=== PATIENT | male | born 1965 | race Caucasian/White ===

== ENCOUNTER 2021-01-24 08:06 | Inpatient (IN) ==
[2021-01-24] MEDS ORDERED: SODIUM CHLORIDE 0.9% 1000ML 1,000 ML IV ONE (08:39)
[2021-01-24] MEDS ORDERED: ALBUT/IPRATROP 3MG/0.5MG NEB 3 ML VIAL NEB STA (08:39)
[2021-01-24] MEDS ORDERED: ACETAMINOPHEN 500 MG TAB PO STA (08:39)
[2021-01-24] MEDS ORDERED: ONDANSETRON INJ 2 MG/ML 2 ML VIAL IV STA (08:39)
[2021-01-24] MEDS ORDERED: KETOROLAC TROMETHAMINE 15 MG/ML VIAL IV STA (08:39)
--- NOTE | 2021-01-24 09:02 | Emergency Department Note ---
Impression & Plan Hypoxia, Pneumonia, COVID-19, Elevated liver enzymes, Bilateral flank pain ED Provider Note NAME: ROLANDO PARRY AGE: 55 SEX: M : 1965 ARRIVES VIA: Walk-In INFORMANT: [Patient] ED PROVIDER(S): [Ej Fierro MD] CHIEF COMPLAINT: Illness HISTORY OF PRESENT ILLNESS: The patient is a 55-year-old male who has been ill with a cough for 5 days. He has had a fever of 102, decreased appetite and fatigue. No shortness of breath. He has a runny nose and had a mild sore throat at the start of his illness, the sore throat has resolved. He is not short of breath, no nausea or vomiting. The patient believes he may have COVID-19, he is not vaccinated. He works at [employer]. The patient states that for 2 days now, he has had moderate pain in both kidneys. He has not noticed any difficulty with urination though. The patient had an outpatient Covid test, the results are pending. He presents today because he is concerned for dehydration. REVIEW OF SYSTEMS: See HPI for pertinent positives and negatives. A total of ten systems were reviewed and were otherwise negative. PMHx/PSHx: See Below SOCIAL HISTORY: See Below. PHYSICAL EXAM: GENERAL: Patient is in no acute distress. HEENT: No acute trauma, normocephalic atraumatic, mucous membranes moist, no nasal congestion, no scleral icterus. NECK: No stridor, no adenopathy, no meningismus, trachea is midline. LUNGS: Scattered crackles at the right base, no wheezing, no respiratory distress. HEART: Without murmurs gallops or rubs, regular rate and rhythm. ABDOMEN: Soft, nontender, bowel sounds positive, no hernias, no peritonitis. EXTREMITIES: No cyanosis or edema, full range of motion of all the joints without pain or difficulty, no signs for acute trauma. NEUROLOGIC: Oriented x 3, no acute motor or sensory deficits, no focal weakness. SKIN: No rash, no jaundice, no diaphoresis. DIFFERENTIAL DIAGNOSIS: COVID-19, influenza, dehydration, electrolyte imbalance, UTI, hydronephrosis, pneumonia, among others. EMERGENCY DEPARTMENT COURSE/PROCEDURES: ECG: Indication was weakness. The ECG shows a normal sinus rhythm with a rate of 91. LVH is present. There is no ST elevation, no PVCs. The QTc is 479. Continuous Cardiac Monitoring: An order was placed for continuous cardiac sylvia toring. The monitor shows a rate of 90 with normal sinus rhythm. Critical Care Note: I have personally spent 41 minutes of critical care time in the direct management of this patient. This includes bedside care, interpretation of diagnostic studies, and testing, discussion with consultants, patient, and family members, and other required patient management activities. This 41 minutes is in excess of all separately billable procedures. MEDICAL DECISION MAKING: There is no leukocytosis. A mild anemia was noted. There is a normal platelet count. There was some renal insufficiency/dehydration with a creatinine of 1.45. Potassium was low at 2.9. Sodium was low 131. There were some elevated liver enzymes, the bilirubin however was normal. ECG shows a normal sinus rhythm, no acute ischemia. Cardiac enzyme testing x1 is not consistent with acute cardiac injury. Influenza testing was negative. Covid test is positive. Chest x-ray shows a bilateral pneumonia consistent with COVID-19. The patient received IV saline, 1 L. He was given IV potassium, IV Zofran, IV Toradol, IV Decadron and a DuoNeb. He was given oral Tylenol. The patient did drop his O2 saturation here to around 87%. He required nasal cannula supplementation. The patient is going to be hospitalized. He has COVID-19. He is hypoxic. He has some electrolyte abnormalities that require correction. The reason for the elevated LFTs is unclear. An ultrasound of his liver was performed, no mass or concerning pathology found. Renal ultrasound did not show any hydronephrosis. Urinalysis is currently pending. I suspect his flank pain is secondary to the COVID-19 rather than a renal issue. I spoke to the patient about his findings, I did consult the cyanide case hardener. The on-call hospitalist was consulted. Past Med/Surg History Medical History Hypertension Social History Smoking Status: Never smoker Feels Safe at Home: Yes Allergies Allergies Allergy/AdvReac Type Severity Reaction Status Date / Time oxycodone Allergy Severe nausea/vomi Unverified 01/05/16 11:13 ting Home Meds Home Medications Medication Instructions Recorded Confirmed amlodipine 10 mg tablet (Norvasc) 10 mg PO DAILY 01/24/21 01/24/21 atomoxetine 100 mg capsule 100 mg PO DAILY 01/24/21 01/24/21 cholecalciferol (vitamin D3) 50 50 mcg PO DAILY 01/24/21 01/24/21 mcg (2,000 unit) capsule (Vitamin D3) desvenlafaxine succinate 100 mg 100 mg PO DAILY 01/24/21 01/24/21 tablet,extended release 24 hr desvenlafaxine succinate 50 mg 50 mg PO DAILY 01/24/21 01/24/21 tablet,extended release 24 hr (Pristiq) levothyroxine 125 mcg tablet 125 mcg PO DAILY 01/24/21 01/24/21 omeprazole 40 mg capsule,delayed 40 mg PO BID 01/24/21 01/24/21 release potassium 99 mg tablet 99 mg PO DAILY 01/24/21 01/24/21 rosuvastatin 10 mg tablet 10 mg PO DAILY 01/24/21 01/24/21 tamsulosin 0.4 mg capsule 0.4 mg PO DAILY 01/24/21 01/24/21 triamterene 75 1 tab PO DAILY 01/24/21 01/24/21 mg-hydrochlorothiazide 50 mg tablet (Maxzide) Results & Data (ED) Vital Signs Vital Signs - 24 hr 01/24/21 08:16 01/24/21 08:41 01/24/21 08:42 Temperature 36.9 C Temperature Source Temporal Artery Scan Pulse Rate 103 H Pulse Rate [Apical] 90 Respiratory Rate 18 20 Respiratory Effort / Characteristics Non-Labored Blood Pressure 119/82 Blood Pressure Mean 94 Pulse Oximetry 95 87 L 90 Oxygen Delivery Method Room Air Nasal Cannula Oxygen Flow Rate 2 2 Sepsis Recent Fever Within 48 Hours No Sepsis New/Unexplained Change in Mental Status No Sepsis Action Taken by Nursing No Action Required 01/24/21 09:01 01/24/21 10:07 01/24/21 12:00 Temperature Temperature Source Pulse Rate Pulse Rate [Apical] 90 90 75 Respiratory Rate 18 20 Respiratory Effort / Characteristics Non-Labored Spontaneous Blood Pressure Blood Pressure Mean Pulse Oximetry 91 91 94 Oxygen Delivery Method Room Air Nasal Cannula Nasal Cannula Oxygen Flow Rate 2 2 Sepsis Recent Fever Within 48 Hours Sepsis New/Unexplained Change in Mental Status Sepsis Action Taken by [facility] Medications Current Medication List: was personally reviewed by me Laboratory Data Attestation: I reviewed the patient's lab results. Result diagrams: 01/24/21 Unknown 01/24/21 Unknown Lab Results 01/24/21 01/24/21 01/24/21 Range/Units Unknown Unknown Unknown WBC 6.53 (4.8-10.8) K/uL RBC 5.76 (4.7-6.1) M/uL Hgb 13.3 L (14.0-18.0) g/dL Hct 41.6 L (42-52) % MCV 72.2 L (80-100) fL MCH 23.1 L (25-34) pg MCHC 32.0 (32-36) g/dL RDW Std Deviation 45.7 (36.4-46.3) fL RDW Coeff of Minerva 17.5 H (11.5-14.5) % Plt Count 257 (130-400) K/uL MPV 10.4 (7.4-10.4) fL Immature Gran % (Auto) 0.3 % Neut % (Auto) 80.3 % Lymph % (Auto) 12.3 % [place] % (Auto) 6.9 % Eos % (Auto) 0.0 % Baso % (Auto) 0.2 % Neut # (Auto) 5.25 (1.4-6.5) K/uL Lymph # (Auto) 0.80 L (1.2-3.4) K/uL [place] # (Auto) 0.45 (0.11-0.59) K/uL Eos # (Auto) 0.00 (0-0.5) K/uL Baso # (Auto) 0.01 (0-0.2) K/uL Immature Gran # (Auto) 0.02 (0.00-0.02) K/uL Sodium 131 L (136-145) mmol/L Potassium 2.9 L (3.5-5.1) mmol/L Chloride 94 L (98-107) mmol/L Carbon Dioxide 29 (21-32) mmol/L Anion Gap 8.0 (3-11) BUN 21 H (7-18) mg/dl Creatinine 1.45 H (0.6-1.4) mg/dl Est Cr Clr Drug Dosing Not Reportable Est GFR ( Amer) 62.4 ml/min Est GFR (Non-Af Amer) 53.8 ml/min BUN/Creatinine Ratio 14.3 (10-20) Glucose 104 H (70-99) mg/dl Calcium 9.2 (8.5-10.1) mg/dl Magnesium 2.5 H (1.8-2.4) mg/dl Total Bilirubin 0.6 (0.2-1) mg/dl AST 278 H (15-37) U/L ALT 220 H (12-78) U/L Alkaline Phosphatase 132 H (45-117) U/L Troponin I < 0.015 (0-0.045) ng/ml Total Protein 8.6 H (6.4-8.2) gm/dl Albumin 3.9 (3.4-5.0) gm/dl Globulin 4.7 H (2.5-4.0) gm/dl Albumin/Globulin Ratio 0.8 L (0.9-2) Specimen Hemolysis COVID-19 Eval Order Covid19 at [facility] SARS-CoV-2 (PCR) (Negative) Influenza Type A Ag (Neg) Influenza Type B Ag (Neg) 01/24/21 01/24/21 01/24/21 Range/Units Unknown Unknown Unknown WBC (4.8-10.8) K/uL RBC (4.7-6.1) M/uL Hgb (14.0-18.0) g/dL Hct (42-52) % MCV (80-100) fL MCH (25-34) pg MCHC (32-36) g/dL RDW Std Deviation (36.4-46.3) fL RDW Coeff of Minerva (11.5-14.5) % Plt Count (130-400) K/uL MPV (7.4-10.4) fL Immature Gran % (Auto) % Neut % (Auto) % Lymph % (Auto) % [place] % (Auto) % Eos % (Auto) % Baso % (Auto) % Neut # (Auto) (1.4-6.5) K/uL Lymph # (Auto) (1.2-3.4) K/uL [place] # (Auto) (0.11-0.59) K/uL Eos # (Auto) (0-0.5) K/uL Baso # (Auto) (0-0.2) K/uL Immature Gran # (Auto) (0.00-0.02) K/uL Sodium (136-145) mmol/L Potassium (3.5-5.1) mmol/L Chloride (98-107) mmol/L Carbon Dioxide (21-32) mmol/L Anion Gap (3-11) BUN (7-18) mg/dl Creatinine (0.6-1.4) mg/dl Est Cr Clr Drug Dosing Est GFR ( Amer) ml/min Est GFR (Non-Af Amer) ml/min BUN/Creatinine Ratio (10-20) Glucose (70-99) mg/dl Calcium (8.5-10.1) mg/dl Magnesium 2.4 (1.8-2.4) mg/dl Total Bilirubin (0.2-1) mg/dl AST (15-37) U/L ALT (12-78) U/L Alkaline Phosphatase (45-117) U/L Troponin I (0-0.045) ng/ml Total Protein (6.4-8.2) gm/dl Albumin (3.4-5.0) gm/dl Globulin (2.5-4.0) gm/dl Albumin/Globulin Ratio (0.9-2) Specimen Hemolysis COVID-19 Eval Order SARS-CoV-2 (PCR) POSITIVE A* (Negative) Influenza Type A Ag Neg for Influ A (Neg) Influenza Type B Ag Neg for Influ B (Neg) Administered Medications Discontinued Medications Acetaminophen (Acetaminophen 500 Mg Tab) 1,000 mg PO NOW STA Stop: 01/24/21 08:40 Last Admin: 01/24/21 09:20 Dose: 1,000 mg Documented by: [id number] Albuterol (Albut/Ipratrop 3mg/0.5mg Neb 3 Ml Vial) 3 ml NEB NOW STA Stop: 01/24/21 08:40 Last Admin: 01/24/21 09:01 Dose: 3 ml Documented by: [id number] Dexamethasone Sodium Phosphate (DexamethasonePf 10 Mg/Ml Vial) 6 mg IV NOW ONE Stop: 01/24/21 11:18 Last Admin: 01/24/21 12:31 Dose: 6 mg Documented by: [id number] Sodium Chloride (Nss 1000ml) 1,000 mls @ 999 mls/hr IV .Q1H1M ONE Stop: 01/24/21 09:39 Last Admin: 01/24/21 09:21 Dose: 999 mls/hr Documented by: [id number] Potassium Chloride (K Seth / Wtr) 10 meq in 100 mls @ 100 mls/hr IV ONE ONE Stop: 01/24/21 11:52 Last Admin: 01/24/21 12:31 Dose: 100 mls/hr Documented by: [id number] Ketorolac Tromethamine (Ketorolac Tromethamine 15 Mg/Ml Vial) 15 mg IV NOW STA Stop: 01/24/21 08:40 Last Admin: 01/24/21 09:20 Dose: 15 mg Documented by: [id number] Ondansetron HCl (Ondansetron Inj 2 Mg/Ml 2 Ml Vial) 4 mg IV NOW STA Stop: 01/24/21 08:40 Last Admin: 01/24/21 09:20 Dose: 4 mg Documented by: [id number] Imaging Data Radiologist's Impression: Chest X-Ray 01/24/21 08:42 XR chest 1V portable CLINICAL HISTORY: SOB TECHNIQUE: Single frontal radiograph of the chest was obtained. Comparison: None available at the time of this dictation. FINDINGS: No lines and tubes are seen. The cardiomediastinal silhouette is normal. Bibasilar airspace opacities are seen. No evidence of pleural effusion or pneumothorax. IMPRESSION: Bilateral lower lung predominant airspace opacities which may represent atelectasis, pneumonia, and/or aspiration. ACT 112: Negative or not required by law. Electronically signed by: Trino Saha M.D. 01/24/2021 10:22 AM Renal Ultrasound 01/24/21 08:44 ULTRASOUND KIDNEYS AND BLADDER CLINICAL HISTORY: Flank pain. COMPARISON STUDY: No priors. TECHNIQUE: Real-time, grayscale, and color flow sonography of the kidneys and bladder is performed. Images are reviewed in the transverse and longitudinal planes. FINDINGS: Kidneys: The kidneys are normal in size and echotexture. The right kidney measures 13.8 cm in length and the left kidney measures 13.5 cm in length. There is no hydronephrosis. No shadowing renal calculi are identified. A 3.0 cm simple cyst is noted in the right upper pole. There is no sonographic evidence of contour deforming renal mass lesion. No perinephric fluid is identified. Bladder: The bladder is partially distended and the wall appears mildly thicke jill and trabeculated. Ureteral jets were not seen. Upper abdomen: Survey images of the liver show evidence of hepatic steatosis. IMPRESSION: 1. Unremarkable sonographic appearance of the kidneys. 2. The bladder is partially distended, and the wall appears mildly thickened/trabeculated. Correlate with clinical findings and urinalysis. 3. Hepatic steatosis. ACT 112: Negative or not required by law. Electronically signed by: Ej Irby M.D. 01/24/2021 12:10 PM Liver Ultrasound 01/24/21 10:54 ULTRASOUND RIGHT UPPER QUADRANT ABDOMEN CLINICAL HISTORY: Elevated hepatic transaminases. COMPARISON STUDY: Abdominal ultrasound dated 05/21/2018. TECHNIQUE: Real-time, grayscale, and color flow sonography of the right upper quadrant of the abdomen was performed. Images are reviewed in the transverse and longitudinal planes. FINDINGS: Liver: The liver is enlarged and demonstrates heterogeneously increased echotexture consistent with hepatic steatosis. There is no intrahepatic biliary ductal dilatation. The main portal vein is patent. Gallbladder: The gallbladder is normal in appearance. No gallstones are identified. There is no gallbladder wall thickening or pericholecystic fluid. A sonographic Woods's sign is reportedly absent. The common bile duct measures up to 0.5 cm in diameter. Pancreas: Visualized portions of the pancreatic head and body are normal in appearance. Right kidney: Survey images of the right kidney demonstrate normal size and echotexture. There is no hydronephrosis. A 3.2 cm cyst is incidentally noted. Ascites: None. IMPRESSION: 1. Hepatomegaly and hepatic steatosis. 2. No gallstones are identified. ACT 112: Negative or not required by law. Electronically signed by: Ej Irby M.D. 01/24/2021 12:08 PM Discharge Plan Visit Data Chief Complaint: Abdominal Pain Stated Complaint: COUGH,FEVER FOR A FEW DAYS,KIDNEY AND STOMACH PAIN ED Provider: Ej Fierro Discharge Problem: Hypoxia, Pneumonia, COVID-19, Elevated liver enzymes, Bilateral flank pain Patient Disposition: Admitted As Inpatient Condition: Fair Forms Stand Alone Forms: [facility] [place] [facility] Prescriptions Prescriptions: No Action omeprazole 40 mg capsule,delayed release(DR/EC) 40 mg PO BID RF: 0 tamsulosin 0.4 mg capsule 0.4 mg PO DAILY RF: 0 amlodipine [Norvasc] 10 mg tablet 10 mg PO DAILY RF: 0 levothyroxine 125 mcg tablet 125 mcg PO DAILY RF: 0 triamterene-hydrochlorothiazid [Maxzide] 75-50 mg tablet 1 tab PO DAILY RF: 0 rosuvastatin 10 mg tablet 10 mg PO DAILY RF: 0 atomoxetine 100 mg capsule 100 mg PO DAILY RF: 0 desvenlafaxine succinate [Pristiq] 50 mg tablet extended release 24 hr 50 mg PO DAILY RF: 0 cholecalciferol (vitamin D3) [Vitamin D3] 50 mcg (2,000 unit) capsule 50 mcg PO DAILY RF: 0 potassium [Potassium-99] 99 mg Tablet 99 mg PO DAILY RF: 0 desvenlafaxine succinate 100 mg tablet extended release 24 hr 100 mg PO DAILY RF: 0 Referrals Referrals: Khoi Saldivar DO [Primary Care Provider] -
[2021-01-24 09:39] LABS: Basophils # (auto) 0.01 K/uL (0-0.2); Basophils % (auto) 0.2 %; Hematocrit (blood only) 41.6 % (42-52); Hemoglobin 13.3 g/dL (14.0-18.0); Immature Granulocytes # (auto) 0.02 K/uL (0.00-0.02); Immature Granulocytes % (auto) 0.3 %; Lymphocytes % (auto) 12.3 %; Mean Corpuscular Hemoglobin 23.1 pg (25-34); Mean Corpuscular Volume 72.2 fL (80-100); Mean Platelet Volume 10.4 fL (7.4-10.4); Monocytes # (auto) 0.45 K/uL (0.11-0.59); Monocytes % (auto) 6.9 %; Neutrophils # (auto) 5.25 K/uL (1.4-6.5); Neutrophils % (auto) 80.3 %; Platelet Count 257 K/uL (130-400); RDW Coefficient of Variation 17.5 % (11.5-14.5); RDW Standard Deviation 45.7 fL (36.4-46.3); Red Blood Count 5.76 M/uL (4.7-6.1); White Blood Count 6.53 K/uL (4.8-10.8)
--- NOTE | 2021-01-24 10:23 | XRay Report ---
XR chest 1V portable CLINICAL HISTORY: SOB TECHNIQUE: Single frontal radiograph of the chest was obtained. Comparison: None available at the time of this dictation. FINDINGS: No lines and tubes are seen. The cardiomediastinal silhouette is normal. Bibasilar airspace opacities are seen. No evidence of pleural effusion or pneumothorax. IMPRESSION: Bilateral lower lung predominant airspace opacities which may represent atelectasis, pneumonia, and/o r aspiration. ACT 112: Negative or not required by law. Electronically signed by: Trino Saha M.D. 01/24/2021 10:22 AM
[2021-01-24 10:41] LABS: Alanine Aminotransferase 220 U/L (12-78); Albumin Globulin Ratio 0.8 (0.9-2); Albumin Level 3.9 gm/dl (3.4-5.0); Alkaline Phosphatase 132 U/L (45-117); Aspartate Aminotransferase 278 U/L (15-37); BUN Creatinine Ratio 14.3 (10-20); Bilirubin,Total 0.6 mg/dl (0.2-1); Blood Urea Nitrogen 21 mg/dl (7-18); Calcium 9.2 mg/dl (8.5-10.1); Carbon Dioxide 29 mmol/L (21-32); Chloride 94 mmol/L (98-107); Est GFR (African American) 62.4 ml/min; Est GFR (Non-African American) 53.8 ml/min; Globulin 4.7 gm/dl (2.5-4.0); Glucose 104 mg/dl (70-99); Magnesium 2.5 mg/dl (1.8-2.4); Potassium 2.9 mmol/L (3.5-5.1); Sodium 131 mmol/L (136-145); Total Protein 8.6 gm/dl (6.4-8.2); Troponin I < 0.015 ng/ml (0-0.045)
[2021-01-24] MEDS ORDERED: POTASSIUM CHLORIDE / WTR 10 MEQ/100 ML PLCT IV ONE (10:53)
[2021-01-24] MEDS ORDERED: dexAMETHasone**PF** 10 MG/ML VIAL IV ONE (11:17)
[2021-01-24 11:32] LABS: Magnesium 2.4 mg/dl (1.8-2.4)
--- NOTE | 2021-01-24 12:10 | Ultrasound Report ---
ULTRASOUND RIGHT UPPER QUADRANT ABDOMEN CLINICAL HISTORY: Elevated hepatic transaminases. COMPARISON STUDY: Abdominal ultrasound dated 05/21/2018. TECHNIQUE: Real-time, grayscale, and color flow sonography of the right upper quadrant of the abdomen was performed. Images are reviewed in the transverse and longitudinal planes. FINDINGS: Liver: The liver is enlarged and demonstrates heterogeneously increased echotexture consistent with h epatic steatosis. There is no intrahepatic biliary ductal dilatation. The main portal vein is patent. Gallbladder: The gallbladder is normal in appearance. No gallstones are identified. There is no gallb ladder wall thickening or pericholecystic fluid. A sonographic Woods's sign is reportedly absent. Th e common bile duct measures up to 0.5 cm in diameter. Pancreas: Visualized portions of the pancreatic head and body are normal in appearance. Right kidney: Survey images of the right kidney demonstrate normal size and echotexture. There is no hydronephrosis. A 3.2 cm cyst is incidentally noted. Ascites: None. IMPRESSION: 1. Hepatomegaly and hepatic steatosis. 2. No gallstones are identified. ACT 112: Negative or not required by law. Electronically signed by: Ej Irby M.D. 01/24/2021 12:08 PM
--- NOTE | 2021-01-24 12:11 | Ultrasound Report ---
ULTRASOUND KIDNEYS AND BLADDER CLINICAL HISTORY: Flank pain. COMPARISON STUDY: No priors. TECHNIQUE: Real-time, grayscale, and color flow sonography of the kidneys and bladder is performed. I mages are reviewed in the transverse and longitudinal planes. FINDINGS: Kidneys: The kidneys are normal in size and echotexture. The right kidney measures 13.8 cm in length and the left kidney measures 13.5 cm in length. There is no hydronephrosis. No shadowing renal calcul i are identified. A 3.0 cm simple cyst is noted in the right upper pole. There is no sonographic evid ence of contour deforming renal mass lesion. No perinephric fluid is identified. Bladder: The bladder is partially distended and the wall appears mildly thickened and trabeculated. U reteral jets were not seen. Upper abdomen: Survey images of the liver show evidence of hepatic steatosis. IMPRESSION: 1. Unremarkable sonographic appearance of the kidneys. 2. The bladder is partially distended, and the wall appears mildly thickened/trabeculated. Correlate with clinical findings and urinalysis. 3. Hepatic steatosis. ACT 112: Negative or not required by law. Electronically signed by: Ej Irby M.D. 01/24/2021 12:10 PM
--- NOTE | 2021-01-24 12:24 | Electrocardiogram Report ---
Test Reason : Blood Pressure : / mmHG Vent. Rate : 091 BPM Atrial Rate : 091 BPM P-R Int : 168 ms QRS Dur : 102 ms QT Int : 390 ms P-R-T Axes : 012 -39 009 degrees QTc Int : 479 ms Normal sinus rhythm Left atrial enlargement Left axis deviation Incomplete right bundle branch block Poor R wave progression, consider anterior NH vs. lead placement vs. LVH Abnormal ECG No previous ECGs available Confirmed by Elder Kelly [id number]) on 01/24/2021 12:24:01 PM Referred By: REFERRED SELF Confirmed By:Elder Kelly
[2021-01-24] MEDS ORDERED: ALBUT/IPRATROP 3MG/0.5MG NEB 3 ML VIAL NEB SCH (15:15)
[2021-01-24] MEDS: dexAMETHasone 6 MG in SYRINGE 0 ML IV SCH (16:46)
[2021-01-24] MEDS: ENOXAPARIN INJ 40 MG/0.4 ML SYR SQ SCH (16:46)
[2021-01-24] MEDS: POTASSIUM CHLORIDE CRTAB 20 MEQ TABCR PO SCH ×2 (16:46→17:29)
[2021-01-24] MEDS: ALBUT/IPRATROP 3MG/0.5MG NEB 3 ML VIAL NEB PRN (16:56)
[2021-01-24 17:13] LABS: Appearance Urine Clear (Clear); Bacteria Urine Automated Negative (Negative); Bilirubin Urine Negative (Negative); Blood Urine Negative (Negative); Color Urine Dark Yellow; Glucose Urine UA Negative (Negative); Ketones Urine Negative (Negative); Leukocyte Esterase Urine Negative (Negative); Nitrite Urine Negative (Negative); Protein Urine Trace (Negative); RBC Urine Automated 0-4 /hpf (0-4); Specific Gravity Urine 1.023 (1.000-1.030); Urobilinogen Urine Negative (Negative); pH Urine 6.5 (4.5-7.5)
--- NOTE | 2021-01-24 17:24 | History & Physical Report ---
Date of Service January 24, 2021 Assessment & Plan (1) Acute respiratory failure with hypoxia: (2) Pneumonia due to COVID-19 virus: Plan: -Admit to [facility] -Patient presenting from home with reports of generalized weakness, fatigue, poor appetite, fever. -In the ED, patient tested positive for COVID-19. Was hypoxic on room air at 87%, currently requiring 2 L of oxygen via nasal cannula -CXR shows bibasilar opacities -S/p IV dexamethasone in the ED, continue with IV dexamethasone 6 mg daily -Remdesivir contraindicated in the setting of elevated LFTs -Continue supportive care with nebs, incentive spirometer, flutter valve, encourage self proning (3) Elevated liver enzymes: Plan: -Normal T bili 0.6, AST 278, ALT 220, alk phos 132 -Liver US shows Hepatomegaly and hepatic steatosis -No prior liver diagnoses, nondrinker -Likely due to COVID-19 -Trend LFTs (4) Hypokalemia: Plan: -K+ 2.9 -Likely due to poor p.o. intake in combination with triamterene/HCTZ use -Replace K+, hold HCTZ for now (5) Hypertension: Plan: -BP controlled, continue amlodipine -Hold triamterene/HCTZ due to dehydration from acute illness/hypokalemia (6) Hypothyroidism: Plan: -Continue levothyroxine (7) ADHD: (8) Anxiety: Plan: -Continue home meds (9) CATHY on CPAP: Plan: -At bedtime CPAP (10) DVT prophylaxis: Plan: -SQ Lovenox Admission and Anticipated Discharge Date Admission Date: January 24, 2021 History of Present Illness Chief Complaint: Generalized weakness Primary Care Provider: Khoi Saldivar DO 55-year-old male with PMH hypothyroidism, HTN, ADHD, anxiety, and other problems to below who presents the ED for evaluation of generalized weakness, fatigue, fever, cough. Patient reports he has been sick for the past 5 days. Patient is not vaccinated against COVID-19. 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. Reports that he has been stationed in the [facility] with Covid positive inmates. Over the past 5 days, patient has had worsening generalized weakness, poor appetite, fatigue. Reports having fevers of as high as 104. Has been taking Tylenol 650 mg every 8 hours. Cough has been productive for clear/white sputum. Denies shortness of breath. No abdominal pain, nausea, vomiting, diarrhea. Denies lightheadedness, dizziness, diaphoresis, syncopal events. Denies urinary symptoms. In the ED, patient tested positive for COVID- 19. He was hypoxic on room air at 87%, currently requiring 2 L of oxygen via nasal cannula. Labs show K+ 2.9, transaminitis with normal T bili. CXR shows bibasilar airspace opacities. Patient was given Tylenol, nebulizer, IV dexamethasone 6 mg, IV ketorolac, IV Zofran, potassium replacement, IVF. Allergies Allergy/AdvReac Type Severity Reaction Status Date / Time oxycodone Allergy Severe nausea/vomi Unverified 01/05/16 11:13 ting Home Medications Medication Instructions Recorded Confirmed Type amlodipine 10 mg tablet (Norvasc) 10 mg PO DAILY 01/24/21 01/24/21 History atomoxetine 100 mg capsule 100 mg PO DAILY 01/24/21 01/24/21 History cholecalciferol (vitamin D3) 50 50 mcg PO DAILY 01/24/21 01/24/21 History mcg (2,000 unit) capsule (Vitamin D3) desvenlafaxine succinate 100 mg 100 mg PO DAILY 01/24/21 01/24/21 History tablet,extended release 24 hr desvenlafaxine succinate 50 mg 50 mg PO DAILY 01/24/21 01/24/21 History tablet,extended release 24 hr (Pristiq) levothyroxine 125 mcg tablet 125 mcg PO DAILY 01/24/21 01/24/21 History omeprazole 40 mg capsule,delayed 40 mg PO BID 01/24/21 01/24/21 History release potassium 99 mg tablet 99 mg PO DAILY 01/24/21 01/24/21 History rosuvastatin 10 mg tablet 10 mg PO DAILY 01/24/21 01/24/21 History tamsulosin 0.4 mg capsule 0.4 mg PO DAILY 01/24/21 01/24/21 History triamterene 75 1 tab PO DAILY 01/24/21 01/24/21 History mg-hydrochlorothiazide 50 mg tablet (Maxzide) Past Med/Surg History Medical History (Updated 01/24/21 @ 17:41 by RODERICK Cade) ADHD Anxiety GERD (gastroesophageal reflux disease) Hypertension Hypogonadism Hypothyroidism CATHY on CPAP Surgical History (Updated 01/24/21 @ 17:19 by RODERICK Cade) No pertinent past surgical history Family History Father Hypertension Suicide Mother Hypertension Stroke Social History Smoking Status: Never smoker Hx Alcohol Use: No Hx Substance Use: No Preferred Language: Czech Communication Ability: Effective Stack Attendant Required: No Beliefs That Will Affect Care: None marital status: Current Living Situation: Spouse Other Information That Helps Us Care for You: Yes (cpap) Feels Safe at Home: Yes Safety Concerns: Feels Safe At This Time Assistive Devices: None Review of Systems Review of Systems: ROS per HPI, all other systems reviewed and negative Physical Exam Constitutional: WD/WN, vitals as above + obese Eyes: PERRL, conjunctivae normal, anicteric sclerae ENMT: external ear and nose normal, oropharynx normal Respiratory: normal respiratory effort; no respiratory distress Auscu ltation: + diminished lung sounds Cardiovascular: Rate/Rhythm: regular rate and regular rhythm Vessels: nor mal peripheral pulses Extremities: no edema Gastrointestinal (Abdomen): normal bowel sounds, soft, nontender, no hepatosplenomegaly Musculoskeletal: no cyanosis or clubbing, extremities motor strength 5/5 Skin: no rashes, warm and dry Neurologic: PERRL, EOMI, accommodation nl, no face palsy, no dysarthria Psychiatric: A+Ox3, euthymic affect Genitourinary: no CVA tenderness Results & Data Results & Data ([facility]) Vital Signs (Past 12 Hours) Vital Signs Temp Pulse Pulse Pulse Resp BP BP 01/24/21 16:30 78 16 01/24/21 15:01 37.3 C 76 20 137/88 01/24/21 14:59 37.3 C 76 20 137/88 01/24/21 12:00 75 20 01/24/21 10:07 90 01/24/21 09:01 90 18 01/24/21 08:42 01/24/21 08:41 90 20 01/24/21 08:16 36.9 C 103 H 18 119/82 Pulse Ox 01/24/21 16:30 94 01/24/21 15:01 98 01/24/21 14:59 95 01/24/21 12:00 94 01/24/21 10:07 91 01/24/21 09:01 91 01/24/21 08:42 90 01/24/21 08:41 87 L 01/24/21 08:16 95 Laboratory Results Short CBC 01/24/21 Range/Units Unknown WBC 6.53 (4.8-10.8) K/uL Hgb 13.3 L (14.0-18.0) g/dL Hct 41.6 L (42-52) % Plt Count 257 (130-400) K/uL BMP 01/24/21 Unknown Sodium 131 L Potassium 2.9 L Chloride 94 L Carbon Dioxide 29 BUN 21 H Creatinine 1.45 H Glucose 104 H Calcium 9.2 Cardiac Enzymes 01/24/21 Range/Units Unknown Troponin I < 0.015 (0-0.045) ng/ml Liver Function 01/24/21 Range/Units Unknown Total Bilirubin 0.6 (0.2-1) mg/dl AST 278 H (15-37) U/L ALT 220 H (12-78) U/L Alkaline Phosphatase 132 H (45-117) U/L Albumin 3.9 (3.4-5.0) gm/dl Urine 01/24/21 Range/Units Unknown Urine Color Dark Yellow Urine Appearance Clear (Clear) Urine pH 6.5 (4.5-7.5) Ur Specific [place] 1.023 (1.000-1.030) Urine Protein Trace H (Negative) Urine Glucose (UA) Negative (Negative) Diagnostic Findings Chest X-Ray 01/24/21 08:42 XR chest 1V portable CLINICAL HISTORY: SOB TECHNIQUE: Single frontal radiograph of the chest was obtained. Comparison: None available at the time of this dictation. FINDINGS: No lines and tubes are seen. The cardiomediastinal silhouette is normal. Bibasilar airspace opacities are seen. No evidence of pleural effusion or pneumothorax. IMPRESSION: Bilateral lower lung predominant airspace opacities which may represent atelectasis, pneumonia, and/or aspiration. ACT 112: Negative or not required by law. Electronically signed by: Trino Saha M.D. 01/24/2021 10:22 AM Renal Ultrasound 01/24/21 08:44 ULTRASOUND KIDNEYS AND BLADDER CLINICAL HISTORY: Flank pain. COMPARISON STUDY: No priors. TECHNIQUE: Real-time, grayscale, and color flow sonography of the kidneys and bladder is performed. Images are reviewed in the transverse and longitudinal planes. FINDINGS: Kidneys: The kidneys are normal in size and echotexture. The right kidney measures 13.8 cm in length and the left kidney measures 13.5 cm in length. There is no hydronephrosis. No shadowing renal calculi are identified. A 3.0 cm simple cyst is noted in the right upper pole. There is no sonographic evidence of contour deforming renal mass lesion. No perinephric fluid is identified. Bladder: The bladder is partially distended and the wall appears mildly t hickened and trabeculated. Ureteral jets were not seen. Upper abdomen: Survey images of the liver show evidence of hepatic steatosis. IMPRESSION: 1. Unremarkable sonographic appearance of the kidneys. 2. The bladder is partially distended, and the wall appears mildly thickened/trabeculated. Correlate with clinical findings and urinalysis. 3. Hepatic steatosis. ACT 112: Negative or not required by law. Electronically signed by: Ej Irby M.D. 01/24/2021 12:10 PM Liver Ultrasound 01/24/21 10:54 ULTRASOUND RIGHT UPPER QUADRANT ABDOMEN CLINICAL HISTORY: Elevated hepatic transaminases. COMPARISON STUDY: Abdominal ultrasound dated 05/21/2018. TECHNIQUE: Real-time, grayscale, and color flow sonography of the right upper quadrant of the abdomen was performed. Images are reviewed in the transverse and longitudinal planes. FINDINGS: Liver: The liver is enlarged and demonstrates heterogeneously increased echotexture consistent with hepatic steatosis. There is no intrahepatic biliary ductal dilatation. The main portal vein is patent. Gallbladder: The gallbladder is normal in appearance. No gallstones are identified. There is no gallbladder wall thickening or pericholecystic fluid. A sonographic Woods's sign is reportedly absent. The common bile duct measures up to 0.5 cm in diameter. Pancreas: Visualized portions of the pancreatic head and body are normal in appearance. Right kidney: Survey images of the right kidney demonstrate normal size and echotexture. There is no hydronephrosis. A 3.2 cm cyst is incidentally noted. Ascites: None. IMPRESSION: 1. Hepatomegaly and hepatic steatosis. 2. No gallstones are identified. ACT 112: Negative or not required by law. Electronically signed by: Ej Irby M.D. 01/24/2021 12:08 PM Code Status & VTE Plan VTE Prophylaxis Plan VTE Prophylaxis will be ordered: Yes Supervising Physician Co-Signing Physician Notes I have seen and examined the patient and have discussed the case with the provider above. I agree with the assessment and plan as stated. 55 o M with covid pneumonia. He feels poorly and has junky cough. No fevers, chills. Physical exam as above and lungs CTAB. No wheezing or rales. Cont with decadron. Danny, DO
[2021-01-24] MEDS: PANTOprazole 40 MG TAB PO SCH (20:17)
[2021-01-24] MEDS: MELATONIN 3 MG TAB PO PRN (21:04)
[2021-01-24] MEDS: BENZONATATE 100 MG CAPSULE PO PRN (21:24)
[2021-01-24] MEDS ORDERED: POTASSIUM CHLORIDE CRTAB 20 MEQ TABCR PO SCH (21:30)
[2021-01-25] MEDS: guaiFENesin SUGAR FREE 200 MG/10 ML UDC PO PRN ×2 (01:46→16:40)
[2021-01-25] MEDS: ACETAMINOPHEN 325 MG TAB PO PRN (01:46)
[2021-01-25] MEDS: ALBUT/IPRATROP 3MG/0.5MG NEB 3 ML VIAL NEB PRN (02:04)
[2021-01-25 06:07] LABS: Hematocrit (blood only) 37.2 % (42-52); Hemoglobin 11.7 g/dL (14.0-18.0); Mean Corpuscular Hemoglobin 22.8 pg (25-34); Mean Corpuscular Hgb Conc 31.5 g/dL (32-36); Mean Corpuscular Volume 72.4 fL (80-100); Mean Platelet Volume 10.4 fL (7.4-10.4); Platelet Count 255 K/uL (130-400); RDW Coefficient of Variation 17.5 % (11.5-14.5); RDW Standard Deviation 46.3 fL (36.4-46.3); Red Blood Count 5.14 M/uL (4.7-6.1); White Blood Count 5.48 K/uL (4.8-10.8)
[2021-01-25] MEDS: BENZONATATE 100 MG CAPSULE PO PRN ×2 (06:38→20:09)
[2021-01-25 06:40] LABS: Albumin Level 3.3 gm/dl (3.4-5.0); BUN Creatinine Ratio 14.9 (10-20); Calcium 8.5 mg/dl (8.5-10.1); Creatinine Clr Calc Pharmacy 86.9 ml/min; Est GFR (African American) 71.2 ml/min; Est GFR (Non-African American) 61.4 ml/min; Potassium 2.9 mmol/L (3.5-5.1)
[2021-01-25 06:42] LABS: Albumin Globulin Ratio 0.8 (0.9-2); Bilirubin,Total 0.6 mg/dl (0.2-1); Globulin 4.2 gm/dl (2.5-4.0); Total Protein 7.5 gm/dl (6.4-8.2)
[2021-01-25] MEDS: ATOMOXETINE HCL 25 MG CAPSULE PO SCH (08:30)
[2021-01-25] MEDS: amLODIPine BESYLATE 5 MG TAB PO SCH (08:30)
[2021-01-25] MEDS: PANTOprazole 40 MG TAB PO SCH ×2 (08:31→20:09)
[2021-01-25] MEDS: LEVOTHYROXINE SODIUM 125 MCG TABLET PO SCH (08:31)
[2021-01-25] MEDS: TAMSULOSIN HCL 0.4 MG CAP PO SCH (08:31)
[2021-01-25] MEDS: POTASSIUM CHLORIDE CRTAB 20 MEQ TABCR PO SCH ×2 (11:21→18:30)
[2021-01-25] MEDS: POTASSIUM ACETATE/NSS 10 MEQ/105 ML BAG IV SCH ×2 (11:21→12:38)
[2021-01-25] MEDS: dexAMETHasone 6 MG in SYRINGE 0 ML IV SCH (14:11)
[2021-01-25] MEDS: ENOXAPARIN INJ 40 MG/0.4 ML SYR SQ SCH (15:36)
[2021-01-25] MEDS ORDERED: DESVENLAFAXINE SUCCINATE 50MG PO SCH (19:30)
[2021-01-25] MEDS: MELATONIN 3 MG TAB PO PRN (20:09)
--- NOTE | 2021-01-25 20:44 | Hospitalist Progress Note ---
Date of Service January 25, 2021 Assessment & Plan (1) Acute respiratory failure with hypoxia: Plan: Continue supportive care, this is secondary to COVID-19 pneumonia (2) Pneumonia due to COVID-19 virus: Plan: Continue Decadron and supportive therapies as needed. DuoNebs as needed. Guaifenesin as needed. Tessalon Perles as needed. (3) Elevated liver enzymes: Plan: Likely related to Covid 19 infection, trending down. (4) Hypokalemia: Plan: -Likely due to poor p.o. intake in combination with triamterene/HCTZ use -Replace K+, hold HCTZ for now (5) Hypertension: Plan: -BP controlled, continue amlodipine -Hold triamterene/HCTZ due to dehydration from acute illness/hypokalemia (6) Hypothyroidism: Plan: -Continue levothyroxine per home regimen. (7) ADHD: (8) Anxiety: Plan: -Continue home meds (9) CATHY on CPAP: Plan: Continues nightly CPAP. (10) DVT prophylaxis: Plan: -SQ Lovenox Full code Dispo-to home when medically stable. Janice Deglado DO [facility] Hospitalist Admission and Anticipated Discharge Date Admission Date: January 24, 2021 Subjective 55-year-old man with Covid pneumonia Denies any GI symptoms Continues to have cough Continues to remain hypoxic Feels poorly overall, tolerating p.o., reports not getting enough sleep Review of Systems Review of Systems: All symptoms were reviewed and negative except as indicated above. Physical Exam Physical Exam: CONSTITUTIONAL: WNWD, vitals as above, NAD EYES: normal conjunctivae, no scleral icterus ENT: external ear and nose normal, MMM RESPIRATORY: coarse crackles at bases, normal respiratory effort CARDIOVASCULAR: regular rate and rhythm, S1 and 2 heard without murmurs, gallops or rubs, no JVD, no peripheral edema GASTROINTESTINAL: normal bowel sounds, soft, nontender, ND, no guarding MUSCULOSKELETAL: strength 5/5 throughout, head is normocephalic and atraumatic SKIN: warm and dry NEUROLOGIC: CN 2-12 grossly intact, normal cognition, normal speech, no tremor PSYCHIATRIC: alert cooperative and oriented to person, place and time. Results & Data Results & Data ([facility]) Vital Signs (Past 12 Hours) Vital Signs Temp Pulse Resp BP Pulse Ox 01/25/21 16:01 36.7 C 87 18 121/75 92 Laboratory Results Short CBC 01/25/21 Range/Units 05:39 WBC 5.48 (4.8-10.8) K/uL Hgb 11.7 L (14.0-18.0) g/dL Hct 37.2 L (42-52) % Plt Count 255 (130-400) K/uL BMP 01/25/21 05:39 Sodium 133 L Potassium 2.9 L Chloride 98 Carbon Dioxide 27 BUN 19 H Creatinine 1.30 Glucose 138 H Calcium 8.5 Liver Function 01/25/21 Range/Units 05:39 Total Bilirubin 0.6 (0.2-1) mg/dl AST 222 H (15-37) U/L ALT 184 H (12-78) U/L Alkaline Phosphatase 106 (45-117) U/L Albumin 3.3 L (3.4-5.0) gm/dl Medications Administered Current Inpatient Medications Acetaminophen (Acetaminophen 325 Mg Tab) 650 mg PO Q4H PRN PRN Reason: pain/fever Stop: 02/23/21 18:33 Last Admin: 01/25/21 01:46 Dose: 650 mg Documented by: Albuterol (Albut/Ipratrop 3mg/0.5mg Neb 3 Ml Vial) 3 ml NEB Q4R PRN PRN Reason: sob/wheezing Stop: 02/23/21 15:14 Last Admin: 01/25/21 02:04 Dose: 3 ml Documented by: Amlodipine Besylate (Amlodipine Besylate 5 Mg Tab) 10 mg PO DAILY TONY Stop: 02/24/21 08:59 Last Admin: 01/25/21 08:30 Dose: 10 mg Documented by: Atomoxetine HCl (Atomoxetine Hcl 25 Mg Capsule) 100 mg PO DAILY TONY Stop: 02/24/21 08:59 Last Admin: 01/25/21 08:30 Dose: 100 mg Documented by: Benzonatate (Benzonatate 100 Mg Capsule) 100 mg PO TID PRN PRN Reason: Cough Stop: 02/23/21 21:03 Last Admin: 01/25/21 20:09 Dose: 100 mg Documented by: Desvenlafaxine Succinate (Desvenlafaxine Succinate 50mg) 3 ea PO DAILY TONY Stop: 02/25/21 08:59 Enoxaparin Sodium (Enoxaparin Inj 40 Mg/0.4 Ml Syr) 40 mg SQ Q24H TONY Stop: 02/23/21 15:14 Last Admin: 01/25/21 15:36 Dose: 40 mg Documented by: Guaifenesin (Guaifenesin Sugar Free 200 Mg/10 Ml Udc) 200 mg PO Q6H PRN PRN Reason: Cough Stop: 02/23/21 21:03 Last Admin: 01/25/21 16:40 Dose: 200 mg Documented by: Dexamethasone 6 mg/ Syringe 1.5 mls @ 1 mls/min IV Q24H TONY Stop: 02/23/21 15:14 Last Admin: 01/25/21 14:11 Dose: 1 mls/min Documented by: Levothyroxine Sodium (Levothyroxine Sodium 125 Mcg Tablet) 125 mcg PO DAILY TONY Stop: 02/24/21 08:59 Last Admin: 01/25/21 08:31 Dose: 125 mcg Documented by: Melatonin (Melatonin 3 Mg Tab) 9 mg PO HS PRN PRN Reason: Sleep Stop: 02/23/21 20:25 Last Admin: 01/25/21 20:09 Dose: 9 mg Documented by: Miscellaneous (Order Awaiting Action-Desvenlafaxine 100mg) 1 ea N/A QS TONY Stop: 02/23/21 15:59 Last Admin: 01/25/21 20:12 Dose: Not Given Documented by: Ondansetron HCl (Ondansetron Inj 2 Mg/Ml 2 Ml Vial) 4 mg IV Q6H PRN PRN Reason: Nausea Stop: 02/23/21 14:56 Pantoprazole Sodium (Pantoprazole 40 Mg Tab) 40 mg PO BID TONY Stop: 02/23/21 20:59 Last Admin: 01/25/21 20:09 Dose: 40 mg Documented by: Tamsulosin HCl (Tamsulosin Hcl 0.4 Mg Cap) 0.4 mg PO DAILY TONY Stop: 02/24/21 08:59 Last Admin: 01/25/21 08:31 Dose: 0.4 mg Documented by:
[2021-01-26] MEDS: guaiFENesin SUGAR FREE 200 MG/10 ML UDC PO PRN ×2 (04:10→15:49)
[2021-01-26 06:37] LABS: BUN Creatinine Ratio 16.1 (10-20); C Reactive Protein 3.07 mg/dl (0-0.29); Calcium 8.3 mg/dl (8.5-10.1); Creatinine Clr Calc Pharmacy 103.6 ml/min; Est GFR (African American) 88.1 ml/min; Potassium 3.7 mmol/L (3.5-5.1)
[2021-01-26 06:45] LABS: Albumin Globulin Ratio 0.8 (0.9-2); Bilirubin,Total 0.5 mg/dl (0.2-1); Globulin 3.9 gm/dl (2.5-4.0); Total Protein 6.9 gm/dl (6.4-8.2)
[2021-01-26] MEDS: ACETAMINOPHEN 325 MG TAB PO PRN ×2 (08:08→23:45)
[2021-01-26] MEDS: BENZONATATE 100 MG CAPSULE PO PRN ×2 (08:08→15:50)
[2021-01-26] MEDS: LEVOTHYROXINE SODIUM 125 MCG TABLET PO SCH (08:12)
[2021-01-26] MEDS: TAMSULOSIN HCL 0.4 MG CAP PO SCH (08:12)
[2021-01-26] MEDS: PANTOprazole 40 MG TAB PO SCH ×2 (08:12→20:50)
[2021-01-26] MEDS: ATOMOXETINE HCL 25 MG CAPSULE PO SCH (08:13)
[2021-01-26] MEDS: amLODIPine BESYLATE 5 MG TAB PO SCH (08:14)
[2021-01-26] MEDS: ONDANSETRON INJ 2 MG/ML 2 ML VIAL IV PRN ×2 (08:41→16:00)
[2021-01-26] MEDS ORDERED: Nursing to Pharmacy Communication SCH (08:45)
[2021-01-26] MEDS ORDERED: DESVENLAFAXINE SUCCINATE 50MG PO SCH (09:00)
[2021-01-26] MEDS ORDERED: FUROSEMIDE INJ 20 MG/2 ML VIAL IV ONE (12:06)
[2021-01-26] MEDS ORDERED: POTASSIUM CHLORIDE CRTAB 20 MEQ TABCR PO STA (12:06)
--- NOTE | 2021-01-26 14:24 | XRay Report ---
XR chest 1V portable CLINICAL HISTORY: worsening hypoxia, covid pneumonia TECHNIQUE: Single frontal radiograph of the chest was obtained. Comparison: Comparison is made to chest one view 01/24/2021 FINDINGS: No lines and tubes are seen. Cardiomegaly is noted. Multifocal airspace opacities are seen. No eviden ce of pleural effusion or pneumothorax. IMPRESSION: Multifocal airspace opacities compatible with history of viral pneumonia. ACT 112: Negative or not required by law. Electronically signed by: Trino Saha M.D. 01/26/2021 2:23 PM
[2021-01-26] MEDS: DESVENLAFAXINE SUCCINATE 50MG PO SCH ×2 (15:51→20:50)
[2021-01-26] MEDS: ENOXAPARIN INJ 40 MG/0.4 ML SYR SQ SCH (15:52)
[2021-01-26] MEDS: dexAMETHasone 6 MG in SYRINGE 0 ML IV SCH (15:53)
[2021-01-26] MEDS: ALBUT/IPRATROP 3MG/0.5MG NEB 3 ML VIAL NEB PRN (16:17)
--- NOTE | 2021-01-26 20:12 | Hospitalist Progress Note ---
Date of Service January 26, 2021 Assessment & Plan (1) Acute respiratory failure with hypoxia: Plan: Continue supportive care, this is secondary to COVID-19 pneumonia. Worsening hypoxia overnight, now requiring high flow nasal cannula. Lasix dose given today (2) Pneumonia due to COVID-19 virus: Plan: Continue Decadron and supportive therapies as needed. DuoNebs as needed. Guaifenesin as needed. Tessalon Perles as needed. (3) Elevated liver enzymes: Plan: Likely related to Covid 19 infection, trending down. (4) Hypokalemia: Plan: -Likely due to poor p.o. intake in combination with triamterene/HCTZ use Resolved to normal, continue to hold HCTZ. (5) Hypertension: Plan: -BP controlled, continue amlodipine -Hold triamterene/HCTZ due to dehydration from acute illness/hypokalemia (6) Hypothyroidism: Plan: -Continue levothyroxine per home regimen. (7) ADHD: (8) Anxiety: Plan: -Continue home meds (9) CATHY on CPAP: Plan: Continues nightly CPAP. (10) DVT prophylaxis: Plan: -SQ Lovenox Full code [facility] Admission and Anticipated Discharge Date Admission Date: January 24, 2021 Subjective 55-year-old man with Covid pneumonia Denies any GI symptoms Continues to have cough Continues to remain hypoxic Feels poorly overall, tolerating p.o., reports not getting enough sleep Increased oxygen needs overnight Lasix given Review of Systems Review of Systems: All systems reviewed and negative except as indicated above. Physical Exam Physical Exam: CONSTITUTIONAL: WNWD, vitals as above, NAD EYES: normal conjunctivae, no scleral icterus ENT: external ear and nose normal, MMM RESPIRATORY: coarse crackles at bases, normal respiratory effort CARDIOVASCULAR: regular rate and rhythm, S1 and 2 heard without murmurs, gallops or rubs, no JVD, no peripheral edema GASTROINTESTINAL: normal bowel sounds, soft, nontender, ND, no guarding MUSCULOSKELETAL: strength 5/5 throughout, head is normocephalic and atraumatic SKIN: warm and dry NEUROLOGIC: CN 2-12 grossly intact, normal cognition, normal speech, no tremor PSYCHIATRIC: alert cooperative and oriented to person, place and time. Results & Data Results & Data ([facility]) Vital Signs (Past 12 Hours) Vital Signs Temp Pulse Resp BP Pulse Ox 01/26/21 18:04 93 01/26/21 17:45 91 H 22 113/71 86 L 01/26/21 16:17 91 H 18 90 01/26/21 15:44 36.9 C 87 22 101/62 94 01/26/21 08:37 92 01/26/21 08:21 91 01/26/21 08:16 88 L Laboratory Results [facility] 01/26/21 05:34 Sodium 137 Potassium 3.7 D Chloride 100 Carbon Dioxide 28 BUN 18 Creatinine 1.09 Glucose 92 Calcium 8.3 L Liver Function 01/26/21 Range/Units 05:34 Total Bilirubin 0.5 (0.2-1) mg/dl AST 167 H (15-37) U/L ALT 141 H (12-78) U/L Alkaline Phosphatase 94 (45-117) U/L Albumin 3.0 L (3.4-5.0) gm/dl Diagnostic Findings Chest X-Ray 01/26/21 12:06 XR chest 1V portable CLINICAL HISTORY: worsening hypoxia, covid pneumonia TECHNIQUE: Single frontal radiograph of the chest was obtained. Comparison: Comparison is made to chest one view 01/24/2021 FINDINGS: No lines and tubes are seen. Cardiomegaly is noted. Multifocal airspace opacities are seen. No evidence of pleural effusion or pneumothorax. IMPRESSION: Multifocal airspace opacities compatible with history of viral pneumonia. ACT 112: Negative or not required by law. Electronically signed by: Trino Saha M.D. 01/26/2021 2:23 PM Medications Administered Current Inpatient Medications Acetaminophen (Acetaminophen 325 Mg Tab) 650 mg PO Q4H PRN PRN Reason: pain/fever Stop: 02/23/21 18:33 Last Admin: 01/26/21 08:08 Dose: 650 mg Documented by: Albuterol (Albut/Ipratrop 3mg/0.5mg Neb 3 Ml Vial) 3 ml NEB Q4R PRN PRN Reason: sob/wheezing Stop: 02/23/21 15:14 Last Admin: 01/26/21 16:17 Dose: 3 ml Documented by: Amlodipine Besylate (Amlodipine Besylate 5 Mg Tab) 10 mg PO DAILY TONY Stop: 02/24/21 08:59 Last Admin: 01/26/21 08:14 Dose: 10 mg Documented by: Atomoxetine HCl (Atomoxetine Hcl 25 Mg Capsule) 100 mg PO DAILY TONY Stop: 02/24/21 08:59 Last Admin: 01/26/21 08:13 Dose: 100 mg Documented by: Benzonatate (Benzonatate 100 Mg Capsule) 100 mg PO TID PRN PRN Reason: Cough Stop: 02/23/21 21:03 Last Admin: 01/26/21 15:50 Dose: 100 mg Documented by: Desvenlafaxine Succinate (Desvenlafaxine Succinate 50mg) 1 ea PO TID TONY Stop: 02/25/21 08:59 Last Admin: 01/26/21 15:51 Dose: 1 ea Documented by: Enoxaparin Sodium (Enoxaparin Inj 40 Mg/0.4 Ml Syr) 40 mg SQ Q24H TONY Stop: 02/23/21 15:14 Last Admin: 01/26/21 15:52 Dose: 40 mg Documented by: Guaifenesin (Guaifenesin Sugar Free 200 Mg/10 Ml Udc) 200 mg PO Q6H PRN PRN Reason: Cough Stop: 02/23/21 21:03 Last Admin: 01/26/21 15:49 Dose: 200 mg Documented by: Dexamethasone 6 mg/ Syringe 1.5 mls @ 1 mls/min IV Q24H TONY Stop: 02/23/21 15:14 Last Admin: 01/26/21 15:53 Dose: 1 mls/min Documented by: Levothyroxine Sodium (Levothyroxine Sodium 125 Mcg Tablet) 125 mcg PO DAILY TONY Stop: 02/24/21 08:59 Last Admin: 01/26/21 08:12 Dose: 125 mcg Documented by: Melatonin (Melatonin 3 Mg Tab) 9 mg PO HS PRN PRN Reason: Sleep Stop: 02/23/21 20:25 Last Admin: 01/25/21 20:09 Dose: 9 mg Documented by: Ondansetron HCl (Ondansetron Inj 2 Mg/Ml 2 Ml Vial) 4 mg IV Q6H PRN PRN Reason: Nausea Stop: 02/23/21 14:56 Last Admin: 01/26/21 16:00 Dose: 4 mg Documented by: Pantoprazole Sodium (Pantoprazole 40 Mg Tab) 40 mg PO BID TONY Stop: 02/23/21 20:59 Last Admin: 01/26/21 08:12 Dose: 40 mg Documented by: Tamsulosin HCl (Tamsulosin Hcl 0.4 Mg Cap) 0.4 mg PO DAILY TONY Stop: 02/24/21 08:59 Last Admin: 01/26/21 08:12 Dose: 0.4 mg Documented by:
[2021-01-27] MEDS: ACETAMINOPHEN 325 MG TAB PO PRN (06:16)
[2021-01-27 06:49] LABS: Basophils # (auto) 0.01 K/uL (0-0.2); Basophils % (auto) 0.3 %; Hematocrit (blood only) 36.7 % (42-52); Hemoglobin 11.5 g/dL (14.0-18.0); Lymphocytes # (auto) 0.43 K/uL (1.2-3.4); Lymphocytes % (auto) 10.9 %; Mean Corpuscular Hgb Conc 31.3 g/dL (32-36); Mean Corpuscular Volume 73.4 fL (80-100); Mean Platelet Volume 10.1 fL (7.4-10.4); Monocytes # (auto) 0.11 K/uL (0.11-0.59); Monocytes % (auto) 2.8 %; Neutrophils # (auto) 3.38 K/uL (1.4-6.5); Platelet Count 220 K/uL (130-400); RDW Coefficient of Variation 17.7 % (11.5-14.5); RDW Standard Deviation 47.4 fL (36.4-46.3); White Blood Count 3.93 K/uL (4.8-10.8)
[2021-01-27 07:20] LABS: Potassium 3.6 mmol/L (3.5-5.1)
[2021-01-27] MEDS: guaiFENesin SUGAR FREE 200 MG/10 ML UDC PO PRN (08:07)
[2021-01-27] MEDS: PANTOprazole 40 MG TAB PO SCH ×2 (08:08→20:40)
[2021-01-27] MEDS: DESVENLAFAXINE SUCCINATE 50MG PO SCH ×2 (08:08→14:27)
[2021-01-27] MEDS: ATOMOXETINE HCL 25 MG CAPSULE PO SCH (08:09)
[2021-01-27] MEDS: amLODIPine BESYLATE 5 MG TAB PO SCH (08:10)
[2021-01-27] MEDS: TAMSULOSIN HCL 0.4 MG CAP PO SCH (08:10)
[2021-01-27] MEDS: LEVOTHYROXINE SODIUM 125 MCG TABLET PO SCH (08:11)
[2021-01-27] MEDS: ONDANSETRON INJ 2 MG/ML 2 ML VIAL IV PRN ×2 (08:12→13:01)
[2021-01-27 08:25] LABS: C Reactive Protein 4.48 mg/dl (0-0.29); Calcium 8.5 mg/dl (8.5-10.1); Creatinine Clr Calc Pharmacy 121.6 ml/min; Est GFR (African American) 106.7 ml/min; Est GFR (Non-African American) 92.1 ml/min
[2021-01-27] MEDS: dexAMETHasone 6 MG in SYRINGE 0 ML IV SCH (14:28)
[2021-01-27] MEDS: ENOXAPARIN INJ 40 MG/0.4 ML SYR SQ SCH (14:29)
--- NOTE | 2021-01-27 18:04 | Hospitalist Progress Note ---
Date of Service January 27, 2021 Assessment & Plan (1) Acute respiratory failure with hypoxia: Plan: Continue supportive care, this is secondary to COVID-19 pneumonia. Worsening hypoxia today, cannot give Lasix secondary to relative hypotension. Transitioned to BIPAP. ABG and CXR pending. Intolerant of proning. (2) Pneumonia due to COVID-19 virus: Plan: Continue Decadron and supportive therapies as needed. DuoNebs as needed. Guaifenesin as needed. Tessalon Perles as needed. (3) Elevated liver enzymes: Plan: Likely related to Covid 19 infection, trending down. (4) Hypokalemia: Plan: -Likely due to poor p.o. intake in combination with triamterene/HCTZ use Resolved to normal, continue to hold HCTZ. (5) Hypertension: Plan: -BP controlled, continue amlodipine -Hold triamterene/HCTZ due to dehydration from acute illness/hypokalemia (6) Hypothyroidism: Plan: -Continue levothyroxine per home regimen. (7) ADHD: (8) Anxiety: Plan: -Continue home meds (9) CATHY on CPAP: Plan: Continues nightly CPAP. (10) DVT prophylaxis: Plan: -SQ Lovenox Full code [facility] Admission and Anticipated Discharge Date Admission Date: January 24, 2021 Subjective 55-year-old man with Covid pneumonia Escalating oxygen needs throughout the day today Vapotherm wasn't successful and patient was transitioned to BIPAP around 1800. Patient states he feels more comfortable on the BIPAP now Feels less anxious than today. some cough no chest pain Couldn't update family of his status as there is no phone number in the chart. Review of Systems Review of Systems: All systems reviewed and negative except as indicated above. Physical Exam Physical Exam: CONSTITUTIONAL: WNWD, vitals as above, NAD EYES: normal conjunctivae, no scleral icterus ENT: external ear and nose normal, MMM RESPIRATORY: coarse crackles at bases, normal respiratory effort CARDIOVASCULAR: regular rate and rhythm, S1 and 2 heard without murmurs, gallops or rubs, no JVD, no peripheral edema GASTROINTESTINAL: normal bowel sounds, soft, nontender, ND, no guarding MUSCULOSKELETAL: strength 5/5 throughout, head is normocephalic and atraumatic SKIN: warm and dry NEUROLOGIC: CN 2-12 grossly intact, normal cognition, normal speech, no tremor PSYCHIATRIC: alert cooperative and oriented to person, place and time. Results & Data Results & Data ([facility]) Vital Signs (Past 12 Hours) Vital Signs Temp Pulse Pulse Resp BP Pulse Ox 01/27/21 17:55 77 31 H 94 01/27/21 16:07 37.1 C 89 20 100/54 L 92 01/27/21 16:00 74 01/27/21 15:14 82 29 H 90 01/27/21 12:29 91 H 22 94 01/27/21 11:34 82 20 100/71 88 L 01/27/21 07:22 72 22 103/54 L 90 01/27/21 06:30 73 Laboratory Results Short CBC 01/27/21 Range/Units 05:50 WBC 3.93 L (4.8-10.8) K/uL Hgb 11.5 L (14.0-18.0) g/dL Hct 36.7 L (42-52) % Plt Count 220 (130-400) K/uL BMP 01/27/21 05:50 Sodium 133 L Potassium 3.6 Chloride 96 L Carbon Dioxide 27 BUN 19 H Creatinine 0.93 Glucose 92 Calcium 8.5 Medications Administered Current Inpatient Medications Acetaminophen (Acetaminophen 325 Mg Tab) 650 mg PO Q4H PRN PRN Reason: pain/fever Stop: 02/23/21 18:33 Last Admin: 01/27/21 06:16 Dose: 650 mg Documented by: Albuterol (Albut/Ipratrop 3mg/0.5mg Neb 3 Ml Vial) 3 ml NEB Q4R PRN PRN Reason: sob/wheezing Stop: 02/23/21 15:14 Last Admin: 01/26/21 16:17 Dose: 3 ml Documented by: Amlodipine Besylate (Amlodipine Besylate 5 Mg Tab) 10 mg PO DAILY [facility] Stop: 02/24/21 08:59 Last Admin: 01/27/21 08:10 Dose: 10 mg Documented by: Atomoxetine HCl (Atomoxetine Hcl 25 Mg Capsule) 100 mg PO DAILY TONY Stop: 02/24/21 08:59 Last Admin: 01/27/21 08:09 Dose: 100 mg Documented by: Benzonatate (Benzonatate 100 Mg Capsule) 100 mg PO TID PRN PRN Reason: Cough Stop: 02/23/21 21:03 Last Admin: 01/26/21 15:50 Dose: 100 mg Documented by: Desvenlafaxine Succinate (Desvenlafaxine Succinate 50mg) 1 ea PO TID TONY Stop: 02/25/21 08:59 Last Admin: 01/27/21 14:27 Dose: 1 ea Documented by: Enoxaparin Sodium (Enoxaparin Inj 40 Mg/0.4 Ml Syr) 40 mg SQ Q24H TONY Stop: 02/23/21 15:14 Last Admin: 01/27/21 14:29 Dose: 40 mg Documented by: Guaifenesin (Guaifenesin Sugar Free 200 Mg/10 Ml Udc) 200 mg PO Q6H PRN PRN Reason: Cough Stop: 02/23/21 21:03 Last Admin: 01/27/21 08:07 Dose: 200 mg Documented by: Dexamethasone 6 mg/ Syringe 1.5 mls @ 1 mls/min IV Q24H TONY Stop: 02/23/21 15:14 Last Admin: 01/27/21 14:28 Dose: 1 mls/min Documented by: Levothyroxine Sodium (Levothyroxine Sodium 125 Mcg Tablet) 125 mcg PO DAILY TONY Stop: 02/24/21 08:59 Last Admin: 01/27/21 08:11 Dose: 125 mcg Documented by: Melatonin (Melatonin 3 Mg Tab) 9 mg PO HS PRN PRN Reason: Sleep Stop: 02/23/21 20:25 Last Admin: 01/25/21 20:09 Dose: 9 mg Documented by: Ondansetron HCl (Ondansetron Inj 2 Mg/Ml 2 Ml Vial) 4 mg IV Q6H PRN PRN Reason: Nausea Stop: 02/23/21 14:56 Last Admin: 01/27/21 13:01 Dose: 4 mg Documented by: Pantoprazole Sodium (Pantoprazole 40 Mg Tab) 40 mg PO BID TONY Stop: 02/23/21 20:59 Last Admin: 01/27/21 08:08 Dose: 40 mg Documented by: Tamsulosin HCl (Tamsulosin Hcl 0.4 Mg Cap) 0.4 mg PO DAILY TONY Stop: 02/24/21 08:59 Last Admin: 11/19/21 08:10 Dose: 0.4 mg Documented by:
[2021-01-27] MEDS ORDERED: ONDANSETRON INJ 2 MG/ML 2 ML VIAL IV ONE (18:29)
[2021-01-27 19:47] LABS: Allen Test Pos (Pos); Base Excess ABG 6.4 mEq/L (-9-1.8); HCO3 ABG 31 mmol/L (19-24); Oxygen Saturation ABG 97.9 % (90-95); PCO2 ABG 47 mmHg (35-46); PO2 ABG 106 mmHg (80-95); pH ABG 7.44 (7.35-7.45)
--- NOTE | 2021-01-27 19:49 | XRay Report ---
XR chest 1V portable HISTORY: 55 years-old Male worsening hypoxia acute hypoxia COMPARISON: Chest radiograph 01/26/2021 TECHNIQUE: Portable AP view of the chest FINDINGS: Cardiac silhouette is enlarged. No pneumothorax or large pleural effusion. Patchy bilateral periphera l predominant airspace opacities with interstitial coarsening appears generally stable. No acute frac ture. IMPRESSION: No significant change of the peripheral predominate bilateral airspace opacities suggesti ve of viral pneumonia. ACT 112: Negative or not required by law. The above report was generated using voice recognition software. It may contain grammatical, syntax o r spelling errors. Electronically signed by: Franck Maria M.D. 01/27/2021 7:47 PM
--- NOTE | 2021-01-27 20:26 | Communication Note ---
Date of Service: January 27, 2021 Patient takes desvenlafaxine at home 150 mg daily. A couple of days ago he requested this be broken up into 50 mg p.o. 3 times daily. As the order was w ritten by the pharmacy it was labeled as a nonformulary medicine with a 1 "each" as a dispensing tablet. This was confusing to the night nurse who pointed out that he possibly could be getting 3 times that amount with the way it was coming across on the MAY. Contacted pharmacy who stated they cannot verify what was dispensed because it is scanned by barcode only not counted as tablets. This is obviously concerning and this medicine will be stopped immediately. He is being monitored on telemetry and will perform daily EKGs. No tremors or agitation noted, mentating clearly. Med was Poison control was contacted. Recommend repeat EKG. If QRS >120, sodium bicarb push with drip recommended. If QTc>500, recommend checking Mg and K to keep >2 and 4, respectively. Again, no way to know how many tablets were given to this patient. We are operating under the assumption he received a total of 150mg 3 times a day instead of the 50 mg 3 times a day that he should have gotten. As there is currently no way to investigate this further as staff is unavailable to question and pharmacy log as to bar codes not tablets, desvenlafaxine has been stopped pending improvement in patient overall. Notified glass inspector of issue and pending EKG . DO Danny
[2021-01-28] MEDS: BENZONATATE 100 MG CAPSULE PO PRN ×2 (02:07→09:10)
[2021-01-28 07:18] LABS: Hematocrit (blood only) 37.1 % (42-52); Hemoglobin 11.3 g/dL (14.0-18.0); Mean Corpuscular Hemoglobin 22.6 pg (25-34); Mean Corpuscular Hgb Conc 30.5 g/dL (32-36); Mean Corpuscular Volume 74.3 fL (80-100); Mean Platelet Volume 10.4 fL (7.4-10.4); Platelet Count 241 K/uL (130-400); RDW Coefficient of Variation 17.5 % (11.5-14.5); RDW Standard Deviation 47.7 fL (36.4-46.3); Red Blood Count 4.99 M/uL (4.7-6.1); White Blood Count 4.86 K/uL (4.8-10.8)
[2021-01-28 07:50] LABS: C Reactive Protein 7.05 mg/dl (0-0.29); Calcium 8.7 mg/dl (8.5-10.1); Creatinine Clr Calc Pharmacy 133.8 ml/min; Est GFR (African American) 114.2 ml/min; Est GFR (Non-African American) 98.6 ml/min; Potassium 3.9 mmol/L (3.5-5.1)
[2021-01-28] MEDS ORDERED: DESVENLAFAXINE SUCCINATE 50MG PO SCH (09:00)
[2021-01-28] MEDS: TAMSULOSIN HCL 0.4 MG CAP PO SCH (09:06)
[2021-01-28] MEDS: PANTOprazole 40 MG TAB PO SCH ×2 (09:06→19:24)
[2021-01-28] MEDS: guaiFENesin SUGAR FREE 200 MG/10 ML UDC PO PRN (09:06)
[2021-01-28] MEDS: amLODIPine BESYLATE 5 MG TAB PO SCH (09:06)
[2021-01-28] MEDS: LEVOTHYROXINE SODIUM 125 MCG TABLET PO SCH (09:07)
[2021-01-28] MEDS: ATOMOXETINE HCL 25 MG CAPSULE PO SCH (09:07)
[2021-01-28] MEDS: ACETAMINOPHEN 325 MG TAB PO PRN (09:10)
--- NOTE | 2021-01-28 10:30 | Pulmonary Consultation ---
Date of Consultation January 28, 2021 Assessment & Plan (1) Pneumonia due to COVID-19 virus: (2) Acute respiratory failure with hypoxia: (3) CATHY on CPAP: Chest x-ray 01/27/2021 personally reviewed: Portable film, good respiratory effort, patchy alveolar opacities appreciated bilaterally --Acute hypoxic respiratory failure Secondary to multilobar COVID-19 pneumonia COVID-19 PCR positive 01/24/2021, influenza A/B negative CRP 4.48--> 7.05 Procalcitonin 0.32 Continue with O2 supplementation to keep oxygen saturation between 90-92%. Awake proning will be helpful Continue with incentive spirometry Continue with flutter valve. Recommend patient to be kept euvolemic to negative balance Plan: Keep the patient negative balance. Recommend Lasix on an as-needed basis Patient CRP is less than 7.5 and he is >72 hours since admission, he is not a candidate for baricitinib I would increase the dexamethasone to 10 mg on a daily basis Patient does have sleep apnea. Continue with CPAP while the patient is not eating. Awake proning will be helpful Please note the above document was generated using voice recognition software. It may contain grammatical, syntax or spelling errors.Any formal questions or concerns about the content, text or information contained within the body of this dictation should be directly addressed to the provider for clarification. History of Present Illness Attending Physician: Giorgi Gross MD History of Present Illness 55-year-old male past medical history of CATHY on CPAP, hypertension, ADHD presented to the hospital with complaints of fever and cough and generalized weakness. He was found to be COVID-19 positive Patient was started on dexamethasone Pulmonary consulted because of increasing need of oxygen At the time of examination patient was on 60 L 100% He still saturating 93-94% while lying in the right decubitus position He denies any chest pain He said he is feeling the same He is using incentive spirometry Has been using flutter valve and bringing up clear phlegm. Denies any hemoptysis No fever or chills Patient is not vaccinated COVID-19 Social history: Lifetime non-smoker Allergies Allergy/AdvReac Type Severity Reaction Status Date / Time oxycodone Allergy Severe nausea/vomi Unverified 01/05/16 11:13 ting Home Medications Medication Instructions Recorded Confirmed Type amlodipine 10 mg tablet (Norvasc) 10 mg PO DAILY 01/24/21 01/24/21 History atomoxetine 100 mg capsule 100 mg PO DAILY 01/24/21 01/24/21 History cholecalciferol (vitamin D3) 50 50 mcg PO DAILY 01/24/21 01/24/21 History mcg (2,000 unit) capsule (Vitamin D3) desvenlafaxine succinate 100 mg 100 mg PO DAILY 01/24/21 01/24/21 History tablet,extended release 24 hr desvenlafaxine succinate 50 mg 50 mg PO DAILY 01/24/21 01/24/21 History tablet,extended release 24 hr (Pristiq) levothyroxine 125 mcg tablet 125 mcg PO DAILY 01/24/21 01/24/21 History omeprazole 40 mg capsule,delayed 40 mg PO BID 01/24/21 01/24/21 History release potassium 99 mg tablet 99 mg PO DAILY 01/24/21 01/24/21 History rosuvastatin 10 mg tablet 10 mg PO DAILY 01/24/21 01/24/21 History tamsulosin 0.4 mg capsule 0.4 mg PO DAILY 01/24/21 01/24/21 History triamterene 75 1 tab PO DAILY 01/24/21 01/24/21 History mg-hydrochlorothiazide 50 mg tablet (Maxzide) Patient History Medical History (Updated 01/24/21 @ 17:41 by RODERICK Cade) ADHD Anxiety GERD (gastroesophageal reflux disease) Hypertension Hypogonadism Hypothyroidism CATHY on CPAP Surgical History (Updated 01/24/21 @ 17:19 by RODERICK Cade) No pertinent past surgical history Family History Father Hypertension Suicide Mother Hypertension Stroke Social History Smoking Status: Never smoker Hx Alcohol Use: No Hx Substance Use: No Preferred Language: Armenian Communication Ability: Effective Supervisor Metal Hanging Required: No Beliefs That Will Affect Care: None marital status: Current Living Situation: Spouse Other Information That Helps Us Care for You: Yes (cpap) Feels Safe at Home: Yes Safety Concerns: Feels Safe At This Time Assistive Devices: BiPap Review of Systems Review of Systems: All systems reviewed & are unremarkable except as noted in HPI & below Physical Exam Physical Exam: Constitutional: No acute distress HEENT: EOMI, PERRLA Respiratory system: Decreased air entry bilaterally, no wheeze, rhonchi, positive crackles bilaterally CVS: S1-S2 positive, no murmurs or gallops Abdomen: Soft, nontender, nondistended, positive bowel sounds x4, obese Extremities: +2 pulses bilaterally radialis/ dorsalis pedis, no cyanosis, no edema Neuro: Awake alert oriented x3 Psych: Normal mood and affect G/U: No Valdovinos Skin: no rashes, warm and dry Lymphatic: no cervical or axillary lymphadenopathy Results & Data Results & Data ([facility]) Vital Signs (Past 12 Hours) Vital Signs Temp Pulse Pulse Resp BP Pulse Ox 01/28/21 08:10 88 20 89 L 01/28/21 08:01 75 22 87 L 01/28/21 06:27 37.5 C 74 20 126/68 92 01/28/21 03:01 36.8 C 79 22 99 01/28/21 02:30 81 32 H 95 01/27/21 23:30 36.7 C 71 20 132/71 93 01/27/21 23:17 72 01/27/21 22:40 80 31 H 93 01/28/21 06:31 01/28/21 06:31 PG Care Time/CCT Total # of Minutes Spent Total Time Spent with Patient: Total time spent is greater than 50% in coordination of care (as documented) at patient's floor/unit and/or counseling patient: Coding Level of Care Code 95493 Inpt Consult Level 5 Diagnoses Pneumonia due to COVID-19 virus U07.1; J12.82 Acute respiratory failure with hypoxia J96.01 CATHY on CPAP G47.33; Z99.89
[2021-01-28] MEDS ORDERED: dexAMETHasone 10 MG in SYRINGE 0 ML IV SCH (13:21)
[2021-01-28] MEDS ORDERED: dexAMETHasone 4 MG in SYRINGE 0 ML IV ONE (13:22)
--- NOTE | 2021-01-28 13:33 | Communication Note ---
Date of Service: January 28, 2021 Pulmonary addendum: Patient chest x-ray does not show damage infiltrate to cause such a high degree of hypoxia I will order Doppler bilateral lower extremities see if he has DVT If it is negative then recommend CTA to be done to rule out PE Please note the above document was generated using voice recognition software. It may contain grammatical, syntax or spelling errors.Any formal questions or concerns about the content, text or information contained within the body of this dictation should be directly addressed to the provider for clarification. Coding Level of Care Code None
[2021-01-28] MEDS ORDERED: FUROSEMIDE INJ 20 MG/2 ML VIAL IV ONE ×2 (13:45→17:44)
--- NOTE | 2021-01-28 14:05 | Ultrasound Report ---
US venous doppler LE BI CLINICAL HISTORY: r/o DVT, B/l COMPARISON: None available at the time of this dictation. TECHNIQUE: Bilateral lower extremity real-time compression venous ultrasound with Color Doppler imagi ng. Utilizing real-time ultrasonic imaging multiple real time high-resolution ultrasonic images with comp ression and noncompression maneuvers of the deep venous system in addition to color doppler imaging w ere performed from the common femoral vein through the proximal calf veins. FINDINGS: Currently there is normal compressibility of the deep venous system from the common femoral vein thro ugh the proximal calf veins. No current evidence of acute thrombosis is identified. Impression: No evidence of deep venous thrombus. ACT 112: Negative or not required by law. Electronically signed by: Trino Saha M.D. 01/28/2021 2:04 PM
[2021-01-28] MEDS ORDERED: busPIRone 5 MG TAB PO ONE (17:00)
[2021-01-28] MEDS: ONDANSETRON INJ 2 MG/ML 2 ML VIAL IV PRN (18:02)
--- NOTE | 2021-01-28 18:23 | Hospitalist Progress Note ---
Date of Service January 28, 2021 Assessment & Plan (1) Acute respiratory failure with hypoxia: (2) Pneumonia due to COVID-19 virus: Plan: 55 years old male unvaccinated for COVID 19 presented with worsening shortness of breath Testing positive for COVID 19 CXR showed multifocal airspace opacities compatible with history of viral pneumonia. Continue Decadron and supportive therapies as needed. DuoNebs as needed. Guaifenesin as needed. Tessalon Perles as needed. Remdesivir contraindicated in the setting of elevated LFTs on admission Patient is high risk to get intubated Pulm consulted Recommend to be placed on CPAP Lasix 20mg IV x1 given today Repeat chest x-ray today showed no significant changes Pulm ordered Doppler bilateral lower extremities that was negative for DVT Pulm recommended CTA chest to be done to rule out PE if doppler negative Pt was encouraged to continue proning Continue monitor closely (3) Elevated liver enzymes: Plan: Likely related to Covid 19 infection, trending down. Continue monitor CMP (4) Hypokalemia: Plan: -Likely due to poor p.o. intake in combination with triamterene/HCTZ use Resolved to normal, continue to hold HCTZ. (5) Hypertension: Plan: -BP controlled, continue amlodipine -Hold triamterene/HCTZ due to dehydration from acute illness/hypokalemia (6) Hypothyroidism: Plan: -Continue levothyroxine per home regimen. (7) ADHD: (8) Anxiety: Plan: -Continue home meds - Buspar 5 mg BID added to help with the anxiety during the hospital course (9) CATHY on CPAP: Plan: Continues nightly CPAP. (10) DVT prophylaxis: Plan: -SQ Lovenox Full code Dispo-PCU Admission and Anticipated Discharge Date Admission Date: January 24, 2021 Subjective Patient was seen and examined for follow-up of shortness of breath due to COVID- 19 Sitting at the edge of the bed on CPAP He desaturated with minimal exertion Denies any chest pain, palpitation, dizziness, and fever. Review of Systems Review of Systems: All systems reviewed & are unremarkable except as noted in Subjective Physical Exam Physical Exam: General- No acute distress Head- atraumatic Eyes- PERRL, EOMI, ENT- oropharynx clear Neck- supple, no JVD Lungs- +diminish BS Heart- regular rhythm; no murmur Abdomen- normal bowel sounds, soft, nontender Extremities- no calf tenderness Neuro- alert, oriented x 3; PERRL, EOMI; no facial palsy; no dysarthria Skin- warm & dry Results & Data Results & Data ([facility]) Vital Signs (Past 12 Hours) Vital Signs Temp Pulse Pulse Resp BP Pulse Ox 01/28/21 16:04 36.9 C 74 16 122/52 L 92 01/28/21 15:48 88 26 H 92 01/28/21 12:17 37.1 C 80 18 124/69 98 01/28/21 11:45 80 28 H 91 01/28/21 11:35 36 H 82 L 01/28/21 08:10 88 20 89 L 01/28/21 08:01 75 22 87 L 01/28/21 06:27 37.5 C 74 20 126/68 92
[2021-01-28] MEDS: ENOXAPARIN INJ 40 MG/0.4 ML SYR SQ SCH (19:08)
[2021-01-28] MEDS: guaiFENesin 600 MG TABCR PO SCH (19:22)
[2021-01-28] MEDS: busPIRone 5 MG TAB PO SCH (19:23)
[2021-01-28] MEDS ORDERED: OPTIRAY 320 125ml IV ONE (20:34)
--- NOTE | 2021-01-28 20:43 | CT Scan Report ---
CT angio chest PE protocol CLINICAL HISTORY: PE, Hypoxia TECHNIQUE: Multidetector row helical CT of the chest was performed. Coronal and sagittal reformations were obtained. Automated dose lowering techniques and/or adjustment according to patient size were u tilized for this exam. Comparison: None available at the time of this dictation. FINDINGS: Lungs and pleura: Diffuse groundglass and consolidative opacities are seen with bandlike reticular op acities in the subpleural region. Heart and pericardium: Heart size is normal. No pericardial effusion. Vessels: No evidence of pulmonary embolism. Mediastinum and mauricio: Subcentimeter mediastinal and bilateral hilar nodes are seen. Chest wall and lower neck: Unremarkable. Abdomen: A hiatal hernia is seen. Bones: Unremarkable. IMPRESSION: Diffuse groundglass and consolidative opacities compatible with Covid pneumonia. Reactive mediastinal and bilateral hilar lymph nodes are seen. No evidence of pulmonary embolism. ACT 112: Negative or not required by law. Electronically signed by: Trnio Saha M.D. 01/28/2021 8:42 PM
[2021-01-28] MEDS ORDERED: hydrOXYzine HCl 25 MG TAB PO STA (21:52)
[2021-01-29] MEDS ORDERED: ALBUT/IPRATROP 3MG/0.5MG NEB 3 ML VIAL NEB STA (00:08)
[2021-01-29] MEDS ORDERED: methylPREDNISolone 40 MG in SYRINGE 0 ML IV ONE (00:15)
[2021-01-29 00:58] LABS: Basophils # (auto) 0.01 K/uL (0-0.2); Basophils % (auto) 0.2 %; Hematocrit (blood only) 35.1 % (42-52); Hemoglobin 10.9 g/dL (14.0-18.0); Immature Granulocytes # (auto) 0.03 K/uL (0.00-0.02); Immature Granulocytes % (auto) 0.6 %; Lymphocytes # (auto) 0.45 K/uL (1.2-3.4); Lymphocytes % (auto) 9.7 %; Mean Corpuscular Hemoglobin 22.6 pg (25-34); Mean Corpuscular Hgb Conc 31.1 g/dL (32-36); Mean Corpuscular Volume 72.8 fL (80-100); Mean Platelet Volume 9.7 fL (7.4-10.4); Monocytes # (auto) 0.14 K/uL (0.11-0.59); Neutrophils # (auto) 3.99 K/uL (1.4-6.5); Neutrophils % (auto) 86.5 %; Platelet Count 252 K/uL (130-400); RDW Coefficient of Variation 17.3 % (11.5-14.5); RDW Standard Deviation 46.6 fL (36.4-46.3); Red Blood Count 4.82 M/uL (4.7-6.1); White Blood Count 4.62 K/uL (4.8-10.8)
[2021-01-29 01:03] LABS: HCO3 ABG 32 mmol/L (19-24); Oxygen Saturation ABG 89.5 % (90-95); PCO2 ABG 46 mmHg (35-46); PO2 ABG 58 mmHg (80-95); pH ABG 7.46 (7.35-7.45)
[2021-01-29 01:05] LABS: Allen Test POS (Pos)
[2021-01-29 01:18] LABS: Albumin Level 2.5 gm/dl (3.4-5.0); BUN Creatinine Ratio 28.5 (10-20); Calcium 8.8 mg/dl (8.5-10.1); Est GFR (African American) 118.4 ml/min; Est GFR (Non-African American) 102.2 ml/min; Magnesium 2.1 mg/dl (1.8-2.4); Potassium 3.6 mmol/L (3.5-5.1)
[2021-01-29 01:21] LABS: Albumin Globulin Ratio 0.6 (0.9-2); Bilirubin,Total 0.7 mg/dl (0.2-1); C Reactive Protein 7.95 mg/dl (0-0.29); Globulin 4.5 gm/dl (2.5-4.0)
[2021-01-29] MEDS: ACETAMINOPHEN 325 MG TAB PO PRN (05:19)
[2021-01-29] MEDS: ENOXAPARIN INJ 40 MG/0.4 ML SYR SQ SCH ×2 (05:19→18:48)
[2021-01-29] MEDS: guaiFENesin 600 MG TABCR PO SCH ×2 (09:24→21:13)
[2021-01-29] MEDS: PANTOprazole 40 MG TAB PO SCH ×2 (09:24→21:12)
[2021-01-29] MEDS: TAMSULOSIN HCL 0.4 MG CAP PO SCH (09:25)
[2021-01-29] MEDS: amLODIPine BESYLATE 5 MG TAB PO SCH (09:25)
[2021-01-29] MEDS: busPIRone 5 MG TAB PO SCH ×2 (09:25→21:12)
[2021-01-29] MEDS: ATOMOXETINE HCL 25 MG CAPSULE PO SCH (09:25)
[2021-01-29] MEDS: LEVOTHYROXINE SODIUM 125 MCG TABLET PO SCH (09:26)
--- NOTE | 2021-01-29 09:43 | Electrocardiogram Report ---
Test Reason : Blood Pressure : / mmHG Vent. Rate : 069 BPM Atrial Rate : 069 BPM P-R Int : 178 ms QRS Dur : 092 ms QT Int : 404 ms P-R-T Axes : 024 054 038 degrees QTc Int : 432 ms Normal sinus rhythm Normal ECG When compared with ECG of 24-JAN-2021 09:30, Incomplete right bundle branch block is no longer Present Borderline criteria for Anterior infarct are no longer Present Confirmed by Landen Lei ([id number]) on 01/29/2021 9:42:54 AM Referred By: REFERRED SELF Confirmed By:Landen Lei
[2021-01-29 09:45] LABS: Albumin Level 2.6 gm/dl (3.4-5.0); BUN Creatinine Ratio 27.6 (10-20); Calcium 8.6 mg/dl (8.5-10.1); Creatinine Clr Calc Pharmacy 138.4 ml/min; Est GFR (Non-African American) 100.1 ml/min; Potassium 3.9 mmol/L (3.5-5.1)
[2021-01-29 09:47] LABS: Albumin Globulin Ratio 0.6 (0.9-2); Bilirubin,Total 0.7 mg/dl (0.2-1); Globulin 4.7 gm/dl (2.5-4.0); Total Protein 7.3 gm/dl (6.4-8.2)
[2021-01-29] MEDS ORDERED: FUROSEMIDE INJ 20 MG/2 ML VIAL IV ONE (10:35)
--- NOTE | 2021-01-29 10:37 | Pulmonology Progress Note ---
Date of Service January 29, 2021 Assessment & Plan (1) Pneumonia due to COVID-19 virus: (2) Acute respiratory failure with hypoxia: (3) CATHY on CPAP: Plan: Chest x-ray 01/27/2021 personally reviewed: Portable film, good respiratory effort, patchy alveolar opacities appreciated bilaterally CTA chest 01/28/2021 personally reviewed: Diffuse groundglass opacities a ppreciated bilaterally upper and lower lobe, there is dense consolidative process appreciated in the periphery of the right lower lobe No significant mediastinal lymphadenopathy --Acute hypoxic respiratory failure Secondary to multilobar COVID-19 pneumonia COVID-19 PCR positive 01/24/2021, influenza A/B negative CRP 4.48--> 7.05 Procalcitonin 0.32 Continue with O2 supplementation to keep oxygen saturation between 90-92%. Awake proning will be helpful Continue with incentive spirometry Continue with flutter valve. Recommend patient to be kept euvolemic to negative balance Not a candidate for baricitinib --CATHY Continue with CPAP Plan: Given the dense consolidative process appreciated in the right lower lobe, we will start the patient on doxycycline for 5 days 20 mg of Lasix given today Overall patient's condition is severe. There is high likelihood that he might get intubated later today if there is any more compromise in his respiratory rate. Case was discussed with RN and RT Please note the above document was generated using voice recognition software. It may contain grammatical, syntax or spelling errors.Any formal questions or concerns about the content, text or information contained within the body of this dictation should be directly addressed to the provider for clarification. Admission and Anticipated Discharge Date Admission Date: January 24, 2021 Subjective Patient seen and examined at bedside. Patient was on CPAP saturating 93-94% on 75%. He was breathing in the 20s to low 30s On asking him how he is feeling he said he is better compared to yesterday. Did complain of nausea but not throwing up Complains of mild headache. No blurry vision. Decreased appetite. Review of Systems Review of Systems: All systems reviewed & are unremarkable except as noted in Subjective Physical Exam Physical Exam: Constitutional: No acute distress HEENT: EOMI, PERRLA Respiratory system: Decreased air entry bilaterally, no wheeze, rhonchi, positive crackles bilaterally CVS: S1-S2 positive, no murmurs or gallops Abdomen: Soft, nontender, nondistended, positive bowel sounds x4, obese Extremities: +2 pulses bilaterally radialis/ dorsalis pedis, no cyanosis, no edema Neuro: Awake alert oriented x3 Psych: Normal mood and affect G/U: No Valdovinos Skin: no rashes, warm and dry Lymphatic: no cervical or axillary lymphadenopathy Results & Data Results & Data ([facility]) Vital Signs (Past 12 Hours) Vital Signs Temp Pulse Pulse Resp BP Pulse Ox 01/29/21 08:00 73 01/29/21 05:13 38.0 C H 76 23 160/81 H 91 01/29/21 03:40 82 33 H 91 01/29/21 00:37 73 73 35 H 90 01/28/21 23:19 72 01/28/21 23:17 76 32 H 93 01/28/21 23:09 36.9 C 72 32 H 105/48 L 90 01/29/21 00:50 01/29/21 08:16 PG Care Time/CCT Total # of Minutes Spent Total Time Spent with Patient: Total time spent is greater than 50% in coordination of care (as documented) at patient's floor/unit and/or counseling patient: Coding Level of Care Code 62558 Subseq Hosp Care Lvl 3 Diagnoses Pneumonia due to COVID-19 virus U07.1; J12.82 Acute respiratory failure with hypoxia J96.01 CATHY on CPAP G47.33; Z99.89
--- NOTE | 2021-01-29 12:19 | Hospitalist Progress Note ---
Date of Service January 29, 2021 Assessment & Plan (1) Acute respiratory failure with hypoxia: Plan: 2/2 covid pneumonia, see plan below. (2) Pneumonia due to COVID-19 virus: Plan: 55 years old male unvaccinated for COVID 19 presented with worsening shortness of breath Continue Decadron and supportive therapies as needed. DuoNebs as needed. Guaifenesin as needed. Tessalon Perles as needed. Remdesivir contraindicated in the setting of elevated LFTs on admission Patient is high risk to get intubated as has now been on BIPAP for two days. Pulm consulted Lasix given today and daily to keep overall fluid balance net negative. Doppler bilateral lower extremities were negative for DVT, also CTA chest performed 01/28 (yesterday) which was negative for PE. Declines to prone. (3) Elevated liver enzymes: Plan: Likely related to Covid 19 infection, trending down. Continue monitor CMP periodically (4) Hypertension: Plan: -BP controlled, continue amlodipine -Hold triamterene/HCTZ due to dehydration from acute illness/hypokalemia (5) Hypothyroidism: Plan: -Continue levothyroxine per home regimen. (6) ADHD: (7) Anxiety: Plan: There was an issue with his Pristiq, which has been held since landon of 01/27. Will restart this now, 150mg once daily. Buspar 5 mg BID added 01/28 to help with the anxiety during the hospital course (8) CATHY on CPAP: Plan: continuous BIPAP now. (9) DVT prophylaxis: Plan: -SQ Lovenox Full code Dispo-PCU. Unable to contact patient's at number provided. Will try again later. Janice Delgado DO [facility] Hospitalist Admission and Anticipated Discharge Date Admission Date: January 24, 2021 Subjective 55-year-old man with Covid pneumonia Remains on Day 2 of BIPAP Feels his mouth is dry but breathing is stable Lungs are clear to auscultation throughout We discussed the issue with his Pristiq the other day and he confirmed he only received one pill three times daily, not three pills I explained this has been held and he would like this readded now as, "this is the only thing that keeps me from going crazy" He told me his 's number which I tried but there was no answer. Review of Systems Review of Systems: All systems reviewed and negative except as indicated above. Physical Exam Physical Exam: CONSTITUTIONAL: WNWD, vitals as above, NAD EYES: normal conjunctivae, no scleral icterus ENT: external ear and nose normal, MMM RESPIRATORY: clear to auscultation throughout, normal respiratory effort, on BIPAP. CARDIOVASCULAR: regular rate and rhythm, S1 and 2 heard without murmurs, gallops or rubs, no JVD, no peripheral edema GASTROINTESTINAL: soft, nontender, ND, no guarding MUSCULOSKELETAL: strength 5/5 throughout, head is normocephalic and atraumatic SKIN: warm and dry NEUROLOGIC: CN 2-12 grossly intact, normal cognition, normal speech, no tremor PSYCHIATRIC: alert cooperative and oriented to person, place and time. Results & Data Results & Data ([facility]) Vital Signs (Past 12 Hours) Vital Signs Temp Pulse Pulse Pulse Resp BP BP 01/29/21 11:38 36.8 C 81 33 H 118/62 01/29/21 08:00 36.6 C 73 77 37 H 138/79 01/29/21 05:13 38.0 C H 76 23 160/81 H 01/29/21 03:40 82 33 H 01/29/21 00:37 73 73 35 H Pulse Ox 01/29/21 11:38 91 01/29/21 08:00 90 01/29/21 05:13 91 01/29/21 03:40 91 01/29/21 00:37 90 Laboratory Results Short CBC 01/29/21 Range/Units 00:50 WBC 4.62 L (4.8-10.8) K/uL Hgb 10.9 L (14.0-18.0) g/dL Hct 35.1 L (42-52) % Plt Count 252 (130-400) K/uL BMP 01/29/21 01/29/21 00:50 08:16 Sodium 133 L 136 Potassium 3.6 3.9 Chloride 97 L 99 Carbon Dioxide 32 29 BUN 22 H 22 H Creatinine 0.77 0.81 Glucose 95 115 H Calcium 8.8 8.6 Liver Function 01/29/21 01/29/21 Range/Units 00:50 08:16 Total Bilirubin 0.7 0.7 (0.2-1) mg/dl AST 153 H 149 H (15-37) U/L ALT 90 H 90 H (12-78) U/L Alkaline Phosphatase 87 91 (45-117) U/L Albumin 2.5 L 2.6 L (3.4-5.0) gm/dl Medications Administered Current Inpatient Medications Acetaminophen (Acetaminophen 325 Mg Tab) 650 mg PO Q4H PRN PRN Reason: pain/fever Stop: 02/23/21 18:33 Last Admin: 01/29/21 05:19 Dose: 650 mg Documented by: Albuterol (Albut/Ipratrop 3mg/0.5mg Neb 3 Ml Vial) 3 ml NEB Q4R PRN PRN Reason: sob/wheezing Stop: 02/23/21 15:14 Last Admin: 01/26/21 16:17 Dose: 3 ml Documented by: Amlodipine Besylate (Amlodipine Besylate 5 Mg Tab) 10 mg PO DAILY TONY Stop: 02/24/21 08:59 Last Admin: 01/29/21 09:25 Dose: 10 mg Documented by: Atomoxetine HCl (Atomoxetine Hcl 25 Mg Capsule) 100 mg PO DAILY TONY Stop: 02/24/21 08:59 Last Admin: 01/29/21 09:25 Dose: 100 mg Documented by: Benzonatate (Benzonatate 100 Mg Capsule) 100 mg PO TID PRN PRN Reason: Cough Stop: 02/23/21 21:03 Last Admin: 01/28/21 09:10 Dose: 100 mg Documented by: Buspirone HCl (Buspirone 5 Mg Tab) 5 mg PO BID TONY Stop: 02/27/21 20:59 Last Admin: 01/29/21 09:25 Dose: 5 mg Documented by: Enoxaparin Sodium (Enoxaparin Inj 40 Mg/0.4 Ml Syr) 40 mg SQ Q12H TONY Stop: 02/27/21 17:59 Last Admin: 01/29/21 05:19 Dose: 40 mg Documented by: Furosemide (Furosemide Inj 20 Mg/2 Ml Vial) 20 mg IV Q24H TONY Stop: 02/28/21 09:59 Guaifenesin (Guaifenesin Sugar Free 200 Mg/10 Ml Udc) 200 mg PO Q6H PRN PRN Reason: Cough Stop: 02/23/21 21:03 Last Admin: 01/28/21 09:06 Dose: 200 mg Documented by: Guaifenesin (Guaifenesin 600 Mg Tabcr) 600 mg PO Q12 TONY Stop: 02/27/21 20:59 Last Admin: 01/29/21 09:24 Dose: 600 mg Documented by: Dexamethasone 10 mg/ Syringe 2.5 mls @ 1 mls/min IV Q24H TONY Stop: 02/28/21 13:59 Doxycycline Hyclate 100 mg/ (Dextrose) 110 mls @ 50 mls/hr IV Q12H TONY Stop: 02/05/21 10:59 Levothyroxine Sodium (Levothyroxine Sodium 125 Mcg Tablet) 125 mcg PO DAILY TONY Stop: 02/24/21 08:59 Last Admin: 01/29/21 09:26 Dose: 125 mcg Documented by: Melatonin (Melatonin 3 Mg Tab) 9 mg PO HS PRN PRN Reason: Sleep Stop: 02/23/21 20:25 Last Admin: 01/25/21 20:09 Dose: 9 mg Documented by: Ondansetron HCl (Ondansetron Inj 2 Mg/Ml 2 Ml Vial) 4 mg IV Q6H PRN PRN Reason: Nausea Stop: 02/23/21 14:56 Last Admin: 01/28/21 18:02 Dose: 4 mg Documented by: Pantoprazole Sodium (Pantoprazole 40 Mg Tab) 40 mg PO BID TONY Stop: 02/23/21 20:59 Last Admin: 01/29/21 09:24 Dose: 40 mg Documented by: Tamsulosin HCl (Tamsulosin Hcl 0.4 Mg Cap) 0.4 mg PO DAILY TONY Stop: 02/24/21 08:59 Last Admin: 01/29/21 09:25 Dose: 0.4 mg Documented by:
[2021-01-29] MEDS: DOXYCYCLINE HYCLATE 100 MG in DEXTROSE 5% 100 ML IV SCH ×2 (12:29→23:55)
[2021-01-29] MEDS: dexAMETHasone 10 MG in SYRINGE 0 ML IV SCH (13:51)
[2021-01-29] MEDS: FUROSEMIDE INJ 20 MG/2 ML VIAL IV SCH (13:51)
[2021-01-29] MEDS ORDERED: RAPID SEQUENCE INDUCTION BAG ONE (15:20)
[2021-01-29] MEDS ORDERED: PROPOFOL IV EMULSION 10 MG/ML 100 ML VIAL IV ONE (15:35)
[2021-01-29] MEDS: fentaNYL DRIP 1,250 MCG/250 ML BAG IV SCH ×2 (15:55→23:56)
[2021-01-29] MEDS: propofoL 1,000 MG/100 ML VIAL IV SCH ×4 (15:56→22:11)
[2021-01-29] MEDS ORDERED: STAT IV Infusion **Titration per Protocol STA ×4 (16:08→16:41)
--- NOTE | 2021-01-29 16:38 | Procedure Note ---
Procedure Note Date of Service January 29, 2021 Note ARTERIAL LINE PROCEDURE NOTE: Procedure: Arterial Line Placement Attending: Dr. Pro Brown MD Indication: Monitoring on Pressors Anesthesia: General anesthesia Emergent consent was applied A time-out was completed verifying correct patient, procedure, site, positioning, and implant(s) or special equipment if applicable. Allens test was performed to ensure adequate perfusion. Patients left wrist was prepped and draped in the usual sterile fashion. Ultrasound guidance was used to aid needle placement. A 20g Arrow arterial line was introduced into the left radial artery. Catheter was threaded, and the needle was removed with appropriate pulsatile blood return. Good waveform was observed on the monitor. The patient tolerated the procedure well. Confirmation of placement with ultrasound. Images saved to medical record. Complications: None Blood Loss: Less than 1 cc Coding CPT Codes Tubes, Drains, and Vasc Access - Tubes, Drains, and Vasc Access: [id number] Insertion Catheter, Artery ([id number]) Tubes, Drains, and Vasc Access - Tubes, Drains, and Vasc Access: [id number] Ultrasound Guidance For Vascular ([id number]) [facility] [place] Procedure Codes (Charges) Tubes, Drains, and Vasc Access Procedure 1: Tubes, Drains, and Vasc Access: [id number] Insertion Catheter, Artery Procedure 2: Tubes, Drains, and Vasc Access: [id number] Ultrasound Guidance For Vascular
--- NOTE | 2021-01-29 16:38 | Procedure Note ---
Procedure Note Date of Service January 29, 2021 Note Procedure: Inserting ultrasound-guided central pipelines supervisor: Dr. Pro Brown Indication: ARDS Consent: Emergent consent was applied Anesthesia: 1% lidocaine without epinephrine local. Procedure: Consent was verified and timeout performed. Appropriate imaging studies were reviewed prior to the procedure. Under aseptic and sterile condition, right IJ vein was accessed under direct ultrasound guidance. Guidewire was confirmed to be within the lumen of vein with the help of ultrasound. Catheter was introduced via Seldinger technique. Guide a wire was removed. Good non-pulsatile blood flow was appreciated from all the ports. The catheter was placed at 16 cm and sutured in place. BioPatch was applied to the catheter and a sterile Tegaderm dressing was applied over the catheter with careful attention to sterility. Lung sliding was appreciated post procedure with the help ultrasound. Chest x-ray to follow Patient tolerated the procedure well. Blood loss: Less than 2 cc Complications: None Coding CPT Codes Tubes, Drains, and Vasc Access - Tubes, Drains, and Vasc Access: [id number] Place catheter in vein superior or inferior vena cava ([id number]) Tubes, Drains, and Vasc Access - Tubes, Drains, and Vasc Access: [id number] Ultrasound Guidance For Vascular ([id number]) [facility] [place] Codes (Charges) Tubes, Drains, and Vasc Access Procedure 1: Tubes, Drains, and Vasc Access: [id number] Place catheter in vein superior or inferior vena cava Procedure 2: Tubes, Drains, and Vasc Access: [id number] Ultrasound Guidance For Vascular
--- NOTE | 2021-01-29 16:39 | Procedure Note ---
Procedure Note Date of Service January 29, 2021 Note INTUBATION PROCEDURE NOTE: Attending: Dr Pro Brown MD Patient was evaluated and plan to intubate was made for respiratory failure. Sedative agent used: Etomidate 25 mg, lidocaine 100 mg Paralysis agent used: Rocuronium 60 mg Verbal consent was obtained from the patient prior to intubation he was agreeable to it The patient was prepared in the appropriate fashion. The patient was easily pre-oxygenated by using uqi-vtryj-jept ventilation. With help of glide scope grade 2 vocal cords were visualized and 7.5 Khmer ETT was introduced on first attempt to 25 cm at the lip. The stylette was removed and balloon was inflated with 10mL of air. Appropriate Colorimetric change was appreciated for at least 10 breaths. Bilateral chest rise and breath sounds were appreciated without air sounds in the epigastrium. Patient tolerated the procedure well and there were no immediate complications. Chest Xray to follow for confirming placement. Coding CPT Codes Resuscitation - Resuscitation: 33743 Endotracheal Intubation, emergency ([id number]) [facility] [place] Procedure Codes (Charges) Resuscitation Resuscitation: [id number] Endotracheal Intubation, emergency
--- NOTE | 2021-01-29 16:41 | Communication Note ---
Date of Service: January 29, 2021 Critical care addendum: Was called to evaluate the patient as patient was maxed out on fio2 100% with CPAP 12. saturating in high 80's At the time of examination patient stated that he is tiring out. He has been on CPAP for more than a day continuous. Plan was made to intubated the patient for impending ventilatory failure. Risk and benefits of the procedure were explained to the patient. He agrees for intubation Patient's will be decision maker for him after intubation. Patient's P/F ratio: 69. We will paralyzed in prone Procedure: Pronation Maneuver Indication: Requiring lung recruitment intervention in the setting of advanced ARDS with poor lung compliance and oxygenation on standard ventilator settings. Patient requiring pronation in the setting of advanced ARDS per imaging, ventilator requirements, and calculated P:F ratio. Appropriate staff was assembled including myself, Respiratory Therapy, and Nursing Staff. A time-out was completed verifying correct patient, time from recent pronation/supination, current ventilator settings, review of any prior issues during pronation/supination maneuvers. Patient was fully undressed as to be able to view all current IV sites, central venous access sites, arterial lines, endotracheal tube, Valdovinos catheter, etc. After properly identifying/securing all lines, tubes, etc, On my count, the patient was slid to the edge of the bed. After reevaluating all lines, tubes, etc., the patient was then placed on their side allowing for RT to maintain control of ET tube and ready for completion of Pronation maneuver. Final check of all lines, tubes, etc. was completed by myself and nursing staff. Patient was getting adequate tidal volume. Blood pressure, heart rhythm, and oxygen saturations were monitored for several minutes s/p maneuver. Discussion was held with patients RN and RT regarding ongoing management. Patient tolerated maneuver well. No immediate complications were noted. Patient's Nanda [phone] was called and updated regarding the patient's condition I have personally spent 48 minutes of critical care time in the direct management of this patient. This is a life/limb threatening event. This includes time spent evaluating patient, direct bedside care, chart review, placing orders, interpretation of diagnostic studies, discussion with consultants, patient, and family members, as well as other required patient management activities. This time is exclusive of all separately billable procedures, and teaching time and separate from and in addition to any other critical care service time. Please note the above document was generated using voice recognition software. It may contain grammatical, syntax or spelling errors. Coding Level of Care Code Critical Care 1st 30-74 mins Time Spent (min) 48
[2021-01-29] MEDS ORDERED: CISATRACURIUM BESYLATE IV SOLN 2 MG/ML 10 ML VIAL IV STA (16:53)
[2021-01-29] MEDS ORDERED: PROPOFOL BOLUS FROM BAG IV PRN (17:00)
[2021-01-29] MEDS ORDERED: fentaNYL DRIP 1,250 MCG/250 ML BAG IV SCH (17:00)
[2021-01-29] MEDS: CISATRACURIUM BESYLATE 40 MG in 0.9 % SODIUM CHLORIDE 80 ML IV SCH ×3 (17:16→23:19)
[2021-01-29 17:22] LABS: iSTAT Art Bld Gas pCO2 Correct 60 mmHg (35-46); iSTAT Art Bld Gas pH Corrected 7.374 (7.35-7.45); iSTAT Arterial Blood Gas HCO3 35 meg/L (19-24); iSTAT Arterial Blood Gas pCO2 60 mmHg (35-46); iSTAT Arterial Blood Gas pH 7.37 (7.35-7.45); iSTAT Arterial Blood Gas pO2 69 mmHg (80-95); iSTAT Arterial Blood Gas pO2 C 69; iSTAT Carbon Dioxide 37 mmol/L (24-31); iSTAT FiO2 100 %; iSTAT Hematocrit 37 % (42-52); iSTAT Hemoglobin 12.6 g/dl (14.0-18.0); iSTAT Potassium 3.8 mmol/L (3.3-5.0); iSTAT Site Art Line; iSTAT Sodium 138 mmol/L (135-144)
--- NOTE | 2021-01-29 17:25 | XRay Report ---
XR chest 1V portable, XR KUB/Abdomen 1 view HISTORY: 55 years-old Male s/p intubation CVC placement acute respiratory failure COMPARISON: CTA chest 01/28/2021, chest radiograph 01/27/2021 TECHNIQUE: AP view of the chest with KUB radiograph FINDINGS: Chest: Endotracheal tube overlies the midline, 4.7 cm superior to the shane. Right IJ central venous cathet er distal tip terminates in the expected location of the mid SVC. Enteric tube courses below the diap hragm with distal tip outside the [id number]. No pneumothorax. Progressively worsened mixed inters titial and alveolar opacities. No acute fracture. KUB: Nonobstructive bowel gas pattern. Distal tip of enteric tube projects over the gastric body. No pneum atosis or pneumoperitoneum. No urolith. IMPRESSION: 1. Satisfactory positioning of the lines and tubes as above. 2. Progressively worsened extensive viral pneumonia. ACT 112: Negative or not required by law. The above report was generated using voice recognition software. It may contain grammatical, syntax o r spelling errors. Electronically signed by: Franck Maria M.D. 01/29/2021 5:23 PM
--- NOTE | 2021-01-29 17:25 | XRay Report ---
XR chest 1V portable, XR KUB/Abdomen 1 view HISTORY: 55 years-old Male s/p intubation CVC placement acute respiratory failure COMPARISON: CTA chest 01/28/2021, chest radiograph 01/27/2021 TECHNIQUE: AP view of the chest with KUB radiograph FINDINGS: Chest: Endotracheal tube overlies the midline, 4.7 cm superior to the shane. Right IJ central venous cathet er distal tip terminates in the expected location of the mid SVC. Enteric tube courses below the diap hragm with distal tip outside the [id number]. No pneumothorax. Progressively worsened mixed inters titial and alveolar opacities. No acute fracture. KUB: Nonobstructive bowel gas pattern. Distal tip of enteric tube projects over the gastric body. No pneum atosis or pneumoperitoneum. No urolith. IMPRESSION: 1. Satisfactory positioning of the lines and tubes as above. 2. Progressively worsened extensive viral pneumonia. ACT 112: Negative or not required by law. The above report was generated using voice recognition software. It may contain grammatical, syntax o r spelling errors. Electronically signed by: Franck Maria M.D. 01/29/2021 5:23 PM
[2021-01-29] MEDS ORDERED: ROCURONIUM BROMIDE 10 MG/ML 5 ML VIAL IV ONE (21:10)
[2021-01-29] MEDS ORDERED: ETOMIDATE 2 MG/ML 20 ML VIAL IV ONE (21:10)
[2021-01-29] MEDS ORDERED: LIDOCAINE 2% 20 MG/ML 5 ML SYR IV ONE (21:10)
[2021-01-29] MEDS: ARTIFICIAL TEARS OP OINT 3.5 GM TUBE OP SCH ×2 (21:11→23:27)
[2021-01-30] MEDS: ARTIFICIAL TEARS OP OINT 3.5 GM TUBE OP SCH ×6 (01:46→21:25)
[2021-01-30] MEDS: CISATRACURIUM BESYLATE 40 MG in 0.9 % SODIUM CHLORIDE 80 ML IV SCH ×5 (01:46→13:45)
[2021-01-30] MEDS: propofoL 1,000 MG/100 ML VIAL IV SCH ×10 (01:47→21:21)
[2021-01-30 05:20] LABS: iSTAT Art Bld Gas pCO2 Correct 55 mmHg (35-46); iSTAT Art Bld Gas pH Corrected 7.439 (7.35-7.45); iSTAT Arterial Blood Gas HCO3 37 meg/L (19-24); iSTAT Arterial Blood Gas pCO2 57 mmHg (35-46); iSTAT Arterial Blood Gas pH 7.43 (7.35-7.45); iSTAT Arterial Blood Gas pO2 69 mmHg (80-95); iSTAT Arterial Blood Gas pO2 C 65; iSTAT Carbon Dioxide 39 mmol/L (24-31); iSTAT FiO2 50 %; iSTAT Hematocrit 33 % (42-52); iSTAT Hemoglobin 11.2 g/dl (14.0-18.0); iSTAT Potassium 3.6 mmol/L (3.3-5.0); iSTAT Site Art Line; iSTAT Sodium 140 mmol/L (135-144)
[2021-01-30] MEDS: ENOXAPARIN INJ 40 MG/0.4 ML SYR SQ SCH ×2 (05:26→16:35)
[2021-01-30 07:11] LABS: Basophils # (auto) 0.01 K/uL (0-0.2); Basophils % (auto) 0.2 %; Hemoglobin 11.3 g/dL (14.0-18.0); Immature Granulocytes # (auto) 0.05 K/uL (0.00-0.02); Immature Granulocytes % (auto) 1.1 %; Lymphocytes # (auto) 0.36 K/uL (1.2-3.4); Lymphocytes % (auto) 7.7 %; Mean Corpuscular Hemoglobin 23.7 pg (25-34); Mean Corpuscular Hgb Conc 31.4 g/dL (32-36); Mean Corpuscular Volume 75.5 fL (80-100); Mean Platelet Volume 9.8 fL (7.4-10.4); Monocytes # (auto) 0.34 K/uL (0.11-0.59); Monocytes % (auto) 7.2 %; Neutrophils # (auto) 3.94 K/uL (1.4-6.5); Neutrophils % (auto) 83.8 %; Platelet Count 329 K/uL (130-400); RDW Coefficient of Variation 17.4 % (11.5-14.5); RDW Standard Deviation 48.7 fL (36.4-46.3); Red Blood Count 4.77 M/uL (4.7-6.1)
[2021-01-30 07:50] LABS: BUN Creatinine Ratio 44.8 (10-20); Calcium 9.1 mg/dl (8.5-10.1); Creatinine Clr Calc Pharmacy 172.7 ml/min; Est GFR (African American) 128.6 ml/min; Est GFR (Non-African American) 110.9 ml/min; Magnesium 2.4 mg/dl (1.8-2.4); Potassium 3.7 mmol/L (3.5-5.1)
[2021-01-30 07:51] LABS: Phosphorus 3.2 mg/dl (2.5-4.9)
[2021-01-30] MEDS: fentaNYL DRIP 1,250 MCG/250 ML BAG IV SCH (08:18)
[2021-01-30] MEDS: ATOMOXETINE HCL 25 MG CAPSULE PO SCH (11:04)
[2021-01-30] MEDS: PANTOprazole 40 MG TAB PO SCH (11:05)
[2021-01-30] MEDS: TAMSULOSIN HCL 0.4 MG CAP PO SCH (11:05)
[2021-01-30] MEDS: guaiFENesin 600 MG TABCR PO SCH (11:24)
[2021-01-30] MEDS: DOXYCYCLINE HYCLATE 100 MG in DEXTROSE 5% 100 ML IV SCH (11:27)
[2021-01-30] MEDS: FUROSEMIDE INJ 20 MG/2 ML VIAL IV SCH (11:27)
[2021-01-30] MEDS: amLODIPine BESYLATE 5 MG TAB PO SCH (11:27)
[2021-01-30] MEDS: LEVOTHYROXINE SODIUM 125 MCG TABLET PO SCH (11:27)
[2021-01-30] MEDS: busPIRone 5 MG TAB PO SCH ×2 (11:27→21:24)
--- NOTE | 2021-01-30 13:24 | Critical Care Progress Note ---
Date of Service January 30, 2021 Assessment & Plan (1) Acute respiratory failure with hypoxia: (2) Pneumonia due to COVID-19 virus: (3) Obesity: (4) Anemia: (5) Chronic respiratory acidosis: Plan: Impression: 55-year-old male unvaccinated for Covid who was admitted 01/24/2021 with hypoxemic respiratory failure and pulmonary infiltrates. He was initially trialed on BiPAP but failed and was intubated 01/28/2021 24-hour events: Patient was intubated. Central lines were placed. He was proned. His FiO2 was weaned while in the prone position. At 1:00 today we rolled the patient back to the supine position. He did drop his oxygen saturations down into the 80% range and had to be placed on a percent FiO2. Additional sedatives and neuromuscular blockade were provided with improvement in oxygen saturations. Recommendations: 1. Neurologic: Currently on neuromuscular blockade, propofol, and fentanyl. Continue neuromuscular blockade additional 24 hours. Patient is on a variety of medications for mental health conditions. These will be held for now. 2. Cardiovascular: Hypertensive. Continue Norvasc for now. May need additional antihypertensives. Will check BNP level. He has been receiving empiric diuretics. 3. 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 Current vent settings AC/25/420/0 0.5/14 with plateau pressure of 23. P/F 138. Last ABG 7.43/57/69. Findings consistent with severe ARDS. As he is now 11 days post symptoms, would qualify for late-phase ARDS steroids. We will increase his dexamethasone to 20 mg a day for 5 days followed by 10 mg for 5 days then discontinue. He is at risk for complications related to steroids. Will reassess later this afternoon to see whether or not he needs a repeat proning or if he can remain in the supine position. Patient is 55. Unclear if he is a candidate for advanced the rapies such as ECMO. Will reach out to narcisa for their opinion. Given stanley diffuse nature of his GGO, may consider inhaled Flolan. Unclear how much benefit we will get with proning. 4. GI: Holding tube feeds given neuromuscular blockade and frequent proning. PPI in place. 5. Renal: We will hold his Flomax. Valdovinos catheter in place. Creatinine stable and electrolytes adequate. Initiate ICU replacement protocol. 6. ID: Doxycycline day #2 for presumed pneumonia. Cultures are negative. Procalcitonin has been negative. Check respiratory culture and hold antibiotics for now 7. Heme-onc: Mild anemia without evidence of acute blood loss. Continue to follow for now 8. Endocrine: Glycemic control per protocol. Continue Synthroid Total of 50 minutes critical care time was spent evaluating managing and stabilizing this patient including discussion with bedside critical care nurse, on multidisciplinary rounds, and with respiratory therapy. Family will be updated by phone. Addendum: Spoke with [facility] ECMO team. Criteria are age < 55 with a BMI of less than 35 so he meets those criteria. If they are going to initiate ECMO they would do it within 7 days of initiation of high flow or CPAP/BiPAP. The patient is currently day for 5 so if he deteriorates within the next 2 to 3 days they would consider him but they think he has room to go from a ventilator standpoint currently. Admission and Anticipated Discharge Date Admission Date: January 24, 2021 Subjective Patient is intubated sedated and prone Review of Systems Review of Systems: Unobtainable due to endotracheal tube Physical Exam Constitutional: + mechanically ventilated Intubated sedated in prone Neck: trachea midline, no thyromegaly Respiratory: normal respiratory effort, lungs clear to auscultation Cardiovascular: RRR, no murmur, no edema Gastrointestinal (Abdomen): normal bowel sounds, soft, nontender, no hepatosplenomegaly Musculoskeletal: Extremities: extremities normal to inspection Skin: no rashes, warm and dry Neurologic: Nonfocal exam Lymphatic: no cervical lymphadenopathy Results & Data Results & Data ([facility]) Vital Signs (Past 12 Hours) Vital Signs Temp Pulse Resp BP Pulse Ox 01/30/21 11:16 77 25 H 93 01/30/21 11:00 37.2 C 87 25 H 180/90 H 89 L 01/30/21 10:00 94 H 25 H 92 01/30/21 09:00 37.1 C 70 25 H 121/97 92 01/30/21 08:23 76 25 H 92 01/30/21 08:00 72 25 H 92 01/30/21 07:00 37.1 C 72 25 H 141/73 H 92 01/30/21 06:40 73 25 H 158/79 H 92 01/30/21 06:30 76 25 H 92 01/30/21 06:20 72 25 H 92 01/30/21 06:10 86 25 H 92 01/30/21 06:00 71 25 H 92 01/30/21 05:50 77 25 H 162/85 H 92 01/30/21 05:40 36.2 C L 71 25 H 92 01/30/21 05:30 69 25 H 91 01/30/21 05:20 68 25 H 91 01/30/21 05:10 69 25 H 91 01/30/21 05:00 69 25 H 92 01/30/21 04:50 70 25 H 91 01/30/21 04:40 36.2 C L 67 25 H 91 01/30/21 04:30 70 25 H 92 01/30/21 04:20 70 25 H 92 01/30/21 04:10 71 25 H 91 01/30/21 04:00 78 25 H 92 01/30/21 03:50 83 25 H 93 01/30/21 03:40 69 25 H 92 01/30/21 03:34 85 2 L 96 01/30/21 03:30 84 25 H 97 01/30/21 03:20 87 25 H 160/91 H 97 01/30/21 03:10 71 25 H 96 01/30/21 03:00 68 25 H 133/72 96 01/30/21 02:50 66 25 H 94 01/30/21 02:40 66 25 H 94 01/30/21 02:30 66 25 H 125/68 94 01/30/21 02:20 67 25 H 95 01/30/21 02:10 68 25 H 123/71 95 01/30/21 02:00 68 25 H 94 01/30/21 01:50 69 25 H 131/70 94 01/30/21 01:40 59 L 25 H 90 01/30/21 01:30 66 25 H 132/72 95 01/30/21 01:20 66 25 H 97 Critical Care Results & Data Vital Signs (Past 12 Hours) Vital Signs Temp Pulse Resp BP Pulse Ox 01/30/21 11:16 77 25 H 93 01/30/21 11:00 37.2 C 87 25 H 180/90 H 89 L 01/30/21 10:00 94 H 25 H 92 01/30/21 09:00 37.1 C 70 25 H 121/97 92 01/30/21 08:23 76 25 H 92 01/30/21 08:00 72 25 H 92 01/30/21 07:00 37.1 C 72 25 H 141/73 H 92 01/30/21 06:40 73 25 H 158/79 H 92 01/30/21 06:30 76 25 H 92 01/30/21 06:20 72 25 H 92 01/30/21 06:10 86 25 H 92 01/30/21 06:00 71 25 H 92 01/30/21 05:50 77 25 H 162/85 H 92 01/30/21 05:40 36.2 C L 71 25 H 92 01/30/21 05:30 69 25 H 91 01/30/21 05:20 68 25 H 91 01/30/21 05:10 69 25 H 91 01/30/21 05:00 69 25 H 92 01/30/21 04:50 70 25 H 91 01/30/21 04:40 36.2 C L 67 25 H 91 01/30/21 04:30 70 25 H 92 01/30/21 04:20 70 25 H 92 01/30/21 04:10 71 25 H 91 01/30/21 04:00 78 25 H 92 01/30/21 03:50 83 25 H 93 01/30/21 03:40 69 25 H 92 01/30/21 03:34 85 2 L 96 01/30/21 03:30 84 25 H 97 01/30/21 03:20 87 25 H 160/91 H 97 01/30/21 03:10 71 25 H 96 01/30/21 03:00 68 25 H 133/72 96 01/30/21 02:50 66 25 H 94 01/30/21 02:40 66 25 H 94 01/30/21 02:30 66 25 H 125/68 94 01/30/21 02:20 67 25 H 95 01/30/21 02:10 68 25 H 123/71 95 01/30/21 02:00 68 25 H 94 01/30/21 01:50 69 25 H 131/70 94 01/30/21 01:40 59 L 25 H 90 01/30/21 01:30 66 25 H 132/72 95 01/30/21 01:20 66 25 H 97 Lab & Micro Results (Past 24 Hours) RBC 4.77 M/uL (4.7-6.1) 01/30/21 WBC 4.70 K/uL (4.8-10.8) L 01/30/21 Hgb 11.3 g/dL (14.0-18.0) L 01/30/21 Hct 36.0 % (42-52) L 01/30/21 MCV 75.5 fL (80-100) L 01/30/21 MCH 23.7 pg (25-34) L 01/30/21 MCHC 31.4 g/dL (32-36) L 01/30/21 RDW Standard Deviation 48.7 fL (36.4-46.3) H 01/30/21 RDW Coefficient of Variation 17.4 % (11.5-14.5) H 01/30/21 Plt Count 329 K/uL (130-400) 01/30/21 MPV 9.8 fL (7.4-10.4) 01/30/21 Neutrophils (%) (Auto) 83.8 % 01/30/21 Lymphocytes (%) (Auto) 7.7 % 01/30/21 Monocytes # (Auto) 0.34 K/uL (0.11-0.59) 01/30/21 Eosinophils # (Auto) 0.00 K/uL (0-0.5) 01/30/21 Immature Granulocyte % (Auto) 1.1 % 01/30/21 Neutrophils # (Auto) 3.94 K/uL (1.4-6.5) 01/30/21 Lymphocytes # (Auto) 0.36 K/uL (1.2-3.4) L 01/30/21 Monocytes # (Auto) 0.34 K/uL (0.11-0.59) 01/30/21 Eosinophils # (Auto) 0.00 K/uL (0-0.5) 01/30/21 Basophils # (Auto) 0.01 K/uL (0-0.2) 01/30/21 Immature Granulocyte # (Auto) 0.05 K/uL (0.00-0.02) H 01/30/21 Na 139 mmol/L (136-145) 01/30/21 K 3.7 mmol/L (3.5-5.1) 01/30/21 Cl 101 mmol/L (98-107) 01/30/21 CO2 34 mmol/L (21-32) H 01/30/21 Anion Gap 4.0 (3-11) 01/30/21 BUN 28 mg/dl (7-18) H 01/30/21 Creatinine 0.63 mg/dl (0.6-1.4) 01/30/21 Estimated GFR ( Amer) 128.6 ml/min 01/30/21 Estimated GFR (Non-Af Amer) 110.9 ml/min 01/30/21 BUN/Creatinine Ratio 44.8 (10-20) H 01/30/21 Glu 124 mg/dl (70-99) H 01/30/21 Ca 9.1 mg/dl (8.5-10.1) 01/30/21 Phosphorus Level 3.2 mg/dl (2.5-4.9) 01/30/21 Mg 2.4 mg/dl (1.8-2.4) 01/30/21 06:31 01/30/21 Calcium Level 9.1 mg/dl (8.5-10.1) 01/30/21 06:31 01/30/21 Christoph Test NA 01/30/21 04:55 01/30/21 Diagnostic Findings (Past 24 Hours) Chest X-Ray 01/29/21 15:58 XR chest 1V portable, XR KUB/Abdomen 1 view HISTORY: 55 years-old Male s/p intubation CVC placement acute respiratory failure COMPARISON: CTA chest 01/28/2021, chest radiograph 01/27/2021 TECHNIQUE: AP view of the chest with KUB radiograph FINDINGS: Chest: Endotracheal tube overlies the midline, 4.7 cm superior to the shane. Right IJ central venous catheter distal tip terminates in the expected location of the mid SVC. Enteric tube courses below the diaphragm with distal tip outside the [id number]. No pneumothorax. Progressively worsened mixed interstitial and alveolar opacities. No acute fracture. KUB: Nonobstructive bowel gas pattern. Distal tip of enteric tube projects over the gastric body. No pneumatosis or pneumoperitoneum. No urolith. IMPRESSION: 1. Satisfactory positioning of the lines and tubes as above. 2. Progressively worsened extensive viral pneumonia. ACT 112: Negative or not required by law. The above report was generated using voice recognition software. It may contain grammatical, syntax or spelling errors. Electronically signed by: Franck Maria M.D. 01/29/2021 5:23 PM KUB X-Ray 01/29/21 15:58 XR chest 1V portable, XR KUB/Abdomen 1 view HISTORY: 55 years-old Male s/p intubation CVC placement acute respiratory f ailure COMPARISON: CTA chest 01/28/2021, chest radiograph 01/27/2021 TECHNIQUE: AP view of the chest with KUB radiograph FINDINGS: Chest: Endotracheal tube overlies the midline, 4.7 cm superior to the shane. Right IJ central venous catheter distal tip terminates in the expected location of the m id SVC. Enteric tube courses below the diaphragm with distal tip outside the [id number]. No pneumothorax. Progressively worsened mixed interstitial and alveolar opacities. No acute fracture. KUB: Nonobstructive bowel gas pattern. Distal tip of enteric tube projects over the gastric body. No pneumatosis or pneumoperitoneum. No urolith. IMPRESSION: 1. Satisfactory positioning of the lines and tubes as above. 2. Progressively worsened extensive viral pneumonia. ACT 112: Negative or not required by law. The above report was generated using voice recognition software. It may contain grammatical, syntax or spelling errors. Electronically signed by: Franck Maria M.D. 01/29/2021 5:23 PM I & O Totals 24 Hours 01/29/21 01/30/21 01/31/21 06:59 06:59 06:59 Intake Total 720 / 720 1418.606 / 1418.606 394.23 / 394.23 Output Total 1750 / 1750 1870 / 1870 730 / 730 Balance -1030 / -1030 -451.394 / -451.394 -335.77 / -335.77 Cumulative 01/24/21 08:06 thru 01/30/21 11:34 Intake Total 5222.836 Output Total 7207 Balance -1984.164 RT Ventilator Mngmt (Last Documented) Ventilator Ordered Settings Ventilator Support Mode Assist Control 01/30/21 11:16 Respiratory Rate 25 01/30/21 11:16 Ventilator Tidal Volume 420 01/30/21 11:16 Setting Minute Ventilation 10.4 01/30/21 11:16 Positive End Expiratory 14 01/30/21 11:16 Pressure Fraction of Inspired Oxygen 50 01/30/21 11:16 Machine Comment FiO2 weaned to 50% 01/30/21 03:34 Ventilator - PT Measurements Respiratory Rate 25 Exhaled Tidal Volume 420 Minute Ventilation 10.4 Peak Inspiratory Airway 26 Pressure Plateau Pressure 25 Respiratory Cycle Inspiratory: 1:2.0 Expiratory Ratio Inspiratory Phase Time 0.80 End-Tidal CO2 28 Static Lung Compliance 38.18 Dynamic Lung Compliance 35.00 Normal Static Lung Compliance 48.00 Patient Measurements Comment pt proned, head turned Coding Level of Care Code Critical Care 1st 30-74 mins Diagnoses Acute respiratory failure with hypoxia J96.01 Pneumonia due to COVID-19 virus U07.1; J12.82 Obesity E66.9 Anemia D64.9 Chronic respiratory acidosis E87.2 Time Spent (min) 50
[2021-01-30] MEDS: dexAMETHasone 10 MG in SYRINGE 0 ML IV SCH (13:49)
--- NOTE | 2021-01-30 14:16 | XRay Report ---
XR chest 1V portable CLINICAL HISTORY: Resp failure. Follow-up Viral pneumonitis COMPARISON STUDY: 01/29/2021 TECHNIQUE: 1 view of the chest FINDINGS: Single frontal view of the chest demonstrates the cardiomediastinal silhouette to be within normal li mits. Tubes and catheters are unchanged. Compared to the previous examination, there is slight worsen ing of diffuse interstitial and alveolar opacities characteristic of viral type pneumonitis and proba ble Covid 19 pneumonia. There is no evidence for pleural effusion. There is no evidence for vascular congestion. There is no acute osseous pathology. IMPRESSION: Slight interval worsening of diffuse interstitial and alveolar opacities bilaterally agai n characteristic of a viral type pneumonitis and probable Covid 19 pneumonia.. ACT 112: Negative or not required by law. Electronically signed by: Derrick Devries M.D. 01/30/2021 2:14 PM
[2021-01-30] MEDS ORDERED: dexAMETHasone 20 MG in SYRINGE 0 ML IV SCH (14:26)
--- NOTE | 2021-01-30 15:11 | Hospitalist Progress Note ---
Date of Service January 30, 2021 Assessment & Plan (1) Acute respiratory failure with hypoxia: Plan: 2/2 covid pneumonia, see plan below. Status post intubated and sedated Appreciate disaster recovery manager input and recommendation (2) Pneumonia due to COVID-19 virus: Plan: 55 years old male unvaccinated for COVID 19 presented with worsening shortness of breath Continue Decadron and supportive therapies as needed. DuoNebs as needed. Guaifenesin as needed. Tessalon Perles as needed. Remdesivir contraindicated in the setting of elevated LFTs on admission Patient is high risk to get intubated as has now been on BIPAP for two days. Pulm consulted Lasix given today and daily to keep overall fluid balance net negative. Doppler bilateral lower extremities were negative for DVT, also CTA chest perf ormed 01/28 (yesterday) which was negative for PE. Declines to prone. Required intubation in the evening of 01/29/2021 Remains sedated on ventilator Management as per disaster recovery manager (3) Elevated liver enzymes: Plan: Likely related to Covid 19 infection, trending down. Continue monitor CMP periodically-we will check LFTs in a.m. 01/31/2021 (4) Hypertension: Plan: -BP controlled, continue amlodipine -Hold triamterene/HCTZ due to dehydration from acute illness/hypokalemia -Blood pressure remains on the higher side -We will try intravenous beta-yordan (5) Hypothyroidism: Plan: -Continue levothyroxine per home regimen. (6) ADHD: (7) Anxiety: Plan: There was an issue with his Pristiq, which has been held since landon of 01/27. Will restart this now, 150mg once daily. Buspar 5 mg BID added 01/28 to help with the anxiety during the hospital course (8) CATHY on CPAP: Plan: continuous BIPAP now. (9) DVT prophylaxis: Plan: -SQ Lovenox Full code Dispo-PCU. Unable to contact patient's at number provided. Will try again later. Admission and Anticipated Discharge Date Admission Date: January 24, 2021 Subjective 01/30/2021 The patient was seen and examined in telemetry unit and in the Covid room He has been intubated and sedated Review of Systems Review of Systems: Unobtainable due to endotracheal tube Physical Exam Physical Exam: Lying in bed in prone position with mechanical ventilator and sedation Constitutional: well developed, well nourished, + ill appearing and + obese ENMT: external ear and nose normal, oropharynx normal Neck: trachea midline, no thyromegaly Respiratory: no respiratory distress Auscultation: + diminished lung sounds and + crackles (Minimal crackles at the bases) Cardiovascular: Rate/Rhythm: regular rate and regular rhythm; not tachycardic Heart Sounds: normal S1 and normal S2; no murmur Extremities: no edema Gastrointestinal (Abdomen): Inspection/Auscultation: normal bowel sounds; abdomen not distended Percussion/Palpation: abdomen soft; abdomen nontender Musculoskeletal: No acute arthritis in any joint Neurologic: Intubated and sedated Results & Data Results & Data ([facility]) Vital Signs (Past 12 Hours) Vital Signs Temp Pulse Resp BP Pulse Ox 01/30/21 11:16 77 25 H 93 01/30/21 11:00 37.2 C 87 25 H 180/90 H 89 L 01/30/21 10:00 94 H 25 H 92 01/30/21 09:00 37.1 C 70 25 H 121/97 92 01/30/21 08:23 76 25 H 92 01/30/21 08:00 72 25 H 92 01/30/21 07:00 37.1 C 72 25 H 141/73 H 92 01/30/21 06:40 73 25 H 158/79 H 92 01/30/21 06:30 76 25 H 92 01/30/21 06:20 72 25 H 92 01/30/21 06:10 86 25 H 92 01/30/21 06:00 71 25 H 92 01/30/21 05:50 77 25 H 162/85 H 92 01/30/21 05:40 36.2 C L 71 25 H 92 01/30/21 05:30 69 25 H 91 01/30/21 05:20 68 25 H 91 01/30/21 05:10 69 25 H 91 01/30/21 05:00 69 25 H 92 01/30/21 04:50 70 25 H 91 01/30/21 04:40 36.2 C L 67 25 H 91 01/30/21 04:30 70 25 H 92 01/30/21 04:20 70 25 H 92 01/30/21 04:10 71 25 H 91 01/30/21 04:00 78 25 H 92 01/30/21 03:50 83 25 H 93 01/30/21 03:40 69 25 H 92 01/30/21 03:34 85 2 L 96 01/30/21 03:30 84 25 H 97 01/30/21 03:20 87 25 H 160/91 H 97 01/30/21 03:10 71 25 H 96 Laboratory Results Short CBC 01/30/21 Range/Units 06:31 WBC 4.70 L (4.8-10.8) K/uL Hgb 11.3 L (14.0-18.0) g/dL Hct 36.0 L (42-52) % Plt Count 329 (130-400) K/uL BMP 01/30/21 06:31 Sodium 139 Potassium 3.7 Chloride 101 Carbon Dioxide 34 H BUN 28 H Creatinine 0.63 Glucose 124 H Calcium 9.1 Medications Administered Current Inpatient Medications Acetaminophen (Acetaminophen 325 Mg Tab) 650 mg PO Q4H PRN PRN Reason: pain/fever Stop: 02/23/21 18:33 Last Admin: 01/29/21 05:19 Dose: 650 mg Documented by: Albuterol (Albut/Ipratrop 3mg/0.5mg Neb 3 Ml Vial) 3 ml NEB Q4R PRN PRN Reason: sob/wheezing Stop: 02/23/21 15:14 Last Admin: 01/26/21 16:17 Dose: 3 ml Documented by: Amlodipine Besylate (Amlodipine Besylate 5 Mg Tab) 10 mg PO DAILY TONY Stop: 02/24/21 08:59 Last Admin: 01/30/21 11:27 Dose: 10 mg Documented by: Benzonatate (Benzonatate 100 Mg Capsule) 100 mg PO TID PRN PRN Reason: Cough Stop: 02/23/21 21:03 Last Admin: 01/28/21 09:10 Dose: 100 mg Documented by: Buspirone HCl (Buspirone 5 Mg Tab) 5 mg PO BID [facility] Stop: 02/27/21 20:59 Last Admin: 01/30/21 11:27 Dose: 5 mg Documented by: Enoxaparin Sodium (Enoxaparin Inj 40 Mg/0.4 Ml Syr) 40 mg SQ Q12H TONY Stop: 02/27/21 17:59 Last Admin: 01/30/21 05:26 Dose: 40 mg Documented by: Fentanyl Citrate (Fentanyl Bolus From Bag) 50 mcg IV Q60M PRN PRN Reason: Pain or Agitation Stop: 02/12/21 16:40 Furosemide (Furosemide Inj 20 Mg/2 Ml Vial) 20 mg IV Q24H [facility] Stop: 02/28/21 09:59 Last Admin: 01/30/21 11:27 Dose: 20 mg Documented by: Propofol (Diprivan) 1,000 mg in 100 mls @ 24.675 mls/hr IV .Q4H4M TONY; Protocol Stop: 02/01/21 16:14 Last Admin: 01/30/21 13:45 Dose: 40 mcg/kg/min, 28.2 mls/hr Documented by: Fentanyl Citrate (Fentanyl Drip) 1,250 mcg in 250 mls @ 30 mls/hr IV .Q8H20M TONY; Protocol Stop: 01/30/21 16:00 Last Admin: 01/30/21 08:18 Dose: 150 mcg/hr, 30 mls/hr Documented by: Cisatracurium Besylate 40 mg/ (Sodium Chloride) 100 mls @ 23.97 mls/hr IV .Q4H1 1M TONY; Protocol Stop: 01/30/21 17:00 Last Admin: 01/30/21 13:45 Dose: 3 mcg/kg/min, 36 mls/hr Documented by: Pantoprazole Sodium 40 mg/ (Syringe) 10 mls @ 5 mls/min IV BID@0900,2100 [facility] Stop: 03/01/21 20:59 Cisatracurium Besylate 100 mg/ (Sodium Chloride) 250 mls @ 23.97 mls/hr IV .Q78Q52H TONY; Protocol Stop: 03/01/21 16:59 Fentanyl Citrate (Fentanyl Citrate) 2,500 mcg in 250 mls @ 15 mls/hr IV .[id number] [facility]; Protocol Stop: 02/13/21 15:59 Dexamethasone 20 mg/ Syringe 5 mls @ 1 mls/min IV Q24H [facility] Stop: 02/28/21 13:59 Levothyroxine Sodium (Levothyroxine Sodium 125 Mcg Tablet) 125 mcg PO DAILY [facility] Stop: 02/24/21 08:59 Last Admin: 01/30/21 11:27 Dose: 125 mcg Documented by: Miscellaneous (Pristiq- Order Awaiting Action) 1 ea N/A QS [facility] Stop: 03/01/21 00:00 Last Admin: 01/30/21 13:32 Dose: Not Given Documented by: Multi-Ingredient Cream (Artificial Tears Op Oint 3.5 Gm Tube) 1 appln OP Q4H [facility] Stop: 02/28/21 16:44 Last Admin: 01/30/21 13:32 Dose: 1 appln Documented by: Ondansetron HCl (Ondansetron Inj 2 Mg/Ml 2 Ml Vial) 4 mg IV Q6H PRN PRN Reason: Nausea Stop: 02/23/21 14:56 Last Admin: 01/28/21 18:02 Dose: 4 mg Documented by: Propofol (Propofol Bolus From Bag) 20 mg IV Q5M PRN PRN Reason: Sedation Stop: 02/01/21 16:07
[2021-01-30] MEDS ORDERED: dexAMETHasone 10 MG in SYRINGE 0 ML IV ONE (15:15)
[2021-01-30] MEDS: fentaNYL citrate 2,500 MCG/250 ML BAG IV SCH (16:34)
[2021-01-30] MEDS: CISATRACURIUM BESYLATE 100 MG in SODIUM CHLORIDE 0.9% 200 ML IV SCH (16:34)
[2021-01-30] MEDS: METOPROLOL TARTRATE 1 MG/ML VIAL IV SCH (16:35)
[2021-01-30] MEDS: PROPOFOL BOLUS FROM BAG IV PRN ×2 (19:23→20:07)
[2021-01-30 23:41] LABS: iSTAT Allen Test Pass; iSTAT Art Bld Gas pCO2 Correct 76 mmHg (35-46); iSTAT Art Bld Gas pH Corrected 7.343 (7.35-7.45); iSTAT Arterial Blood Gas HCO3 41 meg/L (19-24); iSTAT Arterial Blood Gas pCO2 73 mmHg (35-46); iSTAT Arterial Blood Gas pH 7.36 (7.35-7.45); iSTAT Arterial Blood Gas pO2 86 mmHg (80-95); iSTAT Arterial Blood Gas pO2 C 91; iSTAT Carbon Dioxide > 40 mmol/L (24-31); iSTAT FiO2 70 %; iSTAT Hematocrit 37 % (42-52); iSTAT Hemoglobin 12.6 g/dl (14.0-18.0); iSTAT Potassium 3.9 mmol/L (3.3-5.0); iSTAT Site L Radial; iSTAT Sodium 142 mmol/L (135-144)
[2021-01-31] MEDS: CISATRACURIUM BESYLATE 100 MG in SODIUM CHLORIDE 0.9% 200 ML IV SCH ×7 (00:13→23:54)
[2021-01-31] MEDS: PANTOprazole 40 MG in SYRINGE 0 ML IV SCH ×3 (00:14→20:11)
[2021-01-31] MEDS: METOPROLOL TARTRATE 1 MG/ML VIAL IV SCH ×3 (00:15→10:06)
[2021-01-31] MEDS: propofoL 1,000 MG/100 ML VIAL IV SCH ×11 (00:15→21:43)
[2021-01-31] MEDS: ARTIFICIAL TEARS OP OINT 3.5 GM TUBE OP SCH ×7 (00:16→23:56)
[2021-01-31] MEDS: fentaNYL citrate 2,500 MCG/250 ML BAG IV SCH ×2 (04:04→14:26)
[2021-01-31] MEDS: ENOXAPARIN INJ 40 MG/0.4 ML SYR SQ SCH ×2 (05:17→17:29)
[2021-01-31 05:18] LABS: iSTAT Allen Test Pass; iSTAT Art Bld Gas pCO2 Correct 78 mmHg (35-46); iSTAT Art Bld Gas pH Corrected 7.337 (7.35-7.45); iSTAT Arterial Blood Gas HCO3 41 meg/L (19-24); iSTAT Arterial Blood Gas pCO2 75 mmHg (35-46); iSTAT Arterial Blood Gas pH 7.35 (7.35-7.45); iSTAT Arterial Blood Gas pO2 69 mmHg (80-95); iSTAT Arterial Blood Gas pO2 C 74; iSTAT Carbon Dioxide > 40 mmol/L (24-31); iSTAT FiO2 50 %; iSTAT Hematocrit 36 % (42-52); iSTAT Hemoglobin 12.2 g/dl (14.0-18.0); iSTAT Potassium 3.9 mmol/L (3.3-5.0); iSTAT Site L Radial; iSTAT Sodium 142 mmol/L (135-144)
[2021-01-31 06:20] LABS: Basophils # (auto) 0.02 K/uL (0-0.2); Basophils % (auto) 0.2 %; Hematocrit (blood only) 38.5 % (42-52); Hemoglobin 11.3 g/dL (14.0-18.0); Immature Granulocytes # (auto) 0.15 K/uL (0.00-0.02); Immature Granulocytes % (auto) 1.4 %; Lymphocytes # (auto) 0.32 K/uL (1.2-3.4); Lymphocytes % (auto) 3.1 %; Mean Corpuscular Hemoglobin 23.2 pg (25-34); Mean Corpuscular Hgb Conc 29.4 g/dL (32-36); Mean Corpuscular Volume 78.9 fL (80-100); Mean Platelet Volume 10.1 fL (7.4-10.4); Monocytes # (auto) 0.64 K/uL (0.11-0.59); Monocytes % (auto) 6.1 %; Neutrophils # (auto) 9.33 K/uL (1.4-6.5); Neutrophils % (auto) 89.2 %; Platelet Count 420 K/uL (130-400); RDW Coefficient of Variation 17.9 % (11.5-14.5); Red Blood Count 4.88 M/uL (4.7-6.1); White Blood Count 10.46 K/uL (4.8-10.8)
[2021-01-31 06:28] LABS: Albumin Level 2.5 gm/dl (3.4-5.0); BUN Creatinine Ratio 35.9 (10-20); Calcium 8.7 mg/dl (8.5-10.1); Creatinine Clr Calc Pharmacy 155.1 ml/min; Est GFR (African American) 123.1 ml/min; Est GFR (Non-African American) 106.2 ml/min; Magnesium 2.4 mg/dl (1.8-2.4)
[2021-01-31 06:31] LABS: Albumin Globulin Ratio 0.5 (0.9-2); Bilirubin,Total 0.7 mg/dl (0.2-1); Globulin 4.7 gm/dl (2.5-4.0); Phosphorus 2.9 mg/dl (2.5-4.9); Total Protein 7.2 gm/dl (6.4-8.2)
--- NOTE | 2021-01-31 07:24 | Critical Care Progress Note ---
Date of Service January 31, 2021 Assessment & Plan (1) Acute respiratory failure with hypoxia: Plan: 55-year-old male unvaccinated for Covid who was admitted 01/24/2021 with hypoxemic respiratory failure and pulmonary infiltrates. He was initially trialed on BiPAP but failed and was intubated 01/28/2021. 24-hour events: Patient remains intubated and ventilated. Remains on fentanyl and propofol. Saturations in the high 80s at this time. Recommendations: 1. Neurologic: Currently on neuromuscular blockade, propofol, and fentanyl. Continue neuromuscular blockade for now. Patient is on a variety of medications for mental health conditions. These will be held for now. 2. Cardiovascular: Hypertensive. Continue Norvasc for now. May need additional antihypertensives. BNP level pending. He has been receiving empiric diuretics. 3. 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 Current vent settings AC/25/420/0 0.5/14 with plateau pressure of 23. P/F 138. Last ABG 7.43/57/69. Findings consistent with severe ARDS. As he is now 11 days post symptoms, would qualify for late-phase ARDS steroids. We will increase his dexamethasone to 20 mg a day for 5 days followed by 10 mg for 5 days then discontinue. He is at risk for complications related to steroids. Will reassess later this afternoon to see whether or not he needs a repeat proning or if he can remain in the supine position. Patient is 55. Given the diffuse nature of his GGO, may consider inhaled Flolan. Unclear how much benefit we will get with proning. 01/31: Dr. Jacob spoke with [facility] ECMO team: Criteria are age < 55 with a BMI of less than 35 so he meets those criteria. If they are going to initiate ECMO they would do it within 7 days of initiation of high flow or CPAP/BiPAP. The patient is currently day for 5 so if he deteriorates within the next 2 to 3 days they would consider him but they think he has room to go from a ventilator standpoint currently. 4. GI: Holding tube feeds given neuromuscular blockade and frequent proning. PPI in place. 5. Renal: We will hold his Flomax. Valdovinos catheter in place. Creatinine stable and electrolytes adequate. Initiate ICU replacement protocol. 6. ID: Doxycycline day #2 for presumed pneumonia. Cultures are negative. P rocalcitonin has been negative. Check respiratory culture and hold antibiotics for now 7. Heme-onc: Mild anemia without evidence of acute blood loss. Continue to follow for now 8. Endocrine: Glycemic control per protocol. Continue Synthroid (2) Anxiety: (3) Elevated liver enzymes: (4) Hypertension: (5) Hypokalemia: (6) Obesity: (7) CATHY on CPAP: (8) Pneumonia due to COVID-19 virus: Admission and Anticipated Discharge Date Admission Date: January 24, 2021 Results & Data Results & Data ([facility]) Vital Signs (Past 12 Hours) Vital Signs Temp Pulse Resp BP Pulse Ox 01/31/21 06:00 38.0 C H 74 25 H 136/73 88 L 01/31/21 05:50 38.0 C H 73 25 H 88 L 01/31/21 05:40 37.9 C H 73 25 H 87 L 01/31/21 05:30 37.9 C H 73 25 H 128/65 87 L 01/31/21 05:20 37.9 C H 95 H 25 H 89 L 01/31/21 05:17 92 H 152/85 H 01/31/21 05:10 37.9 C H 95 H 25 H 88 L 01/31/21 05:00 37.9 C H 88 25 H 161/86 H 88 L 01/31/21 04:50 37.9 C H 90 25 H 88 L 01/31/21 04:40 37.9 C H 90 22 88 L 01/31/21 04:30 37.9 C H 90 25 H 90 01/31/21 04:20 38.0 C H 91 H 25 H 88 L 01/31/21 04:10 38.0 C H 91 H 25 H 89 L 01/31/21 04:00 38.0 C H 101 H 25 H 161/86 H 01/31/21 03:50 37.9 C H 96 H 25 H 89 L 01/31/21 03:40 38.0 C H 97 H 25 H 162/85 H 90 01/31/21 03:30 38.0 C H 95 H 25 H 91 01/31/21 03:20 38.0 C H 98 H 25 H 91 01/31/21 03:10 38.0 C H 92 H 25 H 90 01/31/21 03:00 38.0 C H 93 H 25 H 162/85 H 89 L 01/31/21 02:50 38.0 C H 94 H 25 H 90 01/31/21 02:40 38.0 C H 97 H 25 H 90 01/31/21 02:30 38.0 C H 93 H 25 H 90 01/31/21 02:20 38.0 C H 93 H 25 H 90 01/31/21 02:10 38.0 C H 103 H 25 H 156/83 H 90 01/31/21 02:00 38.0 C H 88 25 H 01/31/21 01:50 38.0 C H 102 H 25 H 90 01/31/21 01:40 37.9 C H 88 25 H 89 L 01/31/21 01:30 38.0 C H 90 25 H 154/78 H 90 01/31/21 01:20 38.0 C H 93 H 25 H 154/76 H 91 01/31/21 01:10 38.0 C H 78 25 H 91 01/31/21 01:00 38.0 C H 75 25 H 91 01/31/21 00:50 38.0 C H 75 25 H 91 01/31/21 00:40 38.0 C H 72 25 H 91 01/31/21 00:30 38.0 C H 74 25 H 90 01/31/21 00:20 38.0 C H 73 25 H 89 L 01/31/21 00:15 81 126/68 01/31/21 00:10 38.0 C H 88 25 H 88 L 01/31/21 00:00 38.0 C H 102 H 25 H 154/78 H 01/30/21 23:50 38.0 C H 98 H 25 H 90 01/30/21 23:40 38.0 C H 95 H 25 H 90 01/30/21 23:30 38.0 C H 97 H 25 H 91 01/30/21 23:20 38.0 C H 88 25 H 93 01/30/21 23:10 38.1 C H 88 25 H 94 01/30/21 23:00 38.1 C H 85 25 H 91 01/30/21 22:50 38.2 C H 84 25 H 92 01/30/21 22:40 38.2 C H 87 25 H 91 01/30/21 22:30 38.2 C H 94 H 25 H 93 01/30/21 22:20 38.2 C H 95 H 22 93 01/30/21 22:10 38.2 C H 96 H 25 H 94 01/30/21 22:00 96 H 25 H 154/78 H 94 01/30/21 21:50 93 H 25 H 92 01/30/21 21:40 0 L 147/78 H 01/30/21 21:30 97 H 25 H 176/97 H 96 01/30/21 21:15 81 25 H 92 01/30/21 21:00 87 25 H 147/78 H 92 01/30/21 20:45 100 H 25 H 95 01/30/21 20:30 85 25 H 150/71 H 92 01/30/21 20:15 85 25 H 92 01/30/21 20:00 98 H 25 H 172/80 H 93 01/30/21 19:45 98 H 25 H 94 01/30/21 19:30 94 H 25 H 93
[2021-01-31] MEDS: busPIRone 5 MG TAB PO SCH ×2 (10:04→20:11)
[2021-01-31] MEDS: amLODIPine BESYLATE 5 MG TAB PO SCH (10:04)
[2021-01-31] MEDS: LEVOTHYROXINE SODIUM 125 MCG TABLET PO SCH (10:05)
[2021-01-31] MEDS: FUROSEMIDE INJ 20 MG/2 ML VIAL IV SCH (10:06)
--- NOTE | 2021-01-31 11:03 | Procedure Note ---
Procedure Note Date of Service January 31, 2021 Note ARTERIAL LINE PROCEDURE NOTE: Procedure: Arterial Line Placement Provider: Tim Jacob MD Indication: Monitoring on Pressors Anesthesia: Patient maintained on IV sedation Procedure was emergent. Patient unable to consent due to being on the ventilator. No family immediately available A time-out was completed verifying correct patient, procedure, site, positioning, and implant(s) or special equipment if applicable. Allens test was performed to ensure adequate perfusion. Patients rightwrist was prepped and draped in the usual sterile fashion. A 20g Arrow arterial line was introduced into the right radialartery. Catheter was threaded, and the needle was removed with appropriate blood return. Good waveform was observed. The patient tolerated the procedure well. Blood Loss: 3 mL Complications: None Coding CPT Codes Tubes, Drains, and Vasc Access - Tubes, Drains, and Vasc Access: [id number] Insertion Catheter, Artery ([id number]) [facility] [place] (Charges) Tubes, Drains, and Vasc Access Procedure 1: Tubes, Drains, and Vasc Access: [id number] Insertion Catheter, Artery
--- NOTE | 2021-01-31 11:52 | Critical Care Progress Note ---
Date of Service January 31, 2021 Assessment & Plan (1) Acute respiratory failure with hypoxia: (2) Pneumonia due to COVID-19 virus: (3) Obesity: (4) Anemia: (5) Chronic respiratory acidosis: Plan: Impression: 55-year-old male unvaccinated for Covid who was admitted 01/24/2021 with hypoxemic respiratory failure and pulmonary infiltrates. He was initially trialed on BiPAP but failed and was intubated 01/28/2021 24-hour events: Patient improved on proning and was flipped back supine yesterday afternoon around 1:00. He was reproned at 10:00 as his oxygenation got somewhat worse during the day. He continues to demonstrate improvement in VQ mismatch with proning. He remains on the hypertensive side. Recommendations: 1. Neurologic: Currently on neuromuscular blockade, propofol, and fentanyl. Continue neuromuscular blockade additional 24 hours. Patient is on a variety of medications for mental health conditions. These will be held for now. 2. Cardiovascular: Hypertensive. Continue Norvasc for now. Add low-dose oral metoprolol. BMP was normal. No indication for echo currently. 3. 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 Current vent settings AC/25/440/0 0.5/12 with plateau pressure of 24. P/F 150, slightly better today. Last ABG 7.35/75/69. Findings consistent with severe ARDS. Currently on dexamethasone to 20 mg a day for 5 days followed by 10 mg for 5 days then discontinue. He is at risk for complications related to steroids. Seems to respond to proning. Continue NM blockade for today. Will flip supine at 1500 today and reassess. CXR in AM. Discussed with [facility] ECMO - recommended continued efforts at proning given his response and no indication for ECMO currently. 4. GI: Holding tube feeds given neuromuscular blockade and frequent proning. PPI in place. 5. Renal: Holding Flomax. Valdovinos catheter in place. Creatinine stable and electrolytes adequate. Continue ICU replacement protocol. 6. ID: Doxycycline day #3 for presumed pneumonia. Cultures are negative. Procalcitonin has been negative. Await respiratory cultures. 7. Heme-onc: Mild anemia without evidence of acute blood loss. Continue to follow for now 8. Endocrine: Glycemic control per protocol. Continue Synthroid Total of 50 minutes critical care time was spent evaluating managing and stabilizing this patient including discussion with bedside critical care nurse, on multidisciplinary rounds, and with respiratory therapy. Family will be updated by phone. Prognosis guarded. Admission and Anticipated Discharge Date Admission Date: January 24, 2021 Subjective intubated, sedated, paralyzed and proned. Review of Systems Review of Systems: Unobtainable due to endotracheal tube Physical Exam 2 Constitutional: + mechanically ventilated proned Neck: trachea midline, no thyromegaly Respiratory: normal respiratory effort, lungs clear to auscultation Cardiovascular: RRR, no murmur, no edema Gastrointestinal (Abdomen): normal bowel sounds, soft, nontender, no hepatosplenomegaly Musculoskeletal: Extremities: extremities normal to inspection Skin: no rashes, warm and dry Lymphatic: no cervical lymphadenopathy Results & Data Results & Data ([facility]) Vital Signs (Past 12 Hours) Vital Signs Temp Pulse Resp BP Pulse Ox 01/31/21 10:30 102 H 25 H 89 L 01/31/21 10:06 104 H 170/87 H 01/31/21 07:50 92 H 25 H 89 L 01/31/21 06:00 38.0 C H 74 25 H 136/73 88 L 01/31/21 05:50 38.0 C H 73 25 H 88 L 01/31/21 05:40 37.9 C H 73 25 H 87 L 01/31/21 05:30 37.9 C H 73 25 H 128/65 87 L 01/31/21 05:20 37.9 C H 95 H 25 H 89 L 01/31/21 05:17 92 H 152/85 H 01/31/21 05:10 37.9 C H 95 H 25 H 88 L 01/31/21 05:00 37.9 C H 88 25 H 161/86 H 88 L 01/31/21 04:50 37.9 C H 90 25 H 88 L 01/31/21 04:40 37.9 C H 90 22 88 L 01/31/21 04:30 37.9 C H 90 25 H 90 01/31/21 04:20 38.0 C H 91 H 25 H 88 L 01/31/21 04:10 38.0 C H 91 H 25 H 89 L 01/31/21 04:00 38.0 C H 101 H 25 H 161/86 H 01/31/21 03:50 37.9 C H 96 H 25 H 89 L 01/31/21 03:40 38.0 C H 97 H 25 H 162/85 H 90 01/31/21 03:30 38.0 C H 95 H 25 H 91 01/31/21 03:20 38.0 C H 98 H 25 H 91 01/31/21 03:10 38.0 C H 92 H 25 H 90 01/31/21 03:00 38.0 C H 93 H 25 H 162/85 H 89 L 01/31/21 02:50 38.0 C H 94 H 25 H 90 01/31/21 02:40 38.0 C H 97 H 25 H 90 01/31/21 02:30 38.0 C H 93 H 25 H 90 01/31/21 02:20 38.0 C H 93 H 25 H 90 01/31/21 02:10 38.0 C H 103 H 25 H 156/83 H 90 01/31/21 02:00 38.0 C H 88 25 H 01/31/21 01:50 38.0 C H 102 H 25 H 90 01/31/21 01:40 37.9 C H 88 25 H 89 L 01/31/21 01:30 38.0 C H 90 25 H 154/78 H 90 01/31/21 01:20 38.0 C H 93 H 25 H 154/76 H 91 01/31/21 01:10 38.0 C H 78 25 H 91 01/31/21 01:00 38.0 C H 75 25 H 91 01/31/21 00:50 38.0 C H 75 25 H 91 01/31/21 00:40 38.0 C H 72 25 H 91 01/31/21 00:30 38.0 C H 74 25 H 90 01/31/21 00:20 38.0 C H 73 25 H 89 L 01/31/21 00:15 81 126/68 01/31/21 00:10 38.0 C H 88 25 H 88 L 01/31/21 00:00 38.0 C H 102 H 25 H 154/78 H 01/30/21 23:50 38.0 C H 98 H 25 H 90 01/30/21 23:40 38.0 C H 95 H 25 H 90 Critical Care Results & Data Vital Signs (Past 12 Hours) Vital Signs Temp Pulse Resp BP Pulse Ox 11/23/21 10:30 102 H 25 H 89 L 01/31/21 10:06 104 H 170/87 H 01/31/21 07:50 92 H 25 H 89 L 01/31/21 06:00 38.0 C H 74 25 H 136/73 88 L 01/31/21 05:50 38.0 C H 73 25 H 88 L 01/31/21 05:40 37.9 C H 73 25 H 87 L 01/31/21 05:30 37.9 C H 73 25 H 128/65 87 L 01/31/21 05:20 37.9 C H 95 H 25 H 89 L 01/31/21 05:17 92 H 152/85 H 01/31/21 05:10 37.9 C H 95 H 25 H 88 L 01/31/21 05:00 37.9 C H 88 25 H 161/86 H 88 L 01/31/21 04:50 37.9 C H 90 25 H 88 L 01/31/21 04:40 37.9 C H 90 22 88 L 01/31/21 04:30 37.9 C H 90 25 H 90 01/31/21 04:20 38.0 C H 91 H 25 H 88 L 01/31/21 04:10 38.0 C H 91 H 25 H 89 L 01/31/21 04:00 38.0 C H 101 H 25 H 161/86 H 01/31/21 03:50 37.9 C H 96 H 25 H 89 L 01/31/21 03:40 38.0 C H 97 H 25 H 162/85 H 90 01/31/21 03:30 38.0 C H 95 H 25 H 91 01/31/21 03:20 38.0 C H 98 H 25 H 91 01/31/21 03:10 38.0 C H 92 H 25 H 90 01/31/21 03:00 38.0 C H 93 H 25 H 162/85 H 89 L 01/31/21 02:50 38.0 C H 94 H 25 H 90 01/31/21 02:40 38.0 C H 97 H 25 H 90 01/31/21 02:30 38.0 C H 93 H 25 H 90 01/31/21 02:20 38.0 C H 93 H 25 H 90 01/31/21 02:10 38.0 C H 103 H 25 H 156/83 H 90 01/31/21 02:00 38.0 C H 88 25 H 01/31/21 01:50 38.0 C H 102 H 25 H 90 01/31/21 01:40 37.9 C H 88 25 H 89 L 01/31/21 01:30 38.0 C H 90 25 H 154/78 H 90 01/31/21 01:20 38.0 C H 93 H 25 H 154/76 H 91 01/31/21 01:10 38.0 C H 78 25 H 91 01/31/21 01:00 38.0 C H 75 25 H 91 01/31/21 00:50 38.0 C H 75 25 H 91 01/31/21 00:40 38.0 C H 72 25 H 91 01/31/21 00:30 38.0 C H 74 25 H 90 01/31/21 00:20 38.0 C H 73 25 H 89 L 01/31/21 00:15 81 126/68 01/31/21 00:10 38.0 C H 88 25 H 88 L 01/31/21 00:00 38.0 C H 102 H 25 H 154/78 H 01/30/21 23:50 38.0 C H 98 H 25 H 90 01/30/21 23:40 38.0 C H 95 H 25 H 90 Lab & Micro Results (Past 24 Hours) RBC 4.88 M/uL (4.7-6.1) 01/31/21 WBC 10.46 K/uL (4.8-10.8) 01/31/21 Hgb 11.3 g/dL (14.0-18.0) L 01/31/21 Hct 38.5 % (42-52) L 01/31/21 MCV 78.9 fL (80-100) L 01/31/21 MCH 23.2 pg (25-34) L 01/31/21 MCHC 29.4 g/dL (32-36) L 01/31/21 RDW Standard Deviation 52.0 fL (36.4-46.3) H 01/31/21 RDW Coefficient of Variation 17.9 % (11.5-14.5) H 01/31/21 Plt Count 420 K/uL (130-400) H 01/31/21 MPV 10.1 fL (7.4-10.4) 01/31/21 Neutrophils (%) (Auto) 89.2 % 01/31/21 Lymphocytes (%) (Auto) 3.1 % 01/31/21 Monocytes # (Auto) 0.64 K/uL (0.11-0.59) H 01/31/21 Eosinophils # (Auto) 0.00 K/uL (0-0.5) 01/31/21 Immature Granulocyte % (Auto) 1.4 % 01/31/21 Neutrophils # (Auto) 9.33 K/uL (1.4-6.5) H 01/31/21 Lymphocytes # (Auto) 0.32 K/uL (1.2-3.4) L 01/31/21 Monocytes # (Auto) 0.64 K/uL (0.11-0.59) H 01/31/21 Eosinophils # (Auto) 0.00 K/uL (0-0.5) 01/31/21 Basophils # (Auto) 0.02 K/uL (0-0.2) 01/31/21 Immature Granulocyte # (Auto) 0.15 K/uL (0.00-0.02) H 01/31/21 Na 141 mmol/L (136-145) 01/31/21 K 4.0 mmol/L (3.5-5.1) 01/31/21 Cl 102 mmol/L (98-107) 01/31/21 CO2 38 mmol/L (21-32) H 01/31/21 Anion Gap 1.0 (3-11) L 01/31/21 BUN 25 mg/dl (7-18) H 01/31/21 Creatinine 0.70 mg/dl (0.6-1.4) 01/31/21 Estimated GFR ( Amer) 123.1 ml/min 01/31/21 Estimated GFR (Non-Af Amer) 106.2 ml/min 01/31/21 BUN/Creatinine Ratio 35.9 (10-20) H 01/31/21 Glu 148 mg/dl (70-99) H 01/31/21 Ca 8.7 mg/dl (8.5-10.1) 01/31/21 Phosphorus Level 2.9 mg/dl (2.5-4.9) 01/31/21 Total Bilirubin 0.7 mg/dl (0.2-1) 01/31/21 AST 83 U/L (15-37) H 01/31/21 ALT 77 U/L (12-78) 01/31/21 Alkaline Phosphatase 92 U/L (45-117) 01/31/21 TP 7.2 gm/dl (6.4-8.2) 01/31/21 Albumin 2.5 gm/dl (3.4-5.0) L 01/31/21 Globulin 4.7 gm/dl (2.5-4.0) H 01/31/21 Albumin/Globulin Ratio 0.5 (0.9-2) L 01/31/21 Mg 2.4 mg/dl (1.8-2.4) 01/31/21 05:12 01/31/21 Calcium Level 8.7 mg/dl (8.5-10.1) 01/31/21 05:12 01/31/21 Christoph Test Pass 01/31/21 04:32 01/31/21 Diagnostic Findings (Past 24 Hours) Chest X-Ray 01/30/21 07:00 XR chest 1V portable CLINICAL HISTORY: Resp failure. Follow-up Viral pneumonitis COMPARISON STUDY: 01/29/2021 TECHNIQUE: 1 view of the chest FINDINGS: Single frontal view of the chest demonstrates the cardiomediastinal silhouette to be within normal limits. Tubes and catheters are unchanged. Compared to the previous examination, there is slight worsening of diffuse interstitial and alveolar opacities characteristic of viral type pneumonitis and probable Covid 19 pneumonia. There is no evidence for pleural effusion. There is no evidence for vascular congestion. There is no acute osseous pathology. IMPRESSION: Slight interval worsening of diffuse interstitial and alveolar opacities bilaterally again characteristic of a viral type pneumonitis and probable Covid 19 pneumonia.. ACT 112: Negative or not required by law. Electronically signed by: Derrick Devries M.D. 01/30/2021 2:14 PM I & O Totals 24 Hours 01/30/21 01/31/21 02/01/21 06:59 06:59 06:59 Intake Total 1418.606 / 2722.522 6772.657 / 2130.657 450 / 450 Output Total 1870 / 1870 2330 / 2330 Balance -451.394 / -451.394 -199.343 / -199.343 450 / 450 Cumulative 01/24/21 08:06 thru 01/31/21 10:54 Intake Total 7409.263 Output Total 8807 Balance -1397.737 RT Ventilator Mngmt (Last Documented) Ventilator Ordered Settings Ventilator Support Mode Assist Control 01/31/21 10:30 Respiratory Rate 25 01/31/21 10:30 Ventilator Tidal Volume 440 01/31/21 10:30 Setting Minute Ventilation 11 01/31/21 10:30 Positive End Expiratory 12 01/31/21 10:30 Pressure Fraction of Inspired Oxygen 50 01/31/21 10:30 Machine Comment FiO2 weaned to 50% 01/30/21 03:34 Ventilator - PT Measurements Respiratory Rate 25 Exhaled Tidal Volume 440 Minute Ventilation 11 Peak Inspiratory Airway 26 Pressure Plateau Pressure 24 Respiratory Cycle Inspiratory: 1:1.7 Expiratory Ratio Inspiratory Phase Time 0.90 End-Tidal CO2 62 Static Lung Compliance 36.67 Dynamic Lung Compliance 31.43 Normal Static Lung Compliance 47.00 Patient Measurements Comment Vt increased to 440 and peep weaned to +12 at this time based off of ABG results Coding Level of Care Code Critical Care 1st 30-74 mins Diagnoses Acute respiratory failure with hypoxia J96.01 Pneumonia due to COVID-19 virus U07.1; J12.82 Obesity E66.9 Anemia D64.9 Chronic respiratory acidosis E87.2
[2021-01-31] MEDS: dexAMETHasone 20 MG in DEXTROSE 5% 25 ML IV SCH (14:21)
[2021-01-31] MEDS: ACETAMINOPHEN 325 MG TAB PO PRN (14:21)
[2021-01-31] MEDS: METOPROLOL TARTRATE 25 MG TAB PO SCH ×3 (14:53→23:56)
--- NOTE | 2021-01-31 15:12 | Hospitalist Progress Note ---
Date of Service January 31, 2021 Assessment & Plan (1) Acute respiratory failure with hypoxia: Plan: 2/2 covid pneumonia, see plan below. Status post intubated and sedated Appreciate bankman input and recommendation Remains on mechanical ventilator and with sedation (2) Pneumonia due to COVID-19 virus: Plan: 55 years old male unvaccinated for COVID 19 presented with worsening shortness of breath Continue Decadron and supportive therapies as needed. DuoNebs as needed. Guaifenesin as needed. Tessalon Perles as needed. Remdesivir contraindicated in the setting of elevated LFTs on admission Patient is high risk to get intubated as has now been on BIPAP for two days. Pulm consulted Lasix given today and daily to keep overall fluid balance net negative. Doppler bilateral lower extremities were negative for DVT, also CTA chest performed 01/28 (yesterday) which was negative for PE. Declines to prone. Required intubation in the evening of 01/29/2021 Remains sedated on ventilator Management as per bankman- (3) Elevated liver enzymes: Plan: Likely related to Covid 19 infection, trending down. Continue monitor CMP periodically-we will check LFTs in a.m. 01/31/2021 LFTs remain stable (4) Hypertension: Plan: -BP controlled, continue amlodipine -Hold triamterene/HCTZ due to dehydration from acute illness/hypokalemia -Blood pressure remains on the higher side -We will try intravenous beta-yordan -Blood pressure remains on the lower side of normal (5) Hypothyroidism: Plan: -Continue levothyroxine per home regimen. (6) ADHD: (7) Anxiety: Plan: There was an issue with his Pristiq, which has been held since landon of 01/27. Will restart this now, 150mg once daily. Buspar 5 mg BID added 01/28 to help with the anxiety during the hospital course (8) CATHY on CPAP: Plan: continuous BIPAP now. (9) DVT prophylaxis: Plan: -SQ Lovenox Full code. Unable to contact patient's at number provided. Will try again later. Admission and Anticipated Discharge Date Admission Date: January 24, 2021 Subjective 01/30/2021 The patient was seen and examined in telemetry unit and in the Covid room He has been intubated and sedated 01/31/2021 The patient was seen and examined in ICU He remains intubated and sedated Review of Systems Review of Systems: Unobtainable due to endotracheal tube Physical Exam Physical Exam: Remains sedated and on mechanical ventilator Constitutional: well developed, well nourished, + ill appearing and + obese ENMT: external ear and nose normal, oropharynx normal Neck: trachea midline, no thyromegaly Respiratory: no respiratory distress Auscultation: + diminished lung sounds and + crackles (Minimal crackles at the bases) Cardiovascular: Rate/Rhythm: regular rate and regular rhythm; not tachycardic Heart Sounds: normal S1 and normal S2; no murmur Extremities: no edema Gastrointestinal (Abdomen): Inspection/Auscultation: normal bowel sounds; abdomen not distended Percussion/Palpation: abdomen soft; abdomen nontender Neurologic: Remains sedated Results & Data Results & Data ([facility]) Vital Signs (Past 12 Hours) Vital Signs Temp Pulse Resp BP Pulse Ox 01/31/21 12:00 38.9 C H 87 25 H 126/69 88 L 01/31/21 11:00 38.8 C H 81 25 H 135/76 92 01/31/21 10:30 102 H 25 H 89 L 01/31/21 10:06 104 H 170/87 H 01/31/21 10:00 38.6 C H 99 H 25 H 170/87 H 89 L 01/31/21 09:00 38.4 C H 102 H 25 H 176/91 H 90 01/31/21 08:00 38.2 C H 96 H 25 H 181/89 H 88 L 01/31/21 07:50 92 H 25 H 89 L 01/31/21 07:00 38.1 C H 83 25 H 161/85 H 89 L 01/31/21 06:00 38.0 C H 74 25 H 136/73 88 L 01/31/21 05:50 38.0 C H 73 25 H 88 L 01/31/21 05:40 37.9 C H 73 25 H 87 L 01/31/21 05:30 37.9 C H 73 25 H 128/65 87 L 01/31/21 05:20 37.9 C H 95 H 25 H 89 L 01/31/21 05:17 92 H 152/85 H 01/31/21 05:10 37.9 C H 95 H 25 H 88 L 01/31/21 05:00 37.9 C H 88 25 H 161/86 H 88 L 01/31/21 04:50 37.9 C H 90 25 H 88 L 01/31/21 04:40 37.9 C H 90 22 88 L 01/31/21 04:30 37.9 C H 90 25 H 90 01/31/21 04:20 38.0 C H 91 H 25 H 88 L 01/31/21 04:10 38.0 C H 91 H 25 H 89 L 01/31/21 04:00 38.0 C H 101 H 25 H 161/86 H 01/31/21 03:50 37.9 C H 96 H 25 H 89 L 01/31/21 03:40 38.0 C H 97 H 25 H 162/85 H 90 01/31/21 03:30 38.0 C H 95 H 25 H 91 01/31/21 03:20 38.0 C H 98 H 25 H 91 Laboratory Results Short CBC 01/31/21 Range/Units 05:12 WBC 10.46 (4.8-10.8) K/uL Hgb 11.3 L (14.0-18.0) g/dL Hct 38.5 L (42-52) % Plt Count 420 H (130-400) K/uL BMP 01/31/21 05:12 Sodium 141 Potassium 4.0 Chloride 102 Carbon Dioxide 38 H BUN 25 H Creatinine 0.70 Glucose 148 H Calcium 8.7 Liver Function 01/31/21 Range/Units 05:12 Total Bilirubin 0.7 (0.2-1) mg/dl AST 83 H (15-37) U/L ALT 77 (12-78) U/L Alkaline Phosphatase 92 (45-117) U/L Albumin 2.5 L (3.4-5.0) gm/dl Medications Administered Current Inpatient Medications Acetaminophen (Acetaminophen 325 Mg Tab) 650 mg PO Q4H PRN PRN Reason: pain/fever Stop: 02/23/21 18:33 Last Admin: 01/31/21 14:21 Dose: 650 mg Documented by: Albuterol (Albut/Ipratrop 3mg/0.5mg Neb 3 Ml Vial) 3 ml NEB Q4R PRN PRN Reason: sob/wheezing Stop: 02/23/21 15:14 Last Admin: 01/26/21 16:17 Dose: 3 ml Documented by: Amlodipine Besylate (Amlodipine Besylate 5 Mg Tab) 10 mg PO DAILY TONY Stop: 02/24/21 08:59 Last Admin: 01/31/21 10:04 Dose: 10 mg Documented by: Benzonatate (Benzonatate 100 Mg Capsule) 100 mg PO TID PRN PRN Reason: Cough Stop: 02/23/21 21:03 Last Admin: 01/28/21 09:10 Dose: 100 mg Documented by: Buspirone HCl (Buspirone 5 Mg Tab) 5 mg PO BID TONY Stop: 02/27/21 20:59 Last Admin: 01/31/21 10:04 Dose: 5 mg Documented by: Enoxaparin Sodium (Enoxaparin Inj 40 Mg/0.4 Ml Syr) 40 mg SQ Q12H TONY Stop: 02/27/21 17:59 Last Admin: 01/31/21 05:17 Dose: 40 mg Documented by: Fentanyl Citrate (Fentanyl Bolus From Bag) 50 mcg IV Q60M PRN PRN Reason: Pain or Agitation Stop: 02/12/21 16:40 Last Admin: 01/30/21 20:07 Dose: 50 mcg Documented by: Furosemide (Furosemide Inj 20 Mg/2 Ml Vial) 20 mg IV Q24H TONY Stop: 02/28/21 09:59 Last Admin: 01/31/21 10:06 Dose: 20 mg Documented by: Propofol (Diprivan) 1,000 mg in 100 mls @ 14.1 mls/hr IV .Q7H6M TONY; Protocol Stop: 02/01/21 16:14 Last Admin: 01/31/21 16:59 Dose: Not Given Documented by: Pantoprazole Sodium 40 mg/ (Syringe) 10 mls @ 5 mls/min IV BID@0900,2100 [facility] Stop: 03/01/21 20:59 Last Admin: 01/31/21 10:05 Dose: 5 mls/min Documented by: Cisatracurium Besylate 100 mg/ (Sodium Chloride) 250 mls @ 0 mls/hr IV .Q0M TONY; Protocol Stop: 03/01/21 16:59 Last Admin: 01/31/21 17:00 Dose: Not Given Documented by: Fentanyl Citrate (Fentanyl Citrate) 2,500 mcg in 250 mls @ 15 mls/hr IV .[id number] [facility]; Protocol Stop: 02/13/21 15:59 Last Titration: 01/31/21 16:55 Dose: 200 mcg/hr, 20 mls/hr Documented by: Dexamethasone 20 mg/ Dextrose 30 mls @ 0.833 mls/min IV Q24H [facility] Stop: 03/02/21 13:59 Last Infusion: 01/31/21 16:17 Dose: Infused Documented by: Dexmedetomidine HCl 200 mcg/ (Sodium Chloride) 50 mls @ 11 mls/hr IV .Q4H33M [facility]; Protocol Stop: 02/04/21 16:59 Levothyroxine Sodium (Levothyroxine Sodium 125 Mcg Tablet) 125 mcg PO DAILY [facility] Stop: 02/24/21 08:59 Last Admin: 01/31/21 10:05 Dose: 125 mcg Documented by: Metoprolol Tartrate (Metoprolol Tartrate 25 Mg Tab) 12.5 mg PO Q6 [facility] Stop: 03/02/21 11:59 Last Admin: 01/31/21 14:53 Dose: 12.5 mg Documented by: Miscellaneous (Pristiq- Order Awaiting Action) 1 ea N/A QS [facility] Stop: 03/01/21 00:00 Last Admin: 01/30/21 13:32 Dose: Not Given Documented by: Multi-Ingredient Cream (Artificial Tears Op Oint 3.5 Gm Tube) 1 appln OP Q4H [facility] Stop: 02/28/21 16:44 Last Admin: 01/31/21 14:23 Dose: 1 appln Documented by: Ondansetron HCl (Ondansetron Inj 2 Mg/Ml 2 Ml Vial) 4 mg IV Q6H PRN PRN Reason: Nausea Stop: 02/23/21 14:56 Last Admin: 01/28/21 18:02 Dose: 4 mg Documented by: Propofol (Propofol Bolus From Bag) 20 mg IV Q5M PRN PRN Reason: Sedation Stop: 02/01/21 16:07 Last Admin: 01/30/21 20:07 Dose: 20 mg Documented by:
--- NOTE | 2021-01-31 15:19 | Procedure Note ---
Procedure Note Date of Service January 31, 2021 Note Procedure: Transition from prone to supine position. I presented to the bedside with a lift team and respiratory therapy. The patient has been prone for approximately 20 hours. We carefully padded the patient and ensure that all lines were in a safe position. He was then transitioned with strict attention to the endotracheal tube from the prone to the supine position. Monitoring devices were reapplied/reattached. Patient mirian erated the procedure well and became slightly hypertensive with adequate oxygen saturations. Coding
[2021-01-31] MEDS ORDERED: STAT IV Infusion **Titration per Protocol STA (16:35)
[2021-01-31] MEDS: DEXMEDETOMIDINE HCL 200 MCG in SODIUM CHLORIDE 0.9% 48 ML IV SCH ×2 (17:28→20:12)
[2021-01-31] MEDS ORDERED: Nursing to Pharmacy Communication SCH (19:00)
[2021-01-31] MEDS: ACETAMINOPHEN SUSP 160 MG/5 ML UDC PO PRN (20:09)
[2021-02-01 00:20] LABS: iSTAT Art Bld Gas pCO2 Correct 62 mmHg (35-46); iSTAT Art Bld Gas pH Corrected 7.408 (7.35-7.45); iSTAT Arterial Blood Gas HCO3 39 meg/L (19-24); iSTAT Arterial Blood Gas pCO2 59 mmHg (35-46); iSTAT Arterial Blood Gas pH 7.42 (7.35-7.45); iSTAT Arterial Blood Gas pO2 117 mmHg (80-95); iSTAT Arterial Blood Gas pO2 C 123; iSTAT Carbon Dioxide > 40 mmol/L (24-31); iSTAT FiO2 85 %; iSTAT Hematocrit 31 % (42-52); iSTAT Hemoglobin 10.5 g/dl (14.0-18.0); iSTAT Site Art Line; iSTAT Sodium 144 mmol/L (135-144)
[2021-02-01] MEDS: DEXMEDETOMIDINE HCL 200 MCG in SODIUM CHLORIDE 0.9% 48 ML IV SCH ×7 (01:59→20:11)
[2021-02-01] MEDS: propofoL 1,000 MG/100 ML VIAL IV SCH ×8 (01:59→20:16)
[2021-02-01] MEDS: fentaNYL citrate 2,500 MCG/250 ML BAG IV SCH ×2 (02:02→13:36)
[2021-02-01] MEDS: CISATRACURIUM BESYLATE 100 MG in SODIUM CHLORIDE 0.9% 200 ML IV SCH ×5 (05:04→22:16)
[2021-02-01] MEDS: METOPROLOL TARTRATE 25 MG TAB PO SCH ×4 (05:05→23:36)
[2021-02-01] MEDS: ENOXAPARIN INJ 40 MG/0.4 ML SYR SQ SCH ×2 (05:05→17:09)
[2021-02-01] MEDS: ARTIFICIAL TEARS OP OINT 3.5 GM TUBE OP SCH ×6 (05:05→23:36)
[2021-02-01 05:42] LABS: iSTAT Art Bld Gas pCO2 Correct 57 mmHg (35-46); iSTAT Art Bld Gas pH Corrected 7.441 (7.35-7.45); iSTAT Arterial Blood Gas HCO3 39 meg/L (19-24); iSTAT Arterial Blood Gas pCO2 56 mmHg (35-46); iSTAT Arterial Blood Gas pH 7.44 (7.35-7.45); iSTAT Arterial Blood Gas pO2 73 mmHg (80-95); iSTAT Arterial Blood Gas pO2 C 74; iSTAT Carbon Dioxide > 40 mmol/L (24-31); iSTAT FiO2 55 %; iSTAT Hematocrit 31 % (42-52); iSTAT Hemoglobin 10.5 g/dl (14.0-18.0); iSTAT Site Art Line; iSTAT Sodium 144 mmol/L (135-144)
[2021-02-01 06:59] LABS: Basophils # (auto) 0.01 K/uL (0-0.2); Basophils % (auto) 0.1 %; Hematocrit (blood only) 34.2 % (42-52); Hemoglobin 9.9 g/dL (14.0-18.0); Immature Granulocytes # (auto) 0.11 K/uL (0.00-0.02); Immature Granulocytes % (auto) 1.6 %; Lymphocytes # (auto) 0.67 K/uL (1.2-3.4); Lymphocytes % (auto) 9.7 %; Mean Corpuscular Hemoglobin 22.7 pg (25-34); Mean Corpuscular Hgb Conc 28.9 g/dL (32-36); Mean Corpuscular Volume 78.3 fL (80-100); Mean Platelet Volume 9.3 fL (7.4-10.4); Monocytes # (auto) 0.18 K/uL (0.11-0.59); Monocytes % (auto) 2.6 %; Neutrophils # (auto) 5.91 K/uL (1.4-6.5); Platelet Count 324 K/uL (130-400); RDW Coefficient of Variation 18.2 % (11.5-14.5); RDW Standard Deviation 52.3 fL (36.4-46.3); Red Blood Count 4.37 M/uL (4.7-6.1); White Blood Count 6.88 K/uL (4.8-10.8)
[2021-02-01 07:22] LABS: Calcium 9.3 mg/dl (8.5-10.1); Est GFR (Non-African American) 100.1 ml/min; Magnesium 2.6 mg/dl (1.8-2.4); Phosphorus 2.6 mg/dl (2.5-4.9)
[2021-02-01] MEDS: LEVOTHYROXINE SODIUM 125 MCG TABLET PO SCH (07:56)
[2021-02-01] MEDS: amLODIPine BESYLATE 5 MG TAB PO SCH (07:56)
[2021-02-01] MEDS: busPIRone 5 MG TAB PO SCH ×2 (07:56→22:14)
[2021-02-01] MEDS: ACETAMINOPHEN SUSP 160 MG/5 ML UDC PO PRN (07:57)
[2021-02-01] MEDS: PANTOprazole 40 MG in SYRINGE 0 ML IV SCH ×2 (08:01→22:13)
[2021-02-01] MEDS: FUROSEMIDE INJ 20 MG/2 ML VIAL IV SCH (10:18)
[2021-02-01] MEDS: dexAMETHasone 20 MG in DEXTROSE 5% 25 ML IV SCH (11:44)
[2021-02-01] MEDS ORDERED: VANCOMYCIN CONSULT ACTIVE PRN ×2 (12:16)
--- NOTE | 2021-02-01 12:18 | Critical Care Progress Note ---
Date of Service February 01, 2021 Assessment & Plan (1) Acute respiratory failure with hypoxia: (2) Pneumonia due to COVID-19 virus: (3) Obesity: (4) Anemia: (5) Chronic respiratory acidosis: Plan: Impression: 55-year-old male unvaccinated for Covid who was admitted 01/24/2021 with hypoxemic respiratory failure and pulmonary infiltrates. He was initially trialed on BiPAP but failed and was intubated 01/28/2021 24-hour events: Patient completed an additional 20 hours of proning. He was flipped back supine and paralytics were discontinued for a brief period of time when he became agitated and tried to self extubate. Sedation was reinstituted. He has been hypertensive. Precedex was started. Patient's is now been admitted with a severe Covid and is in the ER on BiPAP Recommendations: 1. Neurologic: Currently on neuromuscular blockade, propofol, and fentanyl. Responding well to Precedex. Patient is on a variety of medications for mental health conditions. These will be held for now but may need to be restarted when the patient is emerging from sedatives. 2. Cardiovascular: Hypertensive. Continue Norvasc and metoprolol. Follow on Precedex. BMP was normal. No indication for echo currently. 3. 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 Current vent settings AC/25/440/0.5/12 with plateau pressure of 21. P/F 146, stable today. Last ABG 7.44/56/73. Compliance slightly better. Findings consistent with severe ARDS. Currently on dexamethasone to 20 mg a day for 5 days followed by 10 mg for 5 days then discontinue. He is at risk for complications related to steroids. Seems to respond to proning. Continue NM blockade for today. Will flip supine at 2000 tonight and reassess. CXR in AM. Discussed with [facility] ECMO -he is an outside the timing window to consider ECMO. 4. GI: When the patient flips back, will try and place course safe and try and get a postpyloric feeding tube which would allow her for initiation of enteral feeding. PPI in place. 5. Renal: Now slightly alkalotic. Will give 1 dose of Diamox today. Valdovinos catheter in place. On daily Lasix. I/O remain even. Creatinine stable and electrolytes adequate. Continue ICU replacement protocol. 6. ID: Doxycycline day #4 for presumed pneumonia. Cultures are now with staph species. Procalcitonin has been negative. Will place on vancomycin pending speciation and sensitivity. Discontinue doxycycline 7. Heme-onc: Mild anemia without evidence of acute blood loss. Continue to follow for now 8. Endocrine: Glycemic control per protocol. Continue Synthroid Total of 50 minutes critical care time was spent evaluating managing and stabilizing this patient including discussion with bedside critical care nurse, on multidisciplinary rounds, and with respiratory therapy. Family will be updated by phone. Prognosis guarded. Admission and Anticipated Discharge Date Admission Date: January 24, 2021 Review of Systems Review of Systems: Unobtainable due to endotracheal tube Physical Exam Constitutional: + mechanically ventilated Neck: trachea midline, no thyromegaly Respiratory: no labored breathing Auscultation: + rales, + wheezes, + bronchial breath sounds and + vesicular breath sounds Cardiovascular: RRR, no murmur, no edema Gastrointestinal (Abdomen): normal bowel sounds, soft, nontender, no hepatosplenomegaly Musculoskeletal: Extremities: extremities normal to inspection Skin: no rashes, warm and dry Lymphatic: no cervical lymphadenopathy Results & Data Results & Data ([facility]) Vital Signs (Past 12 Hours) Vital Signs Temp Pulse Resp BP Pulse Ox 02/01/21 11:00 37.2 C 63 25 H 92 02/01/21 10:00 37.1 C 62 25 H 92 02/01/21 09:00 37.1 C 62 25 H 90 02/01/21 08:15 63 25 H 90 02/01/21 08:00 37.1 C 63 25 H 92 02/01/21 07:00 37.1 C 62 25 H 92 02/01/21 06:00 37.1 C 61 25 H 89 L 02/01/21 05:00 37.2 C 60 25 H 92 02/01/21 04:30 71 25 H 89 L 02/01/21 04:00 37.3 C 62 25 H 124/57 L 91 02/01/21 03:00 37.5 C 62 25 H 118/58 L 91 02/01/21 02:00 37.6 C H 65 25 H 127/64 91 02/01/21 01:00 37.8 C H 66 21 135/67 94 Critical Care Results & Data Vital Signs (Past 12 Hours) Vital Signs Temp Pulse Resp BP Pulse Ox 02/01/21 11:00 37.2 C 63 25 H 92 02/01/21 10:00 37.1 C 62 25 H 92 02/01/21 09:00 37.1 C 62 25 H 90 02/01/21 08:15 63 25 H 90 02/01/21 08:00 37.1 C 63 25 H 92 02/01/21 07:00 37.1 C 62 25 H 92 02/01/21 06:00 37.1 C 61 25 H 89 L 02/01/21 05:00 37.2 C 60 25 H 92 02/01/21 04:30 71 25 H 89 L 02/01/21 04:00 37.3 C 62 25 H 124/57 L 91 02/01/21 03:00 37.5 C 62 25 H 118/58 L 91 02/01/21 02:00 37.6 C H 65 25 H 127/64 91 02/01/21 01:00 37.8 C H 66 21 135/67 94 Lab & Micro Results (Past 24 Hours) RBC 4.37 M/uL (4.7-6.1) L 02/01/21 WBC 6.88 K/uL (4.8-10.8) 02/01/21 Hgb 9.9 g/dL (14.0-18.0) L 02/01/21 Hct 34.2 % (42-52) L 02/01/21 MCV 78.3 fL (80-100) L 02/01/21 MCH 22.7 pg (25-34) L 02/01/21 MCHC 28.9 g/dL (32-36) L 02/01/21 RDW Standard Deviation 52.3 fL (36.4-46.3) H 02/01/21 RDW Coefficient of Variation 18.2 % (11.5-14.5) H 02/01/21 Plt Count 324 K/uL (130-400) 02/01/21 MPV 9.3 fL (7.4-10.4) 02/01/21 Neutrophils (%) (Auto) 86.0 % 02/01/21 Lymphocytes (%) (Auto) 9.7 % 02/01/21 Monocytes # (Auto) 0.18 K/uL (0.11-0.59) 02/01/21 Eosinophils # (Auto) 0.00 K/uL (0-0.5) 02/01/21 Immature Granulocyte % (Auto) 1.6 % 02/01/21 Neutrophils # (Auto) 5.91 K/uL (1.4-6.5) 02/01/21 Lymphocytes # (Auto) 0.67 K/uL (1.2-3.4) L 02/01/21 Monocytes # (Auto) 0.18 K/uL (0.11-0.59) 02/01/21 Eosinophils # (Auto) 0.00 K/uL (0-0.5) 02/01/21 Basophils # (Auto) 0.01 K/uL (0-0.2) 02/01/21 Immature Granulocyte # (Auto) 0.11 K/uL (0.00-0.02) H 02/01/21 Na 142 mmol/L (136-145) 02/01/21 K 4.0 mmol/L (3.5-5.1) 02/01/21 Cl 105 mmol/L (98-107) 02/01/21 CO2 36 mmol/L (21-32) H 02/01/21 Anion Gap 1.0 (3-11) L 02/01/21 BUN 36 mg/dl (7-18) H 02/01/21 Creatinine 0.81 mg/dl (0.6-1.4) 02/01/21 Estimated GFR ( Amer) 116.0 ml/min 02/01/21 Estimated GFR (Non-Af Amer) 100.1 ml/min 02/01/21 BUN/Creatinine Ratio 45.0 (10-20) H 02/01/21 Glu 120 mg/dl (70-99) H 02/01/21 Ca 9.3 mg/dl (8.5-10.1) 02/01/21 Phosphorus Level 2.6 mg/dl (2.5-4.9) 02/01/21 Mg 2.6 mg/dl (1.8-2.4) H 02/01/21 06:10 02/01/21 Calcium Level 9.3 mg/dl (8.5-10.1) 02/01/21 06:10 02/01/21 Christoph Test NA 02/01/21 05:00 02/01/21 Microbiology 01/31/21 16:30 Gram Stain - Final Sputum,Vent Suction Sputum Culture - Preliminary Staphylococcus species I & O Totals 24 Hours 01/31/21 02/01/21 02/02/21 06:59 06:59 06:59 Intake Total 2130.657 / 2130.657 2344.293 / 2344.293 574.732 / 574.732 Output Total 2330 / 2330 1650 / 1650 200 / 200 Balance -199.343 / -199.343 694.293 / 694.293 374.732 / 374.732 Cumulative 01/24/21 08:06 thru 02/01/21 11:08 Intake Total 9878.288 Output Total 49940 Balance -778.712 RT Ventilator Mngmt (Last Documented) Ventilator Ordered Settings Ventilator Support Mode Assist Control 02/01/21 08:15 Respiratory Rate 25 02/01/21 11:00 Ventilator Tidal Volume 440 02/01/21 08:15 Setting Minute Ventilation 11.0 02/01/21 08:15 Positive End Expiratory 12 02/01/21 08:15 Pressure Fraction of Inspired Oxygen 50 02/01/21 08:15 Machine Comment FiO2 weaned to 50% 01/30/21 03:34 Ventilator - PT Measurements Respiratory Rate 25 Exhaled Tidal Volume 440 Minute Ventilation 11.0 Peak Inspiratory Airway 25 Pressure Plateau Pressure 21 Respiratory Cycle Inspiratory: 1:1.7 Expiratory Ratio Inspiratory Phase Time 0.90 End-Tidal CO2 46 Static Lung Compliance 48.89 Dynamic Lung Compliance 33.85 Normal Static Lung Compliance 48.00 Patient Measurements Comment insp. Time change to 0.80 Coding Level of Care Code Critical Care 1st 30-74 mins Diagnoses Acute respiratory failure with hypoxia J96.01 Pneumonia due to COVID-19 virus U07.1; J12.82 Obesity E66.9 Anemia D64.9 Chronic respiratory acidosis E87.2
[2021-02-01] MEDS ORDERED: acetaZOLAMIDE 500 MG in SYRINGE 0 ML IV ONE (12:19)
[2021-02-01] MEDS ORDERED: VANCOMYCIN HCL 2,250 MG in SODIUM CHLORIDE 0.9% 500 ML IV ONE (12:30)
--- NOTE | 2021-02-01 13:09 | Pharmacy Report ---
Pharmacy Vanc AUC Short Note - Date of Service February 01, 2021 - Assessment & Plan Assessment 55 year old M receiving vancomycin for treatment of staph sp. from sputum culture. Final identification/sensitivities pending. Day # 1 of antimicrobial therapy. Plan Vancomycin * AUC/ROBIN is the preferred PK/PD target for vancomycin * AUC guided dosing is effective and associated with decreased risk of nephrotoxicity compared to traditional trough targets * Loading dose of 2250 mg x 1 * Maintenance dose of 1500 mg q12H is predicted to achieve target AUC/ROBIN of 400-600 mg/L.hr and may be associated with a 14 % risk of nephrotoxicity * Trough ordered for 02/03 @6630 Pharmacy will continue to follow and will adjust dose/frequency as necessary. Thank you.
--- NOTE | 2021-02-01 16:06 | Hospitalist Progress Note ---
Date of Service February 01, 2021 Assessment & Plan (1) Acute respiratory failure with hypoxia: Plan: 2/2 covid pneumonia, see plan below. Status post intubated and sedated Appreciate carpenter input and recommendation Remains on mechanical ventilator and with sedation (2) Pneumonia due to COVID-19 virus: Plan: 55 years old male unvaccinated for COVID 19 presented with worsening shortness of breath Continue Decadron and supportive therapies as needed. DuoNebs as needed. Guaifenesin as needed. Tessalon Perles as needed. Remdesivir contraindicated in the setting of elevated LFTs on admission Patient is high risk to get intubated as has now been on BIPAP for two days. Pulm consulted Lasix given today and daily to keep overall fluid balance net negative. Doppler bilateral lower extremities were negative for DVT, also CTA chest performed 01/28 (yesterday) which was negative for PE. Declines to prone. Required intubation in the evening of 01/29/2021 Remains sedated on ventilator Management as per carpenter-remains critical but stable Continue current management (3) Elevated liver enzymes: Plan: Likely related to Covid 19 infection, trending down. Continue monitor CMP periodically-we will check LFTs in a.m. 01/31/2021 LFTs remain stable (4) Hypertension: Plan: -BP controlled, continue amlodipine -Hold triamterene/HCTZ due to dehydration from acute illness/hypokalemia -Blood pressure remains on the higher side -We will try intravenous beta-yordan -Blood pressure remains on the lower side of normal (5) Hypothyroidism: Plan: -Continue levothyroxine per home regimen. (6) ADHD: (7) Anxiety: Plan: There was an issue with his Pristiq, which has been held since landon of 01/27. Will restart this now, 150mg once daily. Buspar 5 mg BID added 01/28 to help with the anxiety during the hospital course (8) CATHY on CPAP: Plan: continuous BIPAP now. (9) DVT prophylaxis: Plan: -SQ Lovenox Full code. Unable to contact patient's at number provided. Will try again later. Admission and Anticipated Discharge Date Admission Date: January 24, 2021 Subjective 01/30/2021 The patient was seen and examined in telemetry unit and in the Covid room He has been intubated and sedated 01/31/2021 The patient was seen and examined in ICU He remains intubated and sedated 02/01/2021 The patient was seen and examined in ICU He remains intubated and sedated Review of Systems Review of Systems: Unobtainable due to endotracheal tube Physical Exam Physical Exam: Remains sedated and on mechanical ventilator Constitutional: well developed, well nourished, + ill appearing and + obese ENMT: external ear and nose normal, oropharynx normal Neck: trachea midline, no thyromegaly Respiratory: no respiratory distress Auscultation: + diminished lung sounds and + crackles (Minimal crackles at the bases) Cardiovascular: Rate/Rhythm: regular rate and regular rhythm; not tachycardic Heart Sounds: normal S1 and normal S2; no murmur Extremities: no edema Gastrointestinal (Abdomen): Inspection/Auscultation: normal bowel sounds; abdomen not distended Percussion/Palpation: abdomen soft; abdomen nontender Results & Data Results & Data ([facility]) Vital Signs (Past 12 Hours) Vital Signs Temp Pulse Resp BP Pulse Ox 02/01/21 14:00 37.4 C 64 25 H 132/61 89 L 02/01/21 13:00 37.4 C 69 25 H 137/60 88 L 02/01/21 12:05 65 25 H 92 02/01/21 12:00 37.3 C 67 25 H 93 02/01/21 11:00 37.2 C 63 25 H 92 02/01/21 10:00 37.1 C 62 25 H 92 02/01/21 09:00 37.1 C 62 25 H 90 02/01/21 08:15 63 25 H 90 02/01/21 08:00 37.1 C 63 25 H 92 02/01/21 07:00 37.1 C 62 25 H 92 02/01/21 06:00 37.1 C 61 25 H 89 L 02/01/21 05:00 37.2 C 60 25 H 92 02/01/21 04:30 71 25 H 89 L Laboratory Results Short CBC 02/01/21 Range/Units 06:10 WBC 6.88 (4.8-10.8) K/uL Hgb 9.9 L (14.0-18.0) g/dL Hct 34.2 L (42-52) % Plt Count 324 (130-400) K/uL BMP 02/01/21 06:10 Sodium 142 Potassium 4.0 Chloride 105 Carbon Dioxide 36 H BUN 36 H Creatinine 0.81 Glucose 120 H Calcium 9.3 Medications Administered Current Inpatient Medications Acetaminophen (Acetaminophen Susp 160 Mg/5 Ml Udc) 640 mg PO Q4H PRN PRN Reason: pain/fever Stop: 03/02/21 18:49 Last Admin: 02/01/21 07:57 Dose: 640 mg Documented by: Albuterol (Albut/Ipratrop 3mg/0.5mg Neb 3 Ml Vial) 3 ml NEB Q4R PRN PRN Reason: sob/wheezing Stop: 02/23/21 15:14 Last Admin: 01/26/21 16:17 Dose: 3 ml Documented by: Amlodipine Besylate (Amlodipine Besylate 5 Mg Tab) 10 mg PO DAILY [facility] Stop: 02/24/21 08:59 Last Admin: 02/01/21 07:56 Dose: 10 mg Documented by: Buspirone HCl (Buspirone 5 Mg Tab) 5 mg PO BID [facility] Stop: 02/27/21 20:59 Last Admin: 02/01/21 07:56 Dose: 5 mg Documented by: Enoxaparin Sodium (Enoxaparin Inj 40 Mg/0.4 Ml Syr) 40 mg SQ Q12H [facility] Stop: 02/27/21 17:59 Last Admin: 02/01/21 05:05 Dose: 40 mg Documented by: Fentanyl Citrate (Fentanyl Bolus From Bag) 50 mcg IV Q60M PRN PRN Reason: Pain or Agitation Stop: 02/12/21 16:40 Last Admin: 01/30/21 20:07 Dose: 50 mcg Documented by: Furosemide (Furosemide Inj 20 Mg/2 Ml Vial) 20 mg IV Q24H [facility] Stop: 02/28/21 09:59 Last Admin: 02/01/21 10:18 Dose: 20 mg Documented by: Propofol (Diprivan) 1,000 mg in 100 mls @ 28.2 mls/hr IV .Q3H33M [facility]; Protocol Stop: 02/01/21 16:14 Last Admin: 02/01/21 15:55 Dose: Not Given Documented by: Pantoprazole Sodium 40 mg/ (Syringe) 10 mls @ 5 mls/min IV BID@0900,2100 [facility] Stop: 03/01/21 20:59 Last Admin: 02/01/21 08:01 Dose: 5 mls/min Documented by: Cisatracurium Besylate 100 mg/ (Sodium Chloride) 250 mls @ 47.94 mls/hr IV .Q5H13M [facility]; Protocol Stop: 03/01/21 16:59 Last Admin: 02/01/21 15:55 Dose: 4 mcg/kg/min, 47.9 mls/hr Documented by: Fentanyl Citrate (Fentanyl Citrate) 2,500 mcg in 250 mls @ 15 mls/hr IV .[id number] [facility]; Protocol Stop: 02/13/21 15:59 Last Admin: 02/01/21 13:36 Dose: 200 mcg/hr, 20 mls/hr Documented by: Dexamethasone 20 mg/ Dextrose 30 mls @ 0.833 mls/min IV Q24H [facility] Stop: 02/03/21 14:30 Last Infusion: 02/01/21 13:33 Dose: Infused Documented by: Dexmedetomidine HCl 200 mcg/ (Sodium Chloride) 50 mls @ 11 mls/hr IV .Q4H33M [facility]; Protocol Stop: 02/04/21 16:59 Last Admin: 02/01/21 15:20 Dose: Not Given Documented by: Dexamethasone 10 mg/ Syringe 2.5 mls @ 1 mls/min IV Q24H [facility] Stop: 02/08/21 09:03 Vancomycin HCl 1,500 mg/ (Sodium Chloride) 530 mls @ 200 mls/hr IV Q12H [facility] Stop: 02/08/21 21:59 Levothyroxine Sodium (Levothyroxine Sodium 125 Mcg Tablet) 125 mcg PO DAILY [facility] Stop: 02/24/21 08:59 Last Admin: 02/01/21 07:56 Dose: 125 mcg Documented by: Metoprolol Tartrate (Metoprolol Tartrate 25 Mg Tab) 12.5 mg PO Q6 [facility] Stop: 03/02/21 11:59 Last Admin: 02/01/21 11:44 Dose: 12.5 mg Documented by: Miscellaneous Information (Vancomycin Consult Active) 1 ea N/A UD PRN PRN Reason: Consult Stop: 03/03/21 12:15 Multi-Ingredient Cream (Artificial Tears Op Oint 3.5 Gm Tube) 1 appln OP Q4H [facility] Stop: 02/28/21 16:44 Last Admin: 02/01/21 15:56 Dose: 1 appln Documented by: Ondansetron HCl (Ondansetron Inj 2 Mg/Ml 2 Ml Vial) 4 mg IV Q6H PRN PRN Reason: Nausea Stop: 02/23/21 14:56 Last Admin: 01/28/21 18:02 Dose: 4 mg Documented by: Propofol (Propofol Bolus From Bag) 20 mg IV Q5M PRN PRN Reason: Sedation Stop: 02/01/21 16:07 Last Admin: 01/30/21 20:07 Dose: 20 mg Documented by:
--- NOTE | 2021-02-01 18:40 | XRay Report ---
XR chest 1V portable HISTORY: Covid pneumonia. Respiratory failure. COMPARISON: Chest 01/28/2021. FINDINGS: The tip the endotracheal tube appears to be at the level of the shane. This should be pull ed back by approximately 3 to 4 cm. Nasogastric tube terminates below the diaphragm. The tip is not i ncluded on this study. A right jugular central venous catheter which terminates in the SVC. No pneumo thorax. The heart remains mildly enlarged. Bilateral airspace opacities persist and are consistent wi th a viral pneumonia. IMPRESSION: 1. The endotracheal tube appears to terminate at the level the shane. This should be pulled back by 3 to 4 cm. 2. No change in the bilateral airspace opacities consistent with a viral pneumonia. 3. These findings were discussed with Dr. Jacob at 6:45 PM 02/01/2021. ACT 112: Negative or not required by law. Electronically signed by: Denzel Lopez M.D. 02/01/2021 6:43 PM
[2021-02-01] MEDS ORDERED: PROPOFOL IV EMULSION 10 MG/ML 100 ML VIAL IV ONE (18:46)
[2021-02-01] MEDS ORDERED: STAT IV Infusion **Titration per Protocol STA (18:51)
[2021-02-01] MEDS: VANCOMYCIN HCL 1,500 MG in SODIUM CHLORIDE 0.9% 500 ML IV SCH (23:29)
[2021-02-01] MEDS ORDERED: LABETALOL HCL IV 5 MG/ML 20ML IV STA (23:56)
[2021-02-02] MEDS ORDERED: HYDROmorphone INJ 1 MG/ML SYRINGE IV STA (00:12)
[2021-02-02] MEDS: fentaNYL citrate 2,500 MCG/250 ML BAG IV SCH ×2 (00:21→11:43)
[2021-02-02] MEDS: propofoL 1,000 MG/100 ML VIAL IV SCH ×7 (01:25→21:59)
[2021-02-02] MEDS: DEXMEDETOMIDINE HCL 200 MCG in SODIUM CHLORIDE 0.9% 48 ML IV SCH ×9 (02:52→22:48)
[2021-02-02 04:25] LABS: iSTAT Art Bld Gas pCO2 Correct 65 mmHg (35-46); iSTAT Arterial Blood Gas HCO3 36 meg/L (19-24); iSTAT Arterial Blood Gas pCO2 63 mmHg (35-46); iSTAT Arterial Blood Gas pH 7.36 (7.35-7.45); iSTAT Arterial Blood Gas pO2 79 mmHg (80-95); iSTAT Arterial Blood Gas pO2 C 84; iSTAT Carbon Dioxide 37 mmol/L (24-31); iSTAT FiO2 70 %; iSTAT Hematocrit 28 % (42-52); iSTAT Hemoglobin 9.5 g/dl (14.0-18.0); iSTAT Site Art Line; iSTAT Sodium 144 mmol/L (135-144)
[2021-02-02] MEDS: ARTIFICIAL TEARS OP OINT 3.5 GM TUBE OP SCH ×5 (05:50→21:04)
[2021-02-02] MEDS: CISATRACURIUM BESYLATE 100 MG in SODIUM CHLORIDE 0.9% 200 ML IV SCH ×5 (06:04→22:57)
[2021-02-02] MEDS: METOPROLOL TARTRATE 25 MG TAB PO SCH ×3 (06:04→17:38)
[2021-02-02] MEDS: ENOXAPARIN INJ 40 MG/0.4 ML SYR SQ SCH ×2 (06:05→17:38)
[2021-02-02 06:25] LABS: Basophils # (auto) 0.03 K/uL (0-0.2); Basophils % (auto) 0.4 %; Hematocrit (blood only) 33.6 % (42-52); Hemoglobin 9.7 g/dL (14.0-18.0); Immature Granulocytes # (auto) 0.34 K/uL (0.00-0.02); Immature Granulocytes % (auto) 4.6 %; Lymphocytes # (auto) 0.64 K/uL (1.2-3.4); Lymphocytes % (auto) 8.7 %; Mean Corpuscular Hemoglobin 22.8 pg (25-34); Mean Corpuscular Hgb Conc 28.9 g/dL (32-36); Mean Corpuscular Volume 79.1 fL (80-100); Mean Platelet Volume 9.7 fL (7.4-10.4); Monocytes # (auto) 0.39 K/uL (0.11-0.59); Monocytes % (auto) 5.3 %; Neutrophils # (auto) 5.93 K/uL (1.4-6.5); Platelet Count 380 K/uL (130-400); RDW Coefficient of Variation 18.4 % (11.5-14.5); RDW Standard Deviation 53.3 fL (36.4-46.3); Red Blood Count 4.25 M/uL (4.7-6.1); White Blood Count 7.33 K/uL (4.8-10.8)
[2021-02-02 06:27] LABS: Albumin Level 1.9 gm/dl (3.4-5.0); BUN Creatinine Ratio 48.1 (10-20); Calcium 8.7 mg/dl (8.5-10.1); Creatinine Clr Calc Pharmacy 172.7 ml/min; Est GFR (African American) 128.6 ml/min; Est GFR (Non-African American) 110.9 ml/min; Magnesium 2.3 mg/dl (1.8-2.4); Potassium 3.8 mmol/L (3.5-5.1)
[2021-02-02 06:53] LABS: Albumin Globulin Ratio 0.4 (0.9-2); Bilirubin,Total 0.5 mg/dl (0.2-1); Globulin 4.5 gm/dl (2.5-4.0); Phosphorus 3.3 mg/dl (2.5-4.9); Total Protein 6.4 gm/dl (6.4-8.2)
--- NOTE | 2021-02-02 07:24 | XRay Report ---
XR chest 1V portable CLINICAL HISTORY: Respiratory failure. COMPARISON STUDY: Chest CT January 28, 2021. Chest radiograph February 01, 2021. FINDINGS: Tip of endotracheal tube is 5.4 cm above the shane. Tip of nasogastric tube is below the l ower aspect of this image but at least within the body of the stomach. Right internal jugular central line is in place. There is no pneumothorax or pleural effusion. Extensive bilateral airspace opaciti es are similar to prior exam. IMPRESSION: 1. Tip of endotracheal tube 5.4 cm above the shane. 2. No change in extensive bilateral airspace opacities consistent with viral pneumonia. ACT 112: Negative or not required by law. Electronically signed by: Saw Jarvis M.D. 02/02/2021 7:23 AM
[2021-02-02] MEDS ORDERED: POTASSIUM CHLORIDE / WTR 20 MEQ/100 ML PLCT IV ONE (07:30)
[2021-02-02] MEDS: busPIRone 5 MG TAB PO SCH ×2 (08:22→21:03)
[2021-02-02] MEDS: amLODIPine BESYLATE 5 MG TAB PO SCH (08:22)
[2021-02-02] MEDS: LEVOTHYROXINE SODIUM 125 MCG TABLET PO SCH (08:23)
[2021-02-02] MEDS: PANTOprazole 40 MG in SYRINGE 0 ML IV SCH ×2 (08:23→21:03)
[2021-02-02] MEDS: VANCOMYCIN HCL 1,500 MG in SODIUM CHLORIDE 0.9% 500 ML IV SCH ×2 (08:25→22:03)
[2021-02-02] MEDS: FUROSEMIDE INJ 20 MG/2 ML VIAL IV SCH ×2 (08:30→15:53)
--- NOTE | 2021-02-02 10:34 | Critical Care Progress Note ---
Date of Service February 02, 2021 Assessment & Plan (1) Acute respiratory failure with hypoxia: (2) Pneumonia due to COVID-19 virus: (3) Obesity: (4) Anemia: (5) Chronic respiratory acidosis: Plan: Impression: 55-year-old male unvaccinated for Covid who was admitted 01/24/2021 with hypoxemic respiratory failure and pulmonary infiltrates. He was initially trialed on BiPAP but failed and was intubated 01/28/2021 24-hour events: Patient started on metoprolol for hypertension. He was flipped back supine. Developed significant periorbital edema so there was concern about flipping in prone. This morning, he had an increase in his oxygen requirement so at 10 AM was flipped back to prone positioning. Recommendations: 1. Neurologic: Currently on neuromuscular blockade, propofol, and fentanyl. Continue Precedex. Patient is on a variety of medications for mental health conditions. These will be held for now but may need to be restarted when the patient is emerging from sedatives. 2. Cardiovascular: Hypertensive. Continue Norvasc and increase metoprolol. Follow on Precedex. As needed IV hydralazine for systolic blood pressure greater than 160. BMP was normal. No indication for echo currently. 3. 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 Current vent settings AC/25/440/0.7/12 with plateau pressure of 28. P/F 112, slightly worse today. Last ABG 7.36/63/79. Compliance slightly worse. Findings consistent with severe ARDS. Currently on dexamethasone to 20 mg a day for 5 days followed by 10 mg for 5 days then discontinue. He is at risk for complications related to steroids. Continue proning trials as long as he shows a clinical benefit. Continue NM blockade for today. CXR in AM. Discussed with [facility] ECMO -he is an outside the timing window to consider ECMO. Patient now has significant periorbital edema. We will try and keep the left side of his face up as that appears to be the most affected eye. We will also keep the head of bed elevated. 4. GI: Patient now has a course safe. If we can get the tube to migrate postpyloric, may consider initiation of tube feedings. PPI in place. 5. Renal: Diamox yesterday. Hold additional dose today Valdovinos catheter in place. On daily Lasix, increase to 40 mg daily. I/O remain even. Creatinine stable and electrolytes adequate. Continue ICU replacement protocol. 6. ID: Completed 5 days of doxycycline. Blood cultures and respiratory culture are now with staph species but PCR negative for staph aureus. Procalcitonin has been negative. Continue vancomycin pending speciation and sensitivity. 7. Heme-onc: Mild anemia without evidence of acute blood loss. Continue to follow for now 8. Endocrine: Glycemic control per protocol. Continue Synthroid Total of 55 minutes critical care time was spent evaluating managing and stabilizing this patient including discussion with bedside critical care nurse, on multidisciplinary rounds, and with respiratory therapy. Family will be upd ated by phone. Prognosis guarded. Time spent including being at bedside for proning maneuver Admission and Anticipated Discharge Date Admission Date: January 24, 2021 Subjective Intubated sedated and paralyzed Review of Systems Review of Systems: Unobtainable due to endotracheal tube Physical Exam Constitutional: + mechanically ventilated ENMT: Significant periorbital edema, left greater than right Neck: trachea midline, no thyromegaly Respiratory: normal respiratory effort, lungs clear to auscultation no labored breathing Auscultation: + rales, + wheezes, + bronchial breath sounds and + vesicular breath sounds Cardiovascular: RRR, no murmur, no edema Gastrointestinal (Abdomen): normal bowel sounds, soft, nontender, no hepatosplenomegaly Musculoskeletal: Extremities: extremities normal to inspection Skin: no rashes, warm and dry Lymphatic: no cervical lymphadenopathy Results & Data Results & Data ([facility]) Vital Signs (Past 12 Hours) Vital Signs Temp Pulse Resp BP Pulse Ox 02/02/21 08:15 69 25 H 87 L 02/02/21 05:00 37.5 C 65 25 H 167/78 H 87 L 02/02/21 04:18 25 H 02/02/21 04:00 37.8 C H 63 25 H 92 02/02/21 03:00 37.8 C H 62 25 H 90 02/02/21 02:00 37.7 C H 64 25 H 90 02/02/21 01:00 37.7 C H 65 25 H 90 02/02/21 00:00 37.6 C H 74 25 H 91 02/01/21 23:45 81 25 H 92 02/01/21 23:00 37.5 C 71 25 H 175/78 H 93 02/01/21 22:39 80 25 H 98 Critical Care Results & Data Vital Signs (Past 12 Hours) Vital Signs Temp Pulse Resp BP Pulse Ox 02/02/21 08:15 69 25 H 87 L 02/02/21 05:00 37.5 C 65 25 H 167/78 H 87 L 02/02/21 04:18 25 H 02/02/21 04:00 37.8 C H 63 25 H 92 02/02/21 03:00 37.8 C H 62 25 H 90 02/02/21 02:00 37.7 C H 64 25 H 90 02/02/21 01:00 37.7 C H 65 25 H 90 02/02/21 00:00 37.6 C H 74 25 H 91 02/01/21 23:45 81 25 H 92 02/01/21 23:00 37.5 C 71 25 H 175/78 H 93 02/01/21 22:39 80 25 H 98 Lab & Micro Results (Past 24 Hours) RBC 4.25 M/uL (4.7-6.1) L 02/02/21 WBC 7.33 K/uL (4.8-10.8) 02/02/21 Hgb 9.7 g/dL (14.0-18.0) L 02/02/21 Hct 33.6 % (42-52) L 02/02/21 MCV 79.1 fL (80-100) L 02/02/21 MCH 22.8 pg (25-34) L 02/02/21 MCHC 28.9 g/dL (32-36) L 02/02/21 RDW Standard Deviation 53.3 fL (36.4-46.3) H 02/02/21 RDW Coefficient of Variation 18.4 % (11.5-14.5) H 02/02/21 Plt Count 380 K/uL (130-400) 02/02/21 MPV 9.7 fL (7.4-10.4) 02/02/21 Neutrophils (%) (Auto) 81.0 % 02/02/21 Lymphocytes (%) (Auto) 8.7 % 02/02/21 Monocytes # (Auto) 0.39 K/uL (0.11-0.59) 02/02/21 Eosinophils # (Auto) 0.00 K/uL (0-0.5) 02/02/21 Immature Granulocyte % (Auto) 4.6 % 02/02/21 Neutrophils # (Auto) 5.93 K/uL (1.4-6.5) 02/02/21 Lymphocytes # (Auto) 0.64 K/uL (1.2-3.4) L 02/02/21 Monocytes # (Auto) 0.39 K/uL (0.11-0.59) 02/02/21 Eosinophils # (Auto) 0.00 K/uL (0-0.5) 02/02/21 Basophils # (Auto) 0.03 K/uL (0-0.2) 02/02/21 Immature Granulocyte # (Auto) 0.34 K/uL (0.00-0.02) H 02/02/21 Na 144 mmol/L (136-145) 02/02/21 K 3.8 mmol/L (3.5-5.1) 02/02/21 Cl 108 mmol/L (98-107) H 02/02/21 CO2 34 mmol/L (21-32) H 02/02/21 Anion Gap 2.0 (3-11) L 02/02/21 BUN 30 mg/dl (7-18) H 02/02/21 Creatinine 0.63 mg/dl (0.6-1.4) 02/02/21 Estimated GFR ( Amer) 128.6 ml/min 02/02/21 Estimated GFR (Non-Af Amer) 110.9 ml/min 02/02/21 BUN/Creatinine Ratio 48.1 (10-20) H 02/02/21 Glu 107 mg/dl (70-99) H 02/02/21 Ca 8.7 mg/dl (8.5-10.1) 02/02/21 Phosphorus Level 3.3 mg/dl (2.5-4.9) 02/02/21 Total Bilirubin 0.5 mg/dl (0.2-1) 02/02/21 AST 50 U/L (15-37) H 02/02/21 ALT 45 U/L (12-78) 02/02/21 Alkaline Phosphatase 69 U/L (45-117) 02/02/21 TP 6.4 gm/dl (6.4-8.2) 02/02/21 Albumin 1.9 gm/dl (3.4-5.0) L 02/02/21 Globulin 4.5 gm/dl (2.5-4.0) H 02/02/21 Albumin/Globulin Ratio 0.4 (0.9-2) L 02/02/21 Mg 2.3 mg/dl (1.8-2.4) 02/02/21 04:49 02/02/21 Calcium Level 8.7 mg/dl (8.5-10.1) 02/02/21 04:49 02/02/21 Christoph Test NA 02/02/21 04:11 02/02/21 Microbiology 01/31/21 16:30 Gram Stain - Final Sputum,Vent Suction Sputum Culture - Preliminary Staphylococcus species Corynebacterium species 02/01/21 06:21 Aerobic Blood Culture - Preliminary Blood No growth in Aerobic bottle after 24 hours. Anaerobic Blood Culture - Preliminary No growth in Anaerobic bottle after 24 hours. 02/01/21 06:10 Aerobic Blood Culture - Preliminary Blood Gram positive cocci clusters Anaerobic Blood Culture - Preliminary No growth in Anaerobic bottle after 24 hours. Diagnostic Findings (Past 24 Hours) Chest X-Ray 02/01/21 07:00 XR chest 1V portable HISTORY: Covid pneumonia. Respiratory failure. COMPARISON: Chest 01/28/2021. FINDINGS: The tip the endotracheal tube appears to be at the level of the shane. This should be pulled back by approximately 3 to 4 cm. Nasogastric tube terminates below the diaphragm. The tip is not included on this study. A right jugular central venous catheter which terminates in the SVC. No pneumothorax. The heart remains mildly enlarged. Bilateral airspace opacities persist and are consistent with a viral pneumonia. IMPRESSION: 1. The endotracheal tube appears to terminate at the level the shane. This should be pulled back by 3 to 4 cm. 2. No change in the bilateral airspace opacities consistent with a viral pneumonia. 3. These findings were discussed with Dr. Jacob at 6:45 PM 02/01/2021. ACT 112: Negative or not required by law. Electronically signed by: Denzel Lopez M.D. 02/01/2021 6:43 PM Chest X-Ray 02/02/21 07:00 XR chest 1V portable CLINICAL HISTORY: Respiratory failure. COMPARISON STUDY: Chest CT January 28, 2021. Chest radiograph February 01, 2021. FINDINGS: Tip of endotracheal tube is 5.4 cm above the shane. Tip of nasogastric tube is below the lower aspect of this image but at least within the body of the stomach. Right internal jugular central line is in place. There is no pneumothorax or pleural effusion. Extensive bilateral airspace opacities are similar to prior exam. IMPRESSION: 1. Tip of endotracheal tube 5.4 cm above the shane. 2. No change in extensive bilateral airspace opacities consistent with viral pneumonia. ACT 112: Negative or not required by law. Electronically signed by: Saw Jarvis M.D. 02/02/2021 7:23 AM I & O Totals 24 Hours 02/01/21 02/02/21 02/03/21 06:59 06:59 06:59 Intake Total 2344.293 / 2344.293 3455.595 / 3455.595 319.963 / 319.963 Output Total 1650 / 1650 2355 / 2355 Balance 694.293 / 584.193 3027.595 / 1100.595 319.963 / 319.963 Cumulative 01/24/21 08:06 thru 02/02/21 10:20 Intake Total 31058.114 Output Total 81944 Balance 267.114 RT Ventilator Mngmt (Last Documented) Ventilator Ordered Settings Ventilator Support Mode Assist Control 02/02/21 08:15 Respiratory Rate 25 02/02/21 08:15 Ventilator Tidal Volume 440 02/02/21 08:15 Setting Minute Ventilation 11.0 02/02/21 08:15 Positive End Expiratory 10 02/02/21 08:15 Pressure Fraction of Inspired Oxygen 70 02/02/21 08:15 Machine Comment Increased PEEP to +12 02/02/21 08:15 Ventilator - PT Measurements Respiratory Rate 25 Exhaled Tidal Volume 440 Minute Ventilation 11.0 Peak Inspiratory Airway 28 Pressure Plateau Pressure 28 Respiratory Cycle Inspiratory: 1:2.0 Expiratory Ratio Inspiratory Phase Time 0.80 End-Tidal CO2 50 Static Lung Compliance 24.44 Dynamic Lung Compliance 24.44 Normal Static Lung Compliance 46.00 Patient Measurements Comment Patient ETT became disconnected from vent, RT reconnected with SPO2 recovery to 93% Coding Level of Care Code Critical Care 1st 30-74 mins Diagnoses Acute respiratory failure with hypoxia J96.01 Pneumonia due to COVID-19 virus U07.1; J12.82 Obesity E66.9 Anemia D64.9 Chronic respiratory acidosis E87.2
--- NOTE | 2021-02-02 10:53 | XRay Report ---
KUB HISTORY: NG tube placement COMPARISON: KUB 01/29/2021. FINDINGS: Endotracheal tube terminates approximately 4.8 cm from the shane. There is a nasogastric t ube and feeding tube both located within the distal body of the stomach. No dilated loops of bowel i dentified. Patchy bilateral airspace opacities are noted. No pneumoperitoneum or pneumatosis. IMPRESSION: Nasogastric tube and feeding tube are both located within the distal body of the stomach. ACT 112: Negative or not required by law. Electronically signed by: Denzel Lopez M.D. 02/02/2021 10:52 AM
[2021-02-02] MEDS: hydrALAZINE HCL 20 MG/ML VIAL IV PRN (11:44)
--- NOTE | 2021-02-02 14:10 | Hospitalist Progress Note ---
Date of Service February 02, 2021 Assessment & Plan (1) Acute respiratory failure with hypoxia: Plan: 2/2 covid pneumonia, see plan below. Status post intubated and sedated Appreciate flame hardening machine operator input and recommendation Remains on mechanical ventilator and with sedation Remains stable but critical (2) Pneumonia due to COVID-19 virus: Plan: 55 years old male unvaccinated for COVID 19 presented with worsening shortness of breath Continue Decadron and supportive therapies as needed. DuoNebs as needed. Guaifenesin as needed. Tessalon Perles as needed. Remdesivir contraindicated in the setting of elevated LFTs on admission Patient is high risk to get intubated as has now been on BIPAP for two days. Pulm consulted Lasix given today and daily to keep overall fluid balance net negative. Doppler bilateral lower extremities were negative for DVT, also CTA chest performed 01/28 (yesterday) which was negative for PE. Declines to prone. Required intubation in the evening of 01/29/2021 Remains sedated on ventilator Management as per flame hardening machine operator-remains critical but stable Continue current management (3) Elevated liver enzymes: Plan: Likely related to Covid 19 infection, trending down. Continue monitor CMP periodically-we will check LFTs in a.m. 01/31/2021 LFTs remain stable and almost normalized (4) Hypertension: Plan: -BP controlled, continue amlodipine -Hold triamterene/HCTZ due to dehydration from acute illness/hypokalemia -Blood pressure remains on the higher side -We will try intravenous beta-yordan -Blood pressure remains on the upper side and it is 188/84 as of now (5) Hypothyroidism: Plan: -Continue levothyroxine per home regimen. (6) ADHD: (7) Anxiety: Plan: There was an issue with his Pristiq, which has been held since landon of 01/27. Will restart this now, 150mg once daily. Buspar 5 mg BID added 01/28 to help with the anxiety during the hospital course (8) CATHY on CPAP: Plan: continuous BIPAP now. (9) DVT prophylaxis: Plan: -SQ Lovenox Full code. Unable to contact patient's at number provided. Will try again later. Admission and Anticipated Discharge Date Admission Date: January 24, 2021 Subjective 01/30/2021 The patient was seen and examined in telemetry unit and in the Covid room He has been intubated and sedated 01/31/2021 The patient was seen and examined in ICU He remains intubated and sedated 02/01/2021 The patient was seen and examined in ICU He remains intubated and sedated 02/02/2021 The patient was seen and examined in ICU He remains intubated and sedated Review of Systems Review of Systems: Unobtainable due to endotracheal tube Physical Exam Physical Exam: Remains sedated and on mechanical ventilator Constitutional: well developed, well nourished, + ill appearing and + obese ENMT: external ear and nose normal, oropharynx normal Neck: trachea midline, no thyromegaly Respiratory: no respiratory distress Auscultation: + diminished lung sounds and + crackles (Minimal crackles at the bases) Cardiovascular: Rate/Rhythm: regular rate and regular rhythm; not tachycardic Heart Sounds: normal S1 and normal S2; no murmur Extremities: no edema Gastrointestinal (Abdomen): Inspection/Auscultation: normal bowel sounds; abdomen not distended Percussion/Palpation: abdomen soft; abdomen nontender Neurologic: Sedated on mechanical ventilator Results & Data Results & Data ([facility]) Vital Signs (Past 12 Hours) Vital Signs Temp Pulse Resp BP Pulse Ox 02/02/21 13:30 37.7 C H 76 21 94 02/02/21 13:15 37.7 C H 76 21 93 02/02/21 13:00 37.7 C H 79 22 93 02/02/21 12:45 37.7 C H 81 22 93 02/02/21 12:30 37.7 C H 84 22 93 02/02/21 12:15 37.7 C H 88 22 93 02/02/21 12:00 37.7 C H 85 22 93 02/02/21 11:50 80 25 H 92 02/02/21 11:45 37.7 C H 81 25 H 92 02/02/21 11:30 37.7 C H 79 25 H 92 02/02/21 11:15 37.7 C H 79 25 H 91 02/02/21 11:00 37.7 C H 78 25 H 92 02/02/21 10:45 37.7 C H 76 22 91 02/02/21 10:30 37.7 C H 74 25 H 91 02/02/21 10:15 37.6 C H 75 25 H 90 02/02/21 10:00 37.6 C H 74 22 92 02/02/21 09:45 75 5 L 94 02/02/21 09:30 37.7 C H 74 25 H 83 L 02/02/21 09:15 37.7 C H 77 25 H 84 L 02/02/21 09:00 37.7 C H 75 22 188/84 H 84 L 02/02/21 08:45 37.7 C H 72 25 H 86 L 02/02/21 08:30 37.6 C H 69 25 H 90 02/02/21 08:15 37.7 C H 71 22 81 L 02/02/21 08:00 37.7 C H 72 0 L 77 L 02/02/21 07:45 37.7 C H 72 25 H 91 02/02/21 07:30 37.7 C H 73 25 H 92 02/02/21 07:15 37.7 C H 72 25 H 92 02/02/21 07:00 37.8 C H 72 25 H 91 02/02/21 05:00 37.5 C 65 25 H 167/78 H 87 L 02/02/21 04:18 25 H 02/02/21 04:00 37.8 C H 63 25 H 92 02/02/21 03:00 37.8 C H 62 25 H 90 Laboratory Results Short CBC 02/02/21 Range/Units 04:49 WBC 7.33 (4.8-10.8) K/uL Hgb 9.7 L (14.0-18.0) g/dL Hct 33.6 L (42-52) % Plt Count 380 (130-400) K/uL BMP 02/02/21 04:49 Sodium 144 Potassium 3.8 Chloride 108 H Carbon Dioxide 34 H BUN 30 H Creatinine 0.63 Glucose 107 H Calcium 8.7 Liver Function 02/02/21 Range/Units 04:49 Total Bilirubin 0.5 (0.2-1) mg/dl AST 50 H (15-37) U/L ALT 45 (12-78) U/L Alkaline Phosphatase 69 (45-117) U/L Albumin 1.9 L (3.4-5.0) gm/dl Medications Administered Current Inpatient Medications Acetaminophen (Acetaminophen Susp 160 Mg/5 Ml Udc) 640 mg PO Q4H PRN PRN Reason: pain/fever Stop: 03/02/21 18:49 Last Admin: 02/01/21 07:57 Dose: 640 mg Documented by: Albuterol (Albut/Ipratrop 3mg/0.5mg Neb 3 Ml Vial) 3 ml NEB Q4R PRN PRN Reason: sob/wheezing Stop: 02/23/21 15:14 Last Admin: 01/26/21 16:17 Dose: 3 ml Documented by: Amlodipine Besylate (Amlodipine Besylate 5 Mg Tab) 10 mg PO DAILY [facility] Stop: 02/24/21 08:59 Last Admin: 02/02/21 08:22 Dose: 10 mg Documented by: Buspirone HCl (Buspirone 5 Mg Tab) 5 mg PO BID [facility] Stop: 02/27/21 20:59 Last Admin: 02/02/21 08:22 Dose: 5 mg Documented by: Enoxaparin Sodium (Enoxaparin Inj 40 Mg/0.4 Ml Syr) 40 mg SQ Q12H [facility] Stop: 02/27/21 17:59 Last Admin: 02/02/21 06:05 Dose: 40 mg Documented by: Fentanyl Citrate (Fentanyl Bolus From Bag) 50 mcg IV Q60M PRN PRN Reason: Pain or Agitation Stop: 02/12/21 16:40 Last Admin: 01/30/21 20:07 Dose: 50 mcg Documented by: Furosemide (Furosemide Inj 20 Mg/2 Ml Vial) 40 mg IV Q24H [facility] Stop: 03/04/21 14:59 Hydralazine HCl (Hydralazine Hcl 20 Mg/Ml Vial) 10 mg IV Q4H PRN PRN Reason: Hypertension SBP> 160 Stop: 03/04/21 10:21 Last Admin: 02/02/21 11:44 Dose: 10 mg Documented by: Pantoprazole Sodium 40 mg/ (Syringe) 10 mls @ 5 mls/min IV BID@0900,2100 [facility] Stop: 03/01/21 20:59 Last Admin: 02/02/21 08:23 Dose: 5 mls/min Documented by: Cisatracurium Besylate 100 mg/ (Sodium Chloride) 250 mls @ 47.94 mls/hr IV .Q5H13M [facility]; Protocol Stop: 03/01/21 16:59 Last Admin: 02/02/21 11:43 Dose: 4 mcg/kg/min, 47.9 mls/hr Documented by: Fentanyl Citrate (Fentanyl Citrate) 2,500 mcg in 250 mls @ 15 mls/hr IV .[id number] [facility]; Protocol Stop: 02/13/21 15:59 Last Admin: 02/02/21 11:43 Dose: 200 mcg/hr, 20 mls/hr Documented by: Dexamethasone 20 mg/ Dextrose 30 mls @ 0.833 mls/min IV Q24H [facility] Stop: 02/03/21 14:30 Last Infusion: 02/01/21 13:33 Dose: Infused Documented by: Dexmedetomidine HCl 200 mcg/ (Sodium Chloride) 50 mls @ 13.75 mls/hr IV .Q3H39M [facility]; Protocol Stop: 02/04/21 16:59 Last Admin: 02/02/21 10:20 Dose: 0.5 mcg/kg/hr, 13.8 mls/hr Documented by: Dexamethasone 10 mg/ Syringe 2.5 mls @ 1 mls/min IV Q24H [facility] Stop: 02/08/21 09:03 Vancomycin HCl 1,500 mg/ (Sodium Chloride) 530 mls @ 200 mls/hr IV Q12H [facility] Stop: 02/08/21 21:59 Last Admin: 02/02/21 08:25 Dose: 200 mls/hr Documented by: Propofol (Diprivan) 1,000 mg in 100 mls @ 33 mls/hr IV .Q3H2M [facility]; Protocol Stop: 02/04/21 18:59 Last Admin: 02/02/21 11:46 Dose: 50 mcg/kg/min, 33 mls/hr Documented by: Labetalol HCl (Labetalol Hcl Iv 5 Mg/Ml 20ml) 10 mg IV Q4 PRN PRN Reason: Hypertension SBP>160 after hyd Stop: 03/04/21 12:25 Levothyroxine Sodium (Levothyroxine Sodium 125 Mcg Tablet) 125 mcg PO DAILY [facility] Stop: 02/24/21 08:59 Last Admin: 02/02/21 08:23 Dose: 125 mcg Documented by: Metoprolol Tartrate (Metoprolol Tartrate 25 Mg Tab) 25 mg PO Q6 [facility] Stop: 03/04/21 11:59 Last Admin: 02/02/21 11:46 Dose: 25 mg Documented by: Miscellaneous Information (Vancomycin Consult Active) 1 ea N/A UD PRN PRN Reason: Consult Stop: 03/03/21 12:15 Multi-Ingredient Cream (Artificial Tears Op Oint 3.5 Gm Tube) 1 appln OP Q4H [facility] Stop: 02/28/21 16:44 Last Admin: 02/02/21 11:47 Dose: 1 appln Documented by: Ondansetron HCl (Ondansetron Inj 2 Mg/Ml 2 Ml Vial) 4 mg IV Q6H PRN PRN Reason: Nausea Stop: 02/23/21 14:56 Last Admin: 01/28/21 18:02 Dose: 4 mg Documented by: Propofol (Propofol Bolus From Bag) 20 mg IV Q5M PRN PRN Reason: Sedation Stop: 02/04/21 18:50
[2021-02-02] MEDS: dexAMETHasone 20 MG in DEXTROSE 5% 25 ML IV SCH (14:39)
[2021-02-02] MEDS: LABETALOL HCL IV 5 MG/ML 20ML IV PRN (21:07)
--- NOTE | 2021-02-02 21:25 | Communication Note ---
Date of Service: February 02, 2021 Procedure: Supination Maneuver Attending: Dr. Jacob APC: Logan Clemons PA-C Indication: Requiring lung recruitment intervention in the setting of advanced ARDS with poor lung compliance and oxygenation on standard ventilator settings. Patient requiring supination in the setting of advanced ARDS per imaging, ventilator requirements, and calculated P:F ratio. Appropriate staff was assembled including myself, Respiratory Therapy, and Nursing Staff. A time-out was completed verifying correct patient, time from recent pronation/supination, current ventilator settings, review of any prior issues during pronation/supination maneuvers. Patient was fully undressed as to be able to view all current IV sites, central venous access sites, arterial lines, endotracheal tube, Valdovinos catheter, etc. After properly identifying/securing all lines, tubes, etc., the patient was ``papoosed using flat sheets. On my count, the patient was slid to the edge of the bed. After reevaluating all lines, tubes, etc., the patient was then placed on their side allowing for RT to maintain control of ET tube and ready for completion of Supination maneuver. Final check of all lines, tubes, etc. was completed by myself and nursing staff. Blood pressure, heart rhythm, and oxygen saturations were monitored for several minutes s/p maneuver. Discussion was held with patients RN and RT regarding ongoing management. Patient tolerated maneuver well. No immediate complications were noted. TIME SUPINE: 2114 I have personally spent 20 minutes of critical care time in the direct management of this patient. This is a life/limb threatening event. This includes time spent evaluating patient, direct bedside care, chart review, placing orders, interpretation of diagnostic studies, discussion with consultants, patient, and family members, as well as other required patient management activities. This time is exclusive of all separately billable procedures, and teaching time and separate from and in addition to any other critical care service time. Coding Level of Care Code Critical Care ea addt'l 30 min Time Spent (min) 20
[2021-02-03] MEDS: METOPROLOL TARTRATE 25 MG TAB PO SCH ×2 (01:00→06:12)
[2021-02-03] MEDS: fentaNYL citrate 2,500 MCG/250 ML BAG IV SCH ×3 (01:09→23:22)
[2021-02-03] MEDS: propofoL 1,000 MG/100 ML VIAL IV SCH ×9 (01:11→22:43)
[2021-02-03] MEDS: ARTIFICIAL TEARS OP OINT 3.5 GM TUBE OP SCH ×7 (01:20→23:23)
[2021-02-03] MEDS: hydrALAZINE HCL 20 MG/ML VIAL IV PRN (01:51)
[2021-02-03] MEDS: LABETALOL HCL IV 5 MG/ML 20ML IV PRN ×2 (02:20→04:14)
[2021-02-03] MEDS ORDERED: hydrALAZINE HCL 20 MG/ML VIAL IV STA (02:47)
[2021-02-03] MEDS: DEXMEDETOMIDINE HCL 200 MCG in SODIUM CHLORIDE 0.9% 48 ML IV SCH ×7 (02:57→23:22)
[2021-02-03] MEDS: PROPOFOL BOLUS FROM BAG IV PRN ×3 (03:20→03:57)
[2021-02-03] MEDS: CISATRACURIUM BESYLATE 100 MG in SODIUM CHLORIDE 0.9% 200 ML IV SCH ×9 (04:17→22:22)
[2021-02-03 04:29] LABS: iSTAT Art Bld Gas pCO2 Correct 72 mmHg (35-46); iSTAT Art Bld Gas pH Corrected 7.335 (7.35-7.45); iSTAT Arterial Blood Gas HCO3 38 meg/L (19-24); iSTAT Arterial Blood Gas pCO2 71 mmHg (35-46); iSTAT Arterial Blood Gas pH 7.34 (7.35-7.45); iSTAT Arterial Blood Gas pO2 67 mmHg (80-95); iSTAT Arterial Blood Gas pO2 C 69; iSTAT Carbon Dioxide > 40 mmol/L (24-31); iSTAT FiO2 65 %; iSTAT Hematocrit 33 % (42-52); iSTAT Hemoglobin 11.2 g/dl (14.0-18.0); iSTAT Potassium 3.8 mmol/L (3.3-5.0); iSTAT Site Art Line; iSTAT Sodium 145 mmol/L (135-144)
[2021-02-03] MEDS ORDERED: STAT IV Infusion **Titration per Protocol STA (05:09)
[2021-02-03 05:18] LABS: Basophils # (auto) 0.01 K/uL (0-0.2); Basophils % (auto) 0.2 %; Hematocrit (blood only) 35.9 % (42-52); Hemoglobin 10.4 g/dL (14.0-18.0); Immature Granulocytes # (auto) 0.28 K/uL (0.00-0.02); Immature Granulocytes % (auto) 4.4 %; Lymphocytes # (auto) 0.69 K/uL (1.2-3.4); Lymphocytes % (auto) 10.9 %; Mean Corpuscular Hemoglobin 23.1 pg (25-34); Mean Corpuscular Volume 79.6 fL (80-100); Mean Platelet Volume 9.5 fL (7.4-10.4); Monocytes # (auto) 0.37 K/uL (0.11-0.59); Monocytes % (auto) 5.8 %; Neutrophils # (auto) 4.99 K/uL (1.4-6.5); Neutrophils % (auto) 78.7 %; Platelet Count 377 K/uL (130-400); RDW Coefficient of Variation 18.2 % (11.5-14.5); RDW Standard Deviation 53.3 fL (36.4-46.3); Red Blood Count 4.51 M/uL (4.7-6.1); White Blood Count 6.34 K/uL (4.8-10.8)
[2021-02-03] MEDS: niCARdipine 25 MG in SODIUM CHLORIDE 0.9% 240 ML IV SCH ×11 (05:25→21:17)
[2021-02-03 05:49] LABS: Albumin Globulin Ratio 0.4 (0.9-2); Albumin Level 1.8 gm/dl (3.4-5.0); BUN Creatinine Ratio 62.4 (10-20); Bilirubin,Total 0.7 mg/dl (0.2-1); Calcium 8.5 mg/dl (8.5-10.1); Creatinine Clr Calc Pharmacy 181.4 ml/min; Est GFR (African American) 131.2 ml/min; Est GFR (Non-African American) 113.2 ml/min; Globulin 4.9 gm/dl (2.5-4.0); Magnesium 2.2 mg/dl (1.8-2.4); Phosphorus 3.4 mg/dl (2.5-4.9); Potassium 3.7 mmol/L (3.5-5.1); Total Protein 6.7 gm/dl (6.4-8.2)
[2021-02-03] MEDS: ENOXAPARIN INJ 40 MG/0.4 ML SYR SQ SCH ×2 (06:12→16:43)
--- NOTE | 2021-02-03 07:35 | XRay Report ---
XR chest 1V portable HISTORY: 55 years-old Male f/u acute shortness of breath COMPARISON: Chest radiograph 02/02/2021 TECHNIQUE: Portable AP view of the chest FINDINGS: Endotracheal tube overlies the midline, 4.2 cm superior to the shane. Right IJ central venous cathet er distal tip terminates in the expected location of the mid to inferior SVC. Enteric tube courses be low the diaphragm outside the [id number]. No pneumothorax. Trace right and small left pleural effu sions. Interstitial coarsening with extensive bilateral airspace opacities redemonstrated, progressiv marv worsened within the right lung. No acute fracture. IMPRESSION: 1. Lines and tubes as above. 2. Mildly progressed extensive airspace opacities compatible with viral pneumonia. ACT 112: Negative or not required by law. The above report was generated using voice recognition software. It may contain grammatical, syntax o r spelling errors. Electronically signed by: Franck Maria M.D. 02/03/2021 7:34 AM
[2021-02-03] MEDS: LEVOTHYROXINE SODIUM 125 MCG TABLET PO SCH (09:00)
[2021-02-03] MEDS: PANTOprazole 40 MG in SYRINGE 0 ML IV SCH ×2 (09:00→22:22)
[2021-02-03] MEDS: busPIRone 5 MG TAB PO SCH ×2 (09:01→22:22)
[2021-02-03] MEDS: amLODIPine BESYLATE 5 MG TAB PO SCH (09:01)
[2021-02-03] MEDS ORDERED: VANCOMYCIN TROUGH ONE (09:30)
--- NOTE | 2021-02-03 09:50 | Critical Care Progress Note ---
Date of Service February 03, 2021 Assessment & Plan (1) Acute respiratory failure with hypoxia: (2) Pneumonia due to COVID-19 virus: (3) Obesity: (4) Anemia: (5) Chronic respiratory acidosis: Plan: Impression: 55-year-old male unvaccinated for Covid who was admitted 01/24/2021 with hypoxemic respiratory failure and pulmonary infiltrates. He was initially trialed on BiPAP but failed and was intubated 01/28/2021 24-hour events: Patient flipped from prone to supine yesterday evening. Oxygenation remained stable. He was initiated on Cardene due to significant hypertension. Recommendations: 1. Neurologic: Currently on neuromuscular blockade, propofol, and fentanyl. Continue Precedex. Patient is on a variety of medications for mental health conditions. These will be held for now but may need to be restarted when the patient is emerging from sedatives. 2. Cardiovascular: Hypertensive. Currently on Norvasc and metoprolol. Increase metoprolol to 50 mg every 6. Add low-dose DARREN inhibitor. Wean Cardene as tolerated. As needed IV hydralazine and labetalol for systolic blood pressure greater than 160. BMP was normal. No indication for echo currently. 3. 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 Day #6 mechanical ventilation. Current vent settings AC/28/440/0.7/12 with plateau pressure of 25. P/F 95, slightly worse today. Last ABG 7.34/71/67. Mild acidosis with both respiratory and metabolic components. Compliance stable. Findings consistent with severe ARDS. Currently on dexamethasone to 20 mg a day for 5 days followed by 10 mg for 5 days then discontinue. He is at risk for complications related to steroids. Hold proning today given significant periorbital edema. Continue NM blockade for today. CXR in AM. Discussed with [facility] ECMO -he is an outside the timing window to consider ECMO. continue attempts at diuresis. Continue attempts at diuresis. Will check chest x-ray in the next 24 hours. If PF ratio worsens, may need to reprone. 4. GI: Dietary consult for initiation of trophic tube feeds PPI in place. 5. Renal: Valdovinos catheter in place. Mildly hyponatremic today. Will follow closely. May need to adjust free water but as we are initiating trophic feeds, he should get some free water flushes so we will continue to follow. Continue daily Lasix IV 40mg daily. I/O slightly negative over the last 24 hours. Creatinine stable and electrolytes adequate. Continue ICU replacement protocol. 6. ID: Completed 5 days of doxycycline. Blood cultures and respiratory culture are now with staph species but PCR negative for staph aureus and corynebacterium. Unusual pulmonary pathogens. Procalcitonin has been negative. Day #2 vancomycin pending speciation and sensitivity. Repeat cultures. White count has been normal and has been afebrile although his temp curve is slightly increasing today 7. Heme-onc: Mild anemia without evidence of acute blood loss. Continue to follow for now 8. Endocrine: Glycemic control per protocol. Continue Synthroid Patient remains critically ill at this point time with possibility of clinical deterioration. Total of 45 minutes critical care time was spent evaluating managing and stabilizing this patient including discussion with bedside critical care nurse and with respiratory therapy. Prognosis guarded. Admission and Anticipated Discharge Date Admission Date: January 24, 2021 Subjective intubated, sedated and paralyzed Review of Systems Review of Systems: Unobtainable due to endotracheal tube Physical Exam Constitutional: + mechanically ventilated Neck: trachea midline, no thyromegaly Respiratory: normal respiratory effort, lungs clear to auscultation no labored breathing Auscultation: + rales, + wheezes, + bronchial breath sounds and + vesicular breath sounds Cardiovascular: RRR, no murmur, no edema Gastrointestinal (Abdomen): normal bowel sounds, soft, nontender, no hepatosplenomegaly Musculoskeletal: Extremities: extremities normal to inspection Skin: no rashes, warm and dry Lymphatic: no cervical lymphadenopathy Results & Data Results & Data ([facility]) Vital Signs (Past 12 Hours) Vital Signs Temp Pulse Resp BP Pulse Ox 02/03/21 08:15 28 H 02/03/21 07:55 86 29 H 89 L 02/03/21 06:00 37.7 C H 91 H 28 H 87 L 02/03/21 05:45 37.7 C H 83 28 H 88 L 02/03/21 05:30 37.7 C H 80 28 H 89 L 02/03/21 05:15 37.6 C H 79 28 H 89 L 02/03/21 05:00 37.6 C H 78 28 H 02/03/21 04:45 37.6 C H 81 28 H 90 02/03/21 04:30 37.5 C 78 28 H 90 02/03/21 04:15 37.5 C 88 28 H 91 02/03/21 04:10 80 28 H 90 02/03/21 04:00 37.5 C 86 25 H 91 02/03/21 03:45 37.5 C 84 25 H 91 02/03/21 03:30 37.5 C 81 25 H 91 02/03/21 03:15 37.5 C 82 25 H 92 02/03/21 03:00 37.5 C 78 25 H 92 02/03/21 02:45 37.4 C 77 25 H 92 02/03/21 02:30 37.3 C 72 25 H 93 02/03/21 02:15 37.2 C 72 22 94 02/03/21 02:00 37.1 C 71 22 94 02/03/21 01:45 37.1 C 64 22 94 02/03/21 01:30 37.1 C 62 25 H 92 02/03/21 01:15 37.1 C 61 25 H 92 02/03/21 01:00 37.1 C 61 25 H 92 02/03/21 00:45 37.1 C 61 25 H 93 02/03/21 00:30 37.1 C 61 25 H 92 02/03/21 00:15 37.1 C 62 25 H 92 02/03/21 00:00 37.2 C 62 25 H 94/56 L 92 02/02/21 23:45 37.2 C 63 25 H 91 02/02/21 23:30 37.3 C 75 25 H 92 02/02/21 23:15 37.3 C 63 25 H 92 02/02/21 23:00 37.4 C 65 25 H 91 02/02/21 22:45 37.4 C 68 25 H 91 02/02/21 22:30 37.4 C 70 25 H 91 02/02/21 22:15 37.4 C 71 25 H 92 02/02/21 22:00 37.4 C 70 25 H 92 Critical Care Results & Data Vital Signs (Past 12 Hours) Vital Signs Temp Pulse Resp BP Pulse Ox 02/03/21 08:15 28 H 02/03/21 07:55 86 29 H 89 L 02/03/21 06:00 37.7 C H 91 H 28 H 87 L 02/03/21 05:45 37.7 C H 83 28 H 88 L 02/03/21 05:30 37.7 C H 80 28 H 89 L 02/03/21 05:15 37.6 C H 79 28 H 89 L 02/03/21 05:00 37.6 C H 78 28 H 02/03/21 04:45 37.6 C H 81 28 H 90 02/03/21 04:30 37.5 C 78 28 H 90 02/03/21 04:15 37.5 C 88 28 H 91 02/03/21 04:10 80 28 H 90 02/03/21 04:00 37.5 C 86 25 H 91 02/03/21 03:45 37.5 C 84 25 H 91 02/03/21 03:30 37.5 C 81 25 H 91 02/03/21 03:15 37.5 C 82 25 H 92 02/03/21 03:00 37.5 C 78 25 H 92 02/03/21 02:45 37.4 C 77 25 H 92 02/03/21 02:30 37.3 C 72 25 H 93 02/03/21 02:15 37.2 C 72 22 94 02/03/21 02:00 37.1 C 71 22 94 02/03/21 01:45 37.1 C 64 22 94 02/03/21 01:30 37.1 C 62 25 H 92 02/03/21 01:15 37.1 C 61 25 H 92 02/03/21 01:00 37.1 C 61 25 H 92 02/03/21 00:45 37.1 C 61 25 H 93 02/03/21 00:30 37.1 C 61 25 H 92 02/03/21 00:15 37.1 C 62 25 H 92 02/03/21 00:00 37.2 C 62 25 H 94/56 L 92 02/02/21 23:45 37.2 C 63 25 H 91 02/02/21 23:30 37.3 C 75 25 H 92 02/02/21 23:15 37.3 C 63 25 H 92 02/02/21 23:00 37.4 C 65 25 H 91 02/02/21 22:45 37.4 C 68 25 H 91 02/02/21 22:30 37.4 C 70 25 H 91 02/02/21 22:15 37.4 C 71 25 H 92 02/02/21 22:00 37.4 C 70 25 H 92 Lab & Micro Results (Past 24 Hours) RBC 4.51 M/uL (4.7-6.1) L 02/03/21 WBC 6.34 K/uL (4.8-10.8) 02/03/21 Hgb 10.4 g/dL (14.0-18.0) L 02/03/21 Hct 35.9 % (42-52) L 02/03/21 MCV 79.6 fL (80-100) L 02/03/21 MCH 23.1 pg (25-34) L 02/03/21 MCHC 29.0 g/dL (32-36) L 02/03/21 RDW Standard Deviation 53.3 fL (36.4-46.3) H 02/03/21 RDW Coefficient of Variation 18.2 % (11.5-14.5) H 02/03/21 Plt Count 377 K/uL (130-400) 02/03/21 MPV 9.5 fL (7.4-10.4) 02/03/21 Neutrophils (%) (Auto) 78.7 % 02/03/21 Lymphocytes (%) (Auto) 10.9 % 02/03/21 Monocytes # (Auto) 0.37 K/uL (0.11-0.59) 02/03/21 Eosinophils # (Auto) 0.00 K/uL (0-0.5) 02/03/21 Immature Granulocyte % (Auto) 4.4 % 02/03/21 Neutrophils # (Auto) 4.99 K/uL (1.4-6.5) 02/03/21 Lymphocytes # (Auto) 0.69 K/uL (1.2-3.4) L 02/03/21 Monocytes # (Auto) 0.37 K/uL (0.11-0.59) 02/03/21 Eosinophils # (Auto) 0.00 K/uL (0-0.5) 02/03/21 Basophils # (Auto) 0.01 K/uL (0-0.2) 02/03/21 Immature Granulocyte # (Auto) 0.28 K/uL (0.00-0.02) H 02/03/21 Na 145 mmol/L (136-145) 02/03/21 K 3.7 mmol/L (3.5-5.1) 02/03/21 Cl 107 mmol/L (98-107) 02/03/21 CO2 38 mmol/L (21-32) H 02/03/21 Anion Gap 0 (3-11) L 02/03/21 BUN 37 mg/dl (7-18) H 02/03/21 Creatinine 0.60 mg/dl (0.6-1.4) 02/03/21 Estimated GFR ( Amer) 131.2 ml/min 02/03/21 Estimated GFR (Non-Af Amer) 113.2 ml/min 02/03/21 BUN/Creatinine Ratio 62.4 (10-20) H 02/03/21 Glu 120 mg/dl (70-99) H 02/03/21 Ca 8.5 mg/dl (8.5-10.1) 02/03/21 Phosphorus Level 3.4 mg/dl (2.5-4.9) 02/03/21 Total Bilirubin 0.7 mg/dl (0.2-1) 02/03/21 AST 52 U/L (15-37) H 02/03/21 ALT 48 U/L (12-78) 02/03/21 Alkaline Phosphatase 85 U/L (45-117) 02/03/21 TP 6.7 gm/dl (6.4-8.2) 02/03/21 Albumin 1.8 gm/dl (3.4-5.0) L 02/03/21 Globulin 4.9 gm/dl (2.5-4.0) H 02/03/21 Albumin/Globulin Ratio 0.4 (0.9-2) L 02/03/21 Mg 2.2 mg/dl (1.8-2.4) 02/03/21 04:47 02/03/21 Calcium Level 8.5 mg/dl (8.5-10.1) 02/03/21 04:47 02/03/21 Christoph Test NA 02/03/21 04:09 02/03/21 Microbiology 01/31/21 16:30 Gram Stain - Final Sputum,Vent Suction Sputum Culture - Final Staphylococcus aureus Corynebacterium species 02/01/21 06:10 Aerobic Blood Culture - Preliminary Blood Gram positive cocci clusters Anaerobic Blood Culture - Preliminary No growth in Anaerobic bottle after 24 hours. 02/01/21 06:21 Aerobic Blood Culture - Preliminary Blood No growth in Aerobic bottle after 48 hours. Anaerobic Blood Culture - Preliminary No growth in Anaerobic bottle after 48 hours. Diagnostic Findings (Past 24 Hours) KUB X-Ray 02/02/21 00:40 KUB HISTORY: NG tube placement COMPARISON: KUB 01/29/2021. FINDINGS: Endotracheal tube terminates approximately 4.8 cm from the shane. There is a nasogastric tube and feeding tube both located within the distal body of the stomach. No dilated loops of bowel identified. Patchy bilateral airspace opacities are noted. No pneumoperitoneum or pneumatosis. IMPRESSION: Nasogastric tube and feeding tube are both located within the distal body of the stomach. ACT 112: Negative or not required by law. Electronically signed by: Denzel Lopez M.D. 02/02/2021 10:52 AM Chest X-Ray 02/03/21 07:00 XR chest 1V portable HISTORY: 55 years-old Male f/u acute shortness of breath COMPARISON: Chest radiograph 02/02/2021 TECHNIQUE: Portable AP view of the chest FINDINGS: Endotracheal tube overlies the midline, 4.2 cm superior to the shane. Right IJ central venous catheter distal tip terminates in the expected location of the m id to inferior SVC. Enteric tube courses below the diaphragm outside the [id number]. No pneumothorax. Trace right and small left pleural effusions. Interstitial coarsening with extensive bilateral airspace opacities redemonstrated, progressively worsened within the right lung. No acute fracture. IMPRESSION: 1. Lines and tubes as above. 2. Mildly progressed extensive airspace opacities compatible with viral pneumonia. ACT 112: Negative or not required by law. The above report was generated using voice recognition software. It may contain grammatical, syntax or spelling errors. Electronically signed by: Franck Maria M.D. 02/03/2021 7:34 AM I & O Totals 24 Hours 02/02/21 02/03/21 02/04/21 06:59 06:59 06:59 Intake Total 3455.595 / 3455.595 4110.240 / 4110.240 508.80 / 508.80 Output Total 2355 / 2355 5185 / 5185 Balance 1100.595 / 1100.595 -1074.760 / -1074.760 508.80 / 508.80 Cumulative 01/24/21 08:06 thru 02/03/21 09:46 Intake Total 76010.191 Output Total 64447 Balance -618.809 RT Ventilator Mngmt (Last Documented) Ventilator Ordered Settings Ventilator Support Mode Assist Control 02/03/21 07:55 Respiratory Rate 28 02/03/21 08:15 Ventilator Tidal Volume 440 02/03/21 08:15 Setting Minute Ventilation 12.3 02/03/21 07:55 Positive End Expiratory 12 02/03/21 08:15 Pressure Fraction of Inspired Oxygen 70 02/03/21 08:15 Machine Comment Physician increased PEEP to 12 02/03/21 08:15 Ventilator - PT Measurements Respiratory Rate 28 Exhaled Tidal Volume 439 Minute Ventilation 12.3 Peak Inspiratory Airway 28 Pressure Plateau Pressure 25.2 Respiratory Cycle Inspiratory: 1:1.7 Expiratory Ratio Inspiratory Phase Time 0.8 End-Tidal CO2 50 Static Lung Compliance 28.88 Dynamic Lung Compliance 24.39 Normal Static Lung Compliance 46.00 Patient Measurements Comment post ABG changes made OK per SUSHILA Clemons- Coding Level of Care Code Critical Care 1st 30-74 mins Diagnoses Acute respiratory failure with hypoxia J96.01 Pneumonia due to COVID-19 virus U07.1; J12.82 Obesity E66.9 Anemia D64.9 Chronic respiratory acidosis E87.2
[2021-02-03] MEDS: VANCOMYCIN HCL 1,500 MG in SODIUM CHLORIDE 0.9% 500 ML IV SCH ×2 (09:54→16:43)
[2021-02-03] MEDS: TUBE FEEDING WATER FLUSH GT SCH ×4 (11:34→22:23)
[2021-02-03] MEDS: lisinopril 5 MG TAB PO SCH (11:35)
[2021-02-03] MEDS: METOPROLOL TARTRATE 50 MG TAB PO SCH ×3 (11:35→23:23)
[2021-02-03] MEDS: dexAMETHasone 20 MG in DEXTROSE 5% 25 ML IV SCH (13:26)
--- NOTE | 2021-02-03 15:41 | Pharmacy Report ---
Pharmacy Vanc AUC Short Note - Date of Service February 03, 2021 - Assessment & Plan Assessment 55 year old M receiving Vancomycin for treatment of staph sp in sputum. Day # 3 of antimicrobial therapy. Plan Laboratory Tests 02/03/21 09:21 Vancomycin Trough 5.9 Vancomycin * AUC/ROBIN is the preferred PK/PD target for vancomycin * AUC guided dosing is effective and associated with decreased risk of nephrotoxicity compared to traditional trough targets * Due to lower than predicted trough level will change frequency. * Predicted Trough level of 15.6 mcg/mL is predicted to achieve target AUC/ROBIN of 400-600 mg/L.hr and may be associated with a 11 % risk of nephrotoxicity * Change to 1500 mg IV every 8 hours * Trough or random level ordered for: 02/04/21 @ 4913 Pharmacy will continue to follow and will adjust dose/frequency as necessary. Thank you.
[2021-02-03] MEDS: FUROSEMIDE INJ 20 MG/2 ML VIAL IV SCH (16:09)
--- NOTE | 2021-02-03 17:59 | Hospitalist Progress Note ---
Date of Service February 03, 2021 Assessment & Plan (1) Acute respiratory failure with hypoxia: Plan: 2/2 covid pneumonia, intubated, per ICU team (2) Pneumonia due to COVID-19 virus: Plan: Cont high dose decadron sedated and intubated on mechanical vent, wean per ICU team. Remdesivir contraindicated in the setting of elevated LFTs on admission Doppler bilateral lower extremities were negative for DVT, also CTA chest performed 01/28 which was negative for PE. Required intubation in the evening of 01/29/2021 Remains sedated and paralyzed on ventilator Tube feeds at trickle rate 10cc/hr. (3) Elevated liver enzymes: Plan: related to covid-19 infection, resolving. (4) Hypertension: Plan: remains hypertensive. defer management to ICU team cont [id number] daily, lasix 40mg IV daily, Lopressor q6hr, and lisinopril 5mg daily. Home Maxzide has been held (5) Hypothyroidism: Plan: -Continue levothyroxine per home regimen. (6) ADHD: (7) Anxiety: Plan: Pristiq being held for now. Buspar is ongoing. (8) CATHY on CPAP: Plan: per pulm/ICU (9) DVT prophylaxis: Plan: -SQ Lovenox Full code. Dispo-ICU Janice Delgaod DO [facility] Hospitalist Admission and Anticipated Discharge Date Admission Date: January 24, 2021 Subjective 55-year-old man with Covid pneumonia, intubated. intubated, paralyzed and sedated. Review of Systems Review of Systems: intubated, sedated Physical Exam Physical Exam: CONSTITUTIONAL: WNWD, vitals as above, NAD EYES: closed with periorbital swelling of left eye ENT: external ear and nose normal, OGT and ETT in place. RESPIRATORY: clear to auscultation throughout, normal respiratory effort CARDIOVASCULAR: regular rate and rhythm, S1 and 2 heard without murmurs, gallops or rubs, no JVD, no peripheral edema GASTROINTESTINAL: soft, nontender, ND, no guarding MUSCULOSKELETAL: strength 5/5 throughout, head is normocephalic and atraumatic SKIN: warm and dry NEUROLOGIC: CN 2-12 grossly intact, normal cognition, normal speech, no tremor PSYCHIATRIC: alert cooperative and oriented to person, place and time. Results & Data Results & Data ([facility]) Vital Signs (Past 12 Hours) Vital Signs Temp Pulse Resp BP Pulse Ox 02/03/21 14:55 28 H 02/03/21 14:00 37.7 C H 74 28 H 141/70 H 89 L 02/03/21 13:00 37.7 C H 71 28 H 90 02/03/21 12:00 37.6 C H 78 28 H 90 02/03/21 11:00 37.6 C H 84 28 H 91 02/03/21 10:30 88 28 H 91 02/03/21 10:00 37.7 C H 84 28 H 91 02/03/21 09:00 37.8 C H 87 28 H 89 L 02/03/21 08:15 28 H 02/03/21 08:00 37.7 C H 84 28 H 89 L 02/03/21 07:55 86 29 H 89 L 02/03/21 07:00 37.6 C H 81 28 H 145/72 H 89 L 02/03/21 06:00 37.7 C H 91 H 28 H 87 L Laboratory Results Short CBC 02/03/21 Range/Units 04:47 WBC 6.34 (4.8-10.8) K/uL Hgb 10.4 L (14.0-18.0) g/dL Hct 35.9 L (42-52) % Plt Count 377 (130-400) K/uL BMP 02/03/21 04:47 Sodium 145 Potassium 3.7 Chloride 107 Carbon Dioxide 38 H BUN 37 H Creatinine 0.60 Glucose 120 H Calcium 8.5 Liver Function 02/03/21 Range/Units 04:47 Total Bilirubin 0.7 (0.2-1) mg/dl AST 52 H (15-37) U/L ALT 48 (12-78) U/L Alkaline Phosphatase 85 (45-117) U/L Albumin 1.8 L (3.4-5.0) gm/dl Diagnostic Findings Chest X-Ray 02/03/21 07:00 XR chest 1V portable HISTORY: 55 years-old Male f/u acute shortness of breath COMPARISON: Chest radiograph 02/02/2021 TECHNIQUE: Portable AP view of the chest FINDINGS: Endotracheal tube overlies the midline, 4.2 cm superior to the shane. Right IJ central venous catheter distal tip terminates in the expected location of the mid to inferior SVC. Enteric tube courses below the diaphragm outside the [id number]. No pneumothorax. Trace right and small left pleural effusions. Interstitial coarsening with extensive bilateral airspace opacities redemonstrated, progressively worsened within the right lung. No acute fracture. IMPRESSION: 1. Lines and tubes as above. 2. Mildly progressed extensive airspace opacities compatible with viral pneumonia. ACT 112: Negative or not required by law. The above report was generated using voice recognition software. It may contain grammatical, syntax or spelling errors. Electronically signed by: Franck Maria M.D. 02/03/2021 7:34 AM Medications Administered Current Inpatient Medications Acetaminophen (Acetaminophen Susp 160 Mg/5 Ml Udc) 640 mg PO Q4H PRN PRN Reason: pain/fever Stop: 03/02/21 18:49 Last Admin: 02/01/21 07:57 Dose: 640 mg Documented by: Albuterol (Albut/Ipratrop 3mg/0.5mg Neb 3 Ml Vial) 3 ml NEB Q4R PRN PRN Reason: sob/wheezing Stop: 02/23/21 15:14 Last Admin: 01/26/21 16:17 Dose: 3 ml Documented by: Amlodipine Besylate (Amlodipine Besylate 5 Mg Tab) 10 mg PO DAILY TONY Stop: 02/24/21 08:59 Last Admin: 02/03/21 09:01 Dose: 10 mg Documented by: Buspirone HCl (Buspirone 5 Mg Tab) 5 mg PO BID TONY Stop: 02/27/21 20:59 Last Admin: 02/03/21 09:01 Dose: 5 mg Documented by: Enoxaparin Sodium (Enoxaparin Inj 40 Mg/0.4 Ml Syr) 40 mg SQ Q12H TONY Stop: 02/27/21 17:59 Last Admin: 02/03/21 16:43 Dose: 40 mg Documented by: Fentanyl Citrate (Fentanyl Bolus From Bag) 50 mcg IV Q60M PRN PRN Reason: Pain or Agitation Stop: 02/12/21 16:40 Last Admin: 02/03/21 03:26 Dose: 50 mcg Documented by: Furosemide (Furosemide Inj 20 Mg/2 Ml Vial) 40 mg IV Q24H TONY Stop: 03/04/21 14:59 Last Admin: 02/03/21 16:09 Dose: 40 mg Documented by: Hydralazine HCl (Hydralazine Hcl 20 Mg/Ml Vial) 10 mg IV Q4H PRN PRN Reason: Hypertension SBP> 160 Stop: 03/04/21 10:21 Last Admin: 02/03/21 01:51 Dose: 10 mg Documented by: Pantoprazole Sodium 40 mg/ (Syringe) 10 mls @ 5 mls/min IV BID@0900,2100 [facility] Stop: 03/01/21 20:59 Last Admin: 02/03/21 09:00 Dose: 5 mls/min Documented by: Cisatracurium Besylate 100 mg/ (Sodium Chloride) 250 mls @ 59.925 mls/hr IV .Q4H11M TONY; Protocol Stop: 03/01/21 16:59 Last Admin: 02/03/21 13:55 Dose: 5 mcg/kg/min, 59.9 mls/hr Documented by: Fentanyl Citrate (Fentanyl Citrate) 2,500 mcg in 250 mls @ 15 mls/hr IV .[id number] [facility]; Protocol Stop: 02/13/21 15:59 Last Admin: 02/03/21 11:59 Dose: 250 mcg/hr, 25 mls/hr Documented by: Dexmedetomidine HCl 200 mcg/ (Sodium Chloride) 50 mls @ 13.75 mls/hr IV .Q3H39M [facility]; Protocol Stop: 02/04/21 16:59 Last Admin: 02/03/21 16:07 Dose: 0.5 mcg/kg/hr, 13.8 mls/hr Documented by: Dexamethasone 10 mg/ Syringe 2.5 mls @ 1 mls/min IV Q24H [facility] Stop: 02/08/21 09:03 Propofol (Diprivan) 1,000 mg in 100 mls @ 33 mls/hr IV .Q3H2M [facility]; Protocol Stop: 02/04/21 18:59 Last Admin: 02/03/21 16:25 Dose: 50 mcg/kg/min, 33 mls/hr Documented by: Nicardipine HCl 25 mg/ Sodium (Chloride) 250 mls @ 125 mls/hr IV .Q2H [facility]ONY; Protocol Stop: 03/05/21 05:14 Last Admin: 02/03/21 16:41 Dose: 12.5 mg/hr, 125 mls/hr Documented by: Vancomycin HCl 1,500 mg/ (Sodium Chloride) 530 mls @ 200 mls/hr IV Q8H [facility] Stop: 02/10/21 17:59 Last Admin: 02/03/21 16:43 Dose: 200 mls/hr Documented by: Labetalol HCl (Labetalol Hcl Iv 5 Mg/Ml 20ml) 10 mg IV Q4 PRN PRN Reason: Hypertension SBP>160 after hyd Stop: 03/04/21 12:25 Last Admin: 02/03/21 04:14 Dose: 10 mg Documented by: Levothyroxine Sodium (Levothyroxine Sodium 125 Mcg Tablet) 125 mcg PO DAILY [facility] Stop: 02/24/21 08:59 Last Admin: 02/03/21 09:00 Dose: 125 mcg Documented by: Lisinopril (Lisinopril 5 Mg Tab) 5 mg PO QAM [facility] Stop: 03/05/21 10:14 Last Admin: 02/03/21 11:35 Dose: 5 mg Documented by: Metoprolol Tartrate (Metoprolol Tartrate 50 Mg Tab) 50 mg PO Q6 [facility] Stop: 03/05/21 11:59 Last Admin: 02/03/21 17:48 Dose: 50 mg Documented by: Miscellaneous Information (Vancomycin Consult Active) 1 ea N/A UD PRN PRN Reason: Consult Stop: 03/03/21 12:15 Multi-Ingredient Cream (Artificial Tears Op Oint 3.5 Gm Tube) 1 appln OP Q4H [facility] Stop: 02/28/21 16:44 Last Admin: 02/03/21 16:10 Dose: 1 appln Documented by: Multivitamins/Minerals (Multi Vit W/Minerals Liquid 15 Ml Udp) 15 ml NG QAM [facility] Stop: 03/06/21 08:59 Nutritional Formula (Peptamen Intense Vhp 1.0 Klaus 1,000 Ml Bag) 1,000 ml OG UD [facility]; Protocol Stop: 03/05/21 10:29 Ondansetron HCl (Ondansetron Inj 2 Mg/Ml 2 Ml Vial) 4 mg IV Q6H PRN PRN Reason: Nausea Stop: 02/23/21 14:56 Last Admin: 01/28/21 18:02 Dose: 4 mg Documented by: Propofol (Propofol Bolus From Bag) 20 mg IV Q5M PRN PRN Reason: Sedation Stop: 02/04/21 18:50 Last Admin: 02/03/21 03:57 Dose: 20 mg Documented by: Sterile Water (Tube Feeding Water Flush) 30 ml GT Q4H [facility] Stop: 03/05/21 10:29 Last Admin: 02/03/21 17:48 Dose: 30 ml Documented by:
[2021-02-04] MEDS: niCARdipine 25 MG in SODIUM CHLORIDE 0.9% 240 ML IV SCH (00:05)
[2021-02-04] MEDS: VANCOMYCIN HCL 1,500 MG in SODIUM CHLORIDE 0.9% 500 ML IV SCH ×2 (02:05→10:16)
[2021-02-04] MEDS: propofoL 1,000 MG/100 ML VIAL IV SCH ×6 (02:26→20:34)
[2021-02-04] MEDS: hydrALAZINE HCL 20 MG/ML VIAL IV PRN ×2 (02:26→20:34)
[2021-02-04] MEDS: CISATRACURIUM BESYLATE 100 MG in SODIUM CHLORIDE 0.9% 200 ML IV SCH ×3 (04:05→20:32)
[2021-02-04] MEDS: DEXMEDETOMIDINE HCL 200 MCG in SODIUM CHLORIDE 0.9% 48 ML IV SCH ×6 (04:08→23:25)
[2021-02-04 04:24] LABS: iSTAT Art Bld Gas pCO2 Correct 72 mmHg (35-46); iSTAT Art Bld Gas pH Corrected 7.327 (7.35-7.45); iSTAT Arterial Blood Gas HCO3 37 meg/L (19-24); iSTAT Arterial Blood Gas pCO2 69 mmHg (35-46); iSTAT Arterial Blood Gas pH 7.34 (7.35-7.45); iSTAT Arterial Blood Gas pO2 80 mmHg (80-95); iSTAT Arterial Blood Gas pO2 C 86; iSTAT Carbon Dioxide 39 mmol/L (24-31); iSTAT FiO2 70 %; iSTAT Hematocrit 28 % (42-52); iSTAT Hemoglobin 9.5 g/dl (14.0-18.0); iSTAT Potassium 3.9 mmol/L (3.3-5.0); iSTAT Site Art Line; iSTAT Sodium 147 mmol/L (135-144)
[2021-02-04] MEDS: LABETALOL HCL IV 5 MG/ML 20ML IV PRN (04:49)
[2021-02-04] MEDS: ARTIFICIAL TEARS OP OINT 3.5 GM TUBE OP SCH ×5 (06:07→19:46)
[2021-02-04] MEDS: TUBE FEEDING WATER FLUSH GT SCH ×7 (06:07→23:03)
[2021-02-04] MEDS: ENOXAPARIN INJ 40 MG/0.4 ML SYR SQ SCH ×2 (06:08→16:52)
[2021-02-04] MEDS: METOPROLOL TARTRATE 50 MG TAB PO SCH ×4 (06:08→23:03)
[2021-02-04 06:12] LABS: Basophils # (auto) 0.01 K/uL (0-0.2); Basophils % (auto) 0.2 %; Hematocrit (blood only) 32.5 % (42-52); Hemoglobin 9.4 g/dL (14.0-18.0); Immature Granulocytes # (auto) 0.12 K/uL (0.00-0.02); Immature Granulocytes % (auto) 2.5 %; Lymphocytes # (auto) 0.34 K/uL (1.2-3.4); Mean Corpuscular Hemoglobin 23.1 pg (25-34); Mean Corpuscular Hgb Conc 28.9 g/dL (32-36); Mean Corpuscular Volume 79.9 fL (80-100); Mean Platelet Volume 9.8 fL (7.4-10.4); Monocytes # (auto) 0.35 K/uL (0.11-0.59); Monocytes % (auto) 7.2 %; Neutrophils # (auto) 4.06 K/uL (1.4-6.5); Neutrophils % (auto) 83.1 %; Platelet Count 322 K/uL (130-400); RDW Coefficient of Variation 18.5 % (11.5-14.5); RDW Standard Deviation 54.4 fL (36.4-46.3); Red Blood Count 4.07 M/uL (4.7-6.1); White Blood Count 4.88 K/uL (4.8-10.8)
[2021-02-04] MEDS ORDERED: NOREPINEPHRINE/D5W 8 MG/508 ML IV ONE (06:32)
[2021-02-04 06:40] LABS: Albumin Globulin Ratio 0.4 (0.9-2); Albumin Level 1.8 gm/dl (3.4-5.0); BUN Creatinine Ratio 70.5 (10-20); Bilirubin,Total 0.8 mg/dl (0.2-1); Calcium 8.2 mg/dl (8.5-10.1); Creatinine Clr Calc Pharmacy 190.9 ml/min; Est GFR (Non-African American) 115.6 ml/min; Globulin 4.4 gm/dl (2.5-4.0); Magnesium 2.3 mg/dl (1.8-2.4); Phosphorus 2.6 mg/dl (2.5-4.9); Potassium 3.8 mmol/L (3.5-5.1); Total Protein 6.2 gm/dl (6.4-8.2)
--- NOTE | 2021-02-04 07:40 | XRay Report ---
XR chest 1V portable CLINICAL HISTORY: resp failure. Follow-up bilateral airspace opacities. COMPARISON STUDY: 02/03/2021 TECHNIQUE: 1 view of the chest FINDINGS: Single frontal view of the chest demonstrates the cardiomediastinal silhouette to be within normal li mits. Tubes and catheters appear unchanged. Extensive interstitial and alveolar opacities are again s een bilaterally characteristic of a viral type pneumonitis and Covid 19 pneumonia. Bibasilar atelecta sis is present, left greater than right. There is evidence for small left pleural effusion. No defini te right pleural effusion is seen radiographically. There is no evidence for vascular congestion. The re is no acute osseous pathology. IMPRESSION: Compared to the previous study, diffuse interstitial and alveolar opacities are again see n bilaterally characteristic of a viral type pneumonitis and Covid 19 pneumonia. Bibasilar atelectasi s, left greater than right and small left pleural effusion are also present. ACT 112: Negative or not required by law. Electronically signed by: Derrick Devries M.D. 02/04/2021 7:38 AM
[2021-02-04] MEDS ORDERED: OPTIRAY 320 125ml IV ONE (08:17)
--- NOTE | 2021-02-04 08:29 | CT Scan Report ---
CT ANGIOGRAM OF THE CHEST CLINICAL HISTORY: Hypoxia. Covid. COMPARISON STUDY: Chest x-ray dated 02/04/2021. Chest CT dated 01/28/2021. TECHNIQUE: Following the IV administration of 120 cc of Optiray 320, CT angiogram of the chest was pe rformed from the upper abdomen to the thoracic inlet utilizing the pulmonary embolus protocol. Images are reviewed in the axial, sagittal, and coronal planes. 3-D MIPS images are created and assessed. I V contrast was administered without complication. A dose lowering technique was utilized adhering to the principles of ALARA. The examination is significantly degraded by motion artifact, as well as by streak artifact from the arms which could not be elevated above the chest. CT DOSE: 906.42 mGy.cm FINDINGS: Thyroid: Left lobe is diminutive. Thoracic aorta: The thoracic aorta is normal in caliber and demonstrates standard 3-vessel arch anato my. No dissection is seen. Pulmonary vasculature: The pulmonary trunk is normal in caliber. There are no filling defects identif ied in main or lobar pulmonary branches to suggest pulmonary embolus. The segmental and subsegmental vessels cannot be assessed due to streak and motion. Heart: A right internal jugular central venous catheter is in place. The heart is normal in size and without pericardial effusion. Lungs and pleural spaces: An endotracheal tube terminates above the shane. Evaluation of the lung pa renchyma is significantly degraded by motion artifact. Dense airspace consolidation is seen at both l denisse bases. There are trace pleural effusions. Groundglass opacities are seen throughout both lungs. N o pneumothorax is identified. Mediastinum: There are several subcentimeter mediastinal lymph nodes. Digna: Clear. Axillae: There is no axillary lymphadenopathy. Upper abdomen: An enteric tube is in place. Partially visualized upper abdominal viscera is grossly u nremarkable. Skeletal structures: No lytic or blastic bony lesions are seen. IMPRESSION: 1. Streak and motion compromised examination. 2. There is no evidence central pulmonary embolus in the main or lobar pulmonary arteries. The segmen oscar and subsegmental vessels cannot be assessed due to severe artifact. 3. Lines and tubes as above. 4. Extensive groundglass consolidation throughout both lungs has increased as compared to 01/28/2021, as has dense bibasilar airspace consolidation. This is typical for multifocal pneumonia and radiogra phic follow-up to resolution is recommended. Correlate clinically for evidence of superimposed fluid overload or ARDS. 5. Trace pleural effusions. ACT 112: Negative or not required by law. Electronically signed by: Ej Irby M.D. 02/04/2021 8:28 AM
--- NOTE | 2021-02-04 09:09 | Critical Care Progress Note ---
Date of Service February 04, 2021 Assessment & Plan (1) Acute respiratory failure with hypoxia: (2) Pneumonia due to COVID-19 virus: (3) Obesity: (4) Anemia: (5) Chronic respiratory acidosis: Plan: Impression: 55-year-old male unvaccinated for Covid who was admitted 01/24/2021 with hypoxemic respiratory failure and pulmonary infiltrates. He was initially trialed on BiPAP but failed and was intubated 01/28/2021 24-hour events: Patient with worsening hypoxemia. Developed hypotension this morning necessitating Levophed. Was taken for stat CT angiogram which showed no evidence of filling defects but did show diffuse groundglass opacities with dense posterior consolidation. Diuretics were increased yesterday. Still net positive with regard to fluid balance Recommendations: 1. Neurologic: Currently on neuromuscular blockade, propofol, and fentanyl. Continue Precedex. Patient is on a variety of medications for mental health conditions. These will be held for now but may need to be restarted when the patient is emerging from sedatives. Given his clinical deterioration, will continue aggressive sedation and neuromuscular blockade. 2. Cardiovascular: Hypertensive. Currently on Norvasc and metoprolol and lisinopril. Wean Cardene as tolerated. As needed IV hydralazine and labetalol for systolic blood pressure greater than 160. BMP was normal. No indication for echo currently. 3. 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 CT angiogram today with no evidence of PE but diffuse pulmonary infiltrates. Day #7 mechanical ventilation. Current vent settings AC/32/375/0.8/14 wiht I:E ratio of 1:1.5 with plateau pressure of 31 - just adjusted. Check ABG in an hour. P/F 100, stable today. Last ABG 7.34/69/80. Mild acidosis with both respiratory and metabolic components. Compliance stable. Findings consistent with severe ARDS. Currently on dexamethasone to 20 mg a day for 5 days followed by 10 mg for 5 days then discontinue. He is at risk for complications related to steroids. Hold proning today given significant periorbital edema. Continue NM blockade for today. CXR in AM. [facility] is an outside the timing window to consider ECMO. Continue attempts at diuresis. We will see how he responds to these vent settings. If he fails to respond appropriately, may consider repeat proning as his CT scan demonstrates dependent atelectasis which may be favorable to proning. Defer tracheostomy until patient is outside window proning 4. GI: Continue trophic tube feeds, PPI in place. 5. Renal: Valdovinos catheter in place. Mildly hyponatremic today. Will follow closely. May need to adjust free water, continue to follow. Increase Lasix IV 40mg every 8. I/O slightly even over the last 24 hours. Creatinine stable a nd electrolytes adequate. Continue ICU replacement protocol. 6. ID: Completed 5 days of doxycycline. Blood cultures and respiratory culture are now with staph species but PCR negative for staph aureus and corynebacterium. Unusual pulmonary pathogens. Procalcitonin has been negative. Day #3 vancomycin pending speciation and sensitivity. Repeat cultures no growth to date. White count has been sravani but now febrile. Await surveillance cultures. May need to change out lines if persistently febrile. 7. Heme-onc: Mild anemia without evidence of acute blood loss. Continue to follow for now 8. Endocrine: Glycemic control per protocol. Continue Synthroid Patient remains critically ill at this point time with possibility of clinical deterioration. Total of 50 minutes critical care time was spent evaluating managing and stabilizing this patient including discussion with bedside critical care nurse and with respiratory therapy. Prognosis guarded. Admission and Anticipated Discharge Date Admission Date: January 24, 2021 Subjective Intubated, sedated and paralyzed. Review of Systems Review of Systems: Unobtainable due to endotracheal tube Physical Exam Constitutional: + mechanically ventilated Neck: trachea midline, no thyromegaly Respiratory: normal respiratory effort, lungs clear to auscultation no labored breathing Auscultation: + rales, + wheezes, + bronchial breath sounds and + vesicular breath sounds Cardiovascular: RRR, no murmur, no edema Gastrointestinal (Abdomen): normal bowel sounds, soft, nontender, no hepatosplenomegaly Musculoskeletal: Extremities: extremities normal to inspection Skin: no rashes, warm and dry Lymphatic: no cervical lymphadenopathy Results & Data Results & Data ([facility]) Vital Signs (Past 12 Hours) Vital Signs Temp Pulse Resp BP Pulse Ox 02/04/21 07:27 57 L 28 H 60 L 02/04/21 07:00 37.8 C H 56 L 28 H 118/55 L 90 02/04/21 06:00 37.9 C H 68 28 H 148/64 H 86 L 02/04/21 05:00 38.0 C H 70 28 H 145/68 H 92 02/04/21 04:00 38.0 C H 76 28 H 159/73 H 92 02/04/21 03:30 78 28 H 91 02/04/21 03:00 38.0 C H 73 28 H 92 02/04/21 02:00 38.1 C H 70 28 H 156/84 H 94 02/04/21 01:00 38.2 C H 62 28 H 141/61 H 92 02/04/21 00:00 38.2 C H 78 28 H 152/70 H 89 L 02/03/21 23:00 38.1 C H 89 28 H 89 L 02/03/21 22:48 89 28 H 89 L 02/03/21 22:00 38.1 C H 77 28 H 156/72 H 90 02/03/21 21:00 38.2 C H 76 28 H 162/72 H 90 Coding Level of Care Code Critical Care 1st 30-74 mins Diagnoses Acute respiratory failure with hypoxia J96.01 Pneumonia due to COVID-19 virus U07.1; J12.82 Obesity E66.9 Anemia D64.9 Chronic respiratory acidosis E87.2
[2021-02-04] MEDS: busPIRone 5 MG TAB PO SCH ×2 (10:14→19:46)
[2021-02-04] MEDS: amLODIPine BESYLATE 5 MG TAB PO SCH (10:14)
[2021-02-04] MEDS: LEVOTHYROXINE SODIUM 125 MCG TABLET PO SCH (10:15)
[2021-02-04] MEDS: lisinopril 5 MG TAB PO SCH (10:15)
[2021-02-04] MEDS: dexAMETHasone 10 MG in SYRINGE 0 ML IV SCH (10:15)
[2021-02-04] MEDS: PANTOprazole 40 MG in SYRINGE 0 ML IV SCH ×2 (10:16→19:45)
[2021-02-04] MEDS: MULTI VIT W/MINERALS LIQUID 15 ML UDP NG SCH (10:16)
[2021-02-04] MEDS: ACETAMINOPHEN SUSP 160 MG/5 ML UDC PO PRN ×3 (10:33→23:03)
[2021-02-04 12:24] LABS: iSTAT Arterial Blood Gas HCO3 37 meg/L (19-24); iSTAT Arterial Blood Gas pCO2 84 mmHg (35-46); iSTAT Arterial Blood Gas pH 7.25 (7.35-7.45); iSTAT Arterial Blood Gas pO2 94 mmHg (80-95); iSTAT Carbon Dioxide 39 mmol/L (24-31); iSTAT FiO2 80 %; iSTAT Site Art Line
[2021-02-04] MEDS: fentaNYL citrate 2,500 MCG/250 ML BAG IV SCH (12:43)
[2021-02-04] MEDS: FUROSEMIDE 40 MG/4 ML VIAL IV SCH ×2 (12:51→21:31)
--- NOTE | 2021-02-04 14:10 | Hospitalist Progress Note ---
Date of Service February 04, 2021 Assessment & Plan (1) Acute respiratory failure with hypoxia: Plan: 2/2 covid pneumonia, intubated, per ICU team (2) Pneumonia due to COVID-19 virus: Plan: Cont high dose decadron sedated and intubated on mechanical vent, wean per ICU team. Remdesivir contraindicated in the setting of elevated LFTs on admission Doppler bilateral lower extremities were negative for DVT, also CTA chest performed 01/28 which was negative for PE. Required intubation in the evening of 01/29/2021 Remains sedated and paralyzed on ventilator Tube feeds at trickle rate 10cc/hr. Condition has been deteriorating-CTA did not show any pulmonary embolism but it showed extensive groundglass consolidation which has been worsening compared with prior Has been requiring more oxygen and pressure to maintain saturation (3) Elevated liver enzymes: Plan: related to covid-19 infection, resolving. (4) Hypertension: Plan: remains hypertensive. defer management to ICU team cont [id number] daily, lasix 40mg IV daily, Lopressor q6hr, and lisinopril 5 mg daily. Home Maxzide has been held Blood pressure remains stable (5) Hypothyroidism: Plan: -Continue levothyroxine per home regimen. (6) ADHD: (7) Anxiety: Plan: Pristiq being held for now. Buspar is ongoing. (8) CATHY on CPAP: Plan: per pulm/ICU (9) DVT prophylaxis: Plan: -SQ Lovenox Full code. Dispo-ICU Admission and Anticipated Discharge Date Admission Date: January 24, 2021 Subjective 01/30/2021 The patient was seen and examined in telemetry unit and in the Covid room He has been intubated and sedated 01/31/2021 The patient was seen and examined in ICU He remains intubated and sedated 02/01/2021 The patient was seen and examined in ICU He remains intubated and sedated 02/02/2021 The patient was seen and examined in ICU He remains intubated and sedated 02/03/2021 The patient was seen and examined in ICU He remains intubated and sedated Condition has been getting worse as per the caring team Review of Systems Review of Systems: intubated, sedated Physical Exam Physical Exam: Remains sedated and on mechanical ventilator Constitutional: well developed, well nourished, + ill appearing and + obese ENMT: external ear and nose normal, oropharynx normal Neck: trachea midline, no thyromegaly Respiratory: no respiratory distress Auscultation: + diminished lung sounds and + crackles (Minimal crackles at the bases) Cardiovascular: Rate/Rhythm: regular rate and regular rhythm; not tachycardic Heart Sounds: normal S1 and normal S2; no murmur Extremities: no edema Gastrointestinal (Abdomen): Inspection/Auscultation: normal bowel sounds; abdomen not distended Percussion/Palpation: abdomen soft; abdomen nontender Neurologic: Remains on mechanical ventilator and sedated and paralyzed Lymphatic: no cervical or axillary lymphadenopathy Results & Data Results & Data ([facility]) Vital Signs (Past 12 Hours) Vital Signs Temp Pulse Resp BP Pulse Ox 02/04/21 11:50 92 H 32 H 91 02/04/21 07:27 57 L 28 H 60 L 02/04/21 07:00 37.8 C H 56 L 28 H 118/55 L 90 02/04/21 06:00 37.9 C H 68 28 H 148/64 H 86 L 02/04/21 05:00 38.0 C H 70 28 H 145/68 H 92 02/04/21 04:00 38.0 C H 76 28 H 159/73 H 92 02/04/21 03:30 78 28 H 91 02/04/21 03:00 38.0 C H 73 28 H 92 Laboratory Results Short CBC 02/04/21 Range/Units 05:05 WBC 4.88 (4.8-10.8) K/uL Hgb 9.4 L (14.0-18.0) g/dL Hct 32.5 L (42-52) % Plt Count 322 (130-400) K/uL BMP 02/04/21 05:05 Sodium 148 H Potassium 3.8 Chloride 112 H Carbon Dioxide 35 H BUN 40 H Creatinine 0.57 L Glucose 140 H Calcium 8.2 L Liver Function 02/04/21 Range/Units 05:05 Total Bilirubin 0.8 (0.2-1) mg/dl AST 39 H (15-37) U/L ALT 47 (12-78) U/L Alkaline Phosphatase 83 (45-117) U/L Albumin 1.8 L (3.4-5.0) gm/dl Medications Administered Current Inpatient Medications Acetaminophen (Acetaminophen Susp 160 Mg/5 Ml Udc) 640 mg PO Q4H PRN PRN Reason: pain/fever Stop: 03/02/21 18:49 Last Admin: 02/04/21 10:33 Dose: 640 mg Documented by: Albuterol (Albut/Ipratrop 3mg/0.5mg Neb 3 Ml Vial) 3 ml NEB Q4R PRN PRN Reason: sob/wheezing Stop: 02/23/21 15:14 Last Admin: 01/26/21 16:17 Dose: 3 ml Documented by: Amlodipine Besylate (Amlodipine Besylate 5 Mg Tab) 10 mg PO DAILY [facility] Stop: 02/24/21 08:59 Last Admin: 02/04/21 10:14 Dose: 10 mg Documented by: Buspirone HCl (Buspirone 5 Mg Tab) 5 mg PO BID [facility] Stop: 02/27/21 20:59 Last Admin: 02/04/21 10:14 Dose: 5 mg Documented by: Enoxaparin Sodium (Enoxaparin Inj 40 Mg/0.4 Ml Syr) 40 mg SQ Q12H TONY Stop: 02/27/21 17:59 Last Admin: 02/04/21 06:08 Dose: 40 mg Documented by: Fentanyl Citrate (Fentanyl Bolus From Bag) 50 mcg IV Q60M PRN PRN Reason: Pain or Agitation Stop: 02/12/21 16:40 Last Admin: 02/03/21 03:26 Dose: 50 mcg Documented by: Furosemide (Furosemide 40 Mg/4 Ml Vial) 40 mg IV Q8 TONY Stop: 03/06/21 13:59 Last Admin: 02/04/21 12:51 Dose: 40 mg Documented by: Hydralazine HCl (Hydralazine Hcl 20 Mg/Ml Vial) 10 mg IV Q4H PRN PRN Reason: Hypertension SBP> 160 Stop: 03/04/21 10:21 Last Admin: 02/04/21 02:26 Dose: 10 mg Documented by: Pantoprazole Sodium 40 mg/ (Syringe) 10 mls @ 5 mls/min IV BID@0900,2100 [facility] Stop: 03/01/21 20:59 Last Admin: 02/04/21 10:16 Dose: 5 mls/min Documented by: Cisatracurium Besylate 100 mg/ (Sodium Chloride) 250 mls @ 59.925 mls/hr IV .Q4H11M TONY; Protocol Stop: 03/01/21 16:59 Last Admin: 02/04/21 12:46 Dose: 5 mcg/kg/min, 59.9 mls/hr Documented by: Fentanyl Citrate (Fentanyl Citrate) 2,500 mcg in 250 mls @ 15 mls/hr IV .[id number] TONY; Protocol Stop: 02/13/21 15:59 Last Admin: 02/04/21 12:43 Dose: 125 mcg/hr, 12.5 mls/hr Documented by: Dexmedetomidine HCl 200 mcg/ (Sodium Chloride) 50 mls @ 13.75 mls/hr IV .Q3H39M TONY; Protocol Stop: 02/04/21 16:59 Last Admin: 02/04/21 12:43 Dose: 0.5 mcg/kg/hr, 13.8 mls/hr Documented by: Dexamethasone 10 mg/ Syringe 2.5 mls @ 1 mls/min IV Q24H TONY Stop: 02/08/21 09:03 Last Admin: 02/04/21 10:15 Dose: 1 mls/min Documented by: Propofol (Diprivan) 1,000 mg in 100 mls @ 29.7 mls/hr IV .Q3H23M TONY; Protocol Stop: 02/04/21 18:59 Last Admin: 02/04/21 12:50 Dose: 45 mcg/kg/min, 29.7 mls/hr Documented by: Nicardipine HCl 25 mg/ Sodium (Chloride) 250 mls @ 0 mls/hr IV .Q0M TONY; Protocol Stop: 03/05/21 05:14 Last Titration: 02/04/21 00:42 Dose: 0 mg/hr, 0 mls/hr Documented by: Vancomycin HCl 1,500 mg/ (Sodium Chloride) 530 mls @ 200 mls/hr IV Q8H [facility]ONY Stop: 02/10/21 17:59 Last Admin: 02/04/21 10:16 Dose: 200 mls/hr Documented by: Labetalol HCl (Labetalol Hcl Iv 5 Mg/Ml 20ml) 10 mg IV Q4 PRN PRN Reason: Hypertension SBP>160 after hyd Stop: 03/04/21 12:25 Last Admin: 02/04/21 04:49 Dose: 10 mg Documented by: Levothyroxine Sodium (Levothyroxine Sodium 125 Mcg Tablet) 125 mcg PO DAILY [facility] Stop: 02/24/21 08:59 Last Admin: 02/04/21 10:15 Dose: 125 mcg Documented by: Lisinopril (Lisinopril 5 Mg Tab) 5 mg PO QAM [facility] Stop: 03/05/21 10:14 Last Admin: 02/04/21 10:15 Dose: 5 mg Documented by: Metoprolol Tartrate (Metoprolol Tartrate 50 Mg Tab) 50 mg PO Q6 [facility] Stop: 03/05/21 11:59 Last Admin: 02/04/21 12:44 Dose: 50 mg Documented by: Miscellaneous Information (Vancomycin Consult Active) 1 ea N/A UD PRN PRN Reason: Consult Stop: 03/03/21 12:15 Multi-Ingredient Cream (Artificial Tears Op Oint 3.5 Gm Tube) 1 appln OP Q4H [facility] Stop: 02/28/21 16:44 Last Admin: 02/04/21 12:44 Dose: 1 appln Documented by: Multivitamins/Minerals (Multi Vit W/Minerals Liquid 15 Ml Udp) [facility] Stop: 03/06/21 08:59 Last Admin: 02/04/21 10:16 Dose: 15 ml Documented by: Nutritional Formula (Peptamen Intense Vhp 1.0 Klaus 1,000 Ml Bag) 1,000 ml OG [facility]; Protocol Stop: 03/05/21 10:29 Ondansetron HCl (Ondansetron Inj 2 Mg/Ml 2 Ml Vial) 4 mg IV Q6H PRN PRN Reason: Nausea Stop: 02/23/21 14:56 Last Admin: 01/28/21 18:02 Dose: 4 mg Documented by: Propofol (Propofol Bolus From Bag) 20 mg IV Q5M PRN PRN Reason: Sedation Stop: 02/04/21 18:50 Last Admin: 02/03/21 03:57 Dose: 20 mg Documented by: Sterile Water (Tube Feeding Water Flush) 30 ml GT Q4H [facility] Stop: 03/05/21 10:29 Last Admin: 02/04/21 12:43 Dose: 30 ml Documented by:
[2021-02-04] MEDS: cefTRIAXone SODIUM 2,000 MG in DEXTROSE 5% 50 ML IV SCH (16:51)
[2021-02-04] MEDS ORDERED: VANCOMYCIN TROUGH ONE (17:30)
[2021-02-04] MEDS ORDERED: STAT IV Infusion **Titration per Protocol STA (21:23)
[2021-02-04] MEDS ORDERED: PROPOFOL BOLUS FROM BAG IV PRN (21:23)
[2021-02-05] MEDS: propofoL 1,000 MG/100 ML VIAL IV SCH ×16 (00:34→22:34)
[2021-02-05] MEDS: ARTIFICIAL TEARS OP OINT 3.5 GM TUBE OP SCH ×6 (02:24→20:37)
[2021-02-05] MEDS: CISATRACURIUM BESYLATE 100 MG in SODIUM CHLORIDE 0.9% 200 ML IV SCH ×8 (03:18→20:09)
[2021-02-05] MEDS: DEXMEDETOMIDINE HCL 200 MCG in SODIUM CHLORIDE 0.9% 48 ML IV SCH ×5 (03:18→22:34)
[2021-02-05] MEDS: fentaNYL citrate 2,500 MCG/250 ML BAG IV SCH ×2 (03:27→19:11)
[2021-02-05 03:50] LABS: iSTAT Allen Test Pass; iSTAT Art Bld Gas pCO2 Correct 86 mmHg (35-46); iSTAT Art Bld Gas pH Corrected 7.319 (7.35-7.45); iSTAT Arterial Blood Gas HCO3 43 meg/L (19-24); iSTAT Arterial Blood Gas pCO2 79 mmHg (35-46); iSTAT Arterial Blood Gas pH 7.35 (7.35-7.45); iSTAT Arterial Blood Gas pO2 71 mmHg (80-95); iSTAT Arterial Blood Gas pO2 C 81; iSTAT Carbon Dioxide > 40 mmol/L (24-31); iSTAT FiO2 60 %; iSTAT Hematocrit 31 % (42-52); iSTAT Hemoglobin 10.5 g/dl (14.0-18.0); iSTAT Potassium 4.1 mmol/L (3.3-5.0); iSTAT Site Art Line; iSTAT Sodium 151 mmol/L (135-144)
[2021-02-05] MEDS: ACETAMINOPHEN SUSP 160 MG/5 ML UDC PO PRN ×2 (05:04→11:21)
[2021-02-05] MEDS: METOPROLOL TARTRATE 50 MG TAB PO SCH (05:05)
[2021-02-05] MEDS: FUROSEMIDE 40 MG/4 ML VIAL IV SCH ×3 (05:05→21:15)
[2021-02-05] MEDS: ENOXAPARIN INJ 40 MG/0.4 ML SYR SQ SCH ×2 (05:06→17:54)
[2021-02-05] MEDS: TUBE FEEDING WATER FLUSH GT SCH ×5 (05:53→20:38)
[2021-02-05 05:57] LABS: Basophils # (auto) 0.01 K/uL (0-0.2); Basophils % (auto) 0.1 %; Hematocrit (blood only) 35.5 % (42-52); Hemoglobin 9.9 g/dL (14.0-18.0); Immature Granulocytes # (auto) 0.19 K/uL (0.00-0.02); Immature Granulocytes % (auto) 1.6 %; Lymphocytes # (auto) 0.95 K/uL (1.2-3.4); Lymphocytes % (auto) 7.8 %; Mean Corpuscular Hgb Conc 27.9 g/dL (32-36); Mean Corpuscular Volume 82.6 fL (80-100); Monocytes # (auto) 0.03 K/uL (0.11-0.59); Monocytes % (auto) 0.2 %; Neutrophils # (auto) 10.98 K/uL (1.4-6.5); Neutrophils % (auto) 90.3 %; Platelet Count 375 K/uL (130-400); RDW Coefficient of Variation 19.4 % (11.5-14.5); RDW Standard Deviation 58.9 fL (36.4-46.3); White Blood Count 12.16 K/uL (4.8-10.8)
[2021-02-05 06:01] LABS: Albumin Level 1.9 gm/dl (3.4-5.0); BUN Creatinine Ratio 71.6 (10-20); Calcium 8.9 mg/dl (8.5-10.1); Creatinine Clr Calc Pharmacy 160.5 ml/min; Est GFR (African American) 124.6 ml/min; Est GFR (Non-African American) 107.5 ml/min; Magnesium 2.5 mg/dl (1.8-2.4)
[2021-02-05 06:16] LABS: Albumin Globulin Ratio 0.4 (0.9-2); Bilirubin,Total 0.7 mg/dl (0.2-1); Globulin 4.8 gm/dl (2.5-4.0); Phosphorus 3.5 mg/dl (2.5-4.9); Total Protein 6.7 gm/dl (6.4-8.2)
[2021-02-05] MEDS ORDERED: STAT IV Infusion **Titration per Protocol STA (06:29)
[2021-02-05] MEDS: NOREPINEPHRINE/D5W 8 MG/508 ML BAG IV SCH (06:49)
[2021-02-05] MEDS ORDERED: lisinopril 10 MG TAB PO SCH (09:00)
--- NOTE | 2021-02-05 09:08 | Critical Care Progress Note ---
Date of Service February 05, 2021 Assessment & Plan (1) Acute respiratory failure with hypoxia: (2) Pneumonia due to COVID-19 virus: (3) Obesity: (4) Anemia: (5) Chronic respiratory acidosis: Plan: Impression: 55-year-old male unvaccinated for Covid who was admitted 01/24/2021 with hypoxemic respiratory failure and pulmonary infiltrates. He was initially trialed on BiPAP but failed and was intubated 01/28/2021 24-hour events: Some clinical improvement over the last 24 hours. FiO2, PF ratio, and lung compliance are slightly better today. He continues to have episodes of hypotension which appear to be temporally related to the oral dosing of his metoprolol. In between these events he is significantly hypertensive. He did require a brief period on norepinephrine. Tube feeding is being tolerated. Recommendations: 1. Neurologic: Currently on neuromuscular blockade, propofol, and fentanyl. Continue Precedex. We will add oral clonazepam and oxycodone and low-dose Seroquel. Cannot add his other medications as they are extended release and cannot be crushed and put on his tube. We neuromuscular blockade off given his clinical improvement. Continue restraints as the patient is at risk of self extubation 2. Cardiovascular: Alternating hypertensive and hypotensive Currently on Norvasc and metoprolol and lisinopril. Appears to be related to timing of medication. Will decrease metoprolol to 25 mg p.o. every 6 hours and increase lisinopril to 10 mg daily. Will also add 10 mg of hydralazine 4 times a day. Wean Cardene as tolerated. As needed IV hydralazine and labetalol for systolic blood pressure greater than 160. Continue efforts at diuresis 3. 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 CT angiogram 02/04 with no evidence of PE but diffuse pulmonary infiltrates. Day #8 mechanical ventilation. Current vent settings AC/32/375/0.6/12 wiht I:E ratio of 1:1.5 with plateau pressure of 24. Continue inverse ratio ventilation today and then try to normalize his I:E ratio. P/F 118, improved today. Last ABG 7.35/79/71. Compliance slightly improved today. Currently completing course of dexamethasone 20 mg a day for 5 days followed by 10 mg for 5 days then discontinue. He is at risk for complications related to steroids. We will attempt to wean off neuromuscular blockade. CXR in AM. Discussed with narcisa ECMO -he is an outside the timing window to consider ECMO. Continue attempts at diuresis. Defer tracheostomy until patient is outside window proning 4. GI: Advancing tube feeds as tolerated PPI in place. Initiate bowel protocol 5. Renal: Valdovinos catheter in place. Hypernatremia slightly worse today. Will follow closely. Increase free water 250 mL every 4 hours continue to follow. Continue Lasix IV 40mg every 8. I/O slightly negative over the last 24 hours. Creatinine stable and electrolytes adequate. Continue ICU replacement protocol. Will benefit from additional diuresis 6. ID: Completed 5 days of doxycycline. Blood cultures and respiratory culture are now with staph species but PCR negative for staph aureus and corynebacterium. Unusual pulmonary pathogens. Procalcitonin has been negative. Day #4 antibiotics, de-escalate yesterday to Rocephin for coag negative staph, will need 7 to 10 days antimicrobial therapy. Surveillance cultures including respiratory cultures were negative. Unclear significance of the corynebacterium from the tracheal aspirate, this is typically a skin contaminant and not identified in the lung. The fact that it was identified on multiple patients in the ICU raises the possibility of a contaminated specimen. Still persistently febrile. Will change out his lines today. 7. Heme-onc: Mild anemia without evidence of acute blood loss. Continue to follow for now 8. Endocrine: Glycemic control per protocol. Continue Synthroid Patient remains critically ill at this point time with possibility of clinical deterioration. Total of 52 minutes critical care time was spent evaluating managing and stabilizing this patient including discussion with bedside critical care nurse and with respiratory therapy. Prognosis guarded. Patient's is currently admitted to the hospital with Covid as well Admission and Anticipated Discharge Date Admission Date: January 24, 2021 Subjective Intubated sedated and paralyzed Review of Systems Review of Systems: Unobtainable due to endotracheal tube Physical Exam Constitutional: + mechanically ventilated ENMT: Periorbital edema much improved today Neck: trachea midline, no thyromegaly Respiratory: no labored breathing Auscultation: + rales, + wheezes, + bronchial breath sounds and + vesicular breath sounds Cardiovascular: RRR, no murmur, no edema Gastrointestinal (Abdomen): normal bowel sounds, soft, nontender, no hepatosplenomegaly Musculoskeletal: Extremities: extremities normal to inspection Skin: no rashes, warm and dry Lymphatic: no cervical lymphadenopathy Results & Data Results & Data ([facility]) Vital Signs (Past 12 Hours) Vital Signs Temp Pulse Resp BP Pulse Ox 02/05/21 08:04 87 32 H 90 02/05/21 06:30 38.8 C H 71 32 H 97 02/05/21 06:00 38.8 C H 78 32 H 84/43 L 94 02/05/21 05:30 38.8 C H 100 H 32 H 90 02/05/21 05:00 38.8 C H 100 H 32 H 90 02/05/21 04:30 38.8 C H 101 H 32 H 90 02/05/21 04:00 38.8 C H 97 H 32 H 90 02/05/21 03:35 80 30 H 90 02/05/21 03:00 38.7 C H 97 H 32 H 161/79 H 90 02/05/21 02:00 38.6 C H 94 H 32 H 90 02/05/21 01:00 38.5 C H 82 28 H 160/76 H 91 02/05/21 00:30 38.6 C H 76 32 H 90 02/04/21 23:30 38.6 C H 78 32 H 89 L 02/04/21 23:00 38.6 C H 101 H 32 H 89 L 02/04/21 22:00 38.6 C H 94 H 32 H 92 02/04/21 21:13 91 H 33 H 94 02/04/21 21:00 38.8 C H 90 26 H 94 Critical Care Results & Data Vital Signs (Past 12 Hours) Vital Signs Temp Pulse Resp BP Pulse Ox 02/05/21 08:04 87 32 H 90 02/05/21 06:30 38.8 C H 71 32 H 97 02/05/21 06:00 38.8 C H 78 32 H 84/43 L 94 02/05/21 05:30 38.8 C H 100 H 32 H 90 02/05/21 05:00 38.8 C H 100 H 32 H 90 02/05/21 04:30 38.8 C H 101 H 32 H 90 02/05/21 04:00 38.8 C H 97 H 32 H 90 02/05/21 03:35 80 30 H 90 02/05/21 03:00 38.7 C H 97 H 32 H 161/79 H 90 02/05/21 02:00 38.6 C H 94 H 32 H 90 02/05/21 01:00 38.5 C H 82 28 H 160/76 H 91 02/05/21 00:30 38.6 C H 76 32 H 90 02/04/21 23:30 38.6 C H 78 32 H 89 L 02/04/21 23:00 38.6 C H 101 H 32 H 89 L 02/04/21 22:00 38.6 C H 94 H 32 H 92 02/04/21 21:13 91 H 33 H 94 02/04/21 21:00 38.8 C H 90 26 H 94 Lab & Micro Results (Past 24 Hours) RBC 4.30 M/uL (4.7-6.1) L 02/05/21 WBC 12.16 K/uL (4.8-10.8) H 02/05/21 Hgb 9.9 g/dL (14.0-18.0) L 02/05/21 Hct 35.5 % (42-52) L 02/05/21 MCV 82.6 fL (80-100) 02/05/21 MCH 23.0 pg (25-34) L 02/05/21 MCHC 27.9 g/dL (32-36) L 02/05/21 RDW Standard Deviation 58.9 fL (36.4-46.3) H 02/05/21 RDW Coefficient of Variation 19.4 % (11.5-14.5) H 02/05/21 Plt Count 375 K/uL (130-400) 02/05/21 MPV 10.0 fL (7.4-10.4) 02/05/21 Neutrophils (%) (Auto) 90.3 % 02/05/21 Lymphocytes (%) (Auto) 7.8 % 02/05/21 Monocytes # (Auto) 0.03 K/uL (0.11-0.59) L 02/05/21 Eosinophils # (Auto) 0.00 K/uL (0-0.5) 02/05/21 Immature Granulocyte % (Auto) 1.6 % 02/05/21 Neutrophils # (Auto) 10.98 K/uL (1.4-6.5) H 02/05/21 Lymphocytes # (Auto) 0.95 K/uL (1.2-3.4) L 02/05/21 Monocytes # (Auto) 0.03 K/uL (0.11-0.59) L 02/05/21 Eosinophils # (Auto) 0.00 K/uL (0-0.5) 02/05/21 Basophils # (Auto) 0.01 K/uL (0-0.2) 02/05/21 Immature Granulocyte # (Auto) 0.19 K/uL (0.00-0.02) H 02/05/21 Na 150 mmol/L (136-145) H 02/05/21 K 4.0 mmol/L (3.5-5.1) 02/05/21 Cl 113 mmol/L (98-107) H 02/05/21 CO2 37 mmol/L (21-32) H 02/05/21 Anion Gap 0 (3-11) L 02/05/21 BUN 49 mg/dl (7-18) H 02/05/21 Creatinine 0.68 mg/dl (0.6-1.4) 02/05/21 Estimated GFR ( Amer) 124.6 ml/min 02/05/21 Estimated GFR (Non-Af Amer) 107.5 ml/min 02/05/21 BUN/Creatinine Ratio 71.6 (10-20) H 02/05/21 Glu 140 mg/dl (70-99) H 02/05/21 Ca 8.9 mg/dl (8.5-10.1) 02/05/21 Phosphorus Level 3.5 mg/dl (2.5-4.9) 02/05/21 Total Bilirubin 0.7 mg/dl (0.2-1) 02/05/21 AST 75 U/L (15-37) H 02/05/21 ALT 82 U/L (12-78) H 02/05/21 Alkaline Phosphatase 99 U/L (45-117) 02/05/21 TP 6.7 gm/dl (6.4-8.2) 02/05/21 Albumin 1.9 gm/dl (3.4-5.0) L 02/05/21 Globulin 4.8 gm/dl (2.5-4.0) H 02/05/21 Albumin/Globulin Ratio 0.4 (0.9-2) L 02/05/21 Mg 2.5 mg/dl (1.8-2.4) H 02/05/21 05:15 02/05/21 Calcium Level 8.9 mg/dl (8.5-10.1) 02/05/21 05:15 02/05/21 Christoph Test Pass 02/05/21 03:36 02/05/21 Microbiology 02/03/21 15:00 Gram Stain - Final Sputum,Vent Suction Sputum Culture - Preliminary Moderate normal macho present, final report to follow. 02/01/21 06:10 Aerobic Blood Culture - Final Blood Coag neg staph not lugdunensis Anaerobic Blood Culture - Final Coag neg staph not lugdunensis I & O Totals 24 Hours 02/04/21 02/05/21 02/06/21 06:59 06:59 06:59 Intake Total 5639.790 / 5639.790 3359.511 / 3359.511 263.710 / 263.710 Output Total 1475 / 1475 1974 / 1974 Balance 4164.790 / 4164.790 1384.511 / 1384.511 263.710 / 263.710 Cumulative 01/24/21 08:06 thru 02/05/21 07:49 Intake Total 46515.402 Output Total 77394 Balance 4685.402 RT Ventilator Mngmt (Last Documented) Ventilator Ordered Settings Ventilator Support Mode Assist Control 02/05/21 08:04 Respiratory Rate 32 02/05/21 08:04 Ventilator Tidal Volume 375 02/05/21 08:04 Setting Minute Ventilation 12 02/05/21 08:04 Positive End Expiratory 10 02/05/21 08:04 Pressure Fraction of Inspired Oxygen 0.6 02/05/21 08:12 Machine Comment Fio2 weaned at this time 02/04/21 23:00 Ventilator - PT Measurements Respiratory Rate 32 Exhaled Tidal Volume 375 Minute Ventilation 12 Peak Inspiratory Airway 26 Pressure Plateau Pressure 24 Respiratory Cycle Inspiratory: 1.1:1 Expiratory Ratio Inspiratory Phase Time 0.99 End-Tidal CO2 69 Static Lung Compliance 26.79 Dynamic Lung Compliance 23.44 Normal Static Lung Compliance 46.00 Patient Measurements Comment post ABG changes made OK per SUSHILA Clemons- Coding Level of Care Code Critical Care 1st 30-74 mins Diagnoses Acute respiratory failure with hypoxia J96.01 Pneumonia due to COVID-19 virus U07.1; J12.82 Obesity E66.9 Anemia D64.9 Chronic respiratory acidosis E87.2
[2021-02-05] MEDS: MULTI VIT W/MINERALS LIQUID 15 ML UDP NG SCH (09:11)
[2021-02-05] MEDS: busPIRone 5 MG TAB PO SCH ×2 (09:11→20:39)
[2021-02-05] MEDS: amLODIPine BESYLATE 5 MG TAB PO SCH (09:11)
[2021-02-05] MEDS: LEVOTHYROXINE SODIUM 125 MCG TABLET PO SCH (09:12)
[2021-02-05] MEDS: dexAMETHasone 10 MG in SYRINGE 0 ML IV SCH (09:13)
[2021-02-05] MEDS: PANTOprazole 40 MG in SYRINGE 0 ML IV SCH ×2 (09:13→20:38)
[2021-02-05] MEDS: clonazePAM 1 MG TAB PO SCH ×2 (09:16→20:43)
--- NOTE | 2021-02-05 10:50 | Procedure Note ---
Procedure Note Date of Service February 05, 2021 Note CENTRAL LINE PROCEDURE NOTE: Procedure: Central Line Placement Provider: Tim Jacob MD Indication: Central Drug Administration, Poor Venous Access, Multiple Lab Draws Necessary, etc. patient persistently febrile 8 days old. Anesthesia: 5 mL lidocaine 1% without epinephrine Site: Left subclavian Procedure was emergent. Patient unable to provide consent. No family immediately available A time-out was completed verifying correct patient, procedure, site, positioning, and implants(s) or special equipment if applicable. Patients left subclavian area was cleansed and draped in the typical sterile fashion using Chloraprep. Anatomic landmarks were easily identified. The superficial tissue was anesthetized using 5mL of 1% lidocaine without epinephrine. After adequate anesthetization was achieved, the left subclavian vein was cannulated using an introducer needle on a syringe. Good venous blood return was maintained prior to removal of syringe from introducer needle. Using Seldinger Technique, a guide wire was advanced through the introducer needle without resistance. The introducer needle was removed. A small incision was made in penetrating fashion at the guide wire insertion site utilizing an 11 blade scalpel. The dilator was advanced to the vessel without resistance. The dilator was exchanged for the triple lumen catheter which was advanced into the vessel without resistance. The guide wire was removed intact from the catheter without issue. Claves were placed on each catheter tip with confirmation of good blood flow from each lumen. Each port was easily flushed with sterile saline. The catheter was placed at the hub and sutured in place. BioPatch was applied to the catheter and a sterile Tegaderm dressing was applied over the catheter with careful attention to sterility. Patient tolerated procedure well. No immediate complications were met. Post procedure x-ray pending. Once the line is verified to be in good position, the previous central line will be removed Coding CPT Codes Tubes, Drains, and Vasc Access - Tubes, Drains, and Vasc Access: [id number] Place catheter in vein superior or inferior vena cava ([id number]) [facility] [place] Codes (Charges) Tubes, Drains, and Vasc Access Procedure 1: Tubes, Drains, and Vasc Access: [id number] Place catheter in vein superior or inferior vena cava
--- NOTE | 2021-02-05 10:51 | Procedure Note ---
Procedure Note Date of Service February 05, 2021 Note ARTERIAL LINE PROCEDURE NOTE: Procedure: Arterial Line Placement Provider: Tim Jacob MD Indication: Monitoring on Pressors Anesthesia: None Procedures emergent. Patient unable to provide consent family not immediately available A time-out was completed verifying correct patient, procedure, site, positioning, and implant(s) or special equipment if applicable. Allens test was performed to ensure adequate perfusion. Patients leftwrist was prepped and draped in the usual sterile fashion. A 20g Arrow arterial line was introduced into the left radialartery. Catheter was threaded, and the needle was removed with appropriate blood return. Good waveform was observed. The patient tolerated the procedure well. Blood Loss: Minimal Complications: None Coding CPT Codes Tubes, Drains, and Vasc Access - Tubes, Drains, and Vasc Access: [id number] Insertion Catheter, Artery ([id number]) [facility] Procedure Codes (Charges) Tubes, Drains, and Vasc Access Procedure 1: Tubes, Drains, and Vasc Access: [id number] Insertion Catheter, Artery
--- NOTE | 2021-02-05 11:21 | XRay Report ---
XR chest 1V portable CLINICAL HISTORY: resp failure. Follow-up suspected Covid pneumonia COMPARISON STUDY: No previous studies for comparison. TECHNIQUE: 1 view of the chest FINDINGS: Single frontal view of the chest demonstrates the cardiomediastinal silhouette to be within normal li mits. Tubes and catheters are unchanged. Compared to the previous examination, bilateral interstitial and alveolar opacities are again seen bilaterally. There is again evidence for bibasilar atelectasis , left greater than right and suspicion of small left pleural effusion. There is no evidence for vasc ular congestion. There is no acute osseous pathology. IMPRESSION: Bilateral interstitial and alveolar opacities are again seen bilaterally along with bibas ilar atelectasis, left greater than right and small left pleural effusion. Findings are again most ch aracteristic of Covid pneumonia. ACT 112: Negative or not required by law. Electronically signed by: Derrick Devries M.D. 02/05/2021 11:19 AM
[2021-02-05] MEDS: METOPROLOL TARTRATE 25 MG TAB PO SCH ×3 (11:23→23:24)
[2021-02-05] MEDS: QUEtiapine FUMARATE 25 MG TABLET PO SCH ×2 (11:23→20:40)
[2021-02-05] MEDS: DOCUSATE SODIUM/SENNA 50/8.6MG TAB PO SCH (11:23)
[2021-02-05] MEDS: LACTULOSE SYRUP 30 GM/45 ML UDP PO SCH (11:25)
[2021-02-05] MEDS: oxyCODONE HCL SOLN 5 MG/5 ML UDC PO SCH ×2 (11:29→20:43)
--- NOTE | 2021-02-05 12:45 | XRay Report ---
XR chest 1V portable at 12:05 PM CLINICAL HISTORY: line placement. Evaluate for positioning of pneumothorax COMPARISON STUDY: 01/28/2021 at 6:43 AM TECHNIQUE: 1 view of the chest FINDINGS: Single frontal view of the chest demonstrates the cardiomediastinal silhouette to be within normal li mits. There has been interval placement of a left subclavian catheter with its tip in the distal SVC. There is no evidence for pneumothorax. Remaining tubes and catheters are unchanged. Compared to the previous examination, bilateral interstitial and alveolar opacities are again seen and essentially un changed. There is again evidence for small left pleural effusion and left basilar atelectasis. There is no evidence for vascular congestion. There is no acute osseous pathology. IMPRESSION: Tip of left subclavian catheter in the distal SVC with no evidence for pneumothorax. Bila teral interstitial and alveolar opacities, left pleural effusion and left basilar atelectasis are aga in seen characteristic of Covid pneumonia. ACT 112: Negative or not required by law. Electronically signed by: Derrick Dveries M.D. 02/05/2021 12:44 PM
--- NOTE | 2021-02-05 14:28 | Hospitalist Progress Note ---
Date of Service February 05, 2021 Assessment & Plan (1) Acute respiratory failure with hypoxia: Plan: 2/2 covid pneumonia, intubated, per ICU team (2) Pneumonia due to COVID-19 virus: Plan: Cont high dose decadron sedated and intubated on mechanical vent, wean per ICU team. Remdesivir contraindicated in the setting of elevated LFTs on admission Doppler bilateral lower extremities were negative for DVT, also CTA chest performed 01/28 which was negative for PE. Required intubation in the evening of 01/29/2021 Remains sedated and paralyzed on ventilator Tube feeds at trickle rate 10cc/hr. Condition has been deteriorating-CTA did not show any pulmonary embolism but it showed extensive groundglass consolidation which has been worsening compared with prior Has been requiring more oxygen and pressure to maintain saturation Minimally improved as per ICU team-we will continue current management Ongoing fever Lines have been changed Blood cultures have been taken He has been on intravenous ceftriaxone UA culture is sent (3) Elevated liver enzymes: Plan: related to covid-19 infection, resolving. LFTs are minimally elevated (4) Hypertension: Plan: remains hypertensive. defer management to ICU team cont [id number] daily, lasix 40mg IV daily, Lopressor q6hr, and lisinopril 5mg daily. Home Maxzide has been held Blood pressure remains stable (5) Hypothyroidism: Plan: -Continue levothyroxine per home regimen. (6) ADHD: (7) Anxiety: Plan: Pristiq being held for now. Buspar is ongoing. (8) CATHY on CPAP: Plan: per pulm/ICU (9) DVT prophylaxis: Plan: -SQ Lovenox Feeding NGT Full code. Dispo-ICU Admission and Anticipated Discharge Date Admission Date: January 24, 2021 Subjective 01/30/2021 The patient was seen and examined in telemetry unit and in the Covid room He has been intubated and sedated 01/31/2021 The patient was seen and examined in ICU He remains intubated and sedated 02/01/2021 The patient was seen and examined in ICU He remains intubated and sedated 02/02/2021 The patient was seen and examined in ICU He remains intubated and sedated 02/04/2021 The patient was seen and examined in ICU He remains intubated and sedated Condition has been getting worse as per the caring team 02/05/2021 The patient was seen and examined in ICU He remains intubated and sedated Review of Systems Review of Systems: intubated, sedated Physical Exam Physical Exam: Remains sedated and on mechanical ventilator Constitutional: well developed, well nourished, + ill appearing and + obese ENMT: external ear and nose normal, oropharynx normal Neck: trachea midline, no thyromegaly Respiratory: no respiratory distress Auscultation: + diminished lung sounds and + crackles (Minimal crackles at the bases) Cardiovascular: Rate/Rhythm: regular rate and regular rhythm; not tachycardic Heart Sounds: normal S1 and normal S2; no murmur Extremities: no edema Gastrointestinal (Abdomen): Inspection/Auscultation: normal bowel sounds; ab domen not distended Percussion/Palpation: abdomen soft; abdomen nontender Musculoskeletal: No acute arthritis in any joint Neurologic: Stableon mechanical ventilator with sedation Lymphatic: no cervical or axillary lymphadenopathy Results & Data Results & Data ([facility]) Vital Signs (Past 12 Hours) Vital Signs Temp Pulse Resp BP Pulse Ox 02/05/21 12:00 39.1 C H 101 H 32 H 94 02/05/21 11:00 39.2 C H 89 32 H 93 02/05/21 10:00 39.4 C H 95 H 32 H 86 L 02/05/21 09:00 39.3 C H 106 H 32 H 88 L 02/05/21 08:04 87 32 H 90 02/05/21 08:00 38.9 C H 98 H 32 H 165/92 H 90 02/05/21 07:00 38.8 C H 67 32 H 90 02/05/21 06:30 38.8 C H 71 32 H 97 02/05/21 06:00 38.8 C H 78 32 H 84/43 L 94 02/05/21 05:30 38.8 C H 100 H 32 H 90 02/05/21 05:00 38.8 C H 100 H 32 H 90 02/05/21 04:30 38.8 C H 101 H 32 H 90 02/05/21 04:00 38.8 C H 97 H 32 H 90 02/05/21 03:35 80 30 H 90 02/05/21 03:00 38.7 C H 97 H 32 H 161/79 H 90 Laboratory Results Short CBC 02/05/21 Range/Units 05:15 WBC 12.16 H (4.8-10.8) K/uL Hgb 9.9 L (14.0-18.0) g/dL Hct 35.5 L (42-52) % Plt Count 375 (130-400) K/uL BMP 02/05/21 05:15 Sodium 150 H Potassium 4.0 Chloride 113 H Carbon Dioxide 37 H BUN 49 H Creatinine 0.68 Glucose 140 H Calcium 8.9 Liver Function 02/05/21 Range/Units 05:15 Total Bilirubin 0.7 (0.2-1) mg/dl AST 75 H (15-37) U/L ALT 82 H (12-78) U/L Alkaline Phosphatase 99 (45-117) U/L Albumin 1.9 L (3.4-5.0) gm/dl Medications Administered Current Inpatient Medications Acetaminophen (Acetaminophen Susp 160 Mg/5 Ml Udc) 640 mg PO Q4H PRN PRN Reason: pain/fever Stop: 03/02/21 18:49 Last Admin: 02/05/21 11:21 Dose: 640 mg Documented by: Albuterol (Albut/Ipratrop 3mg/0.5mg Neb 3 Ml Vial) 3 ml NEB Q4R PRN PRN Reason: sob/wheezing Stop: 02/23/21 15:14 Last Admin: 01/26/21 16:17 Dose: 3 ml Documented by: Amlodipine Besylate (Amlodipine Besylate 5 Mg Tab) 10 mg PO DAILY TONY Stop: 02/24/21 08:59 Last Admin: 02/05/21 09:11 Dose: 10 mg Documented by: Buspirone HCl (Buspirone 5 Mg Tab) 5 mg PO BID TONY Stop: 02/27/21 20:59 Last Admin: 02/05/21 09:11 Dose: 5 mg Documented by: Clonazepam (Clonazepam 1 Mg Tab) 1 mg PO BID TONY Stop: 03/07/21 08:59 Last Admin: 02/05/21 09:16 Dose: 1 mg Documented by: Enoxaparin Sodium (Enoxaparin Inj 40 Mg/0.4 Ml Syr) 40 mg SQ Q12H TONY Stop: 02/27/21 17:59 Last Admin: 02/05/21 05:06 Dose: 40 mg Documented by: Fentanyl Citrate (Fentanyl Bolus From Bag) 50 mcg IV Q60M PRN PRN Reason: Pain or Agitation Stop: 02/12/21 16:40 Last Admin: 02/03/21 03:26 Dose: 50 mcg Documented by: Furosemide (Furosemide 40 Mg/4 Ml Vial) 40 mg IV Q8 [facility] Stop: 03/06/21 13:59 Last Admin: 02/05/21 05:05 Dose: 40 mg Documented by: Hydralazine HCl (Hydralazine Hcl 20 Mg/Ml Vial) 10 mg IV Q4H PRN PRN Reason: Hypertension SBP> 160 Stop: 03/04/21 10:21 Last Admin: 02/04/21 20:34 Dose: 10 mg Documented by: Hydralazine HCl (Hydralazine Hcl 25 Mg Tab) 25 mg PO Q8 [facility] Stop: 03/07/21 13:59 Pantoprazole Sodium 40 mg/ (Syringe) 10 mls @ 5 mls/min IV BID@0900,2100 [facility] Stop: 03/01/21 20:59 Last Admin: 02/05/21 09:13 Dose: 5 mls/min Documented by: Cisatracurium Besylate 100 mg/ (Sodium Chloride) 250 mls @ 11.985 mls/hr IV .[id number] [facility]; Protocol Stop: 03/01/21 16:59 Last Titration: 02/05/21 09:05 Dose: 1 mcg/kg/min, 12 mls/hr Documented by: Fentanyl Citrate (Fentanyl Citrate) 2,500 mcg in 250 mls @ 15 mls/hr IV .[id number] [facility]; Protocol Stop: 02/13/21 15:59 Last Titration: 02/05/21 07:06 Dose: 150 mcg/hr, 15 mls/hr Documented by: Dexamethasone 10 mg/ Syringe 2.5 mls @ 1 mls/min IV Q24H TONY Stop: 02/08/21 09:03 Last Admin: 02/05/21 09:13 Dose: 1 mls/min Documented by: Nicardipine HCl 25 mg/ Sodium (Chloride) 250 mls @ 0 mls/hr IV .Q0M TONY; Pro tocol Stop: 03/05/21 05:14 Last Titration: 02/04/21 00:42 Dose: 0 mg/hr, 0 mls/hr Documented by: Ceftriaxone Sodium 2,000 mg/ (Dextrose) 70 mls @ 140 mls/hr IV Q24H TONY Stop: 02/11/21 16:59 Last Infusion: 02/04/21 18:47 Dose: Infused Documented by: Propofol (Diprivan) 1,000 mg in 100 mls @ 20.016 mls/hr IV .Q5H TONY; Protocol Stop: 02/07/21 21:29 Last Titration: 02/05/21 07:06 Dose: 30 mcg/kg/min, 20 mls/hr Documented by: Dexmedetomidine HCl 200 mcg/ (Sodium Chloride) 50 mls @ 11.12 mls/hr IV .Q4H30M TONY; Protocol Stop: 02/08/21 21:29 Last Admin: 02/05/21 12:35 Dose: 0.4 mcg/kg/hr, 11.1 mls/hr Documented by: Norepinephrine Bitartrate (Levophed/D5w) 8 mg in 508 mls @ 37.89 mls/hr IV .[id number] TONY; Protocol Stop: 03/07/21 06:29 Last Titration: 02/05/21 07:06 Dose: 0.09 mcg/kg/min, 37.9 mls/hr Documented by: Labetalol HCl (Labetalol Hcl Iv 5 Mg/Ml 20ml) 10 mg IV Q4 PRN PRN Reason: Hypertension SBP>160 after hyd Stop: 03/04/21 12:25 Last Admin: 02/04/21 04:49 Dose: 10 mg Documented by: Lactulose (Lactulose Syrup 30 Gm/45 Ml Udp) 30 gm PO DAILY TONY Stop: 03/07/21 09:14 Last Admin: 02/05/21 11:25 Dose: 30 gm Documented by: Levothyroxine Sodium (Levothyroxine Sodium 125 Mcg Tablet) 125 mcg PO DAILY TONY Stop: 02/24/21 08:59 Last Admin: 02/05/21 09:12 Dose: 125 mcg Documented by: Lisinopril (Lisinopril 10 Mg Tab) 10 mg PO QAM TONY Stop: 03/07/21 08:59 Last Admin: 02/05/21 11:22 Dose: 10 mg Documented by: Metoprolol Tartrate (Metoprolol Tartrate 25 Mg Tab) 25 mg PO Q6 TONY Stop: 03/07/21 11:59 Last Admin: 02/05/21 11:23 Dose: 25 mg Documented by: Multi-Ingredient Cream (Artificial Tears Op Oint 3.5 Gm Tube) 1 appln OP Q4H TONY Stop: 02/28/21 16:44 Last Admin: 02/05/21 09:09 Dose: 1 appln Documented by: Multivitamins/Minerals (Multi Vit W/Minerals Liquid 15 Ml Udp) 15 ml NG QAM [facility] Stop: 03/06/21 08:59 Last Admin: 02/05/21 09:11 Dose: 15 ml Documented by: Nutritional Formula (Peptamen Intense Vhp 1.0 Klaus 1,000 Ml Bag) 1,000 ml OG UD [facility]; Protocol Stop: 03/05/21 10:29 Ondansetron HCl (Ondansetron Inj 2 Mg/Ml 2 Ml Vial) 4 mg IV Q6H PRN PRN Reason: Nausea Stop: 02/23/21 14:56 Last Admin: 01/28/21 18:02 Dose: 4 mg Documented by: Oxycodone HCl (Oxycodone Hcl Soln 5 Mg/5 Ml Udc) 10 mg PO BID [facility] Stop: 02/19/21 08:59 Last Admin: 02/05/21 11:29 Dose: 10 mg Documented by: Propofol (Propofol Bolus From Bag) 20 mg IV Q5M PRN PRN Reason: Sedation Stop: 02/07/21 21:22 Quetiapine Fumarate (Quetiapine Fumarate 25 Mg Tablet) 50 mg PO BID [facility] Stop: 03/07/21 08:59 Last Admin: 02/05/21 11:23 Dose: 50 mg Documented by: Senna/Docusate Sodium (Docusate Sodium/Senna 50/8.6mg Tab) 1 tab PO QAM [facility] Stop: 03/07/21 09:14 Last Admin: 02/05/21 11:23 Dose: 1 tab Documented by: Sterile Water (Tube Feeding Water Flush) 150 ml GT Q4H [facility] Stop: 03/07/21 08:54 Last Admin: 02/05/21 10:11 Dose: 150 ml Documented by:
[2021-02-05] MEDS: hydrALAZINE HCL 25 MG TAB PO SCH ×2 (14:59→21:15)
[2021-02-05] MEDS: cefTRIAXone SODIUM 2,000 MG in DEXTROSE 5% 50 ML IV SCH (17:53)
[2021-02-05] MEDS: niCARdipine 25 MG in SODIUM CHLORIDE 0.9% 240 ML IV SCH ×2 (19:58→20:01)
[2021-02-06] MEDS: propofoL 1,000 MG/100 ML VIAL IV SCH ×3 (01:29→07:58)
[2021-02-06] MEDS: ARTIFICIAL TEARS OP OINT 3.5 GM TUBE OP SCH ×3 (01:30→09:01)
[2021-02-06] MEDS: TUBE FEEDING WATER FLUSH GT SCH ×7 (01:30→22:59)
[2021-02-06] MEDS: DEXMEDETOMIDINE HCL 200 MCG in SODIUM CHLORIDE 0.9% 48 ML IV SCH ×4 (03:18→19:35)
[2021-02-06] MEDS: fentaNYL citrate 2,500 MCG/250 ML BAG IV SCH ×2 (04:07→16:04)
[2021-02-06 04:24] LABS: iSTAT Arterial Blood Gas HCO3 42 meg/L (19-24); iSTAT Arterial Blood Gas pCO2 80 mmHg (35-46); iSTAT Arterial Blood Gas pH 7.33 (7.35-7.45); iSTAT Arterial Blood Gas pO2 66 mmHg (80-95); iSTAT Carbon Dioxide > 40 mmol/L (24-31); iSTAT FiO2 60 %; iSTAT Site Art Line
[2021-02-06 05:25] LABS: Hematocrit (blood only) 27.5 % (42-52); Hemoglobin 7.5 g/dL (14.0-18.0); Mean Corpuscular Hemoglobin 22.7 pg (25-34); Mean Corpuscular Hgb Conc 27.3 g/dL (32-36); Mean Corpuscular Volume 83.3 fL (80-100); Platelet Count 258 K/uL (130-400); RDW Coefficient of Variation 19.9 % (11.5-14.5); RDW Standard Deviation 60.8 fL (36.4-46.3); White Blood Count 8.19 K/uL (4.8-10.8)
[2021-02-06] MEDS: FUROSEMIDE 40 MG/4 ML VIAL IV SCH ×2 (05:37→19:38)
[2021-02-06] MEDS: hydrALAZINE HCL 25 MG TAB PO SCH (05:37)
[2021-02-06] MEDS: ENOXAPARIN INJ 40 MG/0.4 ML SYR SQ SCH (05:37)
[2021-02-06] MEDS: METOPROLOL TARTRATE 25 MG TAB PO SCH (05:38)
[2021-02-06 05:59] LABS: Basophilic Stippling Occasional; Basophils # (auto) 0.01 K/uL (0-0.2); Basophils % (auto) 0.1 %; Eosinophils # (auto) 0.01 K/uL (0-0.5); Eosinophils % (auto) 0.1 %; Immature Granulocytes # (auto) 0.09 K/uL (0.00-0.02); Immature Granulocytes % (auto) 1.1 %; Lymphocytes # (auto) 0.45 K/uL (1.2-3.4); Lymphocytes % (auto) 5.5 %; Monocytes # (auto) 0.53 K/uL (0.11-0.59); Monocytes % (auto) 6.5 %; Neutrophils % (auto) 86.7 %; Polychromasia 1+
[2021-02-06 06:04] LABS: Alanine Aminotransferase 66 U/L (12-78); Albumin Globulin Ratio 0.4 (0.9-2); Albumin Level 1.2 gm/dl (3.4-5.0); Alkaline Phosphatase 65 U/L (45-117); Bilirubin,Total 0.5 mg/dl (0.2-1); Blood Urea Nitrogen 48 mg/dl (7-18); Calcium 6.4 mg/dl (8.5-10.1); Carbon Dioxide 29 mmol/L (21-32); Chloride 123 mmol/L (98-107); Creatinine Clr Calc Pharmacy 302.2 ml/min; Est GFR (African American) > 150.0 ml/min; Est GFR (Non-African American) 139.6 ml/min; Globulin 3.4 gm/dl (2.5-4.0); Glucose 104 mg/dl (70-99); Sodium 155 mmol/L (136-145); Total Protein 4.6 gm/dl (6.4-8.2); Triglycerides 794 mg/dl (0-150)
[2021-02-06 06:35] LABS: Phosphorus 2.5 mg/dl (2.5-4.9)
[2021-02-06 07:56] LABS: Potassium 3.7 mmol/L (3.5-5.1)
[2021-02-06 08:01] LABS: Magnesium 2.4 mg/dl (1.8-2.4)
--- NOTE | 2021-02-06 08:20 | XRay Report ---
XR chest 1V portable CLINICAL HISTORY: resp failure. Follow-up alveolar opacities and pleural effusion COMPARISON STUDY: 02/05/2021 TECHNIQUE: 1 view of the chest FINDINGS: Single frontal view of the chest demonstrates the heart size to be enlarged. Right jugular catheter h as been removed. Compared to previous examination, bilateral interstitial and alveolar opacities are again seen along with small left pleural effusion and left basilar atelectasis. There is no evidence for right pleural effusion. There is no evidence for vascular congestion. There is no acute osseous p athology. IMPRESSION: Persistent interstitial and alveolar opacities along with small left pleural effusion and left basilar atelectasis. Findings are again most characteristic of Covid pneumonia. ACT 112: Negative or not required by law. Electronically signed by: Derrick Devries M.D. 02/06/2021 8:19 AM
[2021-02-06] MEDS: amLODIPine BESYLATE 5 MG TAB PO SCH (08:32)
[2021-02-06] MEDS: busPIRone 5 MG TAB PO SCH ×2 (08:33→19:36)
[2021-02-06] MEDS: DOCUSATE SODIUM/SENNA 50/8.6MG TAB PO SCH (08:35)
[2021-02-06] MEDS: LACTULOSE SYRUP 30 GM/45 ML UDP PO SCH (08:36)
[2021-02-06] MEDS: LEVOTHYROXINE SODIUM 125 MCG TABLET PO SCH (08:36)
[2021-02-06] MEDS: MULTI VIT W/MINERALS LIQUID 15 ML UDP NG SCH (08:43)
[2021-02-06] MEDS: QUEtiapine FUMARATE 25 MG TABLET PO SCH ×2 (08:44→19:37)
[2021-02-06] MEDS ORDERED: lisinopril 20 MG TAB PO SCH (09:00)
[2021-02-06] MEDS: clonazePAM 1 MG TAB PO SCH ×2 (09:04→19:41)
[2021-02-06] MEDS: dexAMETHasone 10 MG in SYRINGE 0 ML IV SCH (09:05)
[2021-02-06] MEDS: oxyCODONE HCL SOLN 5 MG/5 ML UDC PO SCH ×3 (09:05→19:41)
[2021-02-06] MEDS: PANTOprazole 40 MG in SYRINGE 0 ML IV SCH ×2 (09:06→19:37)
[2021-02-06] MEDS ORDERED: CALCIUM GLUCONATE 10% 1,000 MG in SODIUM CHLORIDE 0.9% 50 ML IV ONE (10:15)
[2021-02-06] MEDS ORDERED: STAT IV Infusion **Titration per Protocol STA ×2 (10:32→12:55)
[2021-02-06 10:43] LABS: Hematocrit (blood only) 33.2 % (42-52); Hemoglobin 9.1 g/dL (14.0-18.0)
[2021-02-06] MEDS: MIDAZOLAM HCL 125 MG/250 ML BAG IV SCH (10:58)
--- NOTE | 2021-02-06 11:57 | Critical Care Progress Note ---
Date of Service February 06, 2021 Assessment & Plan (1) Acute respiratory failure with hypoxia: (2) Pneumonia due to COVID-19 virus: (3) Obesity: (4) Anemia: (5) Chronic respiratory acidosis: Plan: Impression: 55-year-old male unvaccinated for Covid who was admitted 01/24/2021 with hypoxemic respiratory failure and pulmonary infiltrates. He was initially trialed on BiPAP but failed and was intubated 01/28/2021 Recommendations: 1. Neurologic: Triglyceride levels elevated. We will wean propofol off. Continue Versed and fentanyl. Continue Precedex. Goal RASS -2. 2. Cardiovascular: Labile blood pressures this morning with hypotension. Holding antihypertensive therapy. Continue Levophed to maintain mean arterial pressures above 65. As needed IV hydralazine and labetalol for systolic blood pressure greater than 160. Will decrease Lasix to 40 mg twice daily due to hyponatremia and hypotension. 3. 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 CT angiogram 02/04 with no evidence of PE but diffuse pulmonary infiltrates. Day #9 mechanical ventilation. Continue lung protective ventilation strategy. We will need to consider tracheostomy in the next couple days if unable to liberate from the ventilator 4. GI: Advancing tube feeds as tolerated PPI in place. Continue bowel protocol. Triglyceride levels trending up likely due to propofol. Propofol discontinued. 5. Renal: Patient with increasing hyponatremia. Last sodium 155 from 5 AM. We will recheck sodium levels. Increase free water flushes to 250 mL every 4 hours. Decrease Lasix to 40 mg twice daily from 40 mg, 3 times daily. 6. ID: Completed 5 days of doxycycline. Blood cultures and respiratory culture are now with staph species but PCR negative for staph aureus and corynebacterium. Unusual pulmonary pathogens. Procalcitonin has been negative. Continue Rocephin for 7 days total.. Surveillance cultures including respiratory cultures were negative. 7. Heme-onc: Mild anemia without evidence of acute blood loss. There is some oozing noted around the subclavian line site. Hemoglobin trended down to 7.5 this morning, but improved to 9.1 on recheck at 10 AM. 8. Endocrine: Glycemic control per protocol. Continue Synthroid CRITICAL CARE TIME - I have personally spent 36 minutes of critical care time in the direct management of this patient. This is a life/limb threatening event. This includes time spent evaluating patient, direct bedside care, chart review, placing orders, interpretation of diagnostic studies, discussion with consultants, patient, and family members, as well as other required patient management activities. This time is exclusive of all separately billable procedures, and teaching time and separate from and in addition to any other critical care service time. Admission and Anticipated Discharge Date Admission Date: January 24, 2021 Subjective Patient seen and examined. Currently intubated and sedated. Unable to participate with exam. Requiring escalating doses of Levophed due to hypotension. Review of Systems Review of Systems: Unobtainable due to cognitive status and Unobtainable due to endotracheal tube Physical Exam Physical Exam: Constitutional: Mild distress while intubated. Eyes: Pupils are pinpoint, but reactive to light. Ears nose, mouth and throat: ET tube in place. Neck: Trachea is midline. Visual inspection is normal. Respiratory: Coarse lung sounds on the ventilator. Synchronous with the vent. Cardiovascular: Regular rate and rhythm. No murmurs. No edema. Gastrointestinal: Normal bowel sounds, soft, nontender and nondistended. No hepatosplenomegaly noted. Musculoskeletal: All extremities intact. Skin: No rashes, warm dry and intact. Neurologic: Nonresponsive to commands. Psychiatric: Difficult to assess due to intubation status and sedation status. Results & Data Results & Data ([facility]) Vital Signs (Past 12 Hours) Vital Signs Temp Pulse Resp BP Pulse Ox 02/06/21 10:30 90 32 H 89 L 02/06/21 08:13 32 H 90 02/06/21 06:00 37.5 C 80 32 H 88 L 02/06/21 05:00 37.2 C 94 H 32 H 89 L 02/06/21 04:00 37.2 C 79 32 H 90 02/06/21 03:40 58 L 32 H 90 02/06/21 03:00 37.1 C 68 32 H 90 02/06/21 02:00 36.8 C 64 32 H 122/57 L 90 02/06/21 01:00 36.7 C 62 32 H 87 L 02/06/21 00:00 36.8 C 62 32 H 113/56 L 90 vital signs, labs and imaging personally reviewed Coding Level of Care Code Critical Care 1st 30-74 mins Diagnoses Acute respiratory failure with hypoxia J96.01 Pneumonia due to COVID-19 virus U07.1; J12.82 Obesity E66.9 Anemia D64.9 Chronic respiratory acidosis E87.2 Time Spent (min) 36
[2021-02-06] MEDS ORDERED: INSULIN PROTOCOL GOAL RANGE ONE (12:55)
[2021-02-06] MEDS ORDERED: PHARMACY GLYCEMIC MGMT CONSULT PRN (12:59)
[2021-02-06 13:24] LABS: Calcium 9.5 mg/dl (8.5-10.1); Creatinine Clr Calc Pharmacy 145.7 ml/min; Est GFR (African American) 119.7 ml/min; Est GFR (Non-African American) 103.3 ml/min; Potassium 4.2 mmol/L (3.5-5.1)
--- NOTE | 2021-02-06 13:37 | Pharmacy Report ---
Pharmacy Glycemic Short Note 2 - Date of Service February 06, 2021 - Glycemic Short BSG Results (Last 24 hours): 02/05/21 02/05/21 02/06/21 17:20 23:30 05:05 Glucose 104 H POC Glucose 130 H 127 H POC Glucose (other) 02/06/21 02/06/21 12:26 12:34 Glucose 250 H POC Glucose POC Glucose (other) 254 H OUTPATIENT ANTIDIABETIC REGIMEN: * N/A * A1c = ? ASSESSMENT: * Patient admitted 01/24 for COVID19 viral pna. * Current intubated, sedated in ICU. * Receiving dexamethasone 10mg IV daily, norepi initiated this AM for worsening hypotension (possibly due to antihypertensive regimen), tube feeds running at goal (Peptamen VHP @65cc/hr), receiving Ceftriaxone for superimposed MSSA pna * Given new stressors and BSGs > 220, will initiate IV insulin drip per protocol. Suspect insulin needs may decrease substantially as pressor titrated down as BSGs not elevated prior to today. Will refrain from adding long acting SQ insulin at this time for the same reason. PLAN FOR INPATIENT GLYCEMIC CONTROL: * Check A1c * Begin IV insulin infusion w/o bolus, goal range 120-180, adjust per rate adjustment calculator * Basal insulin * none at this time * Bolus insulin * Nutritional / Prandial insulin per carb ratio of 1 unit per 9 grams CHO consumed PLAN FOR DISCHARGE: * to be determined
[2021-02-06 14:29] LABS: BUN Creatinine Ratio 86.5 (10-20); Calcium 9.7 mg/dl (8.5-10.1); Creatinine Clr Calc Pharmacy 151.7 ml/min; Est GFR (African American) 121.7 ml/min; Potassium 4.3 mmol/L (3.5-5.1)
--- NOTE | 2021-02-06 14:30 | Electrocardiogram Report ---
Test Reason : Blood Pressure : / mmHG Vent. Rate : 102 BPM Atrial Rate : 102 BPM P-R Int : 142 ms QRS Dur : 094 ms QT Int : 302 ms P-R-T Axes : 066 -16 013 degrees QTc Int : 393 ms Sinus tachycardia possible Inferior infarct , age undetermined Abnormal ECG When compared with ECG of 27-JAN-2021 20:51, Inferior infarct is now Present Confirmed by Pieter Toscano ([id number]) on 02/06/2021 2:30:01 PM Referred By: REFERRED SELF Confirmed By:Keny Toscano
[2021-02-06 14:41] LABS: Estimated Average Glucose 146 mg/dl; Hemoglobin A1C 6.7 % (4.5-5.6)
[2021-02-06] MEDS: INSULIN REGULAR 250 UNITS in SODIUM CHLORIDE 0.9% 247.5 ML IV SCH (15:17)
[2021-02-06] MEDS: PEPTAMEN INTENSE VHP 1.0 CAL 1,000 ML BAG OG SCH (15:31)
[2021-02-06] MEDS: INSULIN ASPART 100 UNITS/ML 3 ML PEN SC SCH ×2 (15:44→20:53)
[2021-02-06] MEDS ORDERED: INSULIN ASPART 100 UNITS/ML 3 ML PEN SC SCH (16:30)
[2021-02-06] MEDS: NOREPINEPHRINE/D5W 8 MG/508 ML BAG IV SCH (16:58)
[2021-02-06] MEDS: cefTRIAXone SODIUM 2,000 MG in DEXTROSE 5% 50 ML IV SCH (17:20)
[2021-02-06] MEDS: MIDAZOLAM BOLUS FROM BAG IV PRN (18:00)
--- NOTE | 2021-02-06 19:18 | Hospitalist Progress Note ---
Date of Service February 06, 2021 Assessment & Plan (1) Acute respiratory failure with hypoxia: Plan: 2/2 covid pneumonia, intubated, per ICU team (2) Pneumonia due to COVID-19 virus: Plan: Cont high dose decadron sedated and intubated on mechanical vent, wean per ICU team. Remdesivir contraindicated in the setting of elevated LFTs on admission Doppler bilateral lower extremities were negative for DVT, also CTA chest performed 01/28 which was negative for PE. Required intubation in the evening of 01/29/2021 Remains sedated and paralyzed on ventilator Tube feeds at trickle rate 10cc/hr. Condition has been deteriorating-CTA did not show any pulmonary embolism but it showed extensive groundglass consolidation which has been worsening compared with prior Has been requiring more oxygen and pressure to maintain saturation Condition has been deteriorating has been requiring pressor resents to maintain blood pressure Family members are updated by the ICU team Ongoing fever Lines have been changed Blood cultures have been taken He has been on intravenous ceftriaxone UA culture is sent-has been negative Hemoglobin dropped to 7.5 Without any evidence of blood loss Improved hemoglobin we will repeat test Seems to be intravascular dehydration with sodium and chloride being high Management will be as per ICU team (3) Elevated liver enzymes: Plan: related to covid-19 infection, resolving. LFTs are minimally elevated (4) Hypertension: Plan: remains hypertensive. defer management to ICU team cont [id number] daily, lasix 40mg IV daily, Lopressor q6hr, and lisinopril 5mg daily. Home Maxzide has been held Blood pressure remains stable Required pressor resents to maintain blood pressure (5) Hypothyroidism: Plan: -Continue levothyroxine per home regimen. (6) ADHD: (7) Anxiety: Plan: Pristiq being held for now. Buspar is ongoing. (8) CATHY on CPAP: Plan: per pulm/ICU (9) DVT prophylaxis: Plan: -SQ Lovenox Feeding NGT Full code. Dispo-ICU Admission and Anticipated Discharge Date Admission Date: January 24, 2021 Subjective 01/30/2021 The patient was seen and examined in telemetry unit and in the Covid room He has been intubated and sedated 01/31/2021 The patient was seen and examined in ICU He remains intubated and sedated 02/01/2021 The patient was seen and examined in ICU He remains intubated and sedated 02/02/2021 The patient was seen and examined in ICU He remains intubated and sedated 02/04/2021 The patient was seen and examined in ICU He remains intubated and sedated Condition has been getting worse as per the caring team 02/05/2021 The patient was seen and examined in ICU He remains intubated and sedated 02/06/2021 The patient was seen and examined in ICU He remains intubated and sedated The condition has been deteriorating Review of Systems Review of Systems: Unobtainable due to endotracheal tube Physical Exam Physical Exam: Remains sedated and on mechanical ventilator and has been deteriorating Constitutional: well developed, well nourished, + ill appearing and + obese ENMT: external ear and nose normal, oropharynx normal Neck: trachea midline, no thyromegaly Respiratory: + respiratory distress (On mechanical ventilator) Auscultation: + diminished lung sounds and + crackles (Minimal crackles at the bases) Cardiovascular: Rate/Rhythm: regular rate and regular rhythm; not tachycardic Heart Sounds: normal S1 and normal S2; no murmur Extremities: + edema (Trace to 1+ edema bilaterally) Gastrointestinal (Abdomen): Inspection/Auscultation: normal bowel sounds; abdomen not distended Percussion/Palpation: abdomen soft; abdomen nontender Lymphatic: no cervical or axillary lymphadenopathy Results & Data Results & Data ([facility]) Vital Signs (Past 12 Hours) Vital Signs Temp Pulse Resp Pulse Ox 02/06/21 18:45 102 H 32 H 02/06/21 18:30 104 H 32 H 91 02/06/21 18:15 37.5 C 99 H 32 H 02/06/21 18:00 95 H 32 H 02/06/21 17:45 91 H 32 H 90 02/06/21 17:30 95 H 32 H 02/06/21 17:15 91 H 32 H 91 02/06/21 17:00 93 H 32 H 91 02/06/21 16:45 93 H 32 H 90 02/06/21 16:30 97 H 32 H 90 02/06/21 16:15 101 H 32 H 91 02/06/21 16:00 104 H 32 H 92 02/06/21 15:45 110 H 32 H 92 02/06/21 15:30 37.4 C 111 H 32 H 92 02/06/21 15:15 109 H 32 H 90 02/06/21 15:02 108 H 33 H 91 02/06/21 15:00 108 H 32 H 91 02/06/21 14:45 114 H 32 H 87 L 02/06/21 14:30 109 H 32 H 88 L 02/06/21 14:15 115 H 32 H 88 L 02/06/21 14:00 106 H 0 L 02/06/21 13:45 110 H 32 H 88 L 02/06/21 13:30 113 H 32 H 89 L 02/06/21 13:15 111 H 32 H 89 L 02/06/21 13:00 113 H 32 H 89 L 02/06/21 12:45 111 H 32 H 89 L 02/06/21 12:30 109 H 28 H 90 02/06/21 12:15 110 H 28 H 90 02/06/21 12:00 112 H 28 H 90 02/06/21 11:45 114 H 28 H 91 02/06/21 11:30 109 H 28 H 91 02/06/21 11:15 99 H 28 H 91 02/06/21 11:05 38.2 C H 02/06/21 11:00 98 H 28 H 90 02/06/21 10:45 94 H 28 H 90 02/06/21 10:30 89 28 H 88 L 02/06/21 10:15 92 H 28 H 91 02/06/21 10:00 95 H 28 H 02/06/21 09:45 102 H 28 H 90 02/06/21 09:30 105 H 28 H 90 02/06/21 09:15 105 H 28 H 90 02/06/21 09:00 37.0 C 106 H 28 H 91 02/06/21 08:45 106 H 28 H 91 02/06/21 08:30 109 H 28 H 90 02/06/21 08:15 107 H 28 H 91 02/06/21 08:13 32 H 90 02/06/21 08:00 103 H 28 H 89 L 02/06/21 07:45 38.4 C H 103 H 34 H 90 02/06/21 07:30 38.3 C H 102 H 35 H 90 02/06/21 07:15 38.2 C H 98 H 35 H 90 Laboratory Results Short CBC 02/06/21 02/06/21 Range/Units 05:05 10:21 WBC 8.19 (4.8-10.8) K/uL Hgb 7.5 L 9.1 L (14.0-18.0) g/dL Hct 27.5 L 33.2 L (42-52) % Plt Count 258 (130-400) K/uL BMP 02/06/21 02/06/21 02/06/21 05:05 06:28 07:30 Sodium 155 H Potassium Cancelled 3.7 Chloride 123 H Carbon Dioxide 29 BUN 48 H Creatinine 0.36 L D Glucose 104 H Calcium 6.4 L D 02/06/21 02/06/21 12:26 14:06 Sodium 150 H 149 H Potassium 4.2 4.3 Chloride 111 H 111 H Carbon Dioxide 40 H 40 H BUN 61 H 62 H Creatinine 0.75 D 0.72 Glucose 250 H 257 H Calcium 9.5 D 9.7 Liver Function 02/06/21 02/06/21 02/06/21 Range/Units 05:05 06:28 07:30 Total Bilirubin 0.5 (0.2-1) mg/dl AST Cancelled 79 H (15-37) U/L ALT 66 (12-78) U/L Alkaline Phosphatase 65 (45-117) U/L Albumin 1.2 L (3.4-5.0) gm/dl Medications Administered Current Inpatient Medications Acetaminophen (Acetaminophen Susp 160 Mg/5 Ml Udc) 640 mg PO Q4H PRN PRN Reason: pain/fever Stop: 03/02/21 18:49 Last Admin: 02/05/21 11:21 Dose: 640 mg Documented by: Albuterol (Albut/Ipratrop 3mg/0.5mg Neb 3 Ml Vial) 3 ml NEB Q4R PRN PRN Reason: sob/wheezing Stop: 02/23/21 15:14 Last Admin: 01/26/21 16:17 Dose: 3 ml Documented by: Amlodipine Besylate (Amlodipine Besylate 5 Mg Tab) 10 mg PO DAILY [facility] Stop: 02/24/21 08:59 Last Admin: 02/06/21 08:32 Dose: 10 mg Documented by: Buspirone HCl (Buspirone 5 Mg Tab) 5 mg PO BID [facility] Stop: 02/27/21 20:59 Last Admin: 02/06/21 08:33 Dose: 5 mg Documented by: Clonazepam (Clonazepam 1 Mg Tab) 1 mg PO BID [facility] Stop: 03/07/21 08:59 Last Admin: 02/06/21 09:04 Dose: 1 mg Documented by: Enoxaparin Sodium (Enoxaparin Inj 40 Mg/0.4 Ml Syr) 40 mg SQ Q12H [facility] Stop: 02/27/21 17:59 Last Admin: 02/06/21 05:37 Dose: 40 mg Documented by: Fentanyl Citrate (Fentanyl Bolus From Bag) 50 mcg IV Q60M PRN PRN Reason: Pain or Agitation Stop: 02/12/21 16:40 Last Admin: 02/06/21 18:15 Dose: 50 mcg Documented by: Furosemide (Furosemide 40 Mg/4 Ml Vial) 40 mg IV Q12 [facility] Stop: 03/08/21 20:59 Hydralazine HCl (Hydralazine Hcl 20 Mg/Ml Vial) 10 mg IV Q4H PRN PRN Reason: Hypertension SBP> 160 Stop: 03/04/21 10:21 Last Admin: 02/04/21 20:34 Dose: 10 mg Documented by: Hydralazine HCl (Hydralazine Hcl 25 Mg Tab) 25 mg PO Q8 [facility] Stop: 03/07/21 13:59 Last Admin: 02/06/21 05:37 Dose: 25 mg Documented by: Pantoprazole Sodium 40 mg/ (Syringe) 10 mls @ 5 mls/min IV BID@0900,2100 [facility] Stop: 03/01/21 20:59 Last Admin: 02/06/21 09:06 Dose: 5 mls/min Documented by: Fentanyl Citrate (Fentanyl Citrate) 2,500 mcg in 250 mls @ 15 mls/hr IV .[id number] [facility]; Protocol Stop: 02/13/21 15:59 Last Titration: 02/06/21 18:15 Dose: 200 mcg/hr, 20 mls/hr Documented by: Dexamethasone 10 mg/ Syringe 2.5 mls @ 1 mls/min IV Q24H [facility] Stop: 02/08/21 09:03 Last Admin: 02/06/21 09:05 Dose: 1 mls/min Documented by: Ceftriaxone Sodium 2,000 mg/ (Dextrose) 70 mls @ 140 mls/hr IV Q24H [facility] Stop: 02/11/21 16:59 Last Infusion: 02/06/21 17:50 Dose: Infused Documented by: Dexmedetomidine HCl 200 mcg/ (Sodium Chloride) 50 mls @ 8.34 mls/hr IV .Q6H [facility]; Protocol Stop: 02/08/21 21:29 Last Admin: 02/06/21 13:42 Dose: 0.3 mcg/kg/hr, 8.3 mls/hr Documented by: Norepinephrine Bitartrate (Levophed/D5w) 8 mg in 508 mls @ 0 mls/hr IV .Q0M [facility]; Protocol Stop: 03/07/21 06:29 Last Titration: 02/06/21 18:13 Dose: 0 mcg/kg/min, 0 mls/hr Documented by: Midazolam HCl (Versed) 125 mg in 250 mls @ 7 mls/hr IV .[id number] [facility]; Protocol Stop: 03/08/21 10:44 Last Titration: 02/06/21 18:03 Dose: 3.5 mg/hr, 7 mls/hr Documented by: Insulin Human Regular 250 (units/ Sodium Chloride) 250 mls @ 4.2 mls/hr IV .Q24H [facility]; Protocol Stop: 03/08/21 12:59 Last Titration: 02/06/21 18:12 Dose: 4.2 units/hr, 4.2 mls/hr Documented by: Insulin Aspart (Insulin Aspart 100 Units/Ml 3 Ml Pen) 0 units SC Q4 [facility] Stop: 03/08/21 15:59 Last Admin: 02/06/21 15:44 Dose: Not Given Documented by: Labetalol HCl (Labetalol Hcl Iv 5 Mg/Ml 20ml) 10 mg IV Q4 PRN PRN Reason: Hypertension SBP>160 after hyd Stop: 03/04/21 12:25 Last Admin: 02/04/21 04:49 Dose: 10 mg Documented by: Lactulose (Lactulose Syrup 30 Gm/45 Ml Udp) 30 gm PO DAILY [facility] Stop: 03/07/21 09:14 Last Admin: 02/06/21 08:36 Dose: 30 gm Documented by: Levothyroxine Sodium (Levothyroxine Sodium 125 Mcg Tablet) 125 mcg PO DAILY [facility] Stop: 02/24/21 08:59 Last Admin: 02/06/21 08:36 Dose: 125 mcg Documented by: Lisinopril (Lisinopril 20 Mg Tab) 10 mg PO QAM [facility] Stop: 03/08/21 08:59 Last Admin: 02/06/21 08:41 Dose: 10 mg Documented by: Metoprolol Tartrate (Metoprolol Tartrate 25 Mg Tab) 25 mg PO Q6 [facility] Stop: 03/07/21 11:59 Last Admin: 02/06/21 05:38 Dose: 25 mg Documented by: Midazolam HCl (Midazolam Bolus From Bag) 2 mg IV Q60M PRN PRN Reason: Sedation Stop: 03/08/21 10:31 Last Admin: 02/06/21 18:00 Dose: 2 mg Documented by: Miscellaneous Information (Pharmacy Glycemic Mgmt Consult) 1 ea N/A UD PRN PRN Reason: Consult Stop: 03/08/21 12:58 Multivitamins/Minerals (Multi Vit W/Minerals Liquid 15 Ml Udp) 15 ml NG [facility]AM[facility] Stop: 03/06/21 08:59 Last Admin: 02/06/21 08:43 Dose: 15 ml Documented by: Nutritional Formula (Peptamen Intense Vhp 1.0 Klaus 1,000 Ml Bag) 1,000 ml OG UD [facility]; Protocol Stop: 03/05/21 10:29 Last Admin: 02/06/21 15:31 Dose: 1,000 ml Documented by: Ondansetron HCl (Ondansetron Inj 2 Mg/Ml 2 Ml Vial) 4 mg IV Q6H PRN PRN Reason: Nausea Stop: 02/23/21 14:56 Last Admin: 01/28/21 18:02 Dose: 4 mg Documented by: Oxycodone HCl (Oxycodone Hcl Soln 5 Mg/5 Ml Udc) 15 mg PO Q6H [facility] Stop: 02/20/21 14:59 Last Admin: 02/06/21 15:47 Dose: 15 mg Documented by: Quetiapine Fumarate (Quetiapine Fumarate 25 Mg Tablet) 50 mg PO BID [facility] Stop: 03/07/21 08:59 Last Admin: 02/06/21 08:44 Dose: 50 mg Documented by: Senna/Docusate Sodium (Docusate Sodium/Senna 50/8.6mg Tab) 1 tab PO QAM [facility] Stop: 03/07/21 09:14 Last Admin: 02/06/21 08:35 Dose: 1 tab Documented by: Sterile Water (Tube Feeding Water Flush) 250 ml GT Q4H [facility] Stop: 03/08/21 11:59 Last Admin: 02/06/21 15:45 Dose: 250 ml Documented by:
[2021-02-06 20:18] LABS: BUN Creatinine Ratio 74.2 (10-20); Calcium 8.8 mg/dl (8.5-10.1); Creatinine Clr Calc Pharmacy 143.7 ml/min; Est GFR (Non-African American) 102.7 ml/min; Potassium 4.1 mmol/L (3.5-5.1)
[2021-02-07] MEDS: INSULIN ASPART 100 UNITS/ML 3 ML PEN SC SCH ×6 (00:30→20:54)
[2021-02-07] MEDS: TUBE FEEDING WATER FLUSH GT SCH ×12 (00:31→23:19)
[2021-02-07] MEDS: DEXMEDETOMIDINE HCL 200 MCG in SODIUM CHLORIDE 0.9% 48 ML IV SCH ×4 (02:09→21:11)
[2021-02-07 03:47] LABS: iSTAT Art Bld Gas pCO2 Correct 89 mmHg (35-46); iSTAT Art Bld Gas pH Corrected 7.316 (7.35-7.45); iSTAT Arterial Blood Gas HCO3 45 meg/L (19-24); iSTAT Arterial Blood Gas pCO2 88 mmHg (35-46); iSTAT Arterial Blood Gas pH 7.32 (7.35-7.45); iSTAT Arterial Blood Gas pO2 68 mmHg (80-95); iSTAT Arterial Blood Gas pO2 C 70; iSTAT Carbon Dioxide > 40 mmol/L (24-31); iSTAT FiO2 60 %; iSTAT Hematocrit 27 % (42-52); iSTAT Hemoglobin 9.2 g/dl (14.0-18.0); iSTAT Potassium 4.3 mmol/L (3.3-5.0); iSTAT Site Art Line; iSTAT Sodium 150 mmol/L (135-144)
[2021-02-07] MEDS: oxyCODONE HCL SOLN 5 MG/5 ML UDC PO SCH ×2 (04:21→09:03)
[2021-02-07] MEDS: fentaNYL citrate 2,500 MCG/250 ML BAG IV SCH ×2 (04:22→17:42)
[2021-02-07] MEDS: ENOXAPARIN INJ 40 MG/0.4 ML SYR SQ SCH ×2 (05:51→18:33)
[2021-02-07 06:28] LABS: Hematocrit (blood only) 29.5 % (42-52); Hemoglobin 7.9 g/dL (14.0-18.0); Mean Corpuscular Hemoglobin 22.3 pg (25-34); Mean Corpuscular Hgb Conc 26.8 g/dL (32-36); Mean Corpuscular Volume 83.1 fL (80-100); Mean Platelet Volume 10.4 fL (7.4-10.4); Platelet Count 262 K/uL (130-400); RDW Coefficient of Variation 19.6 % (11.5-14.5); RDW Standard Deviation 59.8 fL (36.4-46.3); Red Blood Count 3.55 M/uL (4.7-6.1); White Blood Count 7.45 K/uL (4.8-10.8)
[2021-02-07 06:43] LABS: Eosinophils # (auto) 0.04 K/uL (0-0.5); Eosinophils % (auto) 0.5 %; Immature Granulocytes # (auto) 0.03 K/uL (0.00-0.02); Immature Granulocytes % (auto) 0.4 %; Lymphocytes # (auto) 0.36 K/uL (1.2-3.4); Lymphocytes % (auto) 4.8 %; Monocytes # (auto) 0.37 K/uL (0.11-0.59); Neutrophils # (auto) 6.65 K/uL (1.4-6.5); Neutrophils % (auto) 89.3 %; RBC Morphology Unremarkable
[2021-02-07 06:47] LABS: Albumin Level 1.7 gm/dl (3.4-5.0); BUN Creatinine Ratio 113.7 (10-20); Calcium 9.6 mg/dl (8.5-10.1); Creatinine Clr Calc Pharmacy 215.1 ml/min; Est GFR (African American) 140.3 ml/min; Magnesium 2.6 mg/dl (1.8-2.4); Potassium 4.3 mmol/L (3.5-5.1)
[2021-02-07 06:50] LABS: Albumin Globulin Ratio 0.4 (0.9-2); Bilirubin,Total 0.5 mg/dl (0.2-1); Globulin 4.2 gm/dl (2.5-4.0); Phosphorus 2.5 mg/dl (2.5-4.9); Total Protein 5.9 gm/dl (6.4-8.2)
[2021-02-07] MEDS: MIDAZOLAM BOLUS FROM BAG IV PRN ×2 (07:15→08:05)
[2021-02-07] MEDS ORDERED: STAT IV Infusion **Titration per Protocol STA (07:35)
[2021-02-07] MEDS ORDERED: niCARdipine 25 MG in SODIUM CHLORIDE 0.9% 240 ML IV SCH (07:45)
[2021-02-07] MEDS: PEPTAMEN INTENSE VHP 1.0 CAL 1,000 ML BAG OG SCH (08:04)
[2021-02-07] MEDS: busPIRone 5 MG TAB PO SCH ×2 (08:51→20:28)
[2021-02-07] MEDS: DOCUSATE SODIUM/SENNA 50/8.6MG TAB PO SCH (08:54)
[2021-02-07] MEDS: FUROSEMIDE 40 MG/4 ML VIAL IV SCH (08:55)
[2021-02-07] MEDS: LACTULOSE SYRUP 30 GM/45 ML UDP PO SCH (08:56)
[2021-02-07] MEDS: LEVOTHYROXINE SODIUM 125 MCG TABLET PO SCH (08:56)
[2021-02-07] MEDS: MULTI VIT W/MINERALS LIQUID 15 ML UDP NG SCH (08:57)
[2021-02-07] MEDS: QUEtiapine FUMARATE 25 MG TABLET PO SCH ×2 (08:58→20:28)
--- NOTE | 2021-02-07 08:58 | XRay Report ---
XR chest 1V portable CLINICAL HISTORY: resp failure. Follow-up interstitial and alveolar opacities, left pleural effusio n and left basilar atelectasis COMPARISON STUDY: 02/06/2021 TECHNIQUE: 1 view of the chest FINDINGS: Single frontal view of the chest demonstrates the cardiomediastinal silhouette to be within normal li mits. Tubes and catheters are unchanged. Compared to previous examination, diffuse interstitial and p atchy alveolar opacities are again seen which have increased the left lung base. There is again evide nce for left pleural effusion and left basilar atelectasis. However, early infiltrate at the left lucio g base cannot be excluded. There is no right pleural effusion. There is no evidence for vascular silva estion. There is no acute osseous pathology. IMPRESSION: Compared to the previous examination, there is worsening interstitial and alveolar opacit ies at the left lung base and the presence of a confluent alveolar infiltrate cannot be excluded. The re is again left pleural effusion and left basilar atelectasis. ACT 112: Negative or not required by law. Electronically signed by: Derrick Devries M.D. 02/07/2021 8:57 AM
[2021-02-07] MEDS: clonazePAM 1 MG TAB PO SCH ×2 (09:03→20:30)
[2021-02-07] MEDS: PANTOprazole 40 MG in SYRINGE 0 ML IV SCH ×2 (09:05→23:19)
[2021-02-07] MEDS: dexAMETHasone 10 MG in SYRINGE 0 ML IV SCH (09:05)
--- NOTE | 2021-02-07 11:34 | Critical Care Progress Note ---
Date of Service February 07, 2021 Assessment & Plan (1) Acute respiratory failure with hypoxia: (2) Pneumonia due to COVID-19 virus: (3) Obesity: (4) Anemia: (5) Chronic respiratory acidosis: Plan: Impression: 55-year-old male unvaccinated for Covid who was admitted 01/24/2021 with hypoxemic respiratory failure and pulmonary infiltrates. He was initially trialed on BiPAP but failed and was intubated 01/28/2021 Recommendations: 1. Neurologic: Propofol weaned off. We will attempt to wean the Versed and fentanyl off. Continue Precedex. CT head ordered to evaluate for bleed given ongoing hypertension and encephalopathy. Most likely encephalopathy is multifactorial related to hyponatremia, uremia, hypoxemia and medications. 2. Cardiovascular: Labile blood pressures this morning with hypotension. He has periods of severe labile blood pressures likely related to autonomic dysfunction from COVID-19. We are going to wean sedation. Nicardipine can be used as needed for systolic blood pressure over 160. 3. 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 CT angiogram 02/04 with no evidence of PE, but diffuse pulmonary infiltrates. Day #10 mechanical ventilation. Continue lung protective ventilation strategy. We will need to consider tracheostomy in the next couple days if unable to liberate from the ventilator. ABG today with evidence of acute hypercapnic respiratory failure and compensatory metabolic alkalosis. PaO2 68. 4. GI: Advancing tube feeds as tolerated PPI in place. Continue bowel protocol. Hypertriglyceridemia likely related to propofol infusion. Propofol discontinued. We will check triglyceride level today. 5. Renal: Hypernatremia improved. Continue water flushes to 250 mL every 2 hours. Will decrease Lasix to 40 mg daily. Renal function stable. BUN elevated likely related to steroids and possibly some intravascular depletion. 6. ID: Completed 5 days of doxycycline. Blood cultures and respiratory culture are now with staph species but PCR negative for staph aureus and corynebacterium. Unusual pulmonary pathogens. Procalcitonin has been negative. Continue Rocephin for 7 days total.. Surveillance cultures including respiratory cultures were negative. 7. Heme-onc: Mild anemia without evidence of severe acute blood loss. There is some oozing noted around the subclavian line site. Continue Lovenox for DVT prophylaxis. 8. Endocrine: Glycemic control per protocol. Continue Synthroid. We will check a TSH. CRITICAL CARE TIME - I have personally spent 49 minutes of critical care time in the direct management of this patient. This is a life/limb threatening event. This includes time spent evaluating patient, direct bedside care, chart review, placing orders, interpretation of diagnostic studies, discussion with consultants, patient, and family members, as well as other required patient management activities. This time is exclusive of all separately billable procedures, and teaching time and separate from and in addition to any other critical care service time. Admission and Anticipated Discharge Date Admission Date: January 24, 2021 Subjective Patient seen and examined this morning. Continues to be heavily sedated on Versed and fentanyl. Continues to require 60% FiO2 and a PEEP of 14. His blood pressures remain very labile. Review of Systems Review of Systems: Unobtainable due to cognitive status and Unobtainable due to endotracheal tube Physical Exam Physical Exam: Constitutional: Mild distress while intubated. Eyes: Pupils are pinpoint, but reactive to light. Ears nose, mouth and throat: ET tube in place. Neck: Trachea is midline. Visual inspection is normal. Respiratory: Coarse lung sounds on the ventilator. Synchronous with the vent. Cardiovascular: Regular rate and rhythm. No murmurs. No edema. Gastrointestinal: Normal bowel sounds, soft, nontender and nondistended. No hepatosplenomegaly noted. Musculoskeletal: All extremities intact. Skin: No rashes, warm dry and intact. Neurologic: Nonresponsive to commands. Psychiatric: Difficult to assess due to intubation status and sedation status. Results & Data Results & Data ([facility]) Vital Signs (Past 12 Hours) Vital Signs Temp Pulse Resp BP Pulse Ox 02/07/21 11:00 38.0 C H 103 H 30 H 105/52 L 90 02/07/21 10:45 38.0 C H 105 H 30 H 89 L 02/07/21 10:30 38.0 C H 107 H 30 H 99/48 L 88 L 02/07/21 10:19 109 H 30 H 87 L 02/07/21 10:15 37.9 C H 108 H 30 H 87 L 02/07/21 10:00 37.8 C H 105 H 30 H 02/07/21 09:45 37.8 C H 108 H 23 85 L 02/07/21 09:30 37.7 C H 106 H 22 87 L 02/07/21 09:15 37.6 C H 110 H 24 90 02/07/21 09:00 37.5 C 107 H 32 H 88 L 02/07/21 08:45 37.5 C 104 H 32 H 90 02/07/21 08:30 37.4 C 98 H 32 H 89 L 02/07/21 08:15 37.3 C 93 H 32 H 88 L 02/07/21 08:00 37.2 C 103 H 32 H 185/99 H 89 L 02/07/21 07:55 106 H 33 H 88 L 02/07/21 07:45 37.2 C 96 H 32 H 89 L 02/07/21 07:30 37.1 C 93 H 32 H 91 02/07/21 07:15 37.1 C 103 H 32 H 91 02/07/21 07:00 37.1 C 99 H 32 H 185/105 H 91 02/07/21 06:45 37.0 C 93 H 32 H 90 02/07/21 06:30 37.0 C 87 32 H 90 02/07/21 06:15 36.9 C 81 32 H 91 02/07/21 06:00 36.8 C 80 32 H 91 02/07/21 05:00 36.5 C 80 32 H 151/68 H 92 02/07/21 04:00 36.5 C 79 32 H 91 02/07/21 03:25 89 32 H 90 02/07/21 03:00 90 32 H 146/69 H 89 L 02/07/21 02:00 104 H 35 H 91 02/07/21 01:00 37.5 C 107 H 32 H 143/80 H 91 02/07/21 00:00 37.7 C H 93 H 32 H 143/67 H 90 Coding Level of Care Code Critical Care 1st 30-74 mins Diagnoses Acute respiratory failure with hypoxia J96.01 Pneumonia due to COVID-19 virus U07.1; J12.82 Obesity E66.9 Anemia D64.9 Chronic respiratory acidosis E87.2 Time Spent (min) 49
[2021-02-07 12:23] LABS: Thyroid Stimulating Hormone 0.63 uIu/ml (0.300-4.500)
--- NOTE | 2021-02-07 14:49 | Pharmacy Report ---
Pharmacy Glycemic Short Note 2 - Date of Service February 07, 2021 - Glycemic Short BSG Results (Last 24 hours): 02/06/21 02/06/21 02/06/21 15:02 16:14 17:19 Glucose POC Glucose POC Glucose (other) 232 H 199 H 183 H 02/06/21 02/06/21 02/06/21 18:10 19:48 19:48 Glucose 158 H POC Glucose 152 H POC Glucose (other) 180 H 02/06/21 02/06/21 02/06/21 20:59 21:52 22:51 Glucose POC Glucose 140 H 157 H 155 H POC Glucose (other) 02/07/21 02/07/21 02/07/21 00:13 02:31 03:53 Glucose POC Glucose 147 H 112 H 105 H POC Glucose (other) 02/07/21 02/07/21 02/07/21 05:05 05:42 05:45 Glucose 116 H POC Glucose 86 117 H POC Glucose (other) 02/07/21 02/07/21 08:09 12:16 Glucose POC Glucose 124 H 160 H POC Glucose (other) OUTPATIENT ANTIDIABETIC REGIMEN: * N/A * A1c = 6.7% 02/06/21 ASSESSMENT: 02/07 * A1c returned 6.7%, consistent w/ underlying insulin resistance and potentially DM * Insulin drip started yesterday due to worsening hyperglycemia following need for pressor support. BSGs did improve upon weaning of norepi, which is has been been turned off. Insulin drip was titrated off overnight. * Tube feeds continue at goal, 65cc/hr (Peptamen VHP), dexamethasone 10mg IV daily continues. * Patient had not required basal/bolus insulin prior to initiation of pressors yesterday. Will continue just Novolog correction and prandial insulin at this time due to carb provision in tube feeds while on steroid therapy. Will reassess the need for basal daily. 02/06 * Patient admitted 01/24 for COVID19 viral pna. * Current intubated, sedated in ICU. * Receiving dexamethasone 10mg IV daily, norepi initiated this AM for worsening hypotension (possibly due to antihypertensive regimen), tube feeds running at goal (Peptamen VHP @65cc/hr), receiving Ceftriaxone for superimposed MSSA pna * Given new stressors and BSGs > 220, will initiate IV insulin drip per protocol. Suspect insulin needs may decrease substantially as pressor titrated down as BSGs not elevated prior to today. Will refrain from adding long acting SQ insulin at this time for the same reason. PLAN FOR INPATIENT GLYCEMIC CONTROL: * DC IV insulin infusion * Basal insulin * none at this time * Bolus insulin * Novolog SQ Q 4 hrs * Goal range: 110-140 * Correction factor: 20mg/dL/unit * Nutritional / Prandial insulin per carb ratio of 1 unit per 8 grams CHO consumed PLAN FOR DISCHARGE: * to be determined
[2021-02-07] MEDS: INSULIN REGULAR 250 UNITS in SODIUM CHLORIDE 0.9% 247.5 ML IV SCH (16:25)
[2021-02-07] MEDS: cefTRIAXone SODIUM 2,000 MG in DEXTROSE 5% 50 ML IV SCH (16:57)
--- NOTE | 2021-02-07 18:10 | CT Scan Report ---
HEAD CT NONCONTRAST CT DOSE: 2310.64 mGycm HISTORY: acute encephalopathy. Hypertensive TECHNIQUE: Multiaxial CT images of the head were performed without the use of intravenous contrast. A utomated exposure control was utilized for this study. A dose lowering technique was utilized adheri ng to the principles of ALARA. Comparison: None. Findings: Fluid level seen throughout the paranasal sinuses with near complete opacification. There i s a right-sided nasogastric tube which is partially visualized. Near-complete opacification of the bi lateral middle ear cavities and mastoid air cells. Mild left periorbital soft tissue edema. Mild tarun on artifact. The calvarium and skull base are intact. The ventricles and sulci are within normal limi ts. There is no mass, hematoma, midline shift, or acute infarct. Impression: 1. Mild motion artifact. No definite acute intracranial abnormality. 2. Near-complete opacification of the paranasal sinuses, mastoid air cells, middle ear cavities with associated fluid levels. ACT 112: Negative or not required by law. Electronically signed by: Denzel Lopez M.D. 02/07/2021 6:09 PM
[2021-02-07] MEDS: oxyCODONE HCL IR 5 MG TAB (IMMEDIATE RELEASE) PO SCH ×2 (18:33→23:55)
--- NOTE | 2021-02-07 20:52 | Hospitalist Progress Note ---
Date of Service February 07, 2021 Assessment & Plan (1) Acute respiratory failure with hypoxia: (2) Pneumonia due to COVID-19 virus: Plan: Intubated on mechanical ventilation support Sedated with fentanyl and Versed drip Cont high dose decadron Vent management as per marketing systems manager follow Doppler bilateral lower extremities were negative for DVT, also CTA chest performed 01/28 which was negative for PE. Required intubation in the evening of 01/29/2021 Remains sedated and paralyzed on ventilator Tube feeds at trickle rate 10cc/hr. Condition has been deteriorating-CTA did not show any pulmonary embolism but it showed extensive groundglass consolidation which has been worsening compared with prior Has been requiring more oxygen and pressure to maintain saturation Condition has been deteriorating he was placed on pressure with Levophed drip to maintain his blood pressure Continue monitor closely in ICU Febrile Procalcitonin and WBC are normal Lines have been changed Blood cultures and urine culture are negative Currently on intravenous ceftriaxone Continue monitor closely Hemoglobin 7.9 today Without any evidence of blood loss Seems to be intravascular dehydration with sodium and chloride being high Continue monitor daily daily (3) Elevated liver enzymes: Plan: related to covid-19 infection, resolving. AST 85 and ALT 91 continue to monitor LFT (4) Hypertension: Plan: BP was elevated 185/105 Currently on Cardene drip being managed by marketing systems manager Continue monitor BP (5) Hypothyroidism: Plan: -Continue levothyroxine per home regimen. (6) ADHD: (7) Anxiety: Plan: Pristiq being held for now. Buspar is ongoing. (8) CATHY on CPAP: Plan: per pulm/ICU (9) DVT prophylaxis: Plan: -SQ Lovenox Feeding NGT Full code. Dispo-ICU Admission and Anticipated Discharge Date Admission Date: January 24, 2021 Subjective Patient was seen and examined for follow-up of Covid 19 Intubated sedated on mechanical vent support Continues to require 60% FiO2 and a PEEP of 14. Review of Systems Review of Systems: All systems reviewed & are unremarkable except as noted in Subjective Physical Exam Physical Exam: General-sedated with fentanyl and Versed Head- atraumatic Eyes- PERRL, EOMI, ENT-intubated Neck- supple, no JVD Lungs- +diminish BS Heart-+tachycardia r Abdomen- normal bowel sounds Neuro-heavily sedated Skin- warm & dry Results & Data Results & Data ([facility]) Vital Signs (Past 12 Hours) Vital Signs Temp Pulse Resp BP Pulse Ox 02/07/21 17:15 96 H 30 H 90 02/07/21 17:00 96 H 30 H 02/07/21 16:45 102 H 30 H 92 02/07/21 16:38 37.2 C 02/07/21 16:30 106 H 30 H 143/86 H 92 02/07/21 16:15 99 H 30 H 92 02/07/21 16:00 107 H 30 H 91 02/07/21 15:45 105 H 34 H 91 02/07/21 15:30 109 H 31 H 88 L 02/07/21 15:15 104 H 30 H 90 02/07/21 15:01 111 H 30 H 87 L 02/07/21 15:00 107 H 17 85 L 02/07/21 14:45 107 H 26 H 93 02/07/21 14:30 112 H 26 H 143/71 H 93 02/07/21 14:15 105 H 26 H 92 02/07/21 14:00 108 H 26 H 140/67 92 02/07/21 13:45 112 H 26 H 92 02/07/21 13:30 108 H 26 H 140/73 91 02/07/21 13:15 38.5 C H 106 H 93 02/07/21 13:00 38.4 C H 107 H 30 H 114/63 93 02/07/21 12:45 38.4 C H 105 H 30 H 92 02/07/21 12:30 38.3 C H 106 H 30 H 113/62 92 02/07/21 12:15 38.3 C H 106 H 30 H 91 02/07/21 12:00 38.2 C H 107 H 30 H 103/53 L 91 02/07/21 11:45 38.1 C H 103 H 30 H 90 02/07/21 11:30 38.1 C H 104 H 30 H 101/50 L 90 02/07/21 11:15 38.0 C H 102 H 30 H 89 L 02/07/21 11:00 38.0 C H 103 H 30 H 105/52 L 90 02/07/21 10:45 38.0 C H 105 H 30 H 89 L 02/07/21 10:30 38.0 C H 107 H 30 H 99/48 L 88 L 02/07/21 10:19 109 H 30 H 87 L 02/07/21 10:15 37.9 C H 108 H 30 H 87 L 02/07/21 10:00 37.8 C H 105 H 30 H 02/07/21 09:45 37.8 C H 108 H 23 85 L 02/07/21 09:30 37.7 C H 106 H 22 87 L 02/07/21 09:15 37.6 C H 110 H 24 90 02/07/21 09:00 37.5 C 107 H 32 H 88 L 02/07/21 08:45 37.5 C 104 H 32 H 90
[2021-02-07] MEDS: MIDAZOLAM HCL 125 MG/250 ML BAG IV SCH (20:59)
[2021-02-07] MEDS ORDERED: PIPERACILL/TAZOBAC CONSULT ACTIVE PRN (23:27)
[2021-02-07] MEDS ORDERED: PIPERACILLIN/TAZOBACTAM 4.5 GM in DEXTROSE 5% 100 ML IV ONE (23:45)
[2021-02-08] MEDS: INSULIN ASPART 100 UNITS/ML 3 ML PEN SC SCH ×7 (00:23→23:55)
[2021-02-08] MEDS: TUBE FEEDING WATER FLUSH GT SCH ×12 (00:25→22:45)
[2021-02-08] MEDS: DEXMEDETOMIDINE HCL 200 MCG in SODIUM CHLORIDE 0.9% 48 ML IV SCH ×13 (03:37→19:51)
[2021-02-08 04:15] LABS: iSTAT Arterial Blood Gas HCO3 47 meg/L (19-24); iSTAT Arterial Blood Gas pCO2 95 mmHg (35-46); iSTAT Arterial Blood Gas pO2 85 mmHg (80-95); iSTAT Carbon Dioxide > 40 mmol/L (24-31); iSTAT FiO2 70 %; iSTAT Site Art Line
[2021-02-08] MEDS: ENOXAPARIN INJ 40 MG/0.4 ML SYR SQ SCH ×2 (05:05→17:02)
[2021-02-08] MEDS: PIPERACILLIN/TAZOBACTAM 4.5 GM in DEXTROSE 5% 100 ML IV SCH ×3 (05:05→19:55)
[2021-02-08] MEDS: oxyCODONE HCL IR 5 MG TAB (IMMEDIATE RELEASE) PO SCH ×4 (05:06→23:56)
[2021-02-08 05:59] LABS: Hematocrit (blood only) 28.6 % (42-52); Hemoglobin 7.5 g/dL (14.0-18.0); Mean Corpuscular Hemoglobin 22.5 pg (25-34); Mean Corpuscular Hgb Conc 26.2 g/dL (32-36); Mean Corpuscular Volume 85.6 fL (80-100); Platelet Count 295 K/uL (130-400); RDW Coefficient of Variation 19.9 % (11.5-14.5); RDW Standard Deviation 61.4 fL (36.4-46.3); Red Blood Count 3.34 M/uL (4.7-6.1); White Blood Count 8.99 K/uL (4.8-10.8)
[2021-02-08 06:45] LABS: Basophils # (auto) 0.01 K/uL (0-0.2); Basophils % (auto) 0.1 %; Eosinophils # (auto) 0.09 K/uL (0-0.5); Immature Granulocytes # (auto) 0.11 K/uL (0.00-0.02); Immature Granulocytes % (auto) 1.2 %; Lymphocytes # (auto) 0.55 K/uL (1.2-3.4); Lymphocytes % (auto) 6.1 %; Monocytes # (auto) 0.55 K/uL (0.11-0.59); Monocytes % (auto) 6.1 %; Neutrophils # (auto) 7.68 K/uL (1.4-6.5); Neutrophils % (auto) 85.5 %; RBC Morphology Unremarkable
[2021-02-08 06:53] LABS: Albumin Globulin Ratio 0.4 (0.9-2); Albumin Level 1.8 gm/dl (3.4-5.0); BUN Creatinine Ratio 98.2 (10-20); Bilirubin,Total 0.6 mg/dl (0.2-1); Calcium 9.9 mg/dl (8.5-10.1); Est GFR (African American) 131.2 ml/min; Est GFR (Non-African American) 113.2 ml/min; Globulin 4.4 gm/dl (2.5-4.0); Magnesium 2.6 mg/dl (1.8-2.4); Phosphorus 2.5 mg/dl (2.5-4.9); Potassium 4.9 mmol/L (3.5-5.1); Total Protein 6.2 gm/dl (6.4-8.2)
[2021-02-08] MEDS: NOREPINEPHRINE/D5W 8 MG/508 ML BAG IV SCH (07:32)
[2021-02-08] MEDS: QUEtiapine FUMARATE 25 MG TABLET PO SCH ×2 (07:50→19:56)
[2021-02-08] MEDS: busPIRone 5 MG TAB PO SCH ×2 (07:50→19:55)
[2021-02-08] MEDS: MULTI VIT W/MINERALS LIQUID 15 ML UDP NG SCH (07:50)
[2021-02-08] MEDS: DOCUSATE SODIUM/SENNA 50/8.6MG TAB PO SCH (07:51)
[2021-02-08] MEDS: LACTULOSE SYRUP 30 GM/45 ML UDP PO SCH (07:51)
[2021-02-08] MEDS: LEVOTHYROXINE SODIUM 125 MCG TABLET PO SCH (07:51)
[2021-02-08] MEDS: FUROSEMIDE 40 MG/4 ML VIAL IV SCH (07:51)
[2021-02-08] MEDS: ACETAMINOPHEN SUSP 160 MG/5 ML UDC PO PRN (07:52)
[2021-02-08] MEDS: clonazePAM 1 MG TAB PO SCH ×2 (08:09→19:55)
[2021-02-08] MEDS: PANTOprazole 40 MG in SYRINGE 0 ML IV SCH ×2 (08:09→19:55)
[2021-02-08] MEDS: dexAMETHasone 10 MG in SYRINGE 0 ML IV SCH (08:09)
--- NOTE | 2021-02-08 09:17 | XRay Report ---
XR chest 1V portable CLINICAL HISTORY: Respiratory failure. COMPARISON STUDY: Chest CT February 04, 2021. Chest radiograph February 07, 2021. FINDINGS: Tip of endotracheal tube is 7.2 cm above the shane. Left subclavian central line is in naomi ce. Tip of nasogastric tube is below the lower aspect of this image but at least within the body of t he stomach. Extensive bilateral airspace opacities persist. Note is again made of left basilar consol idation. Patient is mildly rotated. Cardiomediastinal silhouette is stable. There is no pneumothorax or pleural effusion. IMPRESSION: 1. Satisfactory positioning of lines and tubes. 2. No significant change in extensive bilateral airspace opacities suggestive of pneumonia. ACT 112: Negative or not required by law. Electronically signed by: Saw Jarvis M.D. 02/08/2021 9:15 AM
[2021-02-08] MEDS: PEPTAMEN INTENSE VHP 1.0 CAL 1,000 ML BAG OG SCH (11:39)
[2021-02-08 12:06] LABS: Hematocrit (blood only) 27.3 % (42-52); Hemoglobin 7.3 g/dL (14.0-18.0)
[2021-02-08 12:27] LABS: BUN Creatinine Ratio 81.4 (10-20); Calcium 9.6 mg/dl (8.5-10.1); Creatinine Clr Calc Pharmacy 166.4 ml/min; Est GFR (African American) 126.1 ml/min; Est GFR (Non-African American) 108.8 ml/min; Potassium 4.5 mmol/L (3.5-5.1)
[2021-02-08] MEDS: fentaNYL citrate 2,500 MCG/250 ML BAG IV SCH (12:45)
--- NOTE | 2021-02-08 14:23 | Electrocardiogram Report ---
Test Reason : Blood Pressure : / mmHG Vent. Rate : 084 BPM Atrial Rate : 084 BPM P-R Int : 136 ms QRS Dur : 082 ms QT Int : 340 ms P-R-T Axes : 040 -03 010 degrees QTc Int : 401 ms Normal sinus rhythm When compared with ECG of 06-FEB-2021 11:19, No significant change was found Confirmed by Pieter Toscano ([id number]) on 02/08/2021 2:22:59 PM Referred By: REFERRED SELF Confirmed By:Keny Toscano
--- NOTE | 2021-02-08 14:31 | XRay Report ---
XR KUB/Abdomen 1 view CLINICAL HISTORY: Low H H, distended abd. COMPARISON STUDY: 02/02/2021 TECHNIQUE: Single view of the abdomen. FINDINGS: The bowel gas pattern is within normal limits without evidence for dilatation or obstruction. NG tube is present within the body the stomach. There is no evidence for organomegaly or gross intra-abdomin al mass. No abnormal calcifications are seen along the course of the urinary tracts bilaterally. No a cute osseous pathology. IMPRESSION: 1.No acute intra-abdominal abnormality. ACT 112: Negative or not required by law. Electronically signed by: Derrick Devries M.D. 02/08/2021 2:29 PM
--- NOTE | 2021-02-08 15:55 | XRay Report ---
XR chest 1V portable at 3:23 PM CLINICAL HISTORY: hypoxia. COMPARISON STUDY: 02/08/2021 at 6:41 AM TECHNIQUE: 1 view of the chest FINDINGS: Single frontal view of the chest demonstrates the cardiomediastinal silhouette to be within normal li mits. Tubes and catheters are again essentially unchanged. Extensive interstitial and alveolar opacit ies are again seen bilaterally and also essentially unchanged. There is no evidence for pleural effus ion. There is no evidence for vascular congestion. There is no acute osseous pathology. IMPRESSION: Compared to the earlier examination, extensive interstitial and alveolar opacities are ag ain seen bilaterally and essentially unchanged. ACT 112: Negative or not required by law. Electronically signed by: Derrick Devries M.D. 02/08/2021 3:54 PM
--- NOTE | 2021-02-08 17:40 | Critical Care Progress Note ---
Date of Service February 08, 2021 Assessment & Plan (1) Acute respiratory failure with hypoxia: (2) Pneumonia due to COVID-19 virus: (3) Obesity: (4) Anemia: (5) Chronic respiratory acidosis: Plan: Impression: 55-year-old male unvaccinated for Covid who was admitted 01/24/2021 with hypoxemic respiratory failure and pulmonary infiltrates. He was initially trialed on BiPAP but failed and was intubated 01/29/[address] Brown. He also had central line and arterial line placed at that time. He continues to do poorly and has fluctuations of high then low blood pressure. All antihypertensives held today. Patient continue on precedex, fentanyl, and midazolam. He continues to cough and disconnect ventilator circuit. Nanda now discharged and at home and would like daily updates if possible. Recommendations: 1. Neurologic: Propofol weaned off. Wean Versed and fentanyl as tolerated. Continue with Precedex for now. CT head 02/07/2021 with near complete opacification of the paranasal sinuses, mastoid air cells, middle ear cavities with associated fluid levels. No evidence of bleeding or CVA. Continues with encephalopathy which is most likely multifactorial related to hyponatremia, uremia, hypoxemia and medications. Patient started on Seroquel 50 mg p.o. twice daily. Follow QTC on EKG. QTC today was 401 ms. 2. Cardiovascular: Labile blood pressures continue with hypotension followed by hypertension. Likely related to autonomic dysfunction from COVID-19. Nicardipine can be used as needed for systolic blood pressure over 160. Significant drop in blood pressure and heart rate this afternoon. Will check repeat BMP and troponin stat. CODE STATUS now changed to DNR/DNI due to instability prolonged discussion with patient's via phone. 3. 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 CT angiogram 02/04 with no evidence of PE, but diffuse pulmonary infiltrates. Day #11 mechanical ventilation and day #16 of admission. Continue lung protective ventilation strategy. We will need to consider tracheostomy in the next couple days if unable to liberate from the ventilator. Discussed with his marring today. Does not think that he would want a tracheostomy tube unless there is a good chance that he would be able to resume previous quality of life. She will think about options and will follow up in discussion tomorrow. Continues with hypercapnic respiratory failure and compensatory metabolic alkalosis. 4. GI: Advancing tube feeds as tolerated. Continue PPI. Last bowel movement 02/06/2021. Continue bowel protocol with lactulose 30 mg p.o. daily. If no bowel movement today, increase lactulose to twice daily. Hypertriglyceridemia likely related to propofol infusion. Propofol discontinued. Repeat triglyceride level is trending downward and is currently 667. 5. Renal: Persistent hypernatremia. Continue water flushes to 250 mL every 2 hours. Check repeat BMP at 1800. Continue decreased dose of Lasix at 40 mg IV daily. Creatinine stable. BUN remains elevated but is slowly trending downward. This is likely related to steroids and possibly some intravascular depletion. Follow serial labs. 6. ID: Completed 5 days of doxycycline. Blood cultures and respiratory culture are now with staph species but PCR negative for staph aureus and corynebacter ium. Unusual pulmonary pathogens. Procalcitonin has been negative. Continue Rocephin for 7 days total.first day of ceftriaxone was 02/04/2021. Surveillance cultures including respiratory cultures were negative. 7. Heme-onc: Mild anemia without evidence of severe acute blood loss. Continue Lovenox 40 mg SQ every 12 hours for DVT prophylaxis. 8. Endocrine: Glycemic control per protocol. Continue Synthroid. We will check a TSH. CRITICAL CARE TIME - I have personally spent 40 minutes of critical care time in the direct management of this patient. This is a life/limb threatening event. This includes time spent evaluating patient, direct bedside care, chart review, placing orders, interpretation of diagnostic studies, discussion with consultants, patient, and family members, as well as other required patient management activities. This time is exclusive of all separately billable procedures, and teaching time and separate from and in addition to any other critical care service time. Patient continues to be in guarded condition. And with poor prognosis. CODE STATUS changed from full code to DNR/DNI today. Case discussed with Dr. Pérez. Please refer to his addendum for further recommendations. Admission and Anticipated Discharge Date Admission Date: January 24, 2021 Subjective Attending: Dr. Pérez Patient seen and examined in ICU in room 106. Continues to have difficulty with disconnecting circuit with cough. Patient continues to be intubated on mechanical ventilation. He is currently on Precedex, fentanyl drip, midazolam for sedation. Continues to have spikes in blood pressure. Cis atracurium has been discontinued. Patient continues on lactulose daily for bowel regimen. Last bowel movement 02/06/2021. Review of Systems Review of Systems: Unobtainable due to endotracheal tube Physical Exam Physical Exam: GENERAL : Cisatracurium discontinued. Patient with cough which results in circuit disconnect. EYES: No icterus, gaze conjugate. No spontaneous movement of eyes secondary to sedation. NOSE: No evidence of epistaxis MOUTH: No lesions or candidiasis NECK: Supple LUNGS: Some crackles at the bases. No bronchospasm. HEART: Regular, rate in the 90s. ABDOMEN: Soft, NT, ND, BS Present EXTREMITIES: No LE edema, pedal pulses intact NEURO: Patient continues to be sedated with Precedex, fentanyl, midazolam. Neuromuscular blockade discontinued. Results & Data Results & Data ([facility]) Vital Signs (Past 12 Hours) Vital Signs Temp Pulse Resp BP Pulse Ox 02/08/21 16:05 90 89 L 02/08/21 14:50 99 H 32 H 89 L 02/08/21 11:20 81 32 H 93 02/08/21 11:01 37.8 C H 02/08/21 10:00 90 25 H 130/60 93 02/08/21 09:30 38 C H 02/08/21 09:00 91 H 32 H 129/60 93 02/08/21 08:00 84 32 H 151/76 H 93 02/08/21 07:36 81 33 H 89 L 02/08/21 07:00 113 H 26 H 137/57 L 60 L 02/08/21 06:00 94 H 35 H 141/60 H 94 Laboratory Results 02/08/21 11:49 02/08/21 11:49 01/27/21 01/29/21 01/29/21 19:31 00:50 17:06 POC pCO2 60 H POC pO2 69 L ABG pH 7.44 7.46 H ABG pCO2 47 H 46 ABG pO2 106 H 58 L ABG HCO3 31 H 32 H ABG O2 Saturation 97.9 H 89.5 L ABG Base Excess 6.4 H 7.0 H 01/30/21 01/30/21 01/31/21 04:55 23:24 04:32 POC pCO2 57 H 73 H 75 H POC pO2 69 L 86 69 L ABG pH ABG pCO2 ABG pO2 ABG HCO3 ABG O2 Saturation ABG Base Excess 02/01/21 02/01/21 02/02/21 00:07 05:00 04:11 POC pCO2 59 H 56 H 63 H POC pO2 117 H 73 L 79 L ABG pH ABG pCO2 ABG pO2 ABG HCO3 ABG O2 Saturation ABG Base Excess 02/03/21 02/04/21 02/04/21 04:09 04:01 12:09 POC pCO2 71 H 69 H 84 H POC pO2 67 L 80 94 ABG pH ABG pCO2 ABG pO2 ABG HCO3 ABG O2 Saturation ABG Base Excess 02/05/21 02/06/21 02/07/21 03:36 04:10 03:30 POC pCO2 79 H 80 H 88 H POC pO2 71 L 66 L 68 L ABG pH ABG pCO2 ABG pO2 ABG HCO3 ABG O2 Saturation ABG Base Excess 02/08/21 04:00 POC pCO2 95 H POC pO2 85 ABG pH ABG pCO2 ABG pO2 ABG HCO3 ABG O2 Saturation ABG Base Excess Diagnostic Findings Chest X-Ray 02/08/21 09:00 XR chest 1V portable CLINICAL HISTORY: Respiratory failure. COMPARISON STUDY: Chest CT February 04, 2021. Chest radiograph February 07, 2021. FINDINGS: Tip of endotracheal tube is 7.2 cm above the shane. Left subclavian central line is in place. Tip of nasogastric tube is below the lower aspect of this image but at least within the body of the stomach. Extensive bilateral airspace opacities persist. Note is again made of left basilar consolidation. Patient is mildly rotated. Cardiomediastinal silhouette is stable. There is no pneumothorax or pleural effusion. IMPRESSION: 1. Satisfactory positioning of lines and tubes. 2. No significant change in extensive bilateral airspace opacities suggestive of pneumonia. ACT 112: Negative or not required by law. Electronically signed by: Saw Jarvis M.D. 02/08/2021 9:15 AM KUB X-Ray 02/08/21 13:20 XR KUB/Abdomen 1 view CLINICAL HISTORY: Low H H, distended abd. COMPARISON STUDY: 02/02/2021 TECHNIQUE: Single view of the abdomen. FINDINGS: The bowel gas pattern is within normal limits without evidence for dilatation or obstruction. NG tube is present within the body the stomach. There is no evidence for organomegaly or gross intra-abdominal mass. No abnormal calcifications are seen along the course of the urinary tracts bilaterally. No acute osseous pathology. IMPRESSION: 1.No acute intra-abdominal abnormality. ACT 112: Negative or not required by law. Electronically signed by: Derrick Devries M.D. 02/08/2021 2:29 PM Chest X-Ray 02/08/21 15:22 XR chest 1V portable at 3:23 PM CLINICAL HISTORY: hypoxia. COMPARISON STUDY: 02/08/2021 at 6:41 AM TECHNIQUE: 1 view of the chest FINDINGS: Single frontal view of the chest demonstrates the cardiomediastinal silhouette to be within normal limits. Tubes and catheters are again essentially unchanged. Extensive interstitial and alveolar opacities are again seen bilaterally and also essentially unchanged. There is no evidence for pleural effusion. There is no evidence for vascular congestion. There is no acute osseous pathology. IMPRESSION: Compared to the earlier examination, extensive interstitial and alveolar opacities are again seen bilaterally and essentially unchanged. ACT 112: Negative or not required by law. Electronically signed by: Derrick Devries M.D. 02/08/2021 3:54 PM Coding Level of Care Code Critical Care 1st 30-74 mins Diagnoses Acute respiratory failure with hypoxia J96.01 Pneumonia due to COVID-19 virus U07.1; J12.82 Obesity E66.9 Anemia D64.9 Chronic respiratory acidosis E87.2 Time Spent (min) 40
--- NOTE | 2021-02-08 18:41 | Hospitalist Progress Note ---
Date of Service February 08, 2021 Assessment & Plan (1) Acute respiratory failure with hypoxia: (2) Pneumonia due to COVID-19 virus: Plan: Acute respiratory failure with hypoxia COVID-19 pneumonia ARDS --CT Chest:Extensive groundglass consolidation throughout both lungs has increased as compared to 01/28/2021, as has dense bibasilar airspace consolidation. This is typical for multifocal pneumonia and radiographic follow- up to resolution is recommended. Correlate clinically for evidence of superimposed fluid overload or ARDS. Trace pleural effusions. --Intubated on 01/29/21 Vent management per critical care ? Need for tracheostomy Completed dexamethasone course On Zosyn Also on Lasix 40 mg IV daily Appreciate critical care input Continue tube feeds On Lovenox for DVT prophylaxis Metabolic encephalopathy Likely multifactorial secondary to hyponatremia (on presentation), uremia, hypoxia Monitor Blood cultures and urine culture are negative continue empiric antibiotics Anemia No obvious source of bleeding Started on PPI twice daily Monitor CBC Hemoglobin 7.3 today Hypernatremia Metabolic alkalosis Hyperchloremia Started on Diamox Consider nephrology evaluation if needed (3) Elevated liver enzymes: Plan: Related to covid-19 infection continue to monitor LFT (4) Hypertension: Plan: on Cardene drip Labetalol PRN (5) Hypothyroidism: Plan: -Continue levothyroxine (6) ADHD: (7) Anxiety: Plan: Pristiq on hold On Buspar (8) CATHY on CPAP: Plan: Currently Intubated (9) DVT prophylaxis: Plan: SQ Lovenox Code Status Full code Admission and Anticipated Discharge Date Admission Date: January 24, 2021 Subjective Patient is seen and examined at bedside Currently sedated and intubated Discussed with critical care today on Tube feeds On Precedex, fentanyl, midazolam drip Review of Systems Review of Systems: Unobtainable due to endotracheal tube Physical Exam Physical Exam: Physical Exam: Vitals signs as noted above General Appearance:Moderately built and nourished, Intubated Head: normocephalic, Atraumatic Eyes: normal inspection Neck: supple, Trachea midline Respiratory/Chest: Decreased breath sounds, Basal Crackles Cardiovascular: S1, S2, No murmur Abdomen/GI:Soft, Non tender, Bowel sounds present Extremities/Musculoskeletal:normal inspection, no edema Neurologic/Psych:Sedated and Intubated Skin: normal color, warm Results & Data Results & Data ([facility]) Vital Signs (Past 12 Hours) Vital Signs Temp Pulse Resp BP Pulse Ox 02/08/21 18:00 68 32 H 95/49 L 94 02/08/21 17:00 87 32 H 150/86 H 96 02/08/21 16:05 90 89 L 02/08/21 16:00 89 33 H 88 L 02/08/21 15:00 96 H 33 H 147/84 H 87 L 02/08/21 14:50 99 H 32 H 89 L 02/08/21 14:00 73 32 H 92 02/08/21 13:00 83 32 H 90 02/08/21 12:00 84 32 H 170/89 H 94 02/08/21 11:20 81 32 H 93 02/08/21 11:01 37.8 C H 02/08/21 11:00 84 32 H 140/66 93 02/08/21 10:00 90 25 H 130/60 93 02/08/21 09:30 38 C H 02/08/21 09:00 91 H 32 H 129/60 93 02/08/21 08:00 84 32 H 151/76 H 93 02/08/21 07:36 81 33 H 89 L 02/08/21 07:00 113 H 26 H 137/57 L 60 L Laboratory Results Short CBC 02/08/21 02/08/21 Range/Units 05:04 11:49 WBC 8.99 (4.8-10.8) K/uL Hgb 7.5 L 7.3 L (14.0-18.0) g/dL Hct 28.6 L 27.3 L (42-52) % Plt Count 295 (130-400) K/uL BMP 02/08/21 02/08/21 05:04 11:49 Sodium 149 H 150 H Potassium 4.9 4.5 Chloride 109 H 109 H Carbon Dioxide 43 H* 45 H* BUN 59 H 53 H Creatinine 0.60 0.66 Glucose 113 H 169 H Calcium 9.9 9.6 Cardiac Enzymes 02/08/21 Range/Units 05:04 Total Creatine Kinase 507 H (39-308) U/L Liver Function 02/08/21 Range/Units 05:04 Total Bilirubin 0.6 (0.2-1) mg/dl AST 100 H (15-37) U/L ALT 115 H (12-78) U/L Alkaline Phosphatase 91 (45-117) U/L Albumin 1.8 L (3.4-5.0) gm/dl
[2021-02-08] MEDS: MIDAZOLAM BOLUS FROM BAG IV PRN (19:13)
[2021-02-08 19:16] LABS: BUN Creatinine Ratio 93.8 (10-20); Calcium 9.2 mg/dl (8.5-10.1); Creatinine Clr Calc Pharmacy 189.3 ml/min; Est GFR (Non-African American) 114.8 ml/min; Potassium 4.3 mmol/L (3.5-5.1); Troponin I 0.034 ng/ml (0-0.045)
[2021-02-08] MEDS: acetaZOLAMIDE 250 MG in DEXTROSE 5% 100 ML IV SCH (19:53)
[2021-02-08] MEDS: MIDAZOLAM HCL 125 MG/250 ML BAG IV SCH (23:54)
[2021-02-09] MEDS ORDERED: STAT IV Infusion **Titration per Protocol STA (00:25)
[2021-02-09] MEDS: TUBE FEEDING WATER FLUSH GT SCH ×13 (00:28→23:51)
[2021-02-09] MEDS ORDERED: DEXMEDETOMIDINE HCL 200 MCG in SODIUM CHLORIDE 0.9% 48 ML IV SCH (00:30)
[2021-02-09] MEDS: DEXMEDETOMIDINE HCL 400 MCG in 0.9 % SODIUM CHLORIDE 96 ML IV SCH ×4 (02:06→22:24)
[2021-02-09] MEDS: PEPTAMEN INTENSE VHP 1.0 CAL 1,000 ML BAG OG SCH (03:56)
[2021-02-09 03:59] LABS: iSTAT Art Bld Gas pCO2 Correct 87 mmHg (35-46); iSTAT Art Bld Gas pH Corrected 7.335 (7.35-7.45); iSTAT Arterial Blood Gas HCO3 46 meg/L (19-24); iSTAT Arterial Blood Gas pCO2 87 mmHg (35-46); iSTAT Arterial Blood Gas pH 7.33 (7.35-7.45); iSTAT Arterial Blood Gas pO2 84 mmHg (80-95); iSTAT Arterial Blood Gas pO2 C 83; iSTAT Carbon Dioxide > 40 mmol/L (24-31); iSTAT FiO2 80 %; iSTAT Hematocrit 22 % (42-52); iSTAT Hemoglobin 7.5 g/dl (14.0-18.0); iSTAT Potassium 4.1 mmol/L (3.3-5.0); iSTAT Site Art Line; iSTAT Sodium 149 mmol/L (135-144)
[2021-02-09] MEDS: INSULIN ASPART 100 UNITS/ML 3 ML PEN SC SCH ×6 (04:00→23:42)
[2021-02-09 05:02] LABS: Hematocrit (blood only) 24.5 % (42-52); Hemoglobin 6.6 g/dL (14.0-18.0); Mean Corpuscular Hemoglobin 22.8 pg (25-34); Mean Corpuscular Hgb Conc 26.9 g/dL (32-36); Mean Corpuscular Volume 84.5 fL (80-100); Mean Platelet Volume 11.2 fL (7.4-10.4); Nucleated RBC # (auto) 0.03 K/uL (0-0); Nucleated RBC % (auto) 0.5 %; Platelet Count 255 K/uL (130-400); RDW Coefficient of Variation 19.8 % (11.5-14.5); RDW Standard Deviation 59.8 fL (36.4-46.3); White Blood Count 7.13 K/uL (4.8-10.8)
[2021-02-09] MEDS: PIPERACILLIN/TAZOBACTAM 4.5 GM in DEXTROSE 5% 100 ML IV SCH ×3 (05:16→21:13)
[2021-02-09] MEDS: oxyCODONE HCL IR 5 MG TAB (IMMEDIATE RELEASE) PO SCH ×4 (05:18→23:43)
[2021-02-09] MEDS: ENOXAPARIN INJ 40 MG/0.4 ML SYR SQ SCH (05:19)
[2021-02-09 05:22] LABS: Albumin Level 1.7 gm/dl (3.4-5.0); BUN Creatinine Ratio 105.1 (10-20); Bilirubin Direct 0.2 mg/dl (0-0.2); Bilirubin,Total 0.4 mg/dl (0.2-1); Calcium 9.3 mg/dl (8.5-10.1); Creatinine Clr Calc Pharmacy 215.3 ml/min; Est GFR (African American) 140.3 ml/min; Magnesium 2.5 mg/dl (1.8-2.4); Phosphorus 2.3 mg/dl (2.5-4.9); Total Protein 5.7 gm/dl (6.4-8.2)
--- NOTE | 2021-02-09 05:25 | Communication Note ---
Date of Service: February 09, 2021 AM labs noted to be trending downwards for the last few days. This morning, H&H noted to be 6.6/24.5. Unfortunately at this point, I do feel that this drop necessitates transfusion of PRBCs. Will need to reach out to patient's for blood consent as none has been obtained to this point. 0520: Spoke with patient's , Nanda ([phone]). She verbally consents to blood transfusion. This was confirmed by nursing staff over the phone as well. Paperwork completed. Orders placed for 1 U PRBCs. I have personally spent 35 minutes of critical care time in the direct management of this patient. This is a life/limb threatening event. This includes time spent evaluating patient, direct bedside care, chart review, placing orders, interpretation of diagnostic studies, discussion with consultants, patient, and family members, as well as other required patient management activities. This time is exclusive of all separately billable procedures, and teaching time and separate from and in addition to any other critical care service time. Coding Level of Care Code Critical Care 1st 30-74 mins Time Spent (min) 35
[2021-02-09 05:33] LABS: Basophils # (auto) 0.01 K/uL (0-0.2); Basophils % (auto) 0.1 %; Eosinophils # (auto) 0.11 K/uL (0-0.5); Eosinophils % (auto) 1.5 %; Hypochromasia Present; Immature Granulocytes # (auto) 0.11 K/uL (0.00-0.02); Immature Granulocytes % (auto) 1.5 %; Lymphocytes # (auto) 0.49 K/uL (1.2-3.4); Lymphocytes % (auto) 6.9 %; Monocytes % (auto) 4.2 %; Neutrophils # (auto) 6.11 K/uL (1.4-6.5); Neutrophils % (auto) 85.8 %; Stomatocytes 1+
[2021-02-09] MEDS ORDERED: SODIUM CHLORIDE 0.9% 250 ML IV PRN (05:38)
[2021-02-09] MEDS: PANTOprazole 40 MG in SYRINGE 0 ML IV SCH ×2 (08:20→21:13)
[2021-02-09] MEDS: acetaZOLAMIDE 250 MG in DEXTROSE 5% 100 ML IV SCH ×2 (08:21→21:14)
[2021-02-09] MEDS: DOCUSATE SODIUM/SENNA 50/8.6MG TAB PO SCH (08:21)
[2021-02-09] MEDS: FUROSEMIDE 40 MG/4 ML VIAL IV SCH (08:22)
[2021-02-09] MEDS: MULTI VIT W/MINERALS LIQUID 15 ML UDP NG SCH (08:22)
[2021-02-09] MEDS: LEVOTHYROXINE SODIUM 125 MCG TABLET PO SCH (08:22)
--- NOTE | 2021-02-09 08:22 | Critical Care Progress Note ---
Date of Service February 09, 2021 Assessment & Plan (1) Acute respiratory failure with hypoxia: (2) Pneumonia due to COVID-19 virus: (3) Obesity: (4) Anemia: (5) Chronic respiratory acidosis: Plan: Impression: 55-year-old male unvaccinated for Covid who was admitted 01/24/2021 with hypoxemic respiratory failure and pulmonary infiltrates. He was initially trialed on BiPAP but failed and was intubated 01/29/[address] Brown. He also had central line and arterial line placed at that time. He continues to do poorly and has fluctuations of high then low blood pressure. All antihypertensives held today. Patient continue on precedex, fentanyl, and midazolam. He continues to cough and disconnect ventilator circuit. Nanda now discharged and at home and would like daily updates if possible. Recommendations: 1. Neurologic: Continue to wean Versed and fentanyl as possible. Will discontinue Seroquel and BuSpar due to concerns of possible serotonin syndrome. Remains delirious. 2. Cardiovascular: Labile blood pressures continue with hypotension followed by hypertension. Likely related to autonomic dysfunction from COVID-19. Nicardipine can be used as needed for systolic blood pressure over 160. Troponin from yesterday was unremarkable. 3. 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 CT angiogram 02/04 with no evidence of PE, but diffuse pulmonary infiltrates. Day #12 mechanical ventilation. Continue lung protective ventilation strategy. We will need to consider tracheostomy in the next couple days if unable to liberate from the ventilator. Family deciding about a tracheostomy. Continues with hypercapnic respiratory failure and compensatory metabolic alkalosis. 4. GI: Advancing tube feeds as tolerated. Continue PPI twice daily Hypertriglyceridemia improving. Continue bowel regimen for constipation. We will check a CTA of the abdomen and pelvis with contrast via IV and oral contrast to evaluate for bleed. GI consult placed. 5. Renal: Persistent hypernatremia slowly improving Continue water flushes to 250 mL every 2 hours. Acetazolamide ordered due to severe metabolic alkalosis 6. ID: Completed 5 days of doxycycline. Blood cultures and respiratory culture are now with staph species but PCR negative for staph aureus and corynebacterium. Unusual pulmonary pathogens. Procalcitonin has been negative. 7 days total on Rocephin. 7. Heme-onc: Hemoglobin continues to trend down likely related to frequent lab draws. GI consult as above. CT abdomen as above to evaluate for bleed. 8. Endocrine: Glycemic control per protocol. Continue Synthroid. TSH within normal limits. Palliative care for goals of care discussion. Patient is currently DNR/DNI per discussion by SUSHILA Ojeda and 02/08/21. CRITICAL CARE TIME - I have personally spent 43 minutes of critical care time in the direct management of this patient. This is a life/limb threatening event. This includes time spent evaluating patient, direct bedside care, chart review, placing orders, interpretation of diagnostic studies, discussion with consultants, patient, and family members, as well as other required patient management activities. This time is exclusive of all separately billable procedures, and teaching time and separate from and in addition to any other critical care service time. Admission and Anticipated Discharge Date Admission Date: January 24, 2021 Subjective Patient seen and examined this morning. Continues on low doses of Versed and f entanyl. Continues to remain delirious. Saturations in the low 90s on a PEEP of 16 and 70% FiO2. Remains very hypertensive with systolic blood pressures in the 220s. Review of Systems Review of Systems: Unobtainable due to cognitive status and Unobtainable due to endotracheal tube Physical Exam Physical Exam: GENERAL : Moderate distress on the ventilator. Tachypnea. EYES: No icterus, gaze conjugate. No spontaneous movement of eyes secondary to sedation. NOSE: No evidence of epistaxis MOUTH: No lesions or candidiasis NECK: Supple LUNGS: Some crackles at the bases. No bronchospasm. HEART: Regular, rate in the 90s. ABDOMEN: Soft, NT, ND, BS Present EXTREMITIES: No LE edema, pedal pulses intact NEURO: Patient continues to be sedated with Precedex, fentanyl, midazolam. Results & Data Results & Data ([facility]) Vital Signs (Past 12 Hours) Vital Signs Temp Pulse Resp BP Pulse Ox 02/09/21 05:30 86 29 H 146/63 H 91 02/09/21 05:00 83 33 H 92 02/09/21 04:30 75 37 H 103/53 L 91 02/09/21 04:00 87 34 H 165/73 H 90 02/09/21 03:59 82 34 H 90 02/09/21 03:30 79 34 H 177/97 H 94 02/09/21 03:00 76 26 H 173/78 H 94 02/09/21 02:30 67 32 H 112/58 L 96 02/09/21 02:00 36.8 C 69 32 H 105/58 L 96 02/09/21 01:30 69 32 H 109/57 L 95 02/09/21 01:00 72 32 H 103/53 L 94 02/09/21 00:30 75 32 H 106/52 L 94 02/09/21 00:00 37.2 C 101 H 33 H 174/82 H 93 02/08/21 23:52 95 H 33 H 93 02/08/21 23:30 96 H 33 H 147/91 H 90 02/08/21 23:00 72 32 H 115/59 L 95 02/08/21 22:54 72 02/08/21 22:30 71 32 H 112/57 L 95 02/08/21 22:00 67 32 H 108/58 L 95 02/08/21 21:30 70 32 H 106/59 L 95 02/08/21 21:00 37.1 C 73 32 H 98/55 L 94 02/08/21 20:30 77 32 H 92 Coding Level of Care Code Critical Care 1st 30-74 mins Diagnoses Acute respiratory failure with hypoxia J96.01 Pneumonia due to COVID-19 virus U07.1; J12.82 Obesity E66.9 Anemia D64.9 Chronic respiratory acidosis E87.2 Time Spent (min) 43
[2021-02-09] MEDS: clonazePAM 1 MG TAB PO SCH ×2 (08:23→21:14)
[2021-02-09] MEDS: LACTULOSE SYRUP 30 GM/45 ML UDP PO SCH (08:23)
--- NOTE | 2021-02-09 08:24 | XRay Report ---
XR chest 1V portable CLINICAL HISTORY: Follow-up bilateral interstitial and alveolar opacities. COMPARISON STUDY: 02/08/2021 TECHNIQUE: 1 view of the chest FINDINGS: Single frontal view of the chest demonstrates the cardiomediastinal silhouette to be within normal li mits. Tubes and catheters appear unchanged. Compared to previous examination, there are again persist ent interstitial and alveolar opacities bilaterally. There is also evidence for left pleural effusion and left basilar atelectasis. No gross right pleural effusion. There is no evidence for vascular con gestion. There is no acute osseous pathology. IMPRESSION: Persistent interstitial and alveolar opacities bilaterally. There is also evidence for sm all left pleural effusion and left basilar atelectasis. ACT 112: Negative or not required by law. Electronically signed by: Derrick Devries M.D. 02/09/2021 8:22 AM
--- NOTE | 2021-02-09 09:04 | Gastrointestinal Consultation ---
Date of Consultation February 09, 2021 Assessment & Plan (1) Pneumonia due to COVID-19 virus: 55 year old critically ill male intubated w/ COVID-19 PNA, ARDS w/ downtrending HGB, 6.6 this AM w/o evidence of active GI bleeding. Would manage conservatively at this time. Trend HGB Transfuse PRN Document GI output Agree w/ IV PPI BID No current plan for endoscopic evaluation, please recall GI if evidence of active GI bleeding requiring endoscopic intervention. Thank you for allowing us to participate in the care of this patient. Please call with any acute changes, questions or concerns. Please see addendum below with additional recommendation from my supervising physician. (2) Anemia: Supervising Physician Co-Signing Physician Notes I have seen and examined the patient with RODERICK Youngblood whose note reflects our findings and plan. Patient with multipl comorbidities. Admittd with COVID pneumonia. noted to be anemic. H/H drifted down and BUN stable. No over s/s of GI bleeding. Would continue with conservative mgt including following H/H and IV PPI BID. No plan for endoscopic evaluation at this time. History of Present Illness Reason for Consultation: anemia Requesting Physician: Alton Attending Physician: Jabier Dang MD History of Present Illness 55 year old male with history of hypothyroidism, HTN, ADHD, anxiety admitted w/ COVID-19 pneumonia, ARDS - GI asked to evaluate given downtrending HGB. Chart reviewed. HGB 6.6. Transfusing 1 unit RBC. BUN 54 which has been chronically elevated this admission w/ normal [employer]. No overt sign of bleeding w/ documented brown stools. Allergies Allergy/AdvReac Type Severity Reaction Status Date / Time oxycodone Allergy Severe nausea/vomi Unverified 01/05/16 11:13 ting Home Medications Medication Instructions Recorded Confirmed Type amlodipine 10 mg tablet (Norvasc) 10 mg PO DAILY 01/24/21 01/24/21 History atomoxetine 100 mg capsule 100 mg PO DAILY 01/24/21 01/24/21 History cholecalciferol (vitamin D3) 50 50 mcg PO DAILY 01/24/21 01/24/21 History mcg (2,000 unit) capsule (Vitamin D3) desvenlafaxine succinate 100 mg 100 mg PO DAILY 01/24/21 01/24/21 History tablet,extended release 24 hr desvenlafaxine succinate 50 mg 50 mg PO DAILY 01/24/21 01/24/21 History tablet,extended release 24 hr (Pristiq) levothyroxine 125 mcg tablet 125 mcg PO DAILY 01/24/21 01/24/21 History omeprazole 40 mg capsule,delayed 40 mg PO BID 01/24/21 01/24/21 History release potassium 99 mg tablet 99 mg PO DAILY 01/24/21 01/24/21 History rosuvastatin 10 mg tablet 10 mg PO DAILY 01/24/21 01/24/21 History tamsulosin 0.4 mg capsule 0.4 mg PO DAILY 01/24/21 01/24/21 History triamterene 75 1 tab PO DAILY 01/24/21 01/24/21 History mg-hydrochlorothiazide 50 mg tablet (Maxzide) Patient History Medical History (Updated 02/09/21 @ 09:03 by RODERICK Norris) ADHD Anxiety GERD (gastroesophageal reflux disease) Hypertension Hypogonadism Hypothyroidism CATHY on CPAP Surgical History (Updated 01/24/21 @ 17:19 by RODERICK Cade) No pertinent past surgical history Family History Father Hypertension Suicide Mother Hypertension Stroke Social History Smoking Status: Never smoker Hx Alcohol Use: No Hx Substance Use: No Preferred Language: Hebrew Communication Ability: Effective Medical Office Asst Required: No Beliefs That Will Affect Care: None marital status: Current Living Situation: Spouse Other Information That Helps Us Care for You: Yes (cpap) Feels Safe at Home: Yes Safety Concerns: Feels Safe At This Time Assistive Devices: Oxygen - Continuous Review of Systems Review of Systems: Unobtainable due to cognitive status Physical Exam Physical Exam: Chart review. Results & Data ([facility]) Vital Signs (Past 12 Hours) Vital Signs Temp Pulse Resp BP Pulse Ox 02/09/21 08:18 102 H 33 H 88 L 02/09/21 05:30 86 29 H 146/63 H 91 02/09/21 05:00 83 33 H 92 02/09/21 04:30 75 37 H 103/53 L 91 02/09/21 04:00 87 34 H 165/73 H 90 02/09/21 03:59 82 34 H 90 02/09/21 03:30 79 34 H 177/97 H 94 02/09/21 03:00 76 26 H 173/78 H 94 02/09/21 02:30 67 32 H 112/58 L 96 02/09/21 02:00 36.8 C 69 32 H 105/58 L 96 02/09/21 01:30 69 32 H 109/57 L 95 02/09/21 01:00 72 32 H 103/53 L 94 02/09/21 00:30 75 32 H 106/52 L 94 02/09/21 00:00 37.2 C 101 H 33 H 174/82 H 93 02/08/21 23:52 95 H 33 H 93 02/08/21 23:30 96 H 33 H 147/91 H 90 02/08/21 23:00 72 32 H 115/59 L 95 02/08/21 22:54 72 02/08/21 22:30 71 32 H 112/57 L 95 02/08/21 22:00 67 32 H 108/58 L 95 02/08/21 21:30 70 32 H 106/59 L 95 02/08/21 21:00 37.1 C 73 32 H 98/55 L 94 Laboratory Results 02/09/21 02/09/21 02/09/21 Range/Units 08:16 04:30 04:30 WBC (4.8-10.8) K/uL RBC (4.7-6.1) M/uL Hgb (14.0-18.0) g/dL POC Hgb (14.0-18.0) g/dl Hct (42-52) % POC Hct (42-52) % MCV (80-100) fL MCH (25-34) pg MCHC (32-36) g/dL RDW Std Deviation (36.4-46.3) fL RDW Coeff of Minerva (11.5-14.5) % Plt Count (130-400) K/uL MPV (7.4-10.4) fL Immature Gran % (Auto) % Neut % (Auto) % Lymph % (Auto) % Crisp % (Auto) % Eos % (Auto) % Baso % (Auto) % Neut # (Auto) (1.4-6.5) K/uL Lymph # (Auto) (1.2-3.4) K/uL Crisp # (Auto) (0.11-0.59) K/uL Eos # (Auto) (0-0.5) K/uL Baso # (Auto) (0-0.2) K/uL Immature Gran # (Auto) (0.00-0.02) K/uL Absolute Nucleated RBC (0-0) K/uL Nucleated RBC % (auto) % Hypochromasia Stomatocytes Sample Site POC pH (7.35-7.45) POC pCO2 (35-46) mmHg POC pO2 (80-95) mmHg POC HCO3 (19-24) jluis/L POC Total CO2 (24-31) mmol/L POC Base Excess (-9-1.8) jluis/L ABG pH (Temp Correct) (7.35-7.45) ABG pCO2 (Temp Corrct (35-46) mmHg POC ABG pO2 at Pt Temp POC ABG O2 Sat (90-95) % Christoph Test O2 Delivery Device POC O2 Rate POC FiO2 % Tidal Volume PEEP POC Sodium (135-144) mmol/L Sodium 148 H (136-145) mmol/L POC Potassium (3.3-5.0) mmol/L Potassium 4.0 (3.5-5.1) mmol/L Chloride 108 H (98-107) mmol/L Carbon Dioxide 45 H* (21-32) mmol/L Anion Gap -5.0 L (3-11) BUN 54 H (7-18) mg/dl Creatinine 0.51 L (0.6-1.4) mg/dl Est Cr Clr Drug Dosing 215.3 ml/min Est GFR ( Amer) 140.3 ml/min Est GFR (Non-Af Amer) 121.0 ml/min BUN/Creatinine Ratio 105.1 H (10-20) Glucose 114 H (70-99) mg/dl POC Glucose 117 H (70-99) mg/dl Calcium 9.3 (8.5-10.1) mg/dl Phosphorus 2.3 L (2.5-4.9) mg/dl Magnesium 2.5 H (1.8-2.4) mg/dl Total Bilirubin 0.4 (0.2-1) mg/dl Direct Bilirubin 0.2 (0-0.2) mg/dl AST 70 H (15-37) U/L ALT 99 H (12-78) U/L Alkaline Phosphatase 88 (45-117) U/L Troponin I (0-0.045) ng/ml Total Protein 5.7 L (6.4-8.2) gm/dl Albumin 1.7 L (3.4-5.0) gm/dl Procalcitonin (0-0.5) ng/ml Blood Type Blood Type Recheck A Positive Antibody Screen Crossmatch 02/09/21 02/09/21 02/09/21 Range/Units 04:30 03:57 03:41 WBC 7.13 (4.8-10.8) K/uL RBC 2.90 L (4.7-6.1) M/uL Hgb 6.6 L* (14.0-18.0) g/dL POC Hgb 7.5 L (14.0-18.0) g/dl Hct 24.5 L (42-52) % POC Hct 22 L (42-52) % MCV 84.5 (80-100) fL MCH 22.8 L (25-34) pg MCHC 26.9 L (32-36) g/dL RDW Std Deviation 59.8 H (36.4-46.3) fL RDW Coeff of Minerva 19.8 H (11.5-14.5) % Plt Count 255 (130-400) K/uL MPV 11.2 H (7.4-10.4) fL Immature Gran % (Auto) 1.5 % Neut % (Auto) 85.8 % Lymph % (Auto) 6.9 % Crisp % (Auto) 4.2 % Eos % (Auto) 1.5 % Baso % (Auto) 0.1 % Neut # (Auto) 6.11 (1.4-6.5) K/uL Lymph # (Auto) 0.49 L (1.2-3.4) K/uL Crisp # (Auto) 0.30 (0.11-0.59) K/uL Eos # (Auto) 0.11 (0-0.5) K/uL Baso # (Auto) 0.01 (0-0.2) K/uL Immature Gran # (Auto) 0.11 H (0.00-0.02) K/uL Absolute Nucleated RBC 0.03 H (0-0) K/uL Nucleated RBC % (auto) 0.5 % Hypochromasia Present Stomatocytes 1+ Sample Site Art Line POC pH 7.33 L (7.35-7.45) POC pCO2 87 H (35-46) mmHg POC pO2 84 (80-95) mmHg POC HCO3 46 H (19-24) jluis/L POC Total CO2 > 40 H* (24-31) mmol/L POC Base Excess 21.0 H (-9-1.8) jluis/L ABG pH (Temp Correct) 7.335 L (7.35-7.45) ABG pCO2 (Temp Corrct 87 H (35-46) mmHg POC ABG pO2 at Pt Temp 83 POC ABG O2 Sat 95.0 (90-95) % Christoph Test NA O2 Delivery Device Ventilator POC O2 Rate 32 POC FiO2 80 % Tidal Volume 375 PEEP 16 POC Sodium 149 H (135-144) mmol/L Sodium (136-145) mmol/L POC Potassium 4.1 (3.3-5.0) mmol/L Potassium (3.5-5.1) mmol/L Chloride (98-107) mmol/L Carbon Dioxide (21-32) mmol/L Anion Gap (3-11) BUN (7-18) mg/dl Creatinine (0.6-1.4) mg/dl Est Cr Clr Drug Dosing ml/min Est GFR ( Amer) ml/min Est GFR (Non-Af Amer) ml/min BUN/Creatinine Ratio (10-20) Glucose (70-99) mg/dl POC Glucose 101 H (70-99) mg/dl Calcium (8.5-10.1) mg/dl Phosphorus (2.5-4.9) mg/dl Magnesium (1.8-2.4) mg/dl Total Bilirubin (0.2-1) mg/dl Direct Bilirubin (0-0.2) mg/dl AST (15-37) U/L ALT (12-78) U/L Alkaline Phosphatase (45-117) U/L Troponin I (0-0.045) ng/ml Total Protein (6.4-8.2) gm/dl Albumin (3.4-5.0) gm/dl Procalcitonin (0-0.5) ng/ml Blood Type Blood Type Recheck Antibody Screen Crossmatch 02/08/21 02/08/21 02/08/21 Range/Units 23:27 19:48 18:21 WBC (4.8-10.8) K/uL RBC (4.7-6.1) M/uL Hgb (14.0-18.0) g/dL POC Hgb (14.0-18.0) g/dl Hct (42-52) % POC Hct (42-52) % MCV (80-100) fL MCH (25-34) pg MCHC (32-36) g/dL RDW Std Deviation (36.4-46.3) fL RDW Coeff of Minerva (11.5-14.5) % Plt Count (130-400) K/uL MPV (7.4-10.4) fL Immature Gran % (Auto) % Neut % (Auto) % Lymph % (Auto) % Crisp % (Auto) % Eos % (Auto) % Baso % (Auto) % Neut # (Auto) (1.4-6.5) K/uL Lymph # (Auto) (1.2-3.4) K/uL Crisp # (Auto) (0.11-0.59) K/uL Eos # (Auto) (0-0.5) K/uL Baso # (Auto) (0-0.2) K/uL Immature Gran # (Auto) (0.00-0.02) K/uL Absolute Nucleated RBC (0-0) K/uL Nucleated RBC % (auto) % Hypochromasia Stomatocytes Sample Site POC pH (7.35-7.45) POC pCO2 (35-46) mmHg POC pO2 (80-95) mmHg POC HCO3 (19-24) jluis/L POC Total CO2 (24-31) mmol/L POC Base Excess (-9-1.8) jluis/L ABG pH (Temp Correct) (7.35-7.45) ABG pCO2 (Temp Corrct (35-46) mmHg POC ABG pO2 at Pt Temp POC ABG O2 Sat (90-95) % Christoph Test O2 Delivery Device POC O2 Rate POC FiO2 % Tidal Volume PEEP POC Sodium (135-144) mmol/L Sodium 152 H (136-145) mmol/L POC Potassium (3.3-5.0) mmol/L Potassium 4.3 (3.5-5.1) mmol/L Chloride 110 H (98-107) mmol/L Carbon Dioxide 40 H (21-32) mmol/L Anion Gap 1.0 L (3-11) BUN 55 H (7-18) mg/dl Creatinine 0.58 L (0.6-1.4) mg/dl Est Cr Clr Drug Dosing 189.3 ml/min Est GFR ( Amer) 133.0 ml/min Est GFR (Non-Af Amer) 114.8 ml/min BUN/Creatinine Ratio 93.8 H (10-20) Glucose 141 H (70-99) mg/dl POC Glucose 115 H 120 H (70-99) mg/dl Calcium 9.2 (8.5-10.1) mg/dl Phosphorus (2.5-4.9) mg/dl Magnesium (1.8-2.4) mg/dl Total Bilirubin (0.2-1) mg/dl Direct Bilirubin (0-0.2) mg/dl AST (15-37) U/L ALT (12-78) U/L Alkaline Phosphatase (45-117) U/L Troponin I 0.034 (0-0.045) ng/ml Total Protein (6.4-8.2) gm/dl Albumin (3.4-5.0) gm/dl Procalcitonin (0-0.5) ng/ml Blood Type Blood Type Recheck Antibody Screen Crossmatch 02/08/21 02/08/21 02/08/21 Range/Units 16:00 11:50 11:49 WBC (4.8-10.8) K/uL RBC (4.7-6.1) M/uL Hgb (14.0-18.0) g/dL POC Hgb (14.0-18.0) g/dl Hct (42-52) % POC Hct (42-52) % MCV (80-100) fL MCH (25-34) pg MCHC (32-36) g/dL RDW Std Deviation (36.4-46.3) fL RDW Coeff of Minerva (11.5-14.5) % Plt Count (130-400) K/uL MPV (7.4-10.4) fL Immature Gran % (Auto) % Neut % (Auto) % Lymph % (Auto) % Crisp % (Auto) % Eos % (Auto) % Baso % (Auto) % Neut # (Auto) (1.4-6.5) K/uL Lymph # (Auto) (1.2-3.4) K/uL Crisp # (Auto) (0.11-0.59) K/uL Eos # (Auto) (0-0.5) K/uL Baso # (Auto) (0-0.2) K/uL Immature Gran # (Auto) (0.00-0.02) K/uL Absolute Nucleated RBC (0-0) K/uL Nucleated RBC % (auto) % Hypochromasia Stomatocytes Sample Site POC pH (7.35-7.45) POC pCO2 (35-46) mmHg POC pO2 (80-95) mmHg POC HCO3 (19-24) jluis/L POC Total CO2 (24-31) mmol/L POC Base Excess (-9-1.8) jluis/L ABG pH (Temp Correct) (7.35-7.45) ABG pCO2 (Temp Corrct (35-46) mmHg POC ABG pO2 at Pt Temp POC ABG O2 Sat (90-95) % Christoph Test O2 Delivery Device POC O2 Rate POC FiO2 % Tidal Volume PEEP POC Sodium (135-144) mmol/L Sodium (136-145) mmol/L POC Potassium (3.3-5.0) mmol/L Potassium (3.5-5.1) mmol/L Chloride (98-107) mmol/L Carbon Dioxide (21-32) mmol/L Anion Gap (3-11) BUN (7-18) mg/dl Creatinine (0.6-1.4) mg/dl Est Cr Clr Drug Dosing ml/min Est GFR ( Amer) ml/min Est GFR (Non-Af Amer) ml/min BUN/Creatinine Ratio (10-20) Glucose (70-99) mg/dl POC Glucose 176 H 161 H (70-99) mg/dl Calcium (8.5-10.1) mg/dl Phosphorus (2.5-4.9) mg/dl Magnesium (1.8-2.4) mg/dl Total Bilirubin (0.2-1) mg/dl Direct Bilirubin (0-0.2) mg/dl AST (15-37) U/L ALT (12-78) U/L Alkaline Phosphatase (45-117) U/L Troponin I (0-0.045) ng/ml Total Protein (6.4-8.2) gm/dl Albumin (3.4-5.0) gm/dl Procalcitonin 0.40 (0-0.5) ng/ml Blood Type Blood Type Recheck Antibody Screen Crossmatch 02/08/21 02/08/21 02/06/21 Range/Units 11:49 11:49 10:21 WBC (4.8-10.8) K/uL RBC (4.7-6.1) M/uL Hgb 7.3 L (14.0-18.0) g/dL POC Hgb (14.0-18.0) g/dl Hct 27.3 L (42-52) % POC Hct (42-52) % MCV (80-100) fL MCH (25-34) pg MCHC (32-36) g/dL RDW Std Deviation (36.4-46.3) fL RDW Coeff of Minerva (11.5-14.5) % Plt Count (130-400) K/uL MPV (7.4-10.4) fL Immature Gran % (Auto) % Neut % (Auto) % Lymph % (Auto) % Crisp % (Auto) % Eos % (Auto) % Baso % (Auto) % Neut # (Auto) (1.4-6.5) K/uL Lymph # (Auto) (1.2-3.4) K/uL Crisp # (Auto) (0.11-0.59) K/uL Eos # (Auto) (0-0.5) K/uL Baso # (Auto) (0-0.2) K/uL Immature Gran # (Auto) (0.00-0.02) K/uL Absolute Nucleated RBC (0-0) K/uL Nucleated RBC % (auto) % Hypochromasia Stomatocytes Sample Site POC pH (7.35-7.45) POC pCO2 (35-46) mmHg POC pO2 (80-95) mmHg POC HCO3 (19-24) jluis/L POC Total CO2 (24-31) mmol/L POC Base Excess (-9-1.8) jluis/L ABG pH (Temp Correct) (7.35-7.45) ABG pCO2 (Temp Corrct (35-46) mmHg POC ABG pO2 at Pt Temp POC ABG O2 Sat (90-95) % Christoph Test O2 Delivery Device POC O2 Rate POC FiO2 % Tidal Volume PEEP POC Sodium (135-144) mmol/L Sodium 150 H (136-145) mmol/L POC Potassium (3.3-5.0) mmol/L Potassium 4.5 (3.5-5.1) mmol/L Chloride 109 H (98-107) mmol/L Carbon Dioxide 45 H* (21-32) mmol/L Anion Gap -4.0 L (3-11) BUN 53 H (7-18) mg/dl Creatinine 0.66 (0.6-1.4) mg/dl Est Cr Clr Drug Dosing 166.4 ml/min Est GFR ( Amer) 126.1 ml/min Est GFR (Non-Af Amer) 108.8 ml/min BUN/Creatinine Ratio 81.4 H (10-20) Glucose 169 H (70-99) mg/dl POC Glucose (70-99) mg/dl Calcium 9.6 (8.5-10.1) mg/dl Phosphorus (2.5-4.9) mg/dl Magnesium (1.8-2.4) mg/dl Total Bilirubin (0.2-1) mg/dl Direct Bilirubin (0-0.2) mg/dl AST (15-37) U/L ALT (12-78) U/L Alkaline Phosphatase (45-117) U/L Troponin I (0-0.045) ng/ml Total Protein (6.4-8.2) gm/dl Albumin (3.4-5.0) gm/dl Procalcitonin (0-0.5) ng/ml Blood Type A Positive Blood Type Recheck Antibody Screen NEGATIVE Crossmatch See Detail
[2021-02-09] MEDS: fentaNYL citrate 2,500 MCG/250 ML BAG IV SCH (09:22)
[2021-02-09 09:26] LABS: Hematocrit (blood only) 27.8 % (42-52); Hemoglobin 7.5 g/dL (14.0-18.0); Mean Corpuscular Hemoglobin 22.9 pg (25-34); Mean Corpuscular Volume 84.8 fL (80-100); Mean Platelet Volume 10.8 fL (7.4-10.4); Nucleated RBC # (auto) 0.04 K/uL (0-0); Nucleated RBC % (auto) 0.4 %; Platelet Count 345 K/uL (130-400); RDW Coefficient of Variation 19.8 % (11.5-14.5); RDW Standard Deviation 60.2 fL (36.4-46.3); Red Blood Count 3.28 M/uL (4.7-6.1); White Blood Count 10.94 K/uL (4.8-10.8)
[2021-02-09 09:35] LABS: Basophilic Stippling 1+; Basophils # (auto) 0.02 K/uL (0-0.2); Basophils % (auto) 0.2 %; Eosinophils # (auto) 0.13 K/uL (0-0.5); Eosinophils % (auto) 1.2 %; Immature Granulocytes # (auto) 0.19 K/uL (0.00-0.02); Immature Granulocytes % (auto) 1.7 %; Lymphocytes # (auto) 0.59 K/uL (1.2-3.4); Lymphocytes % (auto) 5.4 %; Monocytes # (auto) 0.46 K/uL (0.11-0.59); Monocytes % (auto) 4.2 %; Neutrophils # (auto) 9.55 K/uL (1.4-6.5); Neutrophils % (auto) 87.3 %
[2021-02-09] MEDS ORDERED: VECURONIUM BROMIDE 10 MG VIAL IV SCH (10:00)
[2021-02-09] MEDS ORDERED: OPTIRAY 320 100ml IV ONE (11:23)
--- NOTE | 2021-02-09 12:17 | CT Scan Report ---
CT abd pelvis oral and IV con CLINICAL HISTORY: Covid positive. Patient on a ventilator and unresponsive. Evaluate for possible ble ed. COMPARISON STUDY: No previous studies for comparison. CT DOSE: 1440.02 mGycm TECHNIQUE: Standard CT of the Abdomen and Pelvis was performed with IV contrast. A dose lowering nicolas hnique was utilized adhering to the principles of ALARA. Contrast Volume: Optiray 320, 94 ml. The patient received oral contrast through feeding tube. FINDINGS: There is imaging artifact present from the patient's arms being by his sides. Lung base: Extensive groundglass opacities are present at the lung bases. There is bibasilar atelecta sis/collapse, left greater than right. Abdominal cavity: There is no evidence for abdominal mass, adenopathy or ascites. There is no evidenc e for retroperitoneal hematoma. Liver: There is homogeneous attenuation of the liver parenchyma. There is no evidence for enhancing m ass lesion. Spleen: There is homogeneous attenuation of the splenic parenchyma. There is no enhancing mass lesion . Pancreas: There is homogeneous attenuation of the pancreatic parenchyma. There is no evidence for mas s lesion or peripancreatic fluid collection. Gall Bladder: The gallbladder is well distended with no evidence for intraluminal calculi, wall thick ening or pericholecystic edema. Adrenal glands: The adrenal glands are normal in size and attenuation. There is no evidence for enhan cing mass lesion. Kidneys: There is homogeneous attenuation of the renal parenchyma bilaterally. There is no evidence f or renal calculus or hydronephrosis. There is no evidence for enhancing mass. Bilateral, sharply defi jill simple renal cysts are present. No further follow-up is necessary for these benign findings. Bowel: Oral contrast is seen within the stomach and throughout the small bowel to the level of the te rminal ileum. The bowel loops are normally placed within the abdomen and pelvis without evidence for dilatation or obstruction. There is no evidence for mass lesion. There are no inflammatory changes pr esent. There is no evidence for free air. There is no evidence for an inflamed appendix. A rectal cat heter is in place. Bladder: A Valdovinos catheter is in place. However, the bladder remains distended. : There is no evidence for pelvic mass or adenopathy. There is no evidence for pelvic ascites. Vasculature: There is no evidence for aneurysmal dilatation of the abdominal aorta. Osseous structures: There is no acute osseous pathology. IMPRESSION: 1. No evidence for retroperitoneal hematoma or abnormal intra-abdominal or pelvic fluid collection. 2. Extensive groundglass opacities are present involving the lung bases along with bibasilar atelecta sis, left greater than right. 3. Valdovinos catheter within the bladder. However, the bladder remains distended. 4. No other evidence for acute intra-abdominal or pelvic abnormality. ACT 112: Negative or not required by law. Electronically signed by: Derrick Devries M.D. 02/09/2021 12:16 PM
[2021-02-09] MEDS: ALBUTEROL 0.083% NEBU SOLN 3 ML VIAL INH SCH ×2 (12:33→20:00)
[2021-02-09] MEDS: ICU ELECTROLYTE REPLACEMENT PROTOCOL SCH ×2 (12:49→17:40)
[2021-02-09] MEDS ORDERED: SODIUM PHOSPHATE 3 MMOL/1 ML INFUSION IV STA (12:50)
[2021-02-09] MEDS ORDERED: SODIUM PHOSPHATE 15 MMOL in SODIUM CHLORIDE 0.9% 250 ML IV ONE (13:30)
--- NOTE | 2021-02-09 13:59 | Pharmacy Report ---
Pharmacy Glycemic Short Note 2 - Date of Service February 09, 2021 - Glycemic Short BSG Results (Last 24 hours): 02/08/21 02/08/21 02/08/21 16:00 18:21 19:48 Glucose 141 H POC Glucose 176 H 120 H 02/08/21 02/09/21 02/09/21 23:27 03:57 04:30 Glucose 114 H POC Glucose 115 H 101 H 02/09/21 02/09/21 08:16 11:40 Glucose POC Glucose 117 H 114 H OUTPATIENT ANTIDIABETIC REGIMEN: * N/A * A1c = 6.7% 02/06/21 ASSESSMENT: 02/09 * BSGs well controlled over last 24 hrs * Dexamethasone d/c'd at this time, last dose > 24 hrs ago. Expect improved insulin sensitivity today. Will lessen Novolog doses * Basal insulin not likely needed given BSG trends on current insulin regimen 02/07 * A1c returned 6.7%, consistent w/ underlying insulin resistance and potentially DM * Insulin drip started yesterday due to worsening hyperglycemia following need for pressor support. BSGs did improve upon weaning of norepi, which is has been been turned off. Insulin drip was titrated off overnight. * Tube feeds continue at goal, 65cc/hr (Peptamen VHP), dexamethasone 10mg IV daily continues. * Patient had not required basal/bolus insulin prior to initiation of pressors yesterday. Will continue just Novolog correction and prandial insulin at this time due to carb provision in tube feeds while on steroid therapy. Will reassess the need for basal daily. 02/06 * Patient admitted 01/24 for COVID19 viral pna. * Current intubated, sedated in ICU. * Receiving dexamethasone 10mg IV daily, norepi initiated this AM for worsening hypotension (possibly due to antihypertensive regimen), tube feeds running at goal (Peptamen VHP @65cc/hr), receiving Ceftriaxone for superimposed MSSA pna * Given new stressors and BSGs > 220, will initiate IV insulin drip per protocol. Suspect insulin needs may decrease substantially as pressor titrated down as BSGs not elevated prior to today. Will refrain from adding long acting SQ insulin at this time for the same reason. PLAN FOR INPATIENT GLYCEMIC CONTROL: * DC IV insulin infusion * Basal insulin * none at this time * Bolus insulin * Novolog SQ Q 4 hrs * Goal range: 110-140 * Correction factor: 30mg/dL/unit * Nutritional / Prandial insulin per carb ratio of 1 unit per 10 grams CHO consumed PLAN FOR DISCHARGE: * to be determined
--- NOTE | 2021-02-09 14:27 | Electrocardiogram Report ---
Test Reason : Blood Pressure : / mmHG Vent. Rate : 068 BPM Atrial Rate : 068 BPM P-R Int : 134 ms QRS Dur : 082 ms QT Int : 372 ms P-R-T Axes : -06 - 010 degrees QTc Int : 395 ms Normal sinus rhythm Normal ECG When compared with ECG of 08-FEB-2021 12:56, No significant change was found Confirmed by Pieter Toscano ([id number]) on 02/09/2021 2:26:59 PM Referred By: REFERRED SELF Confirmed By:Keny Toscano
--- NOTE | 2021-02-09 17:50 | Hospitalist Progress Note ---
Date of Service February 09, 2021 Assessment & Plan (1) Acute respiratory failure with hypoxia: (2) Pneumonia due to COVID-19 virus: Plan: Acute respiratory failure with hypoxia COVID-19 pneumonia ARDS --CT Chest:Extensive groundglass consolidation throughout both lungs has increased as compared to 01/28/2021, as has dense bibasilar airspace consolidation. This is typical for multifocal pneumonia and radiographic follow- up to resolution is recommended. Correlate clinically for evidence of superimposed fluid overload or ARDS. Trace pleural effusions. --Intubated on 01/29/21 Vent management per critical care ? Need for tracheostomy Completed dexamethasone course On Zosyn On Lasix 40 mg IV daily Appreciate critical care input Continue tube feeds Lovenox for DVT prophylaxis--Held due to significant anemia On 90% FiO2 and 16 PEEP Metabolic encephalopathy Likely multifactorial secondary to hyponatremia (on presentation), uremia, hypoxia Monitor Blood cultures and urine culture are negative continue empiric antibiotics Anemia No obvious source of bleeding CT ABD showed no signs of retroperitoneal bleed or fluid collection GI on board Continue PPI twice daily Monitor CBC Hemoglobin 6.6 S/P PRBC Hypernatremia Metabolic alkalosis Hyperchloremia On Diamox Hypernatremia slowly improving Continue water flushes (3) Elevated liver enzymes: Plan: Related to covid-19 infection continue to monitor LFT (4) Hypertension: Plan: on Cardene drip Labetalol PRN (5) Hypothyroidism: Plan: -Continue levothyroxine (6) ADHD: (7) Anxiety: Plan: Pristiq on hold On Buspar (8) CATHY on CPAP: Plan: Currently Intubated (9) DVT prophylaxis: Plan: SQ Lovenox--Held Re:Anemia Code Status Full code Admission and Anticipated Discharge Date Admission Date: January 24, 2021 Subjective Patient is seen and examined at bedside Remains sedated and intubated Hb dropped to 6.6 Received PRBC on 90% FiO2 and PEEP 16 CT abd showed no evidence of retroperitoneal hematoma or fluid collection Review of Systems Review of Systems: All systems reviewed & are unremarkable except as noted in Subjective Physical Exam Physical Exam: Physical Exam: Vitals signs as noted above General Appearance:Moderately built and nourished, Intubated Head: normocephalic, Atraumatic Eyes: normal inspection Neck: supple, Trachea midline Respiratory/Chest: Decreased breath sounds, Basal Crackles Cardiovascular: S1, S2, No murmur Abdomen/GI:Soft, Non tender, Bowel sounds present Extremities/Musculoskeletal:normal inspection, no edema Neurologic/Psych:Sedated and Intubated Skin: normal color, warm Results & Data Results & Data ([facility]) Vital Signs (Past 12 Hours) Vital Signs Temp Pulse Resp BP Pulse Ox 02/09/21 17:00 93 H 33 H 92 02/09/21 16:31 37 C 77 33 H 169/68 H 92 02/09/21 16:06 89 33 H 91 02/09/21 16:00 86 36 H 169/68 H 90 02/09/21 15:00 91 H 35 H 157/110 H 91 02/09/21 14:00 97 H 32 H 178/95 H 92 02/09/21 13:48 37.5 C 93 H 32 H 94 02/09/21 13:18 37.5 C 76 32 H 117/35 L 94 02/09/21 13:03 37.6 C H 78 32 H 105/46 L 92 02/09/21 13:00 78 32 H 105/46 L 92 02/09/21 12:46 37.6 C H 79 32 H 102/46 L 91 02/09/21 12:00 102 H 37 H 160/72 H 88 L 02/09/21 11:50 101 H 34 H 88 L 02/09/21 11:33 152/71 H 91 02/09/21 10:00 102 H 32 H 157/80 H 92 02/09/21 09:00 97 H 32 H 167/73 H 84 L 02/09/21 08:18 102 H 32 H 88 L 02/09/21 08:00 90 32 H 177/82 H 89 L 02/09/21 07:00 78 26 H 155/75 H 88 L Laboratory Results Short CBC 02/09/21 02/09/21 Range/Units 04:30 08:54 WBC 7.13 10.94 H (4.8-10.8) K/uL Hgb 6.6 L* 7.5 L (14.0-18.0) g/dL Hct 24.5 L 27.8 L (42-52) % Plt Count 255 345 (130-400) K/uL BMP 02/08/21 02/09/21 18:21 04:30 Sodium 152 H 148 H Potassium 4.3 4.0 Chloride 110 H 108 H Carbon Dioxide 40 H 45 H* BUN 55 H 54 H Creatinine 0.58 L 0.51 L Glucose 141 H 114 H Calcium 9.2 9.3 Cardiac Enzymes 02/08/21 Range/Units 18:21 Troponin I 0.034 (0-0.045) ng/ml Liver Function 02/09/21 Range/Units 04:30 Total Bilirubin 0.4 (0.2-1) mg/dl Direct Bilirubin 0.2 (0-0.2) mg/dl AST 70 H (15-37) U/L ALT 99 H (12-78) U/L Alkaline Phosphatase 88 (45-117) U/L Albumin 1.7 L (3.4-5.0) gm/dl
[2021-02-09 20:45] LABS: Hematocrit (blood only) 28.7 % (42-52); Mean Corpuscular Hemoglobin 24.1 pg (25-34); Mean Corpuscular Hgb Conc 27.9 g/dL (32-36); Mean Corpuscular Volume 86.4 fL (80-100); Mean Platelet Volume 11.6 fL (7.4-10.4); Nucleated RBC # (auto) 0.04 K/uL (0-0); Nucleated RBC % (auto) 0.4 %; Platelet Count 292 K/uL (130-400); RDW Coefficient of Variation 19.7 % (11.5-14.5); RDW Standard Deviation 61.9 fL (36.4-46.3); Red Blood Count 3.32 M/uL (4.7-6.1); White Blood Count 10.18 K/uL (4.8-10.8)
[2021-02-09 21:04] LABS: Anisocytosis Present; Basophils # (auto) 0.01 K/uL (0-0.2); Basophils % (auto) 0.1 %; Eosinophils # (auto) 0.03 K/uL (0-0.5); Eosinophils % (auto) 0.3 %; Immature Granulocytes # (auto) 0.12 K/uL (0.00-0.02); Immature Granulocytes % (auto) 1.2 %; Lymphocytes # (auto) 0.46 K/uL (1.2-3.4); Lymphocytes % (auto) 4.5 %; Monocytes # (auto) 0.44 K/uL (0.11-0.59); Monocytes % (auto) 4.3 %; Neutrophils # (auto) 9.12 K/uL (1.4-6.5); Neutrophils % (auto) 89.6 %; Polychromasia 1+
[2021-02-09 21:08] LABS: Hematocrit (blood only) 28.6 % (42-52); Hemoglobin 7.9 g/dL (14.0-18.0); Mean Corpuscular Hemoglobin 23.7 pg (25-34); Mean Corpuscular Hgb Conc 27.6 g/dL (32-36); Mean Corpuscular Volume 85.9 fL (80-100); Mean Platelet Volume 11.3 fL (7.4-10.4); Nucleated RBC # (auto) 0.05 K/uL (0-0); Nucleated RBC % (auto) 0.5 %; Platelet Count 319 K/uL (130-400); RDW Coefficient of Variation 19.6 % (11.5-14.5); RDW Standard Deviation 60.3 fL (36.4-46.3); Red Blood Count 3.33 M/uL (4.7-6.1); White Blood Count 10.53 K/uL (4.8-10.8)
[2021-02-09 21:12] LABS: Anisocytosis Present; Basophils # (auto) 0.02 K/uL (0-0.2); Basophils % (auto) 0.2 %; Eosinophils # (auto) 0.09 K/uL (0-0.5); Eosinophils % (auto) 0.9 %; Immature Granulocytes # (auto) 0.14 K/uL (0.00-0.02); Immature Granulocytes % (auto) 1.3 %; Lymphocytes # (auto) 0.67 K/uL (1.2-3.4); Lymphocytes % (auto) 6.4 %; Monocytes # (auto) 0.48 K/uL (0.11-0.59); Monocytes % (auto) 4.6 %; Neutrophils # (auto) 9.13 K/uL (1.4-6.5); Neutrophils % (auto) 86.6 %; Polychromasia 1+
[2021-02-10] MEDS: ALBUTEROL 0.083% NEBU SOLN 3 ML VIAL INH SCH ×2 (01:32→08:40)
[2021-02-10] MEDS: TUBE FEEDING WATER FLUSH GT SCH ×6 (02:51→13:55)
[2021-02-10] MEDS: PEPTAMEN INTENSE VHP 1.0 CAL 1,000 ML BAG OG SCH (02:57)
[2021-02-10] MEDS: fentaNYL citrate 2,500 MCG/250 ML BAG IV SCH (02:57)
[2021-02-10] MEDS: MIDAZOLAM HCL 125 MG/250 ML BAG IV SCH ×3 (02:58→14:43)
[2021-02-10] MEDS: INSULIN ASPART 100 UNITS/ML 3 ML PEN SC SCH ×3 (03:36→12:42)
[2021-02-10] MEDS: DEXMEDETOMIDINE HCL 400 MCG in 0.9 % SODIUM CHLORIDE 96 ML IV SCH ×2 (03:36→13:30)
[2021-02-10 03:47] LABS: iSTAT Arterial Blood Gas HCO3 46 meg/L (19-24); iSTAT Arterial Blood Gas pCO2 90 mmHg (35-46); iSTAT Arterial Blood Gas pH 7.31 (7.35-7.45); iSTAT Arterial Blood Gas pO2 75 mmHg (80-95); iSTAT Carbon Dioxide > 40 mmol/L (24-31); iSTAT FiO2 100 %; iSTAT Site Art Line
[2021-02-10 04:59] LABS: Hematocrit (blood only) 28.2 % (42-52); Hemoglobin 7.8 g/dL (14.0-18.0); Mean Corpuscular Hemoglobin 23.8 pg (25-34); Mean Corpuscular Hgb Conc 27.7 g/dL (32-36); Mean Platelet Volume 11.3 fL (7.4-10.4); Nucleated RBC # (auto) 0.04 K/uL (0-0); Nucleated RBC % (auto) 0.4 %; Platelet Count 309 K/uL (130-400); RDW Coefficient of Variation 19.8 % (11.5-14.5); RDW Standard Deviation 61.3 fL (36.4-46.3); Red Blood Count 3.28 M/uL (4.7-6.1); White Blood Count 10.84 K/uL (4.8-10.8)
[2021-02-10] MEDS: oxyCODONE HCL IR 5 MG TAB (IMMEDIATE RELEASE) PO SCH ×2 (05:10→13:54)
[2021-02-10] MEDS: PIPERACILLIN/TAZOBACTAM 4.5 GM in DEXTROSE 5% 100 ML IV SCH ×2 (05:10→12:30)
[2021-02-10 05:43] LABS: Basophils # (auto) 0.02 K/uL (0-0.2); Basophils % (auto) 0.2 %; Eosinophils # (auto) 0.09 K/uL (0-0.5); Eosinophils % (auto) 0.8 %; Immature Granulocytes # (auto) 0.16 K/uL (0.00-0.02); Immature Granulocytes % (auto) 1.5 %; Lymphocytes # (auto) 0.55 K/uL (1.2-3.4); Lymphocytes % (auto) 5.1 %; Monocytes # (auto) 0.49 K/uL (0.11-0.59); Monocytes % (auto) 4.5 %; Neutrophils # (auto) 9.53 K/uL (1.4-6.5); Neutrophils % (auto) 87.9 %; Stomatocytes 1+
[2021-02-10 05:47] LABS: Albumin Level 1.8 gm/dl (3.4-5.0); Bilirubin Direct 0.2 mg/dl (0-0.2); Bilirubin,Total 0.5 mg/dl (0.2-1); Calcium 9.1 mg/dl (8.5-10.1); Creatinine Clr Calc Pharmacy 227.6 ml/min; Est GFR (African American) 143.8 ml/min; Est GFR (Non-African American) 124.1 ml/min; Magnesium 2.4 mg/dl (1.8-2.4); Potassium 3.5 mmol/L (3.5-5.1); Total Protein 6.1 gm/dl (6.4-8.2)
[2021-02-10] MEDS: ICU ELECTROLYTE REPLACEMENT PROTOCOL SCH (06:12)
[2021-02-10] MEDS: POTASSIUM CHLORIDE 20 MEQ/15 ML UDC NG SCH ×2 (06:43→09:06)
--- NOTE | 2021-02-10 07:57 | XRay Report ---
XR chest 1V portable HISTORY: Respiratory failure. COMPARISON: Chest 02/09/2021. FINDINGS: Nasogastric tube and left jugular central venous catheter are in good position. The endotra cheal tube terminates 9.5 cm from the shane. No pneumothorax. Diffuse bilateral airspace opacities p ersist. Left lower lobe/retrocardiac consolidation also persists. The heart remains mildly enlarged. IMPRESSION: 1. The endotracheal tube terminates 9.5 cm from the shane. This should be advanced by approximately 4 to 5 cm. 2. Diffuse bilateral airspace opacities consistent with a pneumonia. 3. This finding was called/faxed to the referring physician following dictation. ACT 112: Negative or not required by law. Electronically signed by: Denzel Lopez M.D. 02/10/2021 7:55 AM
[2021-02-10] MEDS: MULTI VIT W/MINERALS LIQUID 15 ML UDP NG SCH (08:24)
[2021-02-10] MEDS: LACTULOSE SYRUP 30 GM/45 ML UDP PO SCH (08:24)
[2021-02-10] MEDS: DOCUSATE SODIUM/SENNA 50/8.6MG TAB PO SCH (08:24)
[2021-02-10] MEDS: FUROSEMIDE 40 MG/4 ML VIAL IV SCH (08:25)
[2021-02-10] MEDS: LEVOTHYROXINE SODIUM 125 MCG TABLET PO SCH (08:25)
[2021-02-10] MEDS: acetaZOLAMIDE 250 MG in DEXTROSE 5% 100 ML IV SCH (08:31)
[2021-02-10] MEDS: clonazePAM 1 MG TAB PO SCH (08:31)
[2021-02-10] MEDS: PANTOprazole 40 MG in SYRINGE 0 ML IV SCH (08:33)
[2021-02-10 09:10] LABS: Hematocrit (blood only) 26.8 % (42-52); Hemoglobin 7.5 g/dL (14.0-18.0); Mean Corpuscular Volume 85.6 fL (80-100); Mean Platelet Volume 10.9 fL (7.4-10.4); Nucleated RBC # (auto) 0.06 K/uL (0-0); Nucleated RBC % (auto) 0.6 %; Platelet Count 319 K/uL (130-400); RDW Coefficient of Variation 20.1 % (11.5-14.5); RDW Standard Deviation 61.3 fL (36.4-46.3); Red Blood Count 3.13 M/uL (4.7-6.1)
[2021-02-10 09:18] LABS: Anisocytosis Present; Basophils # (auto) 0.04 K/uL (0-0.2); Basophils % (auto) 0.4 %; Eosinophils # (auto) 0.04 K/uL (0-0.5); Eosinophils % (auto) 0.4 %; Immature Granulocytes # (auto) 0.15 K/uL (0.00-0.02); Immature Granulocytes % (auto) 1.4 %; Lymphocytes # (auto) 0.58 K/uL (1.2-3.4); Lymphocytes % (auto) 5.4 %; Monocytes # (auto) 0.46 K/uL (0.11-0.59); Monocytes % (auto) 4.3 %; Neutrophils # (auto) 9.53 K/uL (1.4-6.5); Neutrophils % (auto) 88.1 %; Polychromasia 1+
--- NOTE | 2021-02-10 09:20 | XRay Report ---
XR chest 1V portable at 8:50 AM CLINICAL HISTORY: Repositioning of ET tube. COMPARISON STUDY: Portable chest from 02/10/2021 and 6:28 AM TECHNIQUE: 1 view of the chest FINDINGS: Single frontal view of the chest demonstrates the cardiomediastinal silhouette to be within normal li mits. Endotracheal tube has been repositioned and is now 5.5 cm above the shane. There is again bila teral interstitial and opacities bilaterally.There is again evidence for left lower lobe atelectasis/ collapse and left pleural effusion. There is no evidence for vascular congestion. There is no acute o sseous pathology. IMPRESSION: 1. Status post repositioning of endotracheal tube to anatomic position. 2. Bilateral interstitial and alveolar opacities are again seen bilaterally. 3. There is again left lower lobe atelectasis/collapse and left pleural effusion. ACT 112: Negative or not required by law. Electronically signed by: Derrick Devries M.D. 02/10/2021 9:18 AM
[2021-02-10] MEDS ORDERED: STAT IV Infusion **Titration per Protocol STA (10:26)
[2021-02-10 10:28] LABS: iSTAT Arterial Blood Gas HCO3 46 meg/L (19-24); iSTAT Arterial Blood Gas pCO2 101 mmHg (35-46); iSTAT Arterial Blood Gas pH 7.27 (7.35-7.45); iSTAT Arterial Blood Gas pO2 76 mmHg (80-95); iSTAT Carbon Dioxide > 40 mmol/L (24-31); iSTAT FiO2 100 %; iSTAT Site Art Line
[2021-02-10] MEDS ORDERED: CISATRACURIUM BESYLATE 40 MG in 0.9 % SODIUM CHLORIDE 80 ML IV SCH (10:30)
--- NOTE | 2021-02-10 10:45 | Critical Care Progress Note ---
Date of Service February 10, 2021 Assessment & Plan (1) Acute respiratory failure with hypoxia: (2) Pneumonia due to COVID-19 virus: (3) Obesity: (4) Anemia: (5) Chronic respiratory acidosis: (6) Goals of care, counseling/discussion: Plan: Impression: 55-year-old male unvaccinated for Covid who was admitted 01/24/2021 with hypoxemic respiratory failure and pulmonary infiltrates. He was initially trialed on BiPAP but failed and was intubated 01/29/[address] Brown. He also had central line and arterial line placed at that time. He continues to do poorly and has fluctuations of high then low blood pressure. All antihypertensives held today. Patient continue on precedex, fentanyl, and midazolam. Recommendations: 1. Neurologic: Continues to remain severely delirious and obtunded. He has remained on sedation to promote ventilator synchrony. I had a lengthy discussion with the patient's over the phone today and she understands that his illness is very severe and that he is extremely unlikely to recover. She would like to focus on comfort measures and we will place a comfort measure order set in order to ensure that he has no suffering or discomfort. 2. Cardiovascular: Labile blood pressures continue with hypotension followed by hypertension. Likely related to autonomic dysfunction from COVID-19. 3. 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 CT angiogram 02/04 with no evidence of PE, but diffuse pulmonary infiltrates. Day #13 mechanical ventilation. Family wishes to proceed with comfort measures only. We will not pursue a tracheostomy. He has had increasing oxygen demands and is currently on 100% FiO2 and a PEEP of 16. He has worsening hypercapnic respiratory failure. 4. GI: Currently on tube feeds. No clear signs of GI bleeding. GI signed off the case. 5. Renal: Hyponatremia is improved. He was on acetazolamide due to metabolic alkalosis related to diuresis. 6. ID: Completed 5 days of doxycycline. Blood cultures and respiratory culture are now with staph species but PCR negative for staph aureus and corynebacterium. Unusual pulmonary pathogens. Procalcitonin has been negative. 7 days total on Rocephin. 7. Heme-onc: Hemoglobin continues to trend down likely related to frequent lab draws. CT abdomen pelvis without obvious signs of bleeding. Received 1 unit packed RBCs yesterday. 8. Endocrine: Glycemic control per protocol. Continue Synthroid. TSH within normal limits. As noted above, had a lengthy discussion with the patient's over the phone. She would like to set up a video session to be able to see her prior to a compassionate extubation. She would like to focus on comfort measures. Will not escalate care at this time and compassionately extubate when the family is ready. CRITICAL CARE TIME - I have personally spent 52 minutes of critical care time in the direct management of this patient. This is a life/limb threatening event. This includes time spent evaluating patient, direct bedside care, chart review, placing orders, interpretation of diagnostic studies, discussion with consultants, patient, and family members, as well as other required patient management activities. This time is exclusive of all separately billable procedures, and teaching time and separate from and in addition to any other critical care service time. Admission and Anticipated Discharge Date Admission Date: January 24, 2021 Subjective He is having increasing oxygen demands and currently on 100% FiO2 and a PEEP of 16. He had a significant air leak with the ET tube and this was advanced with improvement of the air leak. He continues to require continuous sedation. Review of Systems Review of Systems: Unobtainable due to cognitive status and Unobtainable due to endotracheal tube Physical Exam Physical Exam: GENERAL : Moderate distress on the ventilator. Tachypnea. EYES: No icterus, gaze conjugate. No spontaneous movement of eyes secondary to sedation. NOSE: No evidence of epistaxis MOUTH: No lesions or candidiasis NECK: Supple LUNGS: Some crackles at the bases. No bronchospasm. HEART: Regular, rate in the 90s. ABDOMEN: Soft, NT, ND, BS Present EXTREMITIES: No LE edema, pedal pulses intact NEURO: Patient continues to be sedated with Precedex, fentanyl, midazolam. Results & Data Results & Data ([facility]) Vital Signs (Past 12 Hours) Vital Signs Temp Pulse Pulse Resp BP Pulse Ox 02/10/21 09:34 38.1 C H 02/10/21 08:59 91 H 24 91 02/10/21 08:05 91 H 24 91 02/10/21 06:00 79 32 H 134/66 93 02/10/21 05:30 82 32 H 145/59 H 90 02/10/21 05:00 36.7 C 88 32 H 167/74 H 89 L 02/10/21 04:30 85 37 H 156/76 H 89 L 02/10/21 04:00 36.9 C 85 28 H 159/77 H 89 L 02/10/21 03:30 86 34 H 153/88 H 92 02/10/21 03:00 90 32 H 153/67 H 92 02/10/21 02:30 77 32 H 91 02/10/21 02:00 82 29 H 175/74 H 88 L 02/10/21 01:38 77 90 02/10/21 01:30 73 125/60 02/10/21 01:00 67 32 H 115/60 93 02/10/21 00:30 68 32 H 110/55 L 92 02/10/21 00:00 73 32 H 110/44 L 91 02/09/21 23:30 83 37 H 174/64 H 90 02/09/21 23:11 85 33 H 92 02/09/21 23:00 80 33 H 152/74 H 91 vital signs, labs and imaging reviewed. Coding Level of Care Code Critical Care 1st 30-74 mins Diagnoses Acute respiratory failure with hypoxia J96.01 Pneumonia due to COVID-19 virus U07.1; J12.82 Obesity E66.9 Anemia D64.9 Chronic respiratory acidosis E87.2 Goals of care, counseling/discussion Z71.89 Time Spent (min) 52
--- NOTE | 2021-02-10 11:06 | Palliative Care Consultation ---
Date of Consultation February 10, 2021 Assessment & Plan (1) Palliative care encounter: This is a 55 year old male who presented to the [facility] and was diagnosed with COVID-19. He was unvaccinated and hypoxic and ultimately intubated. He unfortunately failed all SBT and despite all efforts, does not have a favored outcome while he is maximized on the ventilator and saturating 80%. Palliative Medicine was consulted to discuss overall goals of care. I talked to his Nanda on the phone who just was released from the hospital her self with COVID-19. The saw handle assembler has been discussing with her numerous times about his grave prognosis. She did change him to a DNR/DNI and over the past few days has realized he is dying. She has decided to make him comfort care and withdraw life support, including the ventilator, knowing that he will likely pass away within minutes. She wanted to say goodbye to him on the telephone, not zoom. Extubation orders placed after she called and Morphine ordered. Patient ceased to breathe within 15 minutes of extubation. (2) Pneumonia due to COVID-19 virus: (3) Hypoxia: History of Present Illness Reason for Consultation: Goals of care Requesting Physician: Dr. Pérez Attending Physician: Jabier Dang MD History of Present Illness This is a 55 year old male who presented to the [facility] and was diagnosed with COVID-19. He was unvaccinated and hypoxic and ultimately intubated. He unfortunately failed all SBT and despite all efforts, does not have a favored outcome. Palliative Medicine was consulted to discuss overall goals of care. Thanks for involving us with this patient. Allergies Allergy/AdvReac Type Severity Reaction Status Date / Time oxycodone Allergy Severe nausea/vomi Unverified 01/05/16 11:13 ting Home Medications Medication Instructions Recorded Confirmed Type amlodipine 10 mg tablet (Norvasc) 10 mg PO DAILY 01/24/21 01/24/21 History atomoxetine 100 mg capsule 100 mg PO DAILY 01/24/21 01/24/21 History cholecalciferol (vitamin D3) 50 50 mcg PO DAILY 01/24/21 01/24/21 History mcg (2,000 unit) capsule (Vitamin D3) desvenlafaxine succinate 100 mg 100 mg PO DAILY 01/24/21 01/24/21 History tablet,extended release 24 hr desvenlafaxine succinate 50 mg 50 mg PO DAILY 01/24/21 01/24/21 History tablet,extended release 24 hr (Pristiq) levothyroxine 125 mcg tablet 125 mcg PO DAILY 01/24/21 01/24/21 History omeprazole 40 mg capsule,delayed 40 mg PO BID 01/24/21 01/24/21 History release potassium 99 mg tablet 99 mg PO DAILY 01/24/21 01/24/21 History rosuvastatin 10 mg tablet 10 mg PO DAILY 01/24/21 01/24/21 History tamsulosin 0.4 mg capsule 0.4 mg PO DAILY 01/24/21 01/24/21 History triamterene 75 1 tab PO DAILY 01/24/21 01/24/21 History mg-hydrochlorothiazide 50 mg tablet (Maxzide) Patient History Medical History (Updated 02/10/21 @ 17:37 by RODERICK Ruth) ADHD Anxiety GERD (gastroesophageal reflux disease) Goals of care, counseling/discussion Hypertension Hypogonadism Hypothyroidism Hypoxia CATHY on CPAP Palliative care encounter Surgical History No pertinent past surgical history Family History Father Hypertension Suicide Mother Hypertension Stroke Social History Smoking Status: Never smoker Hx Alcohol Use: No Hx Substance Use: No Preferred Language: Hebrew Communication Ability: Effective Aquatic Scientist Required: No Beliefs That Will Affect Care: None marital status: Current Living Situation: Spouse Other Information That Helps Us Care for You: Yes (cpap) Feels Safe at Home: Yes Safety Concerns: Feels Safe At This Time Assistive Devices: Oxygen - Continuous Review of Systems Review of Systems: Unobtainable due to endotracheal tube Physical Exam Constitutional: + ill appearing and + frail appearing Skin: + pallor Neurologic: + obtunded Results & Data ([facility]) Vital Signs (Past 12 Hours) Vital Signs Temp Pulse Pulse Resp BP Pulse Ox 02/10/21 09:34 38.1 C H 02/10/21 08:59 91 H 24 91 02/10/21 08:05 91 H 24 91 02/10/21 06:00 79 32 H 134/66 93 02/10/21 05:30 82 32 H 145/59 H 90 02/10/21 05:00 36.7 C 88 32 H 167/74 H 89 L 02/10/21 04:30 85 37 H 156/76 H 89 L 02/10/21 04:00 36.9 C 85 28 H 159/77 H 89 L 02/10/21 03:30 86 34 H 153/88 H 92 02/10/21 03:00 90 32 H 153/67 H 92 02/10/21 02:30 77 32 H 91 02/10/21 02:00 82 29 H 175/74 H 88 L 02/10/21 01:38 77 90 02/10/21 01:30 73 125/60 02/10/21 01:00 67 32 H 115/60 93 02/10/21 00:30 68 32 H 110/55 L 92 02/10/21 00:00 73 32 H 110/44 L 91 02/09/21 23:30 83 37 H 174/64 H 90 02/09/21 23:11 85 33 H 92 PG Care Time/CCT Total # of Minutes Spent Total Time Spent with Patient: Total time spent is greater than 50% in coordination of care (as documented) at patient's floor/unit and/or counseling patient: 100 minutes Coding Level of Care Code 46187 Initial Inpt Care Lvl 3 Diagnoses Palliative care encounter Z51.5 Pneumonia due to COVID-19 virus U07.1; J12.82 Hypoxia R09.02 Time Spent (min) 100
[2021-02-10] MEDS ORDERED: ARTIFICIAL TEARS OP OINT 3.5 GM TUBE OP SCH (12:00)
[2021-02-10] MEDS ORDERED: MoRPHine SULFATE 2 MG/ML CARP IV PRN (15:49)
--- NOTE | 2021-02-10 17:30 | Hospitalist Progress Note ---
Date of Service February 10, 2021 Assessment & Plan (1) Acute respiratory failure with hypoxia: (2) Pneumonia due to COVID-19 virus: Plan: Acute respiratory failure with hypoxia COVID-19 pneumonia ARDS --CT Chest:Extensive groundglass consolidation throughout both lungs has increased as compared to 01/28/2021, as has dense bibasilar airspace consolidation. This is typical for multifocal pneumonia and radiographic follow- up to resolution is recommended. Correlate clinically for evidence of superimposed fluid overload or ARDS. Trace pleural effusions. --Intubated on 01/29/21 Vent management per critical care ? Need for tracheostomy Completed dexamethasone course On Zosyn On Lasix 40 mg IV daily Appreciate critical care input Continue tube feeds Lovenox for DVT prophylaxis--Held due to significant anemia On 100% FiO2 and 16 PEEP Patient is terminally extubated and placed on comfort measures as per patient's family's wishes given poor prognosis and unlikely to recover PEA and later Asystole after extubation. Patient at 1615. Metabolic encephalopathy Likely multifactorial secondary to hyponatremia (on presentation), uremia, hypoxia Monitor Blood cultures and urine culture are negative continue empiric antibiotics Anemia No obvious source of bleeding CT ABD showed no signs of retroperitoneal bleed or fluid collection GI on board Continue PPI twice daily Monitor CBC Hemoglobin 6.6 S/P PRBC Hypernatremia Metabolic alkalosis Hyperchloremia On Diamox Hypernatremia slowly improving Continue water flushes (3) Elevated liver enzymes: Plan: Related to covid-19 infection continue to monitor LFT (4) Hypertension: Plan: on Cardene drip Labetalol PRN (5) Hypothyroidism: Plan: -Continue levothyroxine (6) ADHD: (7) Anxiety: Plan: Pristiq on hold On Buspar (8) CATHY on CPAP: Plan: Currently Intubated (9) DVT prophylaxis: Plan: SQ Lovenox--Held Re:Anemia Code Status Full code Admission and Anticipated Discharge Date Admission Date: January 24, 2021 Subjective Patient is seen and examined at bedside Patient's clinical condition continues to worsen His oxygen requirement went up this morning ICU team discussed with family, palliative care Patient is terminally extubated today Review of Systems Review of Systems: Unobtainable due to endotracheal tube Physical Exam Physical Exam: Physical Exam: Vitals signs as noted above General Appearance:Moderately built and nourished, Intubated Head: normocephalic, Atraumatic Eyes: normal inspection Neck: supple, Trachea midline Respiratory/Chest: Decreased breath sounds, Basal Crackles Cardiovascular: S1, S2, No murmur Abdomen/GI:Soft, Non tender, Bowel sounds present Extremities/Musculoskeletal:normal inspection, no edema Neurologic/Psych:Sedated and Intubated Skin: normal color, warm Results & Data Results & Data ([facility]) Vital Signs (Past 12 Hours) Vital Signs Temp Pulse Pulse Resp BP Pulse Ox 02/10/21 16:00 76 28 H 85 L 02/10/21 15:00 88 30 H 89 L 02/10/21 14:40 38 C H 02/10/21 14:00 88 32 H 156/73 H 88 L 02/10/21 13:00 83 32 H 122/72 02/10/21 12:00 38.1 C H 90 31 H 160/83 H 91 02/10/21 11:38 30 H 02/10/21 11:00 99 H 31 H 146/75 H 88 L 02/10/21 10:00 98 H 29 H 142/71 H 90 02/10/21 09:34 38.1 C H 02/10/21 09:00 94 H 25 H 146/83 H 89 L 02/10/21 08:59 91 H 24 91 02/10/21 08:05 91 H 24 91 02/10/21 08:00 85 22 166/67 H 90 02/10/21 07:00 85 32 H 154/65 H 90 02/10/21 06:00 79 32 H 134/66 93 02/10/21 05:30 82 32 H 145/59 H 90 Laboratory Results Short CBC 02/09/21 02/09/21 02/10/21 Range/Units 16:17 20:29 04:17 WBC 10.18 10.53 10.84 H (4.8-10.8) K/uL Hgb 8.0 L 7.9 L 7.8 L (14.0-18.0) g/dL Hct 28.7 L 28.6 L 28.2 L (42-52) % Plt Count 292 319 309 (130-400) K/uL 02/10/21 Range/Units 08:35 WBC 10.80 (4.8-10.8) K/uL Hgb 7.5 L (14.0-18.0) g/dL Hct 26.8 L (42-52) % Plt Count 319 (130-400) K/uL BMP 02/10/21 04:17 Sodium 143 Potassium 3.5 Chloride 102 Carbon Dioxide 41 H* BUN 35 H Creatinine 0.48 L Glucose 123 H Calcium 9.1 Liver Function 02/10/21 Range/Units 04:17 Total Bilirubin 0.5 (0.2-1) mg/dl Direct Bilirubin 0.2 (0-0.2) mg/dl AST 71 H (15-37) U/L ALT 91 H (12-78) U/L Alkaline Phosphatase 109 (45-117) U/L Albumin 1.8 L (3.4-5.0) gm/dl
--- NOTE | 2021-02-10 17:32 | Discharge Summary ---
Date of Service February 10, 2021 Admission HPI Per Admitting Provider 55-year-old male with PMH hypothyroidism, HTN, ADHD, anxiety, and other problems to below who presents the ED for evaluation of generalized weakness, fatigue, fever, cough. Patient reports he has been sick for the past 5 days. Patient is not vaccinated against COVID-19. 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 Reports that he has been stationed in the [facility] with Covid positive inmates. Over the past 5 days, patient has had worsening generalized weakness, poor appetite, fatigue. Reports having fevers of as high as 104. Has been taking Tylenol 650 mg every 8 hours. Cough has been productive for clear/white sputum. Denies shortness of breath. No abdominal pain, nausea, vomiting, diarrhea. Denies lightheadedness, dizziness, diaphoresis, syncopal events. Denies urinary symptoms. In the ED, patient tested positive for COVID-19. He was hypoxic on room air at 87%, currently requiring 2 L of oxygen via nasal cannula. Labs show K+ 2.9, transaminitis with normal T bili. CXR shows biba silar airspace opacities. Patient was given Tylenol, nebulizer, IV dexamethasone 6 mg, IV ketorolac, IV Zofran, potassium replacement, IVF. Admission Exam Per Admitting Provider Physical Exam Constitutional: WD/WN, vitals as above + obese Eyes: PERRL, conjunctivae normal, anicteric sclerae ENMT: external ear and nose normal, oropharynx normal Respiratory: normal respiratory effort; no respiratory distress Auscultation: + diminished lung sounds Cardiovascular: Rate/Rhythm: regular rate and regular rhythm Vessels: normal peripheral pulses Extremities: no edema Gastrointestinal (Abdomen): normal bowel sounds, soft, nontender, no hepatosplenomegaly Musculoskeletal: no cyanosis or clubbing, extremities motor strength 5/5 Skin: no rashes, warm and dry Neurologic: PERRL, EOMI, accommodation nl, no face palsy, no dysarthria Psychiatric: A+Ox3, euthymic affect Genitourinary: no CVA tenderness Principal Diagnosis Acute respiratory failure with hypoxia COVID-19 pneumonia ARDS Hypernatremia Metabolic alkalosis Discharge Data Allergies Allergy/AdvReac Type Severity Reaction Status Date / Time oxycodone Allergy Severe nausea/vomi Unverified 01/05/16 11:13 ting Consultations 01/24/21 11:57 ED Decision to Admit Stat 01/28/21 09:14 Consult Pulmonology Routine 02/07/21 21:52 Consult Supply Chain Development Manager Routine 02/09/21 08:12 Consult Gastroenterology Routine 02/09/21 08:20 Consult Palliative Care Routine Ordered Studies 01/24/21 08:44 US renal/blad retro comp Stat 01/24/21 10:54 US liver Stat 01/28/21 10:56 US venous doppler LE BI Routine 01/28/21 18:42 CT angio chest PE protocol Stat 01/29/21 15:31 US point of care ultrasound Urgent 02/04/21 07:07 CT angio chest PE protocol Stat 02/07/21 11:37 CT head/brain wo con Urgent 02/09/21 08:11 CT abd pelvis oral and IV con Urgent Hospital Course (1) Acute respiratory failure with hypoxia: (2) Pneumonia due to COVID-19 virus: Acute respiratory failure with hypoxia COVID-19 pneumonia ARDS --CT Chest:Extensive groundglass consolidation throughout both lungs has increased as compared to 01/28/2021, as has dense bibasilar airspace consolidation. This is typical for multifocal pneumonia and radiographic follow- up to resolution is recommended. Correlate clinically for evidence of superimposed fluid overload or ARDS. Trace pleural effusions. --Intubated on 01/29/21 Vent management per critical care ? Need for tracheostomy Completed dexamethasone course On Zosyn On Lasix 40 mg IV daily Appreciate critical care input Continue tube feeds Lovenox for DVT prophylaxis--Held due to significant anemia On 100% FiO2 and 16 PEEP Patient is terminally extubated and placed on comfort measures as per patient's family's wishes given poor prognosis and unlikely to recover PEA and later Asystole after extubation. Patient at 1615. Metabolic encephalopathy Likely multifactorial secondary to hyponatremia (on presentation), uremia, hypoxia Monitor Blood cultures and urine culture are negative continue empiric antibiotics Anemia No obvious source of bleeding CT ABD showed no signs of retroperitoneal bleed or fluid collection GI on board Continue PPI twice daily Monitor CBC Hemoglobin 6.6 S/P PRBC Hypernatremia Metabolic alkalosis Hyperchloremia On Diamox Hypernatremia slowly improving Continue water flushes (3) Elevated liver enzymes: Related to covid-19 infection continue to monitor LFT (4) Hypertension: on Cardene drip Labetalol PRN (5) Hypothyroidism: -Continue levothyroxine (6) ADHD: (7) Anxiety: Pristiq on hold On Buspar (8) CATHY on CPAP: Currently Intubated (9) DVT prophylaxis: SQ Lovenox--Held Re:Anemia Code Status Full code Total Time Total Time Spent Total Time Spent (In Minutes): 50 minutes Discharge Plan Discharge Items Patient Disposition: Discharge Diagnosis: Acute respiratory failure with hypoxia COVID-19 pneumonia ARDS Hypernatremia Metabolic alkalosis Other Date/Time: 02/10/21 16:15
[2021-02-10] MEDS ORDERED: FUROSEMIDE 40 MG/4 ML VIAL IV SCH (21:00)
--- NOTE | 2021-02-24 05:10 | Coding Query ---
CODING QUERY To promote full compliance with coding requirements relating to patient care, provider participation is requested in all cases of eyeglass assembler uncertainty. Please assist us with the question(s) below: Coding Question(s): Please document patient's cause of . Thank you. Cole Helm, [facility] Physician's Response(s): Acute respiratory failure with hypoxia secondary to COVID-19 pneumonia and ARDS Principal Diagnosis: "that condition established after study, to be chiefly responsible for occasioning the admission of the patient to the hospital for care." Co-Existing Principal Diagnosis: "when two or more diagnoses equally meet the criteria for principal diagnosis as determined by the circumstances of admission, diagnostic work up, and/or therapy provided, and the Alphabetic Index, Tabular List, or another coding guideline does not provide sequencing direction, any one of the diagnoses may be sequenced first." "When the physician has documented what appears to be a current diagnosis in the body of the record, but has not included the diagnosis in the final diagnostic statement, the physician should be asked whether the diagnosis should be added." (Source Coding [facility] 2 QTR90. p3-4) [id number]
== END 2021-02-10 17:50 | disposition expired | DRG 207 ==
LOC: ED 08:06 → SUATTDRO 12:11 → 3E 12:11 → 2E 01-26 17:53 → 1E 01-30 21:42